=== PATIENT | male | born 1950 | race Caucasian/White ===

== ENCOUNTER 2017-06-15 12:01 | Inpatient (IN) | payer OTHER ==
[~2017-06-15] VITALS: Ht 172.7 cm; Wt 79.2 kg
[~2017-06-15 12:01] MED LIST: ATEN25TA PO; DCL250 PO; LEVO25TA PO; LPT10 PO; WARF-280 PO; WARF5TAB7 PO; gabapentin PO
--- NOTE | 2017-06-15 12:40 | EMERGENCY ROOM VISIT NOTE ---
History Report prepared by Tyrone: Jean Foreman Under the Supervision of: Dr. Darryl Larson D.O. First contact with patient: 12:25 Chief Complaint: WOUND INFECTION Stated Complaint: Eval open sores on arms, bleeding/infection risk History of Present Illness The patient is a 67 year old male who presents to the Emergency Room with complaints of a worsening wound infection for the past month. The patient states that he has had a rash that started on his left knee and has spread, and he states that it is itchy. He states that his PCP thought that he had mites under his skin. He denies any nausea, vomiting, fever, and chills. The patient states that he is currently on Coumadin. He reports that he has been eating and drinking well. Source of History: patient Onset: a month ago Position: other (skin) Quality: other (wound infection) Timing: worsening Associated Symptoms: + rash, No fevers, No chills, No nausea, No vomiting Review of Systems See HPI for pertinent positives & negatives. A total of 10 systems reviewed and were otherwise negative. Past Medical & Surgical Medical Problems: (1) Hyperlipidemia Family History FH: heart disease Social History Smoking Status: Never Smoker Alcohol Use: heavy Drug Use: none Marital Status: single Housing Status: lives with family Occupation Status: employed Current/Historical Medications Scheduled Atenolol (Tenormin), 25 MG PO DAILY Atorvastatin (Lipitor), 10 MG PO DAILY Citalopram Hydrobromide (Celexa), 20 TAB PO DAILY Donepezil HCl (Aricept), 1 TAB PO HS Furosemide (Lasix), 20 MG PO DAILY Gabapentin (Gabapentin), 1 TAB PO DAILY Levothyroxine Sodium (Synthroid), 25 MCG PO DAILY Potassium Chloride (Potassium Chloride Er), 1 CAP PO DAILY Warfarin Sodium (Coumadin), 2 TAB PO SaSu Warfarin Sodium (Coumadin), 1 TAB PO MoTuWeThFr Allergies Coded Allergies: No Known Allergies (Unverified , 06/15/17) Physical Exam Vital Signs Date Time Temp Pulse Resp B/P (MAP) Pulse Ox O2 Delivery O2 Flow Rate FiO2 06/15/17 15:39 75 31 100 06/15/17 15:09 78 22 100 06/15/17 14:46 90/72 06/15/17 14:39 77 19 100 06/15/17 14:09 77 20 94 4/20/18 14:01 92/51 06/15/17 13:39 74 16 100 06/15/17 13:11 100 Room Air 06/15/17 13:09 76 21 100 06/15/17 13:08 79 06/15/17 13:04 105/52 06/15/17 12:10 36.4 93 20 113/74 100 Room Air Physical Exam GENERAL: Patient is awake, alert, somewhat anxious appearing and disheveled. EYES: The conjunctivae are clear. The pupils are round and reactive. EARS, NOSE, MOUTH AND THROAT: The nose is without any evidence of any deformity. Mucous membranes are moist tongue is midline NECK: The neck is nontender and supple. RESPIRATORY: Normal respiratory effort is noted there is no evidence of wheezing rhonchi or rales CARDIOVASCULAR: Regular rate and rhythm noted there no murmurs rubs or gallops normal S1 normal S2 GASTROINTESTINAL: The abdomen is soft. Bowel sounds are present in all quadrants. Abdomen is nontender PELVIS: The Pelvis is stable. No tenderness to palpation is noted. BACK: No midline tenderness or or step-off noted range of motion in flexion extension as well as rotation no signs of muscle spasm noted MUSCULOSKELETAL/EXTREMITIES: There is no evidence of gross deformity full range of motion is noted in the hips and shoulders SKIN: Edema in both lower extremities. There was excoriation over the entire body with erythema and signs of secondary cellulitis. NEUROLOGIC: Patient is awake alert and oriented x3 Medical Decision & Procedures ER Provider Diagnostic Interpretation: Radiology results as stated below per my review and radiologist interpretation: CHEST ONE VIEW PORTABLE HISTORY: 67 years-old Male Sepsis acute sepsis COMPARISON: Chest radiograph 03/06/2014 TECHNIQUE: Portable AP view of the chest FINDINGS: Cardiac silhouette is again mildly enlarged. Prior median sternotomy with prosthetic cardiac valve. There may be a small hiatal hernia. No pneumothorax, pleural effusion, focal airspace consolidation or overt pulmonary edema. Bones of the chest appear grossly intact. Degenerative changes of the shoulders and spine. IMPRESSION: Cardiomegaly without acute process. The above report was generated using voice recognition software. It may contain grammatical, syntax or spelling errors. Electronically signed by: Case Terry M.D. 06/15/2017 12:55 PM Dictated Date/Time: 06/15/2017 12:51 PM Laboratory Results 06/15/17 13:00 Red Blood Count 3.56, Mean Corpuscular Volume 87.4, Mean Corpuscular Hemoglobin 28.9, Mean Corpuscular Hemoglobin Concent 33.1, Mean Platelet Volume 8.9, Neutrophils (%) (Auto) 44.8, Lymphocytes (%) (Auto) 3.8, Monocytes (%) (Auto) 3.4, Eosinophils (%) (Auto) 47.3, Basophils (%) (Auto) 0.1, Neutrophils # (Auto ) 10.21, Lymphocytes # (Auto) 0.86, Monocytes # (Auto) 0.78, Eosinophils # (Auto ) 10.81, Basophils # (Auto) 0.03 06/15/17 13:00 Test 06/15/17 13:00 06/15/17 13:03 06/15/17 13:12 06/15/17 13:54 White Blood Count 22.83 K/uL (4.8-10.8) Red Blood Count 3.56 M/uL (4.7-6.1) Hemoglobin 10.3 g/dL (14.0-18.0) Hematocrit 31.1 % (42-52) Mean Corpuscular Volume 87.4 fL (80-100) Mean Corpuscular Hemoglobin 28.9 pg (25-34) Mean Corpuscular Hemoglobin Concent 33.1 g/dl (32-36) Platelet Count 383 K/uL (130-400) Mean Platelet Volume 8.9 fL (7.4-10.4) Neutrophils (%) (Auto) 44.8 % Lymphocytes (%) (Auto) 3.8 % Monocytes (%) (Auto) 3.4 % Eosinophils (%) (Auto) 47.3 % Basophils (%) (Auto) 0.1 % Neutrophils # (Auto) 10.21 K/uL (1.4-6.5) Lymphocytes # (Auto) 0.86 K/uL (1.2-3.4) Monocytes # (Auto) 0.78 K/uL (0.11-0.59) Eosinophils # (Auto) 10.81 K/uL (0-0.5) Basophils # (Auto) 0.03 K/uL (0-0.2) RDW Standard Deviation 44.4 fL (36.4-46.3) RDW Coefficient of Variation 14.1 % (11.5-14.5) Immature Granulocyte % (Auto) 0.6 % Immature Granulocyte # (Auto) 0.14 K/uL (0.00-0.02) Erythrocyte Sedimentation Rate 11 mm/hr (0-14) Prothrombin Time 12.4 SECONDS (9.0-12.0) Prothromb Time International Ratio 1.2 (0.9-1.1) Activated Partial Thromboplast Time 35.9 SECONDS (21.0-31.0) Partial Thromboplastin Ratio 1.4 Anion Gap 8.0 mmol/L (3-11) Est Creatinine Clear Calc Drug Dose 27.9 ml/min Estimated GFR () 29.6 Estimated GFR (Non- 25.5 BUN/Creatinine Ratio 20.2 (10-20) Calcium Level 8.3 mg/dl (8.5-10.1) Phosphorus Level 3.8 mg/dl (2.5-4.9) Magnesium Level 2.2 mg/dl (1.8-2.4) Total Bilirubin 0.3 mg/dl (0.2-1) Aspartate Amino Transf (AST/SGOT) 15 U/L (15-37) Alanine Aminotransferase (ALT/SGPT) 18 U/L (12-78) Alkaline Phosphatase 107 U/L (45-117) Total Creatine Kinase 106 U/L (39-308) Creatine Kinase MB 3.8 ng/ml (0.5-3.6) Creatine Kinase MB Ratio 3.6 (0-3.0) Troponin I < 0.015 ng/ml (0-0.045) C-Reactive Protein 5.30 mg/dl (0-0.29) Pro-B-Type Natriuretic Peptide 9473 pg/ml (0-900) Total Protein 5.6 gm/dl (6.4-8.2) Albumin 2.2 gm/dl (3.4-5.0) Globulin 3.4 gm/dl (2.5-4.0) Albumin/Globulin Ratio 0.7 (0.9-2) Lipase 226 U/L (73-393) Venous Blood pH 7.37 (7.36-7.41) Venous Blood Partial Pressure CO2 36 mmHg (38.0-50.0) Venous Blood Partial Pressure O2 34 mmHg Venous Blood HCO3 20 mmol/L Venous Blood Oxygen Saturation < 60.0 % Venous Blood Base Excess -4.7 mEq/L Bedside Lactic Acid Venous 1.34 mmol/L (0.90-1.70) Ammonia 21.0 umol/L (11-32) Laboratory results per my review. Medications Administered Medications (Trade) Dose Ordered Sig/Lakisha Route Start Time Stop Time Status Last Admin Dose Admin Sodium Chloride 1,000 ml @ 999 mls/hr Q1H1M STAT IV 06/15/17 13:40 06/15/17 14:40 DC 06/15/17 13:58 999 MLS/HR Ceftriaxone Sodium (Rocephin Inj) 1 gm NOW STAT IV 06/15/17 14:02 06/15/17 14:04 DC 06/15/17 14:00 1 GM Vancomycin HCl 1600 mg/Sodium Chloride 532 ml @ 200 mls/hr ONE STAT IV 06/15/17 14:02 06/15/17 16:41 DC 06/15/17 14:45 200 MLS/HR ECG Per My Interpretation Indication: weakness Rate (beats per minute): 79 Findings: no ectopy, other (No acute ST segment abnormality) Comparison ECG Date: 03/06/14 Change: no significant change ED Course 1225: The patient was evaluated in room C5. A complete history and physical examination were performed. 1340: NSS 1,000 ml @ 999 mls/hr IV 1402: Vancomycin HCl 1600mg/ Sodium Chloride 532ml @ 200mls/hr, Rocephin 1gm IV 1502: Upon reevaluation, the patient is doing well. I discussed results and treatment plan with him. He verbalizes agreement and understanding. The patient will be evaluated for further management and care. 1505: I discussed the patient's case with Kiki Hyde PA-C [facility] Hospitalist. The patient will be evaluated for further management. Medical Decision Differential diagnosis: Etiologies such as cellulitis, abscess, MRSA infection, DVT, necrotizing fasciitis, dermatitis, drug eruption, as well as others were entertained. Nursing notes reviewed. The patient is a 67-year-old male who presented to the emergency department with a generalized rash. The patient was found to have edema over his entire body as well as a rash which was associated with significant excoriation. The patient's overall condition appears to be with worsening rash with superimposed cellulitis. He was found to have a very elevated white blood cell count. The patient was treated with IV fluids as well as IV antibiotics. I discussed patient's laboratory and radiographic studies with him. Because of his past medical history and his elevated white blood cell count I do feel the patient may require inpatient management. This could represent a drug reaction or possibly some other underlying systemic illness. I discussed this case with the on-call [facility] hospitalist group. They have agreed to evaluate the patient in the emergency department for further management and disposition. Medication Reconcilliation Current Medication List: was personally reviewed by me Blood Pressure Screening Patient's blood pressure: Normal blood pressure Consults Time Called: 1502 Consulting Physician: Kiki Rizzo Returned Call: 1505 I discussed the patient's case with Kiki Rizzo. The patient will be evaluated for further management. Impression Primary Impression: Cellulitis Additional Impression: ОЛЕГ (acute kidney injury) Scribe Attestation The scribe's documentation has been prepared under my direction and personally reviewed by me in its entirety. I confirm that the note above accurately reflects all work, treatment, procedures, and medical decision making performed by me. Departure Information Dispostion Being Evaluated By Hospitalist Referrals Horace Boles D.O. (PCP) Patient Instructions My [facility] Problem Qualifiers Primary Impression: Cellulitis Site of cellulitis: unspecified site Qualified Codes: L03.90 - Cellulitis, unspecified
--- NOTE | 2017-06-15 12:56 | DIAGNOSTIC IMAGING REPORT ---
CHEST ONE VIEW PORTABLE HISTORY: 67 years-old Male Sepsis acute sepsis COMPARISON: Chest radiograph 03/06/2014 TECHNIQUE: Portable AP view of the chest FINDINGS: Cardiac silhouette is again mildly enlarged. Prior median sternotomy with prosthetic cardiac valve. There may be a small hiatal hernia. No pneumothorax, pleural effusion, focal airspace consolidation or overt pulmonary edema. Bones of the chest appear grossly intact. Degenerative changes of the shoulders and spine. IMPRESSION: Cardiomegaly without acute process. The above report was generated using voice recognition software. It may contain grammatical, syntax or spelling errors. Electronically signed by: Case Terry M.D. 06/15/2017 12:55 PM Dictated Date/Time: 06/15/2017 12:51 PM
[2017-06-15 13:17] LABS: BASO % 0.1 %; BASO ABS # 0.03 K/uL (0-0.2); EOS % 47.3 %; EOS ABS # 10.81 K/uL (0-0.5); HEMATOCRIT 31.1 % (42-52); HEMOGLOBIN 10.3 g/dL (14.0-18.0); IG# 0.14 K/uL (0.00-0.02); LYMPH % 3.8 %; LYMPH ABS # 0.86 K/uL (1.2-3.4); MEAN CELL VOLUME 87.4 fL (80-100); MEAN CORPUSCULAR HEMOGLOBIN 28.9 pg (25-34); MEAN CORPUSCULAR HGB CONC 33.1 g/dl (32-36); MEAN PLATELET VOLUME 8.9 fL (7.4-10.4); MONO % 3.4 %; MONO ABS # 0.78 K/uL (0.11-0.59); NEUT % 44.8 %; NEUT ABS # 10.21 K/uL (1.4-6.5); PLATELET COUNT 383 K/uL (130-400); RED CELL DISTRIBUTION WIDTH CV 14.1 % (11.5-14.5); RED CELL DISTRIBUTION WIDTH SD 44.4 fL (36.4-46.3); WHITE BLOOD COUNT 22.83 K/uL (4.8-10.8)
[2017-06-15 13:27] LABS: INR 1.2 (0.9-1.1); PTT PATIENT 35.9 SECONDS (21.0-31.0)
[2017-06-15 13:34] LABS: ALBUMIN 2.2 gm/dl (3.4-5.0); ALT/SGPT 18 U/L (12-78); AST/SGOT 15 U/L (15-37); BLOOD UREA NITROGEN 51 mg/dl (7-18); CALCIUM 8.3 mg/dl (8.5-10.1); CARBON DIOXIDE 20 mmol/L (21-32); CREATININE 2.52 mg/dl (0.60-1.40); GLUCOSE 78 mg/dl (70-99); LIPASE 226 U/L (73-393); POTASSIUM 5.2 mmol/L (3.5-5.1); SODIUM 136 mmol/L (136-145)
[2017-06-15 13:37] LABS: ALKALINE PHOSPHATASE 107 U/L (45-117); CKMB 3.8 ng/ml (0.5-3.6); PHOSPHORUS 3.8 mg/dl (2.5-4.9); TOTAL PROTEIN 5.6 gm/dl (6.4-8.2)
[2017-06-15] MEDS ORDERED: SODIUM CHLORIDE 0.9% 1000ML 1,000 ML IV STA (13:40)
[2017-06-15] MEDS ORDERED: VANCOMYCIN IV STA (14:02)
[2017-06-15] MEDS ORDERED: SODIUM CHLORIDE 0.9% IV STA (14:02)
[2017-06-15] MEDS ORDERED: CEFTRIAXONE SOD INJ 1 GM ADDVIAL IV STA (14:02)
[2017-06-15] MEDS ORDERED: VANCOMYCIN CONSULT ACTIVE PRN ×2 (14:15→16:15)
[2017-06-15] MEDS ORDERED: ACETAMINOPHEN 325 MG TAB PO PRN (16:00)
[2017-06-15] MEDS ORDERED: LEVO25TA5 PO (16:31)
[2017-06-15] MEDS ORDERED: POTA1CAP2 PO (16:31)
[2017-06-15] MEDS ORDERED: CITA10TA8 PO (16:31)
[2017-06-15] MEDS ORDERED: NRN100 PO (16:31)
[2017-06-15] MEDS ORDERED: DONE5TAB9 PO (16:31)
[2017-06-15] MEDS ORDERED: FURO20TA PO (16:31)
[2017-06-15] MEDS ORDERED: WARF4TAB PO (16:41)
[2017-06-15] MEDS ORDERED: WARF6TAB PO (16:41)
--- NOTE | 2017-06-15 16:44 | History and Physical ---
History & Physical Date & Time of Service: Jun 15, 2017 at 16:44 Chief Complaint: Eval Open Sores On Arms Bleeding/Infection Risk Primary Care Physician: Horace Boles D.O. History of Present Illness Source: patient, clinic records, hospital records This is a 67-year-old male with a PMH of schizophrenia, systolic CHF 2/2 valvular disease, paroxysmal A. fib (on Coumadin), aortic valve replacement, mitral valve repair and other medical problems listed below who presents with open sores on his arms, trunk and legs 1 month. Patient is a poor historian so HPI is limited. States that he first noticed rash 3-4 weeks ago and was seen in urgent care, where he was diagnosed with probable scabies and prescribed permethrin cream. However, patient applied medication inappropriately and rinsed a few hours after application. Was seen in clinic on 05/25/17 and was prescribed a course of Keflex for secondary bacterial infection. Patient states that he completed the antibiotic 2 weeks ago. Is unsure whether or not medication helped with sores. Went to [facility] today for annual EKG and states that he was sent over to the ED due to the appearance of his skin. Sores continue to itch and drain intermittently as well as bleed from scratching. Denies fever, chills or malaise. Does endorse some lightheadedness with standing but denies near-syncope or falls. Has issues with incontinence but denies dysuria. LE swelling is at baseline. Denies headache, visual changes, chest pain, SOB, abdominal pain, nausea, vomiting, constipation or diarrhea. Appetite and fluid intake are normal. Patient lives with brother in [place] and is employed at [employer]. Has been unable to work for the last few weeks. Follows with Coumadin clinic but is unsure of current medication dose. Denies being sexually active. Of note, home medications reconciled per [facility] out-patient record and with patient but per out-patient pharmacy, patient has only recently filled the following: -Permethrin cream -Keflex -Atenolol -Warfarin 4mg tabs Past Medical/Surgical History Medical Problems: (1) Anticoagulant long-term use Status: Chronic (2) History of endocarditis Status: Chronic (3) HLD (hyperlipidemia) Status: Chronic (4) Hyperlipidemia Status: Chronic (5) Hypothyroidism Status: Chronic (6) Paroxysmal atrial fibrillation Status: Chronic (7) Schizophrenia, unspecified Status: Chronic (8) Superior mesenteric aneurysm Status: Chronic Surgical Problems: (1) H/O tricuspid valve annuloplasty Status: Chronic (2) S/P aortic valve replacement Status: Chronic (3) S/P mitral valve repair Status: Chronic Family History FH: heart disease Social History Smoking Status: Never Smoker Alcohol Use: heavy (~3 beers daily ) Drug Use: none Marital Status: single Housing status: lives with family Occupational Status: employed Immunizations History of Influenza Vaccine: Yes History of Tetanus Vaccine?: not since 1998 or so History of Pneumococcal: No History of Hepatitis B Vaccine: No Allergies Coded Allergies: No Known Allergies (Unverified , 06/15/17) Home Medications Scheduled Atenolol (Tenormin), 25 MG PO DAILY Atorvastatin (Lipitor), 10 MG PO DAILY Citalopram Hydrobromide (Celexa), 20 TAB PO DAILY Donepezil HCl (Aricept), 1 TAB PO HS Furosemide (Lasix), 20 MG PO DAILY Gabapentin (Gabapentin), 1 TAB PO DAILY Levothyroxine Sodium (Synthroid), 25 MCG PO DAILY Potassium Chloride (Potassium Chloride Er), 1 CAP PO DAILY Warfarin Sod (Coumadin), 6 MG PO DAILY Review of Systems Ten systems reviewed and negative except as noted in the HPI. Physical Exam Vital Signs Date Time Temp Pulse Resp B/P (MAP) Pulse Ox O2 Delivery O2 Flow Rate FiO2 06/15/17 13:11 100 Room Air 06/15/17 13:08 79 06/15/17 13:04 105/52 06/15/17 12:10 36.4 93 20 113/74 100 Room Air General Appearance: no apparent distress, + pertinent finding (Disheveled appearance) Head: normocephalic, atraumatic Eyes: normal inspection, PERRL, sclerae normal ENT: normal ENT inspection, hearing grossly normal, pharynx normal (dry mucous membranes ) Neck: supple, trachea midline Respiratory/Chest: chest non-tender, lungs clear, normal breath sounds, no respiratory distress, no accessory muscle use Cardiovascular: regular rate, rhythm, normal peripheral pulses, + systolic murmur, + pertinent finding (BLE edema R>L ) Abdomen/GI: non tender, soft, no organomegaly Genitourinary - Male: + pertinent finding (R scrotal edema with excoriations. Non-tender) Back: + pertinent finding (Patchy discoloration noted on back. Non-tender, no drainage ) Extremities/Musculoskelatal: normal capillary refill, non-tender Neurologic/Psych: no motor/sensory deficits, alert, normal mood/affect, oriented x 3 Skin: + pertinent finding (Diffuse excoriation over arms, trunk, legs, scrotum with some open wounds. Erythema and edema noted on BLE. ) Diagnostics Laboratory Results Results Past 24 Hours Test 06/15/17 13:00 06/15/17 13:03 06/15/17 13:12 06/15/17 13:54 Range/Units White Blood Count 22.83 4.8-10.8 K/uL Red Blood Count 3.56 4.7-6.1 M/uL Hemoglobin 10.3 14.0-18.0 g/dL Hematocrit 31.1 42-52 % Mean Corpuscular Volume 87.4 80-100 fL Mean Corpuscular Hemoglobin 28.9 25-34 pg Mean Corpuscular Hemoglobin Concent 33.1 32-36 g/dl Platelet Count 383 130-400 K/uL Mean Platelet Volume 8.9 7.4-10.4 fL Neutrophils (%) (Auto) 44.8 % Lymphocytes (%) (Auto) 3.8 % Monocytes (%) (Auto) 3.4 % Eosinophils (%) (Auto) 47.3 % Basophils (%) (Auto) 0.1 % Neutrophils # (Auto) 10.21 1.4-6.5 K/uL Lymphocytes # (Auto) 0.86 1.2-3.4 K/uL Monocytes # (Auto) 0.78 0.11-0.59 K/uL Eosinophils # (Auto) 10.81 0-0.5 K/uL Basophils # (Auto) 0.03 0-0.2 K/uL RDW Standard Deviation 44.4 36.4-46.3 fL RDW Coefficient of Variation 14.1 11.5-14.5 % Immature Granulocyte % (Auto) 0.6 % Immature Granulocyte # (Auto) 0.14 0.00-0.02 K/uL Erythrocyte Sedimentation Rate 11 0-14 mm/hr Prothrombin Time 12.4 9.0-12.0 SECONDS Prothromb Time International Ratio 1.2 0.9-1.1 Activated Partial Thromboplast Time 35.9 21.0-31.0 SECONDS Partial Thromboplastin Ratio 1.4 Sodium Level 136 136-145 mmol/L Potassium Level 5.2 3.5-5.1 mmol/L Chloride Level 108 98-107 mmol/L Carbon Dioxide Level 20 21-32 mmol/L Anion Gap 8.0 3-11 mmol/L Blood Urea Nitrogen 51 7-18 mg/dl Creatinine 2.52 0.60-1.40 mg/dl Est Creatinine Clear Calc Drug Dose 27.9 ml/min Estimated GFR () 29.6 Estimated GFR (Non- 25.5 BUN/Creatinine Ratio 20.2 10-20 Random Glucose 78 70-99 mg/dl Calcium Level 8.3 8.5-10.1 mg/dl Phosphorus Level 3.8 2.5-4.9 mg/dl Magnesium Level 2.2 1.8-2.4 mg/dl Total Bilirubin 0.3 0.2-1 mg/dl Aspartate Amino Transf (AST/SGOT) 15 15-37 U/L Alanine Aminotransferase (ALT/SGPT) 18 12-78 U/L Alkaline Phosphatase 107 45-117 U/L Total Creatine Kinase 106 39-308 U/L Creatine Kinase MB 3.8 0.5-3.6 ng/ml Creatine Kinase MB Ratio 3.6 0-3.0 Troponin I < 0.015 0-0.045 ng/ml C-Reactive Protein 5.30 0-0.29 mg/dl Pro-B-Type Natriuretic Peptide 9473 0-900 pg/ml Total Protein 5.6 6.4-8.2 gm/dl Albumin 2.2 3.4-5.0 gm/dl Globulin 3.4 2.5-4.0 gm/dl Albumin/Globulin Ratio 0.7 0.9-2 Lipase 226 73-393 U/L Venous Blood pH 7.37 7.36-7.41 Venous Blood Partial Pressure CO2 36 38.0-50.0 mmHg Venous Blood Partial Pressure O2 34 mmHg Venous Blood HCO3 20 mmol/L Venous Blood Oxygen Saturation < 60.0 % Venous Blood Base Excess -4.7 mEq/L Bedside Lactic Acid Venous 1.34 0.90-1.70 mmol/L Ammonia 21.0 11-32 umol/L Microbiology Results 06/15/17 Blood Culture, Received Pending 06/15/17 Blood Culture, Received Pending Diagnostic Radiology CXR: IMPRESSION: Cardiomegaly without acute process. Impression Assessment and Plan This is a 67-year-old male with a PMH of schizophrenia, systolic CHF 2/2 valvular disease, paroxysmal A. fib (on Coumadin), aortic valve replacement, mitral valve repair and other medical problems listed below who presents with open sores on his arms, trunk and legs 1 month. BLE cellulitis 2/2 ?scabies infection: -Diffuse sores with excoriation x 4 weeks -Incomplete permethrin treatment, Keflex course -SIRs criteria met but does not look septic clinically -Leucocytosis of 22.8. Lactic acid wnl -Vanc and zosyn given empirically in ED -Continue with dapto -Blood and wound cultures pending -Prednisone 40mg daily, benadryl Q6 -HIV, RPR to r/o underlying cause -Derm consult -Wound care consult ОЛЕГ: -Cr of 2.52 (baseline ~1) -GFR of 25 (baseline >60) -Likely multifactorial: dehydration, infection, lasix -Urine electrolytes pending -Gentle IVF resuscitation -Hold lasix tomorrow AM and reassess Urinary incontinence: -Unclear whether or not this is acute -Denies dysuria, penile discharge -GC/chlam screen Scrotal edema: -2/2 R inguinal hernia -Non-tender -Last ultrasound from urology clinic in 2012 -Recommend out-patient follow-up and repeat ultrasound Schizophrenia: -Takes an SSRI and Aricept but no anti-psychotics -Poor insight regarding mental health, other medical conditions Paroxysmal A fib: -Regular rate and rhythm on exam -Continue atenolol, coumadin -INR subtherapeutic at 1.2 -Unclear of patient's compliance -Continue home dose of 6mg daily -Monitor INR and adjust accordingly Chronic heart failure 2/2 valvular disease: -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 Chronic BLE edema. CXR without any acute process -May 2016 echo with EFof 55-59%. Mildly increased LV wall. The aortic valve prosthesis systolic gradients are normal for this type prosthesis. There is evidence of prior mitral valve repair. Moderate mitral regurgitation is present. -Hold lasix in AM 2/2 ОЛЕГ Hypothyroidism: -Cont synthroid HLD: -Cont statin H/o heavy alcohol use: -Endorses 2-3 beers daily -Cont home dose gabapentin -At risk protocol ativan PRN DVT Ppx: Coumadin Code status: FULL PCP: Elvi Dispo: Admit to telemetry. Discharge planning ordered. Patient seen in collaboration with Dr. Kuhn. Please see addendum. Addendum: I have seen and examined the patient and agree with the assessment and plan as stated above with the following exceptions. The patient presents with well scratched sores and excoriations all over his body except on his back where he cannot reach. His back has discoloration to the skin with a darkish brown mottled appearance. There is a clear bilateral lower extremity cellulitis. There are no track ge that are seen being persistent scabies infection. It should be noted that scabies can produce pruritus for up to 4 weeks posttreatment. Agree with prednisone and antihistamines to treat symptoms. Daptomycin given empirically to cover staph, strep, MRSA. HIV is negative. Dermatology, ID, wound care consults were ordered. The patient has a very large right-sided inguinal hernia into the scrotal sac that is as large as a softball. He is reportedly not concerned by this and states that no one recommended surgery to him. Prior urology notes report that as it was not a hindrance, no treatment was recommended and that she should follow-up every couple of years. Would recommend outpatient urology follow-up for this. There is a nodular appearing flesh-colored rash on his scrotum which may be a result of edema versus STI. The patient reports no sexual intercourse. Studies are pending. He has a significant AK I and agree with holding diuretic and giving fluids with reassessment in the morning. Urine studies were ordered. The patient is schizophrenic and lives with his brother. He reports taking care of himself but insight and judgment are questionable. He is also a questionable historian. Consider psychiatric consult as inpatient to ensure the patient is safe to go home and continue caring for himself closer to discharge. This infection is clearly out of control and he was sent by doctor's office to the ER he did not feel himself this was an issue warranting treatment. Resuscitation Status VTE Prophylaxis Will order VTE Prophylaxis: Yes
[2017-06-15 17:45] VITALS: BP 95/54; PULSE 78; TEMP 36.6; O2SAT 94; Ht 172.7 cm; Wt 79.2 kg
[2017-06-15] MEDS ORDERED: ELMCR TOP (17:53)
[2017-06-15] MEDS ORDERED: SODIUM CHLORIDE 0.9% 1000ML 1,000 ML IV SCH (18:00)
[2017-06-15] MEDS ORDERED: WARFARIN SOD 6 MG TAB PO SCH (18:00)
[2017-06-15] MEDS ORDERED: DAPTOMYCIN CONSULT ACTIVE PRN (18:36)
--- NOTE | 2017-06-15 19:04 | Pharmacy Progress Note ---
ED Pharmacist Progress Note Date of Service: Jun 15, 2017. Situation Attempted to complete med rec for this complicated patient - he did not know any medications he was on. Background Called [facility] pharmacy with the patient's permission. Recent fill history only included the following: * Permetherin 5% filled 05/23: apply head to toe. Rinse. Repeat in 7 days * Cephalexin 500 mg po TID x7 days filled on 05/25 * Warfarin 4 mg po daily * Atenolol 25 mg po daily [facility] also noted that patient had *remote* fill history of the following: * Atorvastatin 10 mg po daily (last filled March 25 for 30 day supply) * Levothyroxine 25 mcg po daily (last filled January 2017 for 30 day supply) * Gabapentin has not been filled since April of 2016 Spoke with Kiki Hyde PA-C who noted Epic records from today had Coumadin clinic recommendation to give warfarin 8 mg po x2 then resume dose of 6 mg po daily Subtherapeutic INR today. Indication for warfarin = Afib. Also with bioprosthetic aortic valve replacement Assessment * Of note, if patient gets medications from multiple pharmacies, he may be taking other medications not included above. * However, I still suspect significant outpatient non-adherence, likely affecting most/all of his medications as patient did not know any medications he was taking, his INR was subtherapeutic, and fill history at outpatient pharmacy does not match medication list Recommendation * With 100% adherence inpatient, suggest close monitoring for medication related adverse effects * Most notably, warfarin dose may need to be decreased, despite subtherapeutic INR * Suggest warfarin 5 mg po x2 then 4 mg daily with daily INR. If INR increases by 0.3-0.4 over any 24 hour period, would recommend dose reduction
[2017-06-15] MEDS ORDERED: CMD4 PO (19:34)
[2017-06-15] MEDS: DONEPEZIL HCL 5 MG TAB PO SCH (19:59)
[2017-06-15 20:18] VITALS: BP 102/64; PULSE 61; TEMP 36.5; O2SAT 96
[2017-06-15 23:52] VITALS: BP 92/51; PULSE 84; TEMP 36.5; O2SAT 100
[2017-06-16 03:42] VITALS: BP 93/58; PULSE 77; TEMP 36.8; O2SAT 98
[2017-06-16] MEDS: LEVOTHYROXINE 25 MCG TAB PO SCH (05:28)
[2017-06-16 06:28] LABS: HEMATOCRIT 24.9 % (42-52); HEMOGLOBIN 8.2 g/dL (14.0-18.0); MEAN CELL VOLUME 87.4 fL (80-100); MEAN CORPUSCULAR HEMOGLOBIN 28.8 pg (25-34); MEAN CORPUSCULAR HGB CONC 32.9 g/dl (32-36); MEAN PLATELET VOLUME 8.3 fL (7.4-10.4); PLATELET COUNT 303 K/uL (130-400); RED CELL DISTRIBUTION WIDTH CV 14.2 % (11.5-14.5); RED CELL DISTRIBUTION WIDTH SD 45.6 fL (36.4-46.3); WHITE BLOOD COUNT 12.26 K/uL (4.8-10.8)
[2017-06-16 06:38] LABS: INR 1.4 (0.9-1.1)
[2017-06-16 06:46] LABS: CALCIUM 7.7 mg/dl (8.5-10.1); CREATININE 2.25 mg/dl (0.60-1.40); POTASSIUM 5.2 mmol/L (3.5-5.1)
[2017-06-16 07:09] VITALS: BP_SYST 92; BP_SYST 94; BP_DIAS 57; BP_DIAS 64; PULSE 65; TEMP 36.4; O2SAT 100
[2017-06-16] MEDS ORDERED: DAPTOmycin IV 275 MG in SYRINGE 0 ML IV SCH (08:00)
[2017-06-16] MEDS: ATORVASTATIN 10 MG TAB PO SCH (08:20)
[2017-06-16] MEDS: CITALOPRAM 20 MG TAB PO SCH (08:20)
[2017-06-16] MEDS: GABAPENTIN 100 MG CAP PO SCH (08:21)
[2017-06-16] MEDS ORDERED: NURSING VERBAL MED ORDER ONE ×2 (08:45→09:00)
[2017-06-16] MEDS ORDERED: FUROSEMIDE 20 MG TAB PO SCH (09:00)
[2017-06-16] MEDS ORDERED: POTASSIUM CHLORIDE 10 MEQ TABCR PO SCH (09:00)
[2017-06-16] MEDS ORDERED: TRIAMCINOLONE ACET 0.1% CR 15 GM TUBE EXT SCH (09:00)
--- NOTE | 2017-06-16 10:29 | DERMATOLOGY CONSULTATION ---
DATE OF CONSULTATION: 06/16/2017 HISTORY OF PRESENT ILLNESS: Mr. Owens is a 67-year-old white male who was admitted yesterday for a skin condition. He is a somewhat poor historian, so it is unclear how long the skin condition has been present but it has apparently been present for several weeks and has been quite itchy. At one point, he was suspected to have scabies. He lives with a brother who he says does not have any skin problems. He has not had any treatment recently for the skin condition that I am aware of. MEDICATIONS: He is on chronic Coumadin. He received Rocephin and vancomycin in the Emergency Room yesterday. He is now on daptomycin. PHYSICAL EXAMINATION: GENERAL: He is a well-developed, well-nourished white male who is alert and responsive but is not entirely oriented. He is afebrile. EXAMINATION OF FACE, EARS, NECK, SCALP: Unremarkable. SKIN: The skin on the trunk is quite dry. The anterior trunk appears normal. The upper back has a few small areas of excoriations. The arms particularly the forearms have numerous crusted sores consistent with excoriations. The hands, finger, webs really are not involved. The genital area reveals a massively swollen scrotum that he really cannot describe how long that has been present. There are some excoriations on the scrotum. He appears to be uncircumcised. There are really no lesions on the penis. Legs, particularly the lower legs also have crusted areas consistent with excoriations. The feet are quite dry, but no significant involvement of the feet or toes. IMPRESSION: Neurotic excoriations with secondary wound infection. I do not see any primary dermatologic problem. PLAN: Cultures from the skin are pending. He is on daptomycin, Benadryl, and prednisone is about to be started and agree with all of those. We are also adding triamcinolone cream 0.1% b.i.d. to these affected areas. Again, there is no evidence for scabies and I will follow him up on a p.r.n. basis. [facility]
[2017-06-16 11:35] VITALS: BP 100/61; PULSE 71; TEMP 36.4; O2SAT 100
--- NOTE | 2017-06-16 14:07 | Progress Note ---
Internal Med Progress Note Date of Service: Jun 16, 2017. Provider Documentation: SUBJECTIVE: The patient was seen and examined in telemetry unit He was admitted with them secondary infection involving the skin with and other comorbid conditions He has history of schizophrenia and has been a poor historian Has been feeling better since admission and denies any significant symptoms today OBJECTIVE: Vital Signs-as noted below Exam: General-no apparent distress at rest Eyes-normal ENT-normal Neck-supple Lungs-clear to auscultate bilaterally Heart-S1-S2 irregular Abdomen-benign, soft, nontender, bowel sounds present He was swelling of scrotum mostly on right side which is elongated with the minimal redness involving the skin This is right inguinal hernia without any signs of obstruction Extremities-1+ edema on the right and trace edema on the left Has multiple scattered skin ulcerations seems to be self inflicted, worse on the right side He has generalized small skin lesions again seems to be self-inflicted with secondary infection Clinically no evidence of scabies Neuro-alert and awake He has more or less typical symptoms of schizophrenia Generally weak but no focal neuro deficit Lab data as noted below. ASSESSMENT & PLAN: This is a 67-year-old male with a PMH of schizophrenia, systolic CHF 2/2 valvular disease, paroxysmal A. fib (on Coumadin), aortic valve replacement, mitral valve repair and other medical problems listed below who presents with open sores on his arms, trunk and legs 1 month. BLE cellulitis 2/2,Scabies ruled out -Diffuse sores with excoriation x 4 weeks -Incomplete permethrin treatment, Keflex course -SIRs criteria met but does not look septic clinically -Leucocytosis of 22.8. Lactic acid wnl -Vanc and zosyn given empirically in ED -Continue with dapto -Blood and wound cultures pending -Prednisone 40mg daily, Benadryl Q6 -HIV, RPR to r/o underlying cause -negative -Derm consult -appreciate Input -Wound care consult ОЛЕГ: -Cr of 2.52 (baseline ~1) -GFR of 25 (baseline >60) -Likely multifactorial: dehydration, infection, Lasix -Urine electrolytes -noted -Gentle IVF resuscitation -Hold Lasix -slightly better Urinary incontinence: -Unclear whether or not this is acute -Denies dysuria, penile discharge -GC/chlam screen Scrotal edema: -2/2 R inguinal hernia -Non-tender -Last ultrasound from urology clinic in 2012 -Recommend out-patient follow-up and repeat ultrasound Schizophrenia: -Takes an SSRI and Aricept but no anti-psychotics -Poor insight regarding mental health, other medical conditions -psychiatry evaluation Paroxysmal A fib: -Regular rate and rhythm on exam -Continue atenolol, Coumadin -INR subtherapeutic at 1.2 Chronic heart failure 2/2 valvular disease: -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 Chronic BLE edema. CXR without any acute process -May 2016 echo with EFof 55-59%. Mildly increased LV wall. The aortic valve prosthesis systolic gradients are normal for this type prosthesis. There is evidence of prior mitral valve repair. Moderate mitral regurgitation is present. -Hold lasix in AM 2/2 ОЛЕГ -monitor fluid overload Hypothyroidism: -Cont Synthroid HLD: -Cont statin H/o heavy alcohol use: -Endorses 2-3 beers daily -Cont home dose gabapentin -At risk protocol Ativan PRN DVT Ppx: Coumadin Code status: FULL Vital Signs: Date Time Temp Pulse Resp B/P (MAP) Pulse Ox O2 Delivery O2 Flow Rate FiO2 06/16/17 12:00 Room Air 06/16/17 11:35 36.4 71 18 100/61 (74) 100 Room Air 06/16/17 08:00 Room Air 06/16/17 07:09 36.4 65 18 94/57 (69) 100 92/64 (73) 06/16/17 04:00 Room Air 06/16/17 03:42 36.8 77 20 93/58 (70) 98 Room Air 06/16/17 00:01 Room Air 06/15/17 23:52 36.5 84 20 92/51 (65) 100 Room Air 06/15/17 20:18 36.5 61 18 102/64 (77) 96 06/15/17 20:01 Room Air 06/15/17 17:45 36.6 78 20 95/54 94 Room Air 06/15/17 17:18 88 20 114/75 100 06/15/17 16:39 86 20 98/68 100 06/15/17 16:09 84 17 100 06/15/17 15:39 75 31 100 06/15/17 15:09 78 22 100 06/15/17 14:46 90/72 06/15/17 14:39 77 19 100 06/15/17 14:09 77 20 94 06/15/17 14:01 92/51 Lab Results: Results Past 24 Hours Test 06/16/17 01:55 06/16/17 05:56 Range/Units Urine Color YELLOW Urine Appearance CLEAR CLEAR Urine pH 5.0 4.5-7.5 Urine Specific Aynor 1.020 1.000-1.030 Urine Protein NEG NEG Urine Glucose (UA) NEG NEG Urine Ketones NEG NEG Urine Occult Blood NEG NEG Urine Nitrite NEG NEG Urine Bilirubin NEG NEG Urine Urobilinogen NEG NEG Urine Leukocyte Esterase TRACE NEG Urine WBC (Auto) 1-5 0-5 /hpf Urine RBC (Auto) 0-4 0-4 /hpf Urine Hyaline Casts (Auto) 0 0-5 /lpf Urine Epithelial Cells (Auto) 0-5 0-5 /lpf Urine Bacteria (Auto) NEG NEG Urine Random Creatinine 136.0 mg/dl Urine Random Sodium 8 mEq/L Urine Random Urea Nitrogen 853 mg/dl White Blood Count 12.26 4.8-10.8 K/uL Red Blood Count 2.85 4.7-6.1 M/uL Hemoglobin 8.2 14.0-18.0 g/dL Hematocrit 24.9 42-52 % Mean Corpuscular Volume 87.4 80-100 fL Mean Corpuscular Hemoglobin 28.8 25-34 pg Mean Corpuscular Hemoglobin Concent 32.9 32-36 g/dl RDW Standard Deviation 45.6 36.4-46.3 fL RDW Coefficient of Variation 14.2 11.5-14.5 % Platelet Count 303 130-400 K/uL Mean Platelet Volume 8.3 7.4-10.4 fL Prothrombin Time 15.0 9.0-12.0 SECONDS Prothromb Time International Ratio 1.4 0.9-1.1 Sodium Level 139 136-145 mmol/L Potassium Level 5.2 3.5-5.1 mmol/L Chloride Level 112 98-107 mmol/L Carbon Dioxide Level 20 21-32 mmol/L Anion Gap 7.0 3-11 mmol/L Blood Urea Nitrogen 44 7-18 mg/dl Creatinine 2.25 0.60-1.40 mg/dl Est Creatinine Clear Calc Drug Dose 31.2 ml/min Estimated GFR () 34.0 Estimated GFR (Non- 29.3 BUN/Creatinine Ratio 19.5 10-20 Random Glucose 113 70-99 mg/dl Calcium Level 7.7 8.5-10.1 mg/dl Microbiology Results 06/15/17 Gram Stain - Final, Resulted 06/15/17 Genital Culture, Resulted Pending 06/15/17 Gram Stain - Final, Resulted 06/15/17 Wound Culture, Resulted Pending
--- NOTE | 2017-06-16 15:29 | Psychiatric Consultation ---
Consultation Date of Consultation Jun 16, 2017. Identifying Data 67-year-old male with PMH of schizophrenia, systolic CHF, paroxysmal A. fib, valvular repair/replacement, other other medical problems. Pt presents with open wounds to arms, legs, and trunk being worked up for etiology. Due to history of reported schizophrenia, psychiatric consult requested for management. Chief Complaint "I think it was, my skin, I was picking it". History of Present Illness Christiano Owens is a 67-year-old male who presented to the ED upon recommendation from his outpatient office for open wounds to his arms, legs, and trunk. Pt is being worked up to determine etiology. Pt has a reported history of treatment for schizophrenia and is has a documented involuntary admission to [address] [place] [address] from July 2010. Pt was diagnosed with schizophrenia prior to his admission in 2010 and reported at that time, "having mental health problems in the 70's". 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 Pt denied auditory or visual hallucinations at that time. Prior to that hospitalization he had "not been on psychiatric medication for decades and has done well". He was not started on medications during that hospitalization. Pt seen today on psychiatric consult service for "management of schizophrenia." Pt answers questions appropriately; however, he is limited in his HPI. Pt reports being treated for schizophrenia "a long, long time ago", but reports to this provider that he is unsure if that was ever the case. He reports being off antipsychotic medications for years. Pt confirms his only psychiatric medication at this time is Celexa. Pt describes his mood as "okay" and denies any concerns related to mood or anxiety. Pt reports his sleep has been stable and there has been no change in his appetite. Pt denies concerns for depression or anxiety. He denies A/V hallucinations, SI/HI, kerry, or other psychiatric concerns. Pt states he has been stable on Celexa and does not feel that any changes need to be made at this time. Pt is appropriate and pleasant during the course of our encounter and does not give any indication for active psychosis, response to internal stimuli, or behavioral concerns. Attempts have been made by psychiatric nurse liaison to contact patient's sister , RA, and his brother, as well as the patient's reported pharmacies to confirm doses of medications. Awaiting collateral information. Past Psychiatric History Current OP Treatment: no current treatment Prior OP Treatment: psychiatrist, therapist Prior Psych Hospitalizations: [facility], other (reports " mental health problems in the 70's") Access to a Gun: No Past Medication Trials Per records from 2010 - - Thorazine, Stelazine, Haldol, and Cogentin "in the 1970's" Past Medical/Surgical History History of Concussion/Seizure: No (1) Cellulitis (2) ОЛЕГ (acute kidney injury) (3) Paroxysmal atrial fibrillation (4) Hypothyroidism (5) Hyperlipidemia Allergies Allergies: Coded Allergies: No Known Allergies (Unverified , 06/15/17) Home Medications Scheduled Atenolol (Tenormin), 25 MG PO DAILY Atorvastatin (Lipitor), 10 MG PO DAILY Citalopram Hydrobromide (Celexa), 20 TAB PO DAILY Donepezil HCl (Aricept), 1 TAB PO HS Furosemide (Lasix), 20 MG PO DAILY Gabapentin (Gabapentin), 1 TAB PO DAILY Levothyroxine Sodium (Synthroid), 25 MCG PO DAILY Potassium Chloride (Potassium Chloride Er), 1 CAP PO DAILY Warfarin Sod (Coumadin), 6 MG PO DAILY Family History FH: heart disease Alcohol Use Alcohol Use In Past 12 Months: No Smoking Use Smoking Status: Unknown if Ever Smoked Substance History Denies use of illicit substances either regularly or recreationally. Pt reports caffeine intake of 2 sodas per morning. Personal History Lives in: [place], [place] along with his older brother Education: graduated from high school, started college (reports 1 year at [employer]) Work History: Pt attends [employer] regularly for the past 25 years. Relationship History: never Children: denies Legal History: none Psychological Trauma History: Denies Hx Traumatic Event Review of Systems Psych: denies symptoms other than stated above Constitutional: denied Cardiovascular: denied GI: denied Neurologic: denied Integumentary: dense covering of excoriations along arms and trunk, most closed and healing, some remain open Remainder of 10 body systems also reviewed and denied other than noted above. Examination Vital Signs Vital Signs Past 12 Hours Date Time Temp Pulse Resp B/P (MAP) Pulse Ox O2 Delivery O2 Flow Rate FiO2 06/16/17 12:00 Room Air 06/16/17 11:35 36.4 71 18 100/61 (74) 100 Room Air 06/16/17 08:00 Room Air 06/16/17 07:09 36.4 65 18 94/57 (69) 100 92/64 (73) 06/16/17 04:00 Room Air 06/16/17 03:42 36.8 77 20 93/58 (70) 98 Room Air Laboratory Results Last 24 Hours Test 06/16/17 01:55 06/16/17 05:56 Urine Color YELLOW Urine Appearance CLEAR Urine pH 5.0 Urine Specific Lillian 1.020 Urine Protein NEG Urine Glucose (UA) NEG Urine Ketones NEG Urine Occult Blood NEG Urine Nitrite NEG Urine Bilirubin NEG Urine Urobilinogen NEG Urine Leukocyte Esterase TRACE Urine WBC (Auto) 1-5 /hpf Urine RBC (Auto) 0-4 /hpf Urine Hyaline Casts (Auto) 0 /lpf Urine Epithelial Cells (Auto) 0-5 /lpf Urine Bacteria (Auto) NEG Urine Random Creatinine 136.0 mg/dl Urine Random Sodium 8 mEq/L Urine Random Urea Nitrogen 853 mg/dl White Blood Count 12.26 K/uL Red Blood Count 2.85 M/uL Hemoglobin 8.2 g/dL Hematocrit 24.9 % Mean Corpuscular Volume 87.4 fL Mean Corpuscular Hemoglobin 28.8 pg Mean Corpuscular Hemoglobin Concent 32.9 g/dl RDW Standard Deviation 45.6 fL RDW Coefficient of Variation 14.2 % Platelet Count 303 K/uL Mean Platelet Volume 8.3 fL Prothrombin Time 15.0 SECONDS Prothromb Time International Ratio 1.4 Sodium Level 139 mmol/L Potassium Level 5.2 mmol/L Chloride Level 112 mmol/L Carbon Dioxide Level 20 mmol/L Anion Gap 7.0 mmol/L Blood Urea Nitrogen 44 mg/dl Creatinine 2.25 mg/dl Est Creatinine Clear Calc Drug Dose 31.2 ml/min Estimated GFR () 34.0 Estimated GFR (Non- 29.3 BUN/Creatinine Ratio 19.5 Random Glucose 113 mg/dl Calcium Level 7.7 mg/dl Mental Examination During interview pt is: alert and oriented, cooperative Appearance: disheveled, appeared stated age Eye contact is: poor (stares off to corner of the room, does not appear to be in response to internal stimuli) Motor behavior is: no abnormal motor movements Speech: normal in rate, rhythm & volume Affect: euthymic Mood is: other ("okay") Thought process: goal directed, clear, coherent, concrete Thought content: reality based without delusions Suicidal thought are: denied, Plan: denied, Intent: denied Homicidal thoughts are: denied Hallucinations: denies auditory, denies visual Cognition: attention grossly intact, language grossly intact Intelligence estimated to be: below average Insight: limited (due to likely intellectual disability) Judgement: limited (due to likely intellectual disability) Impression / Recommendations Impression 67-year-old male with previous diagnosis of schizophrenia who has been well- controlled off antipsychotic medication for decades. Pt reports current use of Celexa 20mg which has been beneficial for mood. Pt denies concerns with mood or anxiety. No evidence of active psychosis, patient does not appear to be responding to internal stimuli. He denies A/V hallucinations and states he is not suicidal or homicidal. Psychiatric nurse liaison has placed phone calls to patient's siblings to determine his current outpatient providers. Pt reports his medications are prescribed by his PCP, which may be likely if only requiring Celexa for mood control. No recommendations for changes at this time. Will be available for further questions as necessary; however, patient appears appropriate for ongoing treatment on the medical floor with disposition/ discharge as determined by primary medical team. Risk Factors Assessment Male: Yes : Yes /single/: Yes Access to guns: No Health problems: Yes Mental Health Diagnoses: Yes Substance use disorders: No Previous psychiatric stay: Yes Hopelessness: No Smoker: No Protective Factors Assessment : No Responsible for young children: No Recommendations (1) Unspecified mood [affective] disorder 06/16 - Appropriate to continue Celexa 20mg daily, no indication for medication changes at this time - Calls out to retrieve collateral information from siblings in regard to outpatient management - Will offer further recommendations as necessary, but appears appropriate for further treatment and disposition/discharge according to recommendations by primary medical team. Dr. Ayers has personally been involved in the review of the above case and development of recommendations.
[2017-06-16 15:57] VITALS: BP 106/68; PULSE 62; TEMP 36.4; O2SAT 100
[2017-06-16] MEDS ORDERED: WARFARIN SOD 4 MG TAB PO SCH (16:00)
[2017-06-16] MEDS: WARFARIN SOD 6 MG TAB PO SCH (16:23)
[2017-06-16 19:20] VITALS: BP 94/58; PULSE 64; TEMP 36.5; O2SAT 99
--- NOTE | 2017-06-16 20:50 | Medical Consult ---
Consultation Date of Consultation: Jun 16, 2017. Attending Physician: Fern Corona M.D. Reason for Consultation: Daptomycin usage History of Present Illness 67-year-old male with history of congestive heart failure, schizophrenia, atrial fibrillation, who apparently has had excoriated skin lesions for the past 1-2 months, treated for possible scabies although compliance with treatment is questionable, then treated with course of oral cephalexin for possible secondary bacterial infection. Symptoms have continued and patient ultimately came to the emergency department for further management. He is found to have possible lower extremity cellulitis, and has been started on daptomycin therapy. Blood cultures are growing Gram-positive cocci, wound cultures are pending.. Patient denies any fever or chills. Past Medical/Surgical History Medical Problems: (1) ОЛЕГ (acute kidney injury) Status: Acute (2) Cellulitis Status: Acute Medical Problems: (1) Anticoagulant long-term use (2) History of endocarditis (3) HLD (hyperlipidemia) (4) Hyperlipidemia (5) Hypothyroidism (6) Paroxysmal atrial fibrillation (7) Schizophrenia, unspecified (8) Superior mesenteric aneurysm (9) Unspecified mood [affective] disorder Surgical Problems: (1) H/O tricuspid valve annuloplasty (2) S/P aortic valve replacement (3) S/P mitral valve repair Social History Problems: (1) Heavy alcohol use Family History FH: heart disease Social History Smoking Status: Unknown if Ever Smoked Alcohol Use: heavy (~3 beers daily ) Drug Use: none Marital Status: single Housing Status: lives with family Occupation Status: employed Allergies Coded Allergies: No Known Allergies (Unverified , 06/15/17) Current Inpatient Medications Current Inpatient Medications Medications (Trade) Dose Ordered Sig/Lakisha Route Start Time Stop Time Status Last Admin Dose Admin Acetaminophen (Tylenol Tab) 650 mg Q4H PRN PO 06/15/17 16:00 07/15/17 15:59 Prednisone (PredniSONE TAB) 40 mg DAILY PO 06/16/17 09:00 07/16/17 08:59 06/16/17 09:14 40 MG Diphenhydramine HCl (Benadryl Cap) 25 mg Q6 PO 06/15/17 18:00 07/15/17 17:59 06/16/17 17:49 25 MG Atenolol (Tenormin Tab) 25 mg DAILY PO 06/16/17 09:00 07/16/17 08:59 Atorvastatin Calcium (Lipitor Tab) 10 mg DAILY PO 06/16/17 09:00 07/16/17 08:59 06/16/17 08:20 10 MG Citalopram Hydrobromide (celeXA TAB) 20 mg DAILY PO 06/16/17 09:00 07/16/17 08:59 06/16/17 08:20 20 MG Donepezil HCl (Aricept Tab) 5 mg HS PO 06/15/17 21:00 07/15/17 20:59 06/15/17 19:59 5 MG Gabapentin (Neurontin Cap) 100 mg DAILY PO 06/16/17 09:00 07/16/17 08:59 06/16/17 08:21 100 MG Levothyroxine Sodium (Synthroid Tab) 25 mcg DAILYBB PO 06/16/17 06:00 07/16/17 06:59 06/16/17 05:28 25 MCG Daptomycin (Consult) 1 ea UD PRN N/A 06/15/17 18:36 07/15/17 18:35 Warfarin Sodium (Coumadin Tab) 6 mg DAILY@1600 PO 06/16/17 16:00 07/16/17 15:59 06/16/17 16:23 6 MG Triamcinolone Acetonide (Triamcinolone Acet 0.1% Crm) 1 appln BID EXT 06/16/17 21:00 07/16/17 20:59 Daptomycin 275 mg/ Syringe 5.5 ml @ 2.75 mls/ min Q24H IV 06/17/17 08:00 06/26/17 07:59 Review of Systems All systems were reviewed and are negative except as per HPI Physical Exam Date Time Temp Pulse Resp B/P (MAP) Pulse Ox O2 Delivery O2 Flow Rate FiO2 06/16/17 20:00 Room Air 06/16/17 19:20 36.5 64 18 94/58 (70) 99 Room Air 06/16/17 16:00 Room Air 06/16/17 15:57 36.4 62 18 106/68 (81) 100 Room Air 06/16/17 12:00 Room Air 06/16/17 11:35 36.4 71 18 100/61 (74) 100 Room Air 06/16/17 08:00 Room Air 06/16/17 07:09 36.4 65 18 94/57 (69) 100 92/64 (73) 06/16/17 04:00 Room Air 06/16/17 03:42 36.8 77 20 93/58 (70) 98 Room Air 06/16/17 00:01 Room Air 06/15/17 23:52 36.5 84 20 92/51 (65) 100 Room Air General Appearance: WD/WN, no apparent distress Head: normocephalic, atraumatic Eyes: normal inspection, EOMI, sclerae normal ENT: normal ENT inspection, hearing grossly normal, pharynx normal Neck: supple, no adenopathy, thyroid normal, trachea midline Respiratory/Chest: chest non-tender, lungs clear, normal breath sounds, no respiratory distress Cardiovascular: regular rate, rhythm, no gallop, no murmur Abdomen/GI: normal bowel sounds, non tender, soft, no organomegaly Back: normal inspection, no CVA tenderness Extremities/Musculoskelatal: no calf tenderness, normal capillary refill, + swelling Neurologic/Psych: alert, oriented x 3 Skin: normal color, + pertinent finding (Multiple circular excoriated lesions, swelling or redness of legs) Lymphatic: no adenopathy Laboratory Results RUN DATE: 06/16/17 [facility] LAB PAGE 1 RUN TIME: 1214 Specimen Inquiry PAT[id number] LOC: Tia # : [id number] AGE/SX: 67/M ROOM: E219 REG : 06/15/[address]: Fern Corona M.D. : 1950 BED: 1 DIS : STATUS: ADM IN TLOC: SPEC #: [id number] YAMILKA: 06/15/17 STATUS: RES REQ #: [id number] RECD: 06/15/17-[address]: Darryl Larson DO SOURCE: BLOOD ENTR: 06/15/17-[address] [facility] DR: Horace Boles D.OLeonidas [facility]: ORDERED: BLOOD CULTURE Procedure Result Verified Site BLD CULT Preliminary 06/16/17-1214 Organism 1 GRAM POSITIVE COCCI SENS SENSITIVITIES DEPENDENT ON FURTHER IDENTIFICATION Phoned Positive Blood Culture Gram Stain Report to OWEN Weber on 06/16/17 At 1212 By EFRAÍN. Results were verbalized back to EFRAÍN. RUN DATE: 06/16/17 [facility] LAB PAGE 1 RUN TIME: 1416 Specimen Inquiry PATIENT: IVANIAELIZABETH LOC: Sinan2T U # : [id number] AGE/SX: 67/M ROOM: 19 REG : 06/15/[address]: Fern Corona M.D. : 1950 BED: 1 DIS : STATUS: ADM IN TLOC: SPEC #: [id number] YAMILKA: 06/15/17 STATUS: RES REQ #: [id number] RECD: 06/15/17 [facility] DR: Kiki Hyde P.A.-C. SOURCE: GEN MALE ENTR: 06/15/[address] [facility] [address]: Fern Corona M.D. [facility]: Olga Kuhn , Nilson Ruiz MD Sulman, Scott A. D.OLeonidas ORDERED: JEWELS MALE CU/SM COMMENTS: Has Specimen Been Obtained/Collected? Y Procedure Result Verified Site GRAM STAIN Final 06/16/17 RESULT RARE EPITHELIAL CELLS NO WBCs SEEN FEW GRAM POSITIVE COCCI GENITAL CULTURE MALE Preliminary 06/16/17 Organism 1 STAPHYLOCOCCUS AUREUS QUANITY MODERATE SENS SENSITIVITY TO FOLLOW Last 24 Hours Test 06/16/17 01:55 06/16/17 05:56 Urine Color YELLOW Urine Appearance CLEAR Urine pH 5.0 Urine Specific [place] 1.020 Urine Protein NEG Urine Glucose (UA) NEG Urine Ketones NEG Urine Occult Blood NEG Urine Nitrite NEG Urine Bilirubin NEG Urine Urobilinogen NEG Urine Leukocyte Esterase TRACE Urine WBC (Auto) 1-5 /hpf Urine RBC (Auto) 0-4 /hpf Urine Hyaline Casts (Auto) 0 /lpf Urine Epithelial Cells (Auto) 0-5 /lpf Urine Bacteria (Auto) NEG Urine Random Creatinine 136.0 mg/dl Urine Random Sodium 8 mEq/L Urine Random Urea Nitrogen 853 mg/dl White Blood Count 12.26 K/uL Red Blood Count 2.85 M/uL Hemoglobin 8.2 g/dL Hematocrit 24.9 % Mean Corpuscular Volume 87.4 fL Mean Corpuscular Hemoglobin 28.8 pg Mean Corpuscular Hemoglobin Concent 32.9 g/dl RDW Standard Deviation 45.6 fL RDW Coefficient of Variation 14.2 % Platelet Count 303 K/uL Mean Platelet Volume 8.3 fL Prothrombin Time 15.0 SECONDS Prothromb Time International Ratio 1.4 Sodium Level 139 mmol/L Potassium Level 5.2 mmol/L Chloride Level 112 mmol/L Carbon Dioxide Level 20 mmol/L Anion Gap 7.0 mmol/L Blood Urea Nitrogen 44 mg/dl Creatinine 2.25 mg/dl Est Creatinine Clear Calc Drug Dose 31.2 ml/min Estimated GFR () 34.0 Estimated GFR (Non- 29.3 BUN/Creatinine Ratio 19.5 Random Glucose 113 mg/dl Calcium Level 7.7 mg/dl Patient Name: ELIZABETH REDD Unit Number: [id number] Dictated: 06/15/171250 Transcribed: 06/15/171250 JRB Printed Date/Time: [~ rep prt dt]/[~ rep prt tm] [~ rep ct labl] - [~ rep ct ivnm] [facility] [place] [address] Dictated: 06/15/171250 Transcribed: 06/15/171250 JRB Printed Date/Time: [~ rep prt dt]/[~ rep prt tm] [~ rep ct labl] - [~ rep ct ivnm] CHEST ONE VIEW PORTABLE HISTORY: 67 years-old Male Sepsis acute sepsis COMPARISON: Chest radiograph 03/06/2014 TECHNIQUE: Portable AP view of the chest FINDINGS: Cardiac silhouette is again mildly enlarged. Prior median sternotomy with prosthetic cardiac valve. There may be a small hiatal hernia. No pneumothorax, pleural effusion, focal airspace consolidation or overt pulmonary edema. Bones of the chest appear grossly intact. Degenerative changes of the shoulders and spine. IMPRESSION: Cardiomegaly without acute process. The above report was generated using voice recognition software. It may contain grammatical, syntax or spelling errors. Electronically signed by: Case Terry M.D. 06/15/2017 12:55 PM Dictated Date/Time: 06/15/2017 12:51 PM The status of this report is Signed. Draft = Not yet reviewed or approved by Radiologist. Signed = Reviewed and approved by Radiologist. <AttendingPhy></AttendingPhy> <FamilyPhy>Horace Boles D.O.</FamilyPhy> < PrimaryPhy>Horace Boles D.O.</PrimaryPhy> <UnitNumber>[id number]</UnitNumber > <VisitNumber>[id number]</VisitNumber> <PatientName>ELIZABETH REDD</ PatientName> <DateOfBirth>1950</DateOfBirth> <Location>[facility]</Location> < ServiceDate>06/15/17</ServiceDate> <MNE>ESINDI</MNE> <OrderingPhy>Darryl Larson D.O.</OrderingPhy> <OrderingPhyMNE>f rep ord dr banda</OrderingPhyMNE> <DictatingPhyMNE>f rep dict dr banda</DictatingPhyMNE> <CCListMNE>f rep ct solo</ CCListMNE> <AdmittingPhyMNE>f pt admit dr banda</AdmittingPhyMNE> <AttendingPhyMNE >f pt attend dr banda</AttendingPhyMNE> <ConsultingPhyMNE>f pt consult dr banda</ConsultingPhyMNE> <FamilyPhyMNE>f pt fam dr banda</FamilyPhyMNE> <OtherPhyMNE>f pt other dr banda</OtherPhyMNE> < PrimaryPhyMNE>f pt prim care dr banda</PrimaryPhyMNE> <ReferringPhyMNE>f pt referring dr mne</ReferringPhyMNE> Assessment & Plan 67-year-old male with schizophrenia, atrial fibrillation on anticoagulation, with multiple excoriated lesion on extremities, scrotal swelling and erythema, with wound cultures growing Staph aureus and blood cultures growing gram- positive cocci. Certainly patient at risk for MRSA infection, and daptomycin appropriate pending final culture results and sensitivities. Will likely require echocardiogram because of positive blood cultures, but await final identification. Will follow.
[2017-06-16] MEDS: TRIAMCINOLONE ACET 0.1% CR 80 GM TUBE EXT SCH (21:38)
[2017-06-16] MEDS: DONEPEZIL HCL 5 MG TAB PO SCH (21:38)
[2017-06-16 23:00] VITALS: BP 100/65; PULSE 68; TEMP 36.3; O2SAT 99
[2017-06-17] VITALS (7 sets, daily range): BP systolic 89–159; BP diastolic 45–87; PULSE 64–122; TEMP 36.4–37.5; O2SAT 93–100
[2017-06-17] MEDS: LEVOTHYROXINE 25 MCG TAB PO SCH (06:12)
[2017-06-17 06:25] LABS: HEMOGLOBIN 7.4 g/dL (14.0-18.0); MEAN CELL VOLUME 88.5 fL (80-100); MEAN CORPUSCULAR HEMOGLOBIN 28.5 pg (25-34); MEAN CORPUSCULAR HGB CONC 32.2 g/dl (32-36); MEAN PLATELET VOLUME 8.6 fL (7.4-10.4); PLATELET COUNT 297 K/uL (130-400); RED CELL DISTRIBUTION WIDTH CV 14.6 % (11.5-14.5); RED CELL DISTRIBUTION WIDTH SD 47.2 fL (36.4-46.3); WHITE BLOOD COUNT 17.41 K/uL (4.8-10.8)
[2017-06-17 06:38] LABS: INR 1.7 (0.9-1.1)
[2017-06-17 07:11] LABS: CALCIUM 8.2 mg/dl (8.5-10.1); CREATININE 2.14 mg/dl (0.60-1.40); POTASSIUM 4.6 mmol/L (3.5-5.1)
[2017-06-17] MEDS: TRIAMCINOLONE ACET 0.1% CR 80 GM TUBE EXT SCH ×2 (08:20→20:35)
[2017-06-17] MEDS: GABAPENTIN 100 MG CAP PO SCH (08:21)
[2017-06-17] MEDS: ATORVASTATIN 10 MG TAB PO SCH (08:21)
[2017-06-17] MEDS: CITALOPRAM 20 MG TAB PO SCH (08:21)
[2017-06-17] MEDS: DAPTOmycin IV 275 MG in SYRINGE 0 ML IV SCH (08:25)
--- NOTE | 2017-06-17 11:19 | Progress Note ---
Internal Med Progress Note Date of Service: Jun 17, 2017. Provider Documentation: SUBJECTIVE: The patient was seen and examined in telemetry unit He was admitted with them secondary infection involving the skin with and other comorbid conditions He has history of schizophrenia and has been a poor historian Has been feeling better since admission and denies any significant symptoms today Denies any complaints today 06/17/17 OBJECTIVE: Vital Signs-as noted below Exam: General-no apparent distress at rest OOB in a chair Eyes-normal ENT-normal Neck-supple Lungs-clear to auscultate bilaterally Heart-S1-S2 irregular Abdomen-benign, soft, nontender, bowel sounds present He was swelling of scrotum mostly on right side which is elongated with the minimal redness involving the skin This is right inguinal hernia without any signs of obstruction Extremities-1+ edema on the right and trace edema on the left Has multiple scattered skin ulcerations seems to be self inflicted, worse on the right side He has generalized small skin lesions again seems to be self-inflicted with secondary infection Clinically no evidence of scabies Neuro-alert and awake He has more or less typical symptoms of schizophrenia Generally weak but no focal neuro deficit Lab data as noted below. ASSESSMENT & PLAN: This is a 67-year-old male with a PMH of schizophrenia, systolic CHF 2/2 valvular disease, paroxysmal A. fib (on Coumadin), aortic valve replacement, mitral valve repair and other medical problems listed below who presents with open sores on his arms, trunk and legs 1 month. BLE cellulitis 2/2,Scabies ruled out -Diffuse sores with excoriation x 4 weeks -Incomplete permethrin treatment, Keflex course -SIRs criteria met but does not look septic clinically -Leucocytosis of 22.8. Lactic acid wnl -Vanc and zosyn given empirically in ED -Continue with dapto -Blood and wound cultures pending-Staph Species-Staph Aureus and MRSA positive -Prednisone 40mg daily, Benadryl Q6 -HIV, RPR to r/o underlying cause -negative -Derm consult -appreciate Input -Wound care consult -appreciate Input -Appreciate ID input--May need ECHO to R/O IE Wound Culture/Gm stain-Positive for MRSA Appreciate ID input Continue current antibiotics Low Hb Likely secondary to CKD,complicated by Infection and poor oral intake of Nutrients Monitor and check iron,b12 and Folate and stool for Occult blood ОЛЕГ: -Cr of 2.52 (baseline ~1) -GFR of 25 (baseline >60) -Likely multifactorial: dehydration, infection, Lasix -Urine electrolytes -noted -Gentle IVF resuscitation -Hold Lasix and increase oral intake -Improving Urinary incontinence: -Unclear whether or not this is acute -Denies dysuria, penile discharge -GC/chlam screen Scrotal edema: -2/2 R inguinal hernia -Non-tender -Last ultrasound from urology clinic in 2012 -Recommend out-patient follow-up and repeat ultrasound Schizophrenia: -Takes an SSRI and Aricept but no anti-psychotics -Poor insight regarding mental health, other medical conditions -psychiatry evaluation-appreciate Inpue and recommendation Paroxysmal A fib: -Regular rate and rhythm on exam -Continue atenolol, Coumadin -INR subtherapeutic at 1.2 Chronic heart failure 2/2 valvular disease: -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 Chronic BLE edema. CXR without any acute process -May 2016 echo with EFof 55-59%. Mildly increased LV wall. The aortic valve prosthesis systolic gradients are normal for this type prosthesis. There is evidence of prior mitral valve repair. Moderate mitral regurgitation is present. -Hold lasix in AM 2/2 ОЛЕГ -monitor fluid overload Hypothyroidism: -Cont Synthroid HLD: -Cont statin H/o heavy alcohol use: -Endorses 2-3 beers daily -Cont home dose gabapentin -At risk protocol Ativan PRN DVT Ppx: Coumadin Code status: FULL Vital Signs: Date Time Temp Pulse Resp B/P (MAP) Pulse Ox O2 Delivery O2 Flow Rate FiO2 06/17/17 08:00 Room Air 06/17/17 07:32 36.6 72 18 94/52 (66) 97 06/17/17 04:02 Room Air 06/17/17 03:30 36.6 70 22 89/45 (60) 97 Room Air 06/17/17 00:02 Room Air 06/16/17 23:00 36.3 68 20 100/65 (77) 99 Room Air 06/16/17 20:00 Room Air 06/16/17 19:20 36.5 64 18 94/58 (70) 99 Room Air 06/16/17 16:00 Room Air 06/16/17 15:57 36.4 62 18 106/68 (81) 100 Room Air 06/16/17 12:00 Room Air 06/16/17 11:35 36.4 71 18 100/61 (74) 100 Room Air Lab Results: Results Past 24 Hours Test 06/17/17 06:04 Range/Units White Blood Count 17.41 4.8-10.8 K/uL Red Blood Count 2.60 4.7-6.1 M/uL Hemoglobin 7.4 14.0-18.0 g/dL Hematocrit 23.0 42-52 % Mean Corpuscular Volume 88.5 80-100 fL Mean Corpuscular Hemoglobin 28.5 25-34 pg Mean Corpuscular Hemoglobin Concent 32.2 32-36 g/dl RDW Standard Deviation 47.2 36.4-46.3 fL RDW Coefficient of Variation 14.6 11.5-14.5 % Platelet Count 297 130-400 K/uL Mean Platelet Volume 8.6 7.4-10.4 fL Prothrombin Time 17.8 9.0-12.0 SECONDS Prothromb Time International Ratio 1.7 0.9-1.1 Sodium Level 137 136-145 mmol/L Potassium Level 4.6 3.5-5.1 mmol/L Chloride Level 111 98-107 mmol/L Carbon Dioxide Level 20 21-32 mmol/L Anion Gap 6.0 3-11 mmol/L Blood Urea Nitrogen 49 7-18 mg/dl Creatinine 2.14 0.60-1.40 mg/dl Est Creatinine Clear Calc Drug Dose 32.8 ml/min Estimated GFR () 36.1 Estimated GFR (Non- 31.1 BUN/Creatinine Ratio 22.8 10-20 Random Glucose 83 70-99 mg/dl Calcium Level 8.2 8.5-10.1 mg/dl
[2017-06-17] MEDS: WARFARIN SOD 6 MG TAB PO SCH (16:28)
[2017-06-17] MEDS: DONEPEZIL HCL 5 MG TAB PO SCH (20:35)
[2017-06-18 04:36] VITALS: BP 106/64; PULSE 64; TEMP 36.3; O2SAT 92
[2017-06-18] MEDS: LEVOTHYROXINE 25 MCG TAB PO SCH (06:30)
[2017-06-18 06:31] LABS: HEMATOCRIT 23.1 % (42-52); HEMOGLOBIN 7.4 g/dL (14.0-18.0); MEAN CELL VOLUME 88.8 fL (80-100); MEAN CORPUSCULAR HEMOGLOBIN 28.5 pg (25-34); MEAN PLATELET VOLUME 8.4 fL (7.4-10.4); PLATELET COUNT 306 K/uL (130-400); RED CELL DISTRIBUTION WIDTH CV 14.5 % (11.5-14.5); RED CELL DISTRIBUTION WIDTH SD 47.4 fL (36.4-46.3); WHITE BLOOD COUNT 19.22 K/uL (4.8-10.8)
[2017-06-18 06:59] LABS: ALBUMIN 1.9 gm/dl (3.4-5.0); CALCIUM 8.2 mg/dl (8.5-10.1); CREATININE 1.96 mg/dl (0.60-1.40); POTASSIUM 4.5 mmol/L (3.5-5.1)
[2017-06-18 07:03] LABS: TOTAL PROTEIN 5.3 gm/dl (6.4-8.2)
[2017-06-18 07:27] VITALS: BP 107/68; PULSE 69; TEMP 36.4; O2SAT 93
[2017-06-18] MEDS: DAPTOmycin IV 275 MG in SYRINGE 0 ML IV SCH (09:07)
[2017-06-18] MEDS: ATORVASTATIN 10 MG TAB PO SCH (09:08)
[2017-06-18] MEDS: GABAPENTIN 100 MG CAP PO SCH (09:08)
[2017-06-18] MEDS: CITALOPRAM 20 MG TAB PO SCH (09:08)
[2017-06-18] MEDS: TRIAMCINOLONE ACET 0.1% CR 15 GM TUBE EXT SCH ×2 (09:09→20:30)
[2017-06-18 10:26] LABS: INR 1.9 (0.9-1.1)
[2017-06-18 11:19] VITALS: BP 104/67; PULSE 60; TEMP 36.6; O2SAT 100
--- NOTE | 2017-06-18 12:50 | Clinical Documentation Query ---
Dr. SUMNER BANNER : CLINICAL DOCUMENTATION QUERY Patient is a 67 year old male admitted for BLE cellulitis in the setting of open sores on arms, trunk, and legs. Leg culture positive for MRSA. He is being treated with Daptomycin and has been seen by ID in consultation. Please document the likely/suspected POA status of this diagnosis as this impacts accurate DRG assignment. Thank you. In your clinical opinion is this patient being managed for: ( + ) MRSA bacteremia, POA ( ) Not Agree ( ) Other explanation of clinical findings (Please Explain) ( ) Unable to determine (Please Define) ( ) Need to Discuss The medical record reflects the following clinical findings, treatment, and risk factors. Clinical Indicators: As above Treatment:He is being treated with Daptomycin and has been seen by ID in consultation Risk Factors: Self care deficit, open wounds Please clarify and document your clinical opinion in the progress notes and discharge summary. Terms such as "probable", "suspected", "likely", "questionable", "possible", or "still to be ruled out" are acceptable. IF IN AGREEMENT, YOU MUST DOCUMENT ABOVE DIAGNOSTIC STATEMENT IN DAILY PROGRESS NOTES AND DISCHARGE SUMMARY. This document is not part of the patient's record. Thank You, Wes Ortiz, RN [phone]
--- NOTE | 2017-06-18 13:08 | Progress Note ---
Internal Med Progress Note Date of Service: Jun 18, 2017. Provider Documentation: SUBJECTIVE: The patient was seen and examined in telemetry unit He was admitted with them secondary infection involving the skin with and other comorbid conditions He has history of schizophrenia and has been a poor historian Has been feeling better since admission and denies any significant symptoms today Denies any complaints today 06/17/1706/18-has had BRRB this AM Denies any symptoms Skin lesions are much better OBJECTIVE: Vital Signs-as noted below Exam: General-no apparent distress at rest OOB in a chair Eyes-normal ENT-normal Neck-supple Lungs-clear to auscultate bilaterally Heart-S1-S2 irregular Abdomen-benign, soft, nontender, bowel sounds present He was swelling of scrotum mostly on right side which is elongated with the minimal redness involving the skin This is right inguinal hernia without any signs of obstruction Extremities-1+ edema on the right and trace edema on the left Has multiple scattered skin ulcerations seems to be self inflicted, worse on the right side He has generalized small skin lesions again seems to be self-inflicted with secondary infection Clinically no evidence of scabies-Findings as on admission Improves Neuro-alert and awake He has more or less typical symptoms of schizophrenia Generally weak but no focal neuro deficit Lab data as noted below. ASSESSMENT & PLAN: This is a 67-year-old male with a PMH of schizophrenia, systolic CHF 2/2 valvular disease, paroxysmal A. fib (on Coumadin), aortic valve replacement, mitral valve repair and other medical problems listed below who presents with open sores on his arms, trunk and legs 1 month. Bright Red Rectal Bleeding One episode Check Hb If decreased with ask for GI evaluation BLE cellulitis 2/2,Scabies ruled out MRSA bacteremia -Diffuse sores with excoriation x 4 weeks -Incomplete permethrin treatment, Keflex course -SIRs criteria met but does not look septic clinically -Leucocytosis of 22.8. Lactic acid wnl -Vanc and zosyn given empirically in ED -Continue with dapto -Blood and wound cultures pending-Staph Species-Staph Aureus and MRSA positive -Prednisone 40mg daily, Benadryl Q6 -HIV, RPR to r/o underlying cause -negative -Derm consult -appreciate Input -Wound care consult -appreciate Input -Appreciate ID input--May need ECHO to R/O IE -clinically better exceot -BRRB Wound Culture/Gm stain-Positive for MRSA Appreciate ID input Continue current antibiotics Low Hb Likely secondary to CKD,complicated by Infection and poor oral intake of Nutrients Monitor and check iron,b12 and Folate and stool for Occult blood ОЛЕГ: -Cr of 2.52 (baseline ~1) -GFR of 25 (baseline >60) -Likely multifactorial: dehydration, infection, Lasix -Urine electrolytes -noted -Gentle IVF resuscitation -Hold Lasix and increase oral intake -Improving Urinary incontinence: -Unclear whether or not this is acute -Denies dysuria, penile discharge -GC/chlam screen Scrotal edema: -2/2 R inguinal hernia -Non-tender -Last ultrasound from urology clinic in 2012 -Recommend out-patient follow-up and repeat ultrasound -on acute symptoms Schizophrenia: -Takes an SSRI and Aricept but no anti-psychotics -Poor insight regarding mental health, other medical conditions -psychiatry evaluation-appreciate Inpue and recommendation Paroxysmal A fib: -Regular rate and rhythm on exam -Continue atenolol, Coumadin -INR subtherapeutic at 1.2 -may need to hold Coumadin Chronic heart failure 2/2 valvular disease: -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 Chronic BLE edema. CXR without any acute process -May 2016 echo with EFof 55-59%. Mildly increased LV wall. The aortic valve prosthesis systolic gradients are normal for this type prosthesis. There is evidence of prior mitral valve repair. Moderate mitral regurgitation is present. -Hold lasix in AM 2/2 ОЛЕГ -monitor fluid overload Hypothyroidism: -Cont Synthroid HLD: -Cont statin H/o heavy alcohol use: -Endorses 2-3 beers daily -Cont home dose gabapentin -At risk protocol Ativan PRN DVT Ppx: Coumadin Code status: FULL Vital Signs: Date Time Temp Pulse Resp B/P (MAP) Pulse Ox O2 Delivery O2 Flow Rate FiO2 06/18/17 11:22 Room Air 06/18/17 11:19 36.6 60 24 104/67 (79) 100 Room Air 06/18/17 07:30 Room Air 06/18/17 07:27 36.4 69 22 107/68 (81) 93 Room Air 06/18/17 04:36 36.3 64 18 106/64 (78) 92 Room Air 06/18/17 04:00 Room Air 06/18/17 00:01 Room Air 06/17/17 23:15 37.1 108 18 125/73 (90) 98 Room Air 06/17/17 20:00 Room Air 06/17/17 19:35 36.5 67 18 100/52 (68) 97 Room Air 06/17/17 16:00 Room Air 06/17/17 15:38 36.4 64 18 115/68 (84) 100 Room Air Lab Results: Results Past 24 Hours Test 06/18/17 06:15 06/18/17 10:09 06/18/17 13:02 Range/Units White Blood Count 19.22 4.8-10.8 K/uL Red Blood Count 2.60 4.7-6.1 M/uL Hemoglobin 7.4 14.0-18.0 g/dL Hematocrit 23.1 42-52 % Mean Corpuscular Volume 88.8 80-100 fL Mean Corpuscular Hemoglobin 28.5 25-34 pg Mean Corpuscular Hemoglobin Concent 32.0 32-36 g/dl RDW Standard Deviation 47.4 36.4-46.3 fL RDW Coefficient of Variation 14.5 11.5-14.5 % Platelet Count 306 130-400 K/uL Mean Platelet Volume 8.4 7.4-10.4 fL Sodium Level 140 136-145 mmol/L Potassium Level 4.5 3.5-5.1 mmol/L Chloride Level 111 98-107 mmol/L Carbon Dioxide Level 22 21-32 mmol/L Anion Gap 6.0 3-11 mmol/L Blood Urea Nitrogen 46 7-18 mg/dl Creatinine 1.96 0.60-1.40 mg/dl Est Creatinine Clear Calc Drug Dose 35.9 ml/min Estimated GFR () 40.1 Estimated GFR (Non- 34.6 BUN/Creatinine Ratio 23.4 10-20 Random Glucose 81 70-99 mg/dl Calcium Level 8.2 8.5-10.1 mg/dl Iron Level 13 35-175 mcg/dl Total Iron Binding Capacity 222 250-450 mcg/dl Total Bilirubin 0.2 0.2-1 mg/dl Aspartate Amino Transf (AST/SGOT) 10 15-37 U/L Alanine Aminotransferase (ALT/SGPT) 13 12-78 U/L Alkaline Phosphatase 77 45-117 U/L Total Protein 5.3 6.4-8.2 gm/dl Albumin 1.9 3.4-5.0 gm/dl Globulin 3.4 2.5-4.0 gm/dl Albumin/Globulin Ratio 0.6 0.9-2 Vitamin B12 Level 216 211-911 pg/mL Folate 5.35 >5.38 ng/mL Prothrombin Time 19.8 9.0-12.0 SECONDS Prothromb Time International Ratio 1.9 0.9-1.1
[2017-06-18 13:25] LABS: HEMATOCRIT 25.2 % (42-52); HEMOGLOBIN 8.1 g/dL (14.0-18.0)
--- NOTE | 2017-06-18 14:55 | Infectious Disease Progress Nt ---
Progress Note Date of Service Jun 18, 2017. Subjective Pt evaluation today including: conversation w/ patient, physical exam, chart review, lab review, review of studies, conversation w/ education consultant, review of inpatient medication list Patient feeling somewhat better with less pruritus. Remains afebrile. Blood culture has grown coagulase negative Staph, wound culture growing MRSA. All Other Systems: Reviewed and Negative Medications Current Inpatient Medications Medications (Trade) Dose Ordered Sig/Lakisha Route Start Time Stop Time Status Last Admin Dose Admin Acetaminophen (Tylenol Tab) 650 mg Q4H PRN PO 06/15/17 16:00 07/15/17 15:59 Prednisone (PredniSONE TAB) 40 mg DAILY PO 06/16/17 09:00 07/16/17 08:59 06/17/17 08:21 40 MG Diphenhydramine HCl (Benadryl Cap) 25 mg Q6 PO 06/15/17 18:00 07/15/17 17:59 06/18/17 12:17 25 MG Atenolol (Tenormin Tab) 25 mg DAILY PO 06/16/17 09:00 07/16/17 08:59 06/18/17 09:08 25 MG Atorvastatin Calcium (Lipitor Tab) 10 mg DAILY PO 06/16/17 09:00 07/16/17 08:59 06/18/17 09:08 10 MG Citalopram Hydrobromide (celeXA TAB) 20 mg DAILY PO 06/16/17 09:00 07/16/17 08:59 06/18/17 09:08 20 MG Donepezil HCl (Aricept Tab) 5 mg HS PO 06/15/17 21:00 07/15/17 20:59 06/17/17 20:35 5 MG Gabapentin (Neurontin Cap) 100 mg DAILY PO 06/16/17 09:00 07/16/17 08:59 06/18/17 09:08 100 MG Levothyroxine Sodium (Synthroid Tab) 25 mcg DAILYBB PO 06/16/17 06:00 07/16/17 06:59 06/18/17 06:30 25 MCG Daptomycin (Consult) 1 ea UD PRN N/A 06/15/17 18:36 07/15/17 18:35 Warfarin Sodium (Coumadin Tab) 6 mg DAILY@1600 PO 06/16/17 16:00 07/16/17 15:59 06/17/17 16:28 6 MG Daptomycin 275 mg/ Syringe 5.5 ml @ 2.75 mls/ min Q24H IV 06/17/17 08:00 06/26/17 07:59 06/18/17 09:07 2.75 MLS/MIN Triamcinolone Acetonide (Kenalog 0.1% Cream) 1 appln BID EXT 06/18/17 09:00 07/18/17 08:59 06/18/17 09:09 1 APPLN Objective Vital Signs Date Time Temp Pulse Resp B/P (MAP) Pulse Ox O2 Delivery O2 Flow Rate FiO2 06/18/17 11:22 Room Air 06/18/17 11:19 36.6 60 24 104/67 (79) 100 Room Air 06/18/17 07:30 Room Air 06/18/17 07:27 36.4 69 22 107/68 (81) 93 Room Air 06/18/17 04:36 36.3 64 18 106/64 (78) 92 Room Air 06/18/17 04:00 Room Air 06/18/17 00:01 Room Air 06/17/17 23:15 37.1 108 18 125/73 (90) 98 Room Air 06/17/17 20:00 Room Air 06/17/17 19:35 36.5 67 18 100/52 (68) 97 Room Air 06/17/17 16:00 Room Air 06/17/17 15:38 36.4 64 18 115/68 (84) 100 Room Air Physical Exam General Appearance: WD/WN, no apparent distress Eyes: normal inspection, EOMI, sclerae normal ENT: normal ENT inspection, pharynx normal Neck: supple, no adenopathy, thyroid normal, trachea midline Respiratory/Chest: chest non-tender, lungs clear, normal breath sounds, no respiratory distress Cardiovascular: regular rate, rhythm, no gallop, no murmur Abdomen: normal bowel sounds, non tender, soft, no organomegaly Extremities: non-tender, no calf tenderness, normal capillary refill Neurologic/Psychiatric: alert, oriented x 3 Skin: normal color, + rash, + pertinent finding (Multiple excoriated lesions, less surrounding erythema) Lymphatic: no adenopathy Laboratory Results RUN DATE: 06/18/17 [facility] LAB PAGE 1 RUN TIME: 0832 Specimen Inquiry PATIENT: ELIZABETH REDD LOC: [facility] U # : [id number] AGE/SX: 67/M ROOM: E219 REG : 06/15/[address]: Fern Corona M.D. : 1950 BED: 1 DIS : STATUS: ADM IN TLOC: SPEC #: [id number] YAMILKA: 06/15/17 STATUS: RES REQ #: [id number] RECD: 06/15/17-[address]: Darryl Larson DO SOURCE: BLOOD ENTR: 06/15/17-1234 [facility] DR: Horace Boles D.O. SPDC: ORDERED: BLOOD CULTURE Procedure Result Verified Site BLD CULT Preliminary 06/18/17-0832 Organism 1 COAG NEG STAPH NOT LUGDUNENSIS SENS NO SENSITIVITY TO FOLLOW Phoned Positive Blood Culture Gram Stain Report to OWEN Weber on 06/16/17 At 1212 By EFRAÍN. Results were verbalized back to EFRAÍN. One set of two positive. Isolation does not necessarily mean infection. No susceptibility tests performed. Contact microbiology laboratory [phone]) if further studies are indicated. Last 24 Hours Test 06/18/17 06:15 06/18/17 10:09 06/18/17 13:15 White Blood Count 19.22 K/uL Red Blood Count 2.60 M/uL Hemoglobin 7.4 g/dL 8.1 g/dL Hematocrit 23.1 % 25.2 % Mean Corpuscular Volume 88.8 fL Mean Corpuscular Hemoglobin 28.5 pg Mean Corpuscular Hemoglobin Concent 32.0 g/dl RDW Standard Deviation 47.4 fL RDW Coefficient of Variation 14.5 % Platelet Count 306 K/uL Mean Platelet Volume 8.4 fL Sodium Level 140 mmol/L Potassium Level 4.5 mmol/L Chloride Level 111 mmol/L Carbon Dioxide Level 22 mmol/L Anion Gap 6.0 mmol/L Blood Urea Nitrogen 46 mg/dl Creatinine 1.96 mg/dl Est Creatinine Clear Calc Drug Dose 35.9 ml/min Estimated GFR () 40.1 Estimated GFR (Non- 34.6 BUN/Creatinine Ratio 23.4 Random Glucose 81 mg/dl Calcium Level 8.2 mg/dl Iron Level 13 mcg/dl Total Iron Binding Capacity 222 mcg/dl Total Bilirubin 0.2 mg/dl Aspartate Amino Transf (AST/SGOT) 10 U/L Alanine Aminotransferase (ALT/SGPT) 13 U/L Alkaline Phosphatase 77 U/L Total Protein 5.3 gm/dl Albumin 1.9 gm/dl Globulin 3.4 gm/dl Albumin/Globulin Ratio 0.6 Vitamin B12 Level 216 pg/mL Folate 5.35 ng/mL Prothrombin Time 19.8 SECONDS Prothromb Time International Ratio 1.9 Assessment and Plan 67-year-old male with schizophrenia, atrial fibrillation on anticoagulation, with multiple excoriated lesion on extremities, scrotal swelling and erythema, with wound cultures growing Staph aureus (MRSA), blood with coagulase negative Staph, 1 bottle, likely contaminant. Would continue patient on IV daptomycin for now, hopefully can consider transition to oral antibiotics in next few days. Will follow.
[2017-06-18 15:15] VITALS: BP 97/60; PULSE 69; TEMP 36.7; O2SAT 97
[2017-06-18] MEDS: WARFARIN SOD 6 MG TAB PO SCH (16:46)
[2017-06-18 19:22] VITALS: BP 123/85; PULSE 57; TEMP 36.3; O2SAT 100
[2017-06-18] MEDS: DONEPEZIL HCL 5 MG TAB PO SCH (20:29)
[2017-06-18 23:17] VITALS: BP 104/65; PULSE 61; TEMP 36.7; O2SAT 93
[2017-06-19 04:00] VITALS: BP 101/62; PULSE 64; TEMP 36.9; O2SAT 97
[2017-06-19] MEDS: LEVOTHYROXINE 25 MCG TAB PO SCH (06:25)
[2017-06-19 06:48] LABS: INR 2.4 (0.9-1.1)
[2017-06-19 07:46] VITALS: BP 108/69; PULSE 64; TEMP 36.6; O2SAT 100
[2017-06-19] MEDS: CITALOPRAM 20 MG TAB PO SCH (08:14)
[2017-06-19] MEDS: ATORVASTATIN 10 MG TAB PO SCH (08:14)
[2017-06-19] MEDS: TRIAMCINOLONE ACET 0.1% CR 15 GM TUBE EXT SCH ×2 (08:14→21:43)
[2017-06-19] MEDS: DAPTOmycin IV 275 MG in SYRINGE 0 ML IV SCH (08:14)
[2017-06-19] MEDS: GABAPENTIN 100 MG CAP PO SCH (08:15)
[2017-06-19] MEDS: SODIUM CHLORIDE 0.9% 1000ML 1,000 ML IV SCH ×2 (10:10→21:47)
--- NOTE | 2017-06-19 10:27 | Progress Note ---
Subjective Date of Service: Jun 19, 2017. Subjective Pt evaluation today including: conversation w/ patient, physical exam, lab review, review of studies, review of inpatient medication list Saw/examined the patient in room 219 He's doing okay today, denies any new issues itching continues, but no fevers/chills Ambulating well, eager to get out of the hospital Problem List Medical Problems: (1) ОЛЕГ (acute kidney injury) Status: Acute (2) Cellulitis Status: Acute Review of Systems Constitutional: No fever, No chills Respiratory: No cough, No sputum, No shortness of breath Cardiac: No chest pain Abdomen: No pain, No nausea, No vomiting, No diarrhea Male : No dysuria, No urinary frequency, No incontinence, No slowing stream, No hematuria Skin: + see HPI, + rash, + itch Medications Current Inpatient Medications Medications (Trade) Dose Ordered Sig/Lakisha Route Start Time Stop Time Status Last Admin Dose Admin Acetaminophen (Tylenol Tab) 650 mg Q4H PRN PO 06/15/17 16:00 07/15/17 15:59 Prednisone (PredniSONE TAB) 40 mg DAILY PO 06/16/17 09:00 07/16/17 08:59 06/19/17 08:14 40 MG Diphenhydramine HCl (Benadryl Cap) 25 mg Q6 PO 06/15/17 18:00 07/15/17 17:59 06/19/17 06:25 25 MG Atenolol (Tenormin Tab) 25 mg DAILY PO 06/16/17 09:00 07/16/17 08:59 06/19/17 08:14 25 MG Atorvastatin Calcium (Lipitor Tab) 10 mg DAILY PO 06/16/17 09:00 07/16/17 08:59 06/19/17 08:14 10 MG Citalopram Hydrobromide (celeXA TAB) 20 mg DAILY PO 06/16/17 09:00 07/16/17 08:59 06/19/17 08:14 20 MG Donepezil HCl (Aricept Tab) 5 mg HS PO 06/15/17 21:00 07/15/17 20:59 06/18/17 20:29 5 MG Gabapentin (Neurontin Cap) 100 mg DAILY PO 06/16/17 09:00 07/16/17 08:59 06/19/17 08:15 100 MG Levothyroxine Sodium (Synthroid Tab) 25 mcg DAILYBB PO 06/16/17 06:00 07/16/17 06:59 06/19/17 06:25 25 MCG Daptomycin (Consult) 1 ea UD PRN N/A 06/15/17 18:36 07/15/17 18:35 Warfarin Sodium (Coumadin Tab) 6 mg DAILY@1600 PO 06/16/17 16:00 07/16/17 15:59 06/18/17 16:46 6 MG Daptomycin 275 mg/ Syringe 5.5 ml @ 2.75 mls/ min Q24H IV 06/17/17 08:00 06/26/17 07:59 06/19/17 08:14 2.75 MLS/MIN Triamcinolone Acetonide (Kenalog 0.1% Cream) 1 appln BID EXT 06/18/17 09:00 07/18/17 08:59 06/19/17 08:14 45 APPLN Objective Vital Signs Date Time Temp Pulse Resp B/P (MAP) Pulse Ox O2 Delivery O2 Flow Rate FiO2 06/19/17 07:46 36.6 64 19 108/69 (82) 100 Room Air 06/19/17 04:00 36.9 64 16 101/62 (75) 97 Room Air 06/19/17 04:00 Room Air 06/19/17 00:02 Room Air 06/18/17 23:17 36.7 61 18 104/65 (78) 93 Room Air 06/18/17 20:00 Room Air 06/18/17 19:22 36.3 57 20 123/85 (98) 100 Room Air 06/18/17 15:40 Room Air 06/18/17 15:15 36.7 69 18 97/60 (72) 97 Room Air 06/18/17 11:22 Room Air 06/18/17 11:19 36.6 60 24 104/67 (79) 100 Room Air Physical Exam General Appearance: no apparent distress Respiratory/Chest: lungs clear, normal breath sounds, no respiratory distress, no accessory muscle use Cardiovascular: regular rate, rhythm, no edema, no murmur Abdomen: + pertinent finding (+scrotal edema) Neurologic/Psychiatric: no motor/sensory deficits, alert, normal mood/affect Laboratory Results Last 24 Hours Test 06/18/17 10:09 06/18/17 13:15 06/19/17 05:59 Prothrombin Time 19.8 SECONDS 24.7 SECONDS Prothromb Time International Ratio 1.9 2.4 Hemoglobin 8.1 g/dL Hematocrit 25.2 % Assessment and Plan This is a 67 year old male with a past medical history of schizophrenia, depression, valvular heart disease s/p bioprosthetic aortic valve replacement, mitral valve repair, tricuspid valve annuloplasty; paroxysmal atrial fibrillation on long-term anticoagulation, hypothyroidism, HLD, inguinal hernia - presents with self-inflicted wound excoriations, kidney injury Infected Neurotic Excoriations 06/19 - patient presented with excoriations throughout the upper and lower extremities - patient states that he was picking at wounds on his extremities, which caused redness - wound cultures from lower extremity and genital culture - MRSA - appreciate ID and dermatology input - concern for scabies prior to arrival, though this is not likely as per derm - will continue IV Daptomycin as per ID - currently using Kenalog cream, Benadryl 50mg q6 for itching - can likely add Vistaril if needed - currently on prednisone, can likely d/c in 1-2 days Acute Kidney Injury 06/19 - creatinine at baseline is around 1.0 - presented with creatinine > 2.0 - monitor urine output - gentle IV hydration Anemia - normocytic anemia - low iron levels, low TIBC, will recheck and check a transferrin and ferritin level - B12 normal, folate is low-normal - will check stool occult - may need iron and folate supplementation - possible alcohol related? Paroxysmal A. Fib - currently in NSR - continue Coumadin; INR goal 2-3 - continue Atenolol Scrotal Edema - secondary to inguinal hernia - still able to urinate - monitor output - outpatient follow-up with general surgery Schizophrenia - not on any antipsychotics, stable - continue Celexa for depression Valvular Heart Disease - stable, hold Lasix due to likely dehydration and kidney injury - gentle IV hydration Hypothyroidism - will check TSH - continue Synthroid DVT ppx - Coumadin FULL CODE
[2017-06-19 11:57] VITALS: BP 94/59; PULSE 57; TEMP 36.3; O2SAT 100
[2017-06-19 15:36] VITALS: BP 117/69; PULSE 66; TEMP 36.5; O2SAT 95
--- NOTE | 2017-06-19 16:34 | Infectious Disease Progress Nt ---
Progress Note Date of Service Jun 19, 2017. Subjective Pt evaluation today including: conversation w/ patient, physical exam, chart review, lab review, review of studies, conversation w/ etl consultant, review of inpatient medication list Patient states that pruritus somewhat better. Remains afebrile. Tolerating daptomycin without apparent difficulty. All Other Systems: Reviewed and Negative Medications Current Inpatient Medications Medications (Trade) Dose Ordered Sig/Lakisha Route Start Time Stop Time Status Last Admin Dose Admin Acetaminophen (Tylenol Tab) 650 mg Q4H PRN PO 06/15/17 16:00 07/15/17 15:59 Prednisone (PredniSONE TAB) 40 mg DAILY PO 06/16/17 09:00 07/16/17 08:59 06/19/17 08:14 40 MG Atenolol (Tenormin Tab) 25 mg DAILY PO 06/16/17 09:00 07/16/17 08:59 06/19/17 08:14 25 MG Atorvastatin Calcium (Lipitor Tab) 10 mg DAILY PO 06/16/17 09:00 07/16/17 08:59 06/19/17 08:14 10 MG Citalopram Hydrobromide (celeXA TAB) 20 mg DAILY PO 06/16/17 09:00 07/16/17 08:59 06/19/17 08:14 20 MG Donepezil HCl (Aricept Tab) 5 mg HS PO 06/15/17 21:00 07/15/17 20:59 06/18/17 20:29 5 MG Gabapentin (Neurontin Cap) 100 mg DAILY PO 06/16/17 09:00 07/16/17 08:59 06/19/17 08:15 100 MG Levothyroxine Sodium (Synthroid Tab) 25 mcg DAILYBB PO 06/16/17 06:00 07/16/17 06:59 06/19/17 06:25 25 MCG Daptomycin (Consult) 1 ea UD PRN N/A 06/15/17 18:36 07/15/17 18:35 Warfarin Sodium (Coumadin Tab) 6 mg DAILY@1600 PO 06/16/17 16:00 07/16/17 15:59 06/18/17 16:46 6 MG Daptomycin 275 mg/ Syringe 5.5 ml @ 2.75 mls/ min Q24H IV 06/17/17 08:00 5/1/18 07:59 06/19/17 08:14 2.75 MLS/MIN Triamcinolone Acetonide (Kenalog 0.1% Cream) 1 appln BID EXT 06/18/17 09:00 07/18/17 08:59 06/19/17 08:14 45 APPLN Diphenhydramine HCl (Benadryl Cap) 50 mg Q6 PO 06/19/17 12:00 07/15/17 17:59 06/19/17 12:30 50 MG Sodium Chloride 1,000 ml @ 80 mls/hr [id number] IV 06/19/17 09:45 07/19/17 09:44 Objective Vital Signs Date Time Temp Pulse Resp B/P (MAP) Pulse Ox O2 Delivery O2 Flow Rate FiO2 06/19/17 16:00 Room Air 06/19/17 15:36 36.5 66 20 117/69 (85) 95 Room Air 06/19/17 12:00 Room Air 06/19/17 11:57 36.3 57 18 94/59 (71) 100 Room Air 06/19/17 08:00 Room Air 06/19/17 07:46 36.6 64 19 108/69 (82) 100 Room Air 06/19/17 04:00 36.9 64 16 101/62 (75) 97 Room Air 06/19/17 04:00 Room Air 06/19/17 00:02 Room Air 06/18/17 23:17 36.7 61 18 104/65 (78) 93 Room Air 06/18/17 20:00 Room Air 06/18/17 19:22 36.3 57 20 123/85 (98) 100 Room Air Physical Exam General Appearance: WD/WN, no apparent distress Eyes: normal inspection, EOMI, sclerae normal ENT: normal ENT inspection, pharynx normal Neck: supple, no adenopathy, thyroid normal, trachea midline Respiratory/Chest: chest non-tender, lungs clear, normal breath sounds, no respiratory distress Cardiovascular: regular rate, rhythm, no gallop, no murmur Abdomen: normal bowel sounds, non tender, soft, no organomegaly Extremities: non-tender, no calf tenderness, normal capillary refill Neurologic/Psychiatric: alert, oriented x 3 Skin: normal color, + pertinent finding (Multiple excoriated lesions, decrease in surrounding area) Lymphatic: no adenopathy Laboratory Results Last 24 Hours Test 4/24/18 05:59 Prothrombin Time 24.7 SECONDS Prothromb Time International Ratio 2.4 Assessment and Plan 67-year-old male with schizophrenia, atrial fibrillation on anticoagulation, with multiple excoriated lesion on extremities, scrotal swelling and erythema, with wound cultures growing Staph aureus (MRSA), blood with coagulase negative Staph, 1 bottle, likely contaminant. Could consider transition to oral antibiotics with Bactrim, likely in the range of 10-14 more days.
[2017-06-19] MEDS: WARFARIN SOD 6 MG TAB PO SCH (17:22)
[2017-06-19 20:12] VITALS: BP 133/86; PULSE 63; TEMP 36.9; O2SAT 100
[2017-06-19] MEDS: DONEPEZIL HCL 5 MG TAB PO SCH (21:42)
[2017-06-19 23:34] VITALS: BP 109/63; PULSE 62; TEMP 36.6; O2SAT 98
[2017-06-20] MEDS: LEVOTHYROXINE 25 MCG TAB PO SCH (05:53)
[2017-06-20 06:31] LABS: BASO % 0.2 %; BASO ABS # 0.04 K/uL (0-0.2); EOS ABS # 7.01 K/uL (0-0.5); HEMATOCRIT 25.5 % (42-52); HEMOGLOBIN 8.3 g/dL (14.0-18.0); IG# 0.08 K/uL (0.00-0.02); LYMPH % 7.6 %; MEAN CELL VOLUME 89.2 fL (80-100); MEAN CORPUSCULAR HGB CONC 32.5 g/dl (32-36); MEAN PLATELET VOLUME 8.5 fL (7.4-10.4); MONO % 5.5 %; MONO ABS # 0.94 K/uL (0.11-0.59); NEUT % 45.2 %; NEUT ABS # 7.73 K/uL (1.4-6.5); PLATELET COUNT 342 K/uL (130-400); RED CELL DISTRIBUTION WIDTH CV 14.3 % (11.5-14.5); RED CELL DISTRIBUTION WIDTH SD 47.2 fL (36.4-46.3); RETIC COUNT % 1.9 % (0.5-2.0)
[2017-06-20 06:39] LABS: INR 3.4 (0.9-1.1)
[2017-06-20 07:04] LABS: CALCIUM 7.8 mg/dl (8.5-10.1); CREATININE 1.93 mg/dl (0.60-1.40); POTASSIUM 4.5 mmol/L (3.5-5.1)
[2017-06-20 07:31] VITALS: BP 90/50; PULSE 57; TEMP 36.4; O2SAT 98
[2017-06-20] MEDS: GABAPENTIN 100 MG CAP PO SCH (07:49)
[2017-06-20] MEDS: TRIAMCINOLONE ACET 0.1% CR 15 GM TUBE EXT SCH ×2 (07:50→21:22)
[2017-06-20] MEDS: CITALOPRAM 20 MG TAB PO SCH (07:50)
[2017-06-20] MEDS: ATORVASTATIN 10 MG TAB PO SCH (07:50)
[2017-06-20] MEDS: DAPTOmycin IV 275 MG in SYRINGE 0 ML IV SCH (07:54)
[2017-06-20 08:00] VITALS: O2SAT 98
[2017-06-20] MEDS ORDERED: MAGNESIUM SULFATE 1GM / D5W 100 ML IV ONE (08:15)
[2017-06-20] MEDS: SODIUM CHLORIDE 0.9% 1000ML 1,000 ML IV SCH (11:38)
--- NOTE | 2017-06-20 12:44 | Progress Note ---
Subjective Date of Service: Jun 20, 2017. Subjective Pt evaluation today including: conversation w/ patient, physical exam, lab review, review of studies, review of inpatient medication list Saw/examined the patient in room 415 He's doing well, states he's fine, scrotal edema persists, no urinary issues to note Denies fevers/chills Problem List Medical Problems: (1) ОЛЕГ (acute kidney injury) Status: Acute (2) Cellulitis Status: Acute Review of Systems Constitutional: No fever, No chills Respiratory: No cough, No sputum, No shortness of breath Cardiac: No chest pain Heme: No abnormal bleeding/bruising Skin: + rash, + itch Medications Current Inpatient Medications Medications (Trade) Dose Ordered Sig/Lakisha Route Start Time Stop Time Status Last Admin Dose Admin Acetaminophen (Tylenol Tab) 650 mg Q4H PRN PO 06/15/17 16:00 07/15/17 15:59 Prednisone (PredniSONE TAB) 40 mg DAILY PO 06/16/17 09:00 07/16/17 08:59 06/20/17 07:49 40 MG Atenolol (Tenormin Tab) 25 mg DAILY PO 06/16/17 09:00 07/16/17 08:59 06/19/17 08:14 25 MG Atorvastatin Calcium (Lipitor Tab) 10 mg DAILY PO 06/16/17 09:00 07/16/17 08:59 06/20/17 07:50 10 MG Citalopram Hydrobromide (celeXA TAB) 20 mg DAILY PO 06/16/17 09:00 07/16/17 08:59 06/20/17 07:50 20 MG Donepezil HCl (Aricept Tab) 5 mg HS PO 06/15/17 21:00 07/15/17 20:59 06/19/17 21:42 5 MG Gabapentin (Neurontin Cap) 100 mg DAILY PO 06/16/17 09:00 07/16/17 08:59 06/20/17 07:49 100 MG Levothyroxine Sodium (Synthroid Tab) 25 mcg DAILYBB PO 06/16/17 06:00 07/16/17 06:59 06/20/17 05:53 25 MCG Daptomycin (Consult) 1 ea UD PRN N/A 06/15/17 18:36 07/15/17 18:35 Warfarin Sodium (Coumadin Tab) 6 mg DAILY@1600 PO 06/16/17 16:00 07/16/17 15:59 06/19/17 17:22 6 MG Daptomycin 275 mg/ Syringe 5.5 ml @ 2.75 mls/ min Q24H IV 06/17/17 08:00 06/26/17 07:59 06/20/17 07:54 2.75 MLS/MIN Triamcinolone Acetonide (Kenalog 0.1% Cream) 1 appln BID EXT 06/18/17 09:00 07/18/17 08:59 06/20/17 07:50 1 APPLN Diphenhydramine HCl (Benadryl Cap) 50 mg Q6 PO 06/19/17 12:00 07/15/17 17:59 06/20/17 11:38 50 MG Sodium Chloride 1,000 ml @ 80 mls/hr [id number] IV 06/19/17 09:45 07/19/17 09:44 06/20/17 11:38 80 MLS/HR Objective Vital Signs Date Time Temp Pulse Resp B/P (MAP) Pulse Ox O2 Delivery O2 Flow Rate FiO2 06/20/17 07:31 36.4 57 16 90/50 (63) 98 Room Air 06/20/17 00:00 Room Air 06/19/17 23:34 36.6 62 20 109/63 (78) 98 Room Air 06/19/17 20:12 36.9 63 14 133/86 (102) 100 Room Air 06/19/17 16:00 Room Air 06/19/17 15:36 36.5 66 20 117/69 (85) 95 Room Air Physical Exam General Appearance: no apparent distress Respiratory/Chest: lungs clear, normal breath sounds, no respiratory distress, no accessory muscle use Cardiovascular: regular rate, rhythm, no edema, no murmur Abdomen: + pertinent finding (+scrotal edema) Extremities: + pertinent finding (+excorations throughout, healing) Neurologic/Psychiatric: no motor/sensory deficits, alert, + pertinent finding Laboratory Results Last 24 Hours Test 06/20/17 06:04 06/20/17 11:46 White Blood Count 17.10 K/uL Red Blood Count 2.86 M/uL Hemoglobin 8.3 g/dL Hematocrit 25.5 % Mean Corpuscular Volume 89.2 fL Mean Corpuscular Hemoglobin 29.0 pg Mean Corpuscular Hemoglobin Concent 32.5 g/dl Platelet Count 342 K/uL Mean Platelet Volume 8.5 fL Neutrophils (%) (Auto) 45.2 % Lymphocytes (%) (Auto) 7.6 % Monocytes (%) (Auto) 5.5 % Eosinophils (%) (Auto) 41.0 % Basophils (%) (Auto) 0.2 % Neutrophils # (Auto) 7.73 K/uL Lymphocytes # (Auto) 1.30 K/uL Monocytes # (Auto) 0.94 K/uL Eosinophils # (Auto) 7.01 K/uL Basophils # (Auto) 0.04 K/uL RDW Standard Deviation 47.2 fL RDW Coefficient of Variation 14.3 % Immature Granulocyte % (Auto) 0.5 % Immature Granulocyte # (Auto) 0.08 K/uL Hypersegmented Polys 1+ Absolute Reticulocyte Count 0.05 10^6/uL Percent Reticulocyte Count 1.9 % Prothrombin Time 35.1 SECONDS Prothromb Time International Ratio 3.4 Sodium Level 140 mmol/L Potassium Level 4.5 mmol/L Chloride Level 111 mmol/L Carbon Dioxide Level 24 mmol/L Anion Gap 5.0 mmol/L Blood Urea Nitrogen 44 mg/dl Creatinine 1.93 mg/dl Est Creatinine Clear Calc Drug Dose 36.4 ml/min Estimated GFR () 40.9 Estimated GFR (Non- 35.3 BUN/Creatinine Ratio 22.7 Random Glucose 75 mg/dl Calcium Level 7.8 mg/dl Magnesium Level 1.6 mg/dl Iron Level 24 mcg/dl Total Iron Binding Capacity 257 mcg/dl Transferrin 203 mg/dl Transferrin % Saturation 8 % Ferritin 72.1 ng/ml Thyroid Stimulating Hormone (TSH) 4.400 uIu/ml Bedside Glucose 83 mg/dl Assessment and Plan This is a 67 year old male with a past medical history of schizophrenia, depression, valvular heart disease s/p bioprosthetic aortic valve replacement, mitral valve repair, tricuspid valve annuloplasty; paroxysmal atrial fibrillation on long-term anticoagulation, hypothyroidism, HLD, inguinal hernia - presents with self-inflicted wound excoriations, kidney injury Infected Neurotic Excoriations 06/20 - will stop prednisone today - stop Daptomycin - started on Bactrim for 10-14 days - plan for discharge home health vs. SNF - lives with brother - case management consulted 06/19 - patient presented with excoriations throughout the upper and lower extremities - patient states that he was picking at wounds on his extremities, which caused redness - wound cultures from lower extremity and genital culture - MRSA - appreciate ID and dermatology input - concern for scabies prior to arrival, though this is not likely as per derm - will continue IV Daptomycin as per ID - currently using Kenalog cream, Benadryl 50mg q6 for itching - can likely add Vistaril if needed - currently on prednisone, can likely d/c in 1-2 days Acute Kidney Injury 06/19 - creatinine at baseline is around 1.0 - presented with creatinine > 2.0 - monitor urine output - gentle IV hydration Anemia - normocytic anemia - low iron levels, low TIBC, will recheck and check a transferrin and ferritin level - B12 normal, folate is low-normal - will check stool occult - may need iron and folate supplementation - possible alcohol related? Paroxysmal A. Fib - currently in NSR - continue Coumadin; INR goal 2-3 - continue Atenolol Scrotal Edema - secondary to inguinal hernia - still able to urinate - monitor output - outpatient follow-up with general surgery Schizophrenia - not on any antipsychotics, stable - continue Celexa for depression Valvular Heart Disease - stable, hold Lasix due to likely dehydration and kidney injury - gentle IV hydration Hypothyroidism - TSH wnl - continue Synthroid DVT ppx - Coumadin FULL CODE
[2017-06-20 15:21] VITALS: BP 114/70; PULSE 70; TEMP 36.7; O2SAT 94
[2017-06-20 16:00] VITALS: O2SAT 94
--- NOTE | 2017-06-20 17:35 | Infectious Disease Progress Nt ---
Progress Note Date of Service Jun 20, 2017. Subjective Pt evaluation today including: conversation w/ patient, physical exam, chart review, lab review, review of studies, conversation w/ x ray consultant, review of inpatient medication list Patient states he is slowly improving. Itching is less. No fever. All Other Systems: Reviewed and Negative Medications Reported Home Medications Medications Dose Route/Sig Max Daily Dose Days Date Category Dose Instructions Coumadin (Warfarin Sod) 4 Mg Tab 6 Mg PO DAILY 06/15/17 Reported Potassium Chloride Er (Potassium Chloride) 10 Meq Cap 1 Cap PO DAILY 90 06/15/17 Reported Gabapentin 100 Mg Cap 1 Tab PO DAILY 06/15/17 Reported Lasix (Furosemide) 20 Mg Tab 20 Mg PO DAILY 06/15/17 Reported Aricept (Donepezil HCl) 5 Mg Tab 1 Tab PO HS 30 06/15/17 Reported Celexa (Citalopram Hydrobromide) 10 Mg Tab 20 Tab PO DAILY 30 06/15/17 Reported Lipitor (Atorvastatin Calcium) 10 Mg Tab 10 Mg PO DAILY 01/02/14 Reported Synthroid (Levothyroxine Sodium) 25 Mcg Tab 25 Mcg PO DAILY 01/02/14 Reported Tenormin (Atenolol) 25 Mg Tab 25 Mg PO DAILY 01/02/14 Reported APPLY TOPICALLY TO AFFECTED AREA ONCE FOR 1 DOSE. APPLY FROM TOP OF NECK TO TOES ALL OVER, WASH OFF AFTER 12 HOURS. Objective Vital Signs Date Time Temp Pulse Resp B/P (MAP) Pulse Ox O2 Delivery O2 Flow Rate FiO2 06/20/17 15:21 36.7 70 18 114/70 (85) 94 06/20/17 08:00 98 Room Air 06/20/17 07:31 36.4 57 16 90/50 (63) 98 Room Air 06/20/17 00:00 Room Air 06/19/17 23:34 36.6 62 20 109/63 (78) 98 Room Air 06/19/17 20:12 36.9 63 14 133/86 (102) 100 Room Air Physical Exam General Appearance: WD/WN, no apparent distress Eyes: normal inspection, EOMI, sclerae normal ENT: normal ENT inspection, pharynx normal Neck: supple, no adenopathy, trachea midline Respiratory/Chest: lungs clear, normal breath sounds, no respiratory distress Cardiovascular: regular rate, rhythm, no gallop, no murmur Abdomen: normal bowel sounds, non tender, soft, no organomegaly Extremities: non-tender, no calf tenderness, normal capillary refill Neurologic/Psychiatric: alert, oriented x 3 Skin: normal color, + pertinent finding (Multiple excoriated lesions, erythema improving) Lymphatic: no adenopathy Laboratory Results Last 24 Hours Test 06/20/17 06:04 06/20/17 11:46 White Blood Count 17.10 K/uL Red Blood Count 2.86 M/uL Hemoglobin 8.3 g/dL Hematocrit 25.5 % Mean Corpuscular Volume 89.2 fL Mean Corpuscular Hemoglobin 29.0 pg Mean Corpuscular Hemoglobin Concent 32.5 g/dl Platelet Count 342 K/uL Mean Platelet Volume 8.5 fL Neutrophils (%) (Auto) 45.2 % Lymphocytes (%) (Auto) 7.6 % Monocytes (%) (Auto) 5.5 % Eosinophils (%) (Auto) 41.0 % Basophils (%) (Auto) 0.2 % Neutrophils # (Auto) 7.73 K/uL Lymphocytes # (Auto) 1.30 K/uL Monocytes # (Auto) 0.94 K/uL Eosinophils # (Auto) 7.01 K/uL Basophils # (Auto) 0.04 K/uL RDW Standard Deviation 47.2 fL RDW Coefficient of Variation 14.3 % Immature Granulocyte % (Auto) 0.5 % Immature Granulocyte # (Auto) 0.08 K/uL Hypersegmented Polys 1+ Absolute Reticulocyte Count 0.05 10^6/uL Percent Reticulocyte Count 1.9 % Prothrombin Time 35.1 SECONDS Prothromb Time International Ratio 3.4 Sodium Level 140 mmol/L Potassium Level 4.5 mmol/L Chloride Level 111 mmol/L Carbon Dioxide Level 24 mmol/L Anion Gap 5.0 mmol/L Blood Urea Nitrogen 44 mg/dl Creatinine 1.93 mg/dl Est Creatinine Clear Calc Drug Dose 36.4 ml/min Estimated GFR () 40.9 Estimated GFR (Non- 35.3 BUN/Creatinine Ratio 22.7 Random Glucose 75 mg/dl Calcium Level 7.8 mg/dl Magnesium Level 1.6 mg/dl Iron Level 24 mcg/dl Total Iron Binding Capacity 257 mcg/dl Transferrin 203 mg/dl Transferrin % Saturation 8 % Ferritin 72.1 ng/ml Thyroid Stimulating Hormone (TSH) 4.400 uIu/ml Bedside Glucose 83 mg/dl Assessment and Plan 67-year-old male with schizophrenia, atrial fibrillation on anticoagulation, with multiple excoriated lesion on extremities, scrotal swelling and erythema, with wound cultures growing Staph aureus (MRSA), blood with coagulase negative Staph, 1 bottle, likely contaminant.Transition to oral antibiotics with Bactrim , likely in the range of 10-14 more days. We will continue to follow.
[2017-06-20] MEDS: DONEPEZIL HCL 5 MG TAB PO SCH (21:21)
[2017-06-20] MEDS: SULFAMETHOXAZOLE/TRIMETHOPRIM DS 800/160MG TAB PO SCH (21:22)
[2017-06-20 22:43] VITALS: BP 95/65; PULSE 65; TEMP 36.6; O2SAT 91
[2017-06-21] MEDS: SODIUM CHLORIDE 0.9% 1000ML 1,000 ML IV SCH ×2 (00:08→13:14)
[2017-06-21] MEDS: LEVOTHYROXINE 25 MCG TAB PO SCH (05:41)
[2017-06-21 07:00] LABS: HEMATOCRIT 24.3 % (42-52); HEMOGLOBIN 7.8 g/dL (14.0-18.0); MEAN CELL VOLUME 89.3 fL (80-100); MEAN CORPUSCULAR HEMOGLOBIN 28.7 pg (25-34); MEAN CORPUSCULAR HGB CONC 32.1 g/dl (32-36); MEAN PLATELET VOLUME 8.6 fL (7.4-10.4); PLATELET COUNT 378 K/uL (130-400); RED CELL DISTRIBUTION WIDTH CV 14.4 % (11.5-14.5); RED CELL DISTRIBUTION WIDTH SD 46.8 fL (36.4-46.3)
[2017-06-21 07:35] LABS: CALCIUM 8.2 mg/dl (8.5-10.1); CREATININE 1.76 mg/dl (0.60-1.40); POTASSIUM 4.8 mmol/L (3.5-5.1)
[2017-06-21 07:42] LABS: INR 3.7 (0.9-1.1)
[2017-06-21 07:55] VITALS: BP 132/82; PULSE 62; TEMP 36; O2SAT 95
[2017-06-21] MEDS ORDERED: TRIAMCINOLONE ACET 0.1% CR 80 GM TUBE EXT SCH (08:00)
[2017-06-21] MEDS: CITALOPRAM 20 MG TAB PO SCH (08:54)
[2017-06-21] MEDS: ATORVASTATIN 10 MG TAB PO SCH (08:54)
[2017-06-21] MEDS: GABAPENTIN 100 MG CAP PO SCH (08:54)
[2017-06-21] MEDS: SULFAMETHOXAZOLE/TRIMETHOPRIM DS 800/160MG TAB PO SCH (08:54)
--- NOTE | 2017-06-21 12:19 | Progress Note ---
Subjective Date of Service: Jun 21, 2017. Subjective Pt evaluation today including: conversation w/ patient, physical exam, lab review, review of studies, review of inpatient medication list Saw/examined the patient in room 415 He's doing well; still picking at his wounds throughout arms/legs states he's doing fine, no fevers/chills No nausea/vomiting, eager to go home Problem List Medical Problems: (1) ОЛЕГ (acute kidney injury) Status: Acute (2) Cellulitis Status: Acute Review of Systems Constitutional: No fever, No chills Respiratory: No cough, No sputum, No shortness of breath Cardiac: No chest pain Skin: + itch, + new/changing skin lesions Medications Current Inpatient Medications Medications (Trade) Dose Ordered Sig/Lakisha Route Start Time Stop Time Status Last Admin Dose Admin Acetaminophen (Tylenol Tab) 650 mg Q4H PRN PO 06/15/17 16:00 07/15/17 15:59 Atenolol (Tenormin Tab) 25 mg DAILY PO 06/16/17 09:00 07/16/17 08:59 06/21/17 08:54 25 MG Atorvastatin Calcium (Lipitor Tab) 10 mg DAILY PO 06/16/17 09:00 07/16/17 08:59 06/21/17 08:54 10 MG Citalopram Hydrobromide (celeXA TAB) 20 mg DAILY PO 06/16/17 09:00 07/16/17 08:59 06/21/17 08:54 20 MG Donepezil HCl (Aricept Tab) 5 mg HS PO 06/15/17 21:00 07/15/17 20:59 06/20/17 21:21 5 MG Gabapentin (Neurontin Cap) 100 mg DAILY PO 06/16/17 09:00 07/16/17 08:59 06/21/17 08:54 100 MG Levothyroxine Sodium (Synthroid Tab) 25 mcg DAILYBB PO 06/16/17 06:00 07/16/17 06:59 06/21/17 05:41 25 MCG Warfarin Sodium (Coumadin Tab) 6 mg DAILY@1600 PO 06/16/17 16:00 07/16/17 15:59 Future hold 06/19/17 17:22 6 MG Diphenhydramine HCl (Benadryl Cap) 50 mg Q6 PO 06/19/17 12:00 5/20/18 17:59 06/21/17 05:42 50 MG Sodium Chloride 1,000 ml @ 80 mls/hr [id number] IV 06/19/17 09:45 07/19/17 09:44 06/21/17 00:08 80 MLS/HR Trimethoprim/ Sulfamethoxazole (Septra Ds 800/ 160MG Tab) 1 tab Q12 PO 06/20/17 21:00 06/30/17 20:59 06/21/17 08:54 1 TAB Triamcinolone Acetonide (Triamcinolone Acet 0.1% Crm) 1 appln BID EXT 06/21/17 08:00 07/21/17 07:59 06/21/17 08:54 1 APPLN Objective Vital Signs Date Time Temp Pulse Resp B/P (MAP) Pulse Ox O2 Delivery O2 Flow Rate FiO2 06/21/17 09:30 Room Air 06/21/17 07:55 36.0 62 16 132/82 (99) 95 Room Air 06/21/17 00:00 Room Air 06/20/17 22:43 36.6 65 22 95/65 (75) 91 Room Air 06/20/17 16:00 94 Room Air 06/20/17 15:21 36.7 70 18 114/70 (85) 94 Physical Exam General Appearance: no apparent distress Respiratory/Chest: no respiratory distress, no accessory muscle use Extremities: + pertinent finding (excoriations throughout the extremities) Neurologic/Psychiatric: + pertinent finding (flat affect) Laboratory Results Last 24 Hours Test 06/21/17 06:22 White Blood Count 17.00 K/uL Red Blood Count 2.72 M/uL Hemoglobin 7.8 g/dL Hematocrit 24.3 % Mean Corpuscular Volume 89.3 fL Mean Corpuscular Hemoglobin 28.7 pg Mean Corpuscular Hemoglobin Concent 32.1 g/dl RDW Standard Deviation 46.8 fL RDW Coefficient of Variation 14.4 % Platelet Count 378 K/uL Mean Platelet Volume 8.6 fL Prothrombin Time 38.0 SECONDS Prothromb Time International Ratio 3.7 Sodium Level 140 mmol/L Potassium Level 4.8 mmol/L Chloride Level 113 mmol/L Carbon Dioxide Level 23 mmol/L Anion Gap 4.0 mmol/L Blood Urea Nitrogen 43 mg/dl Creatinine 1.76 mg/dl Est Creatinine Clear Calc Drug Dose 39.9 ml/min Estimated GFR () 45.7 Estimated GFR (Non- 39.4 BUN/Creatinine Ratio 24.7 Random Glucose 72 mg/dl Calcium Level 8.2 mg/dl Assessment and Plan This is a 67 year old male with a past medical history of schizophrenia, depression, valvular heart disease s/p bioprosthetic aortic valve replacement, mitral valve repair, tricuspid valve annuloplasty; paroxysmal atrial fibrillation on long-term anticoagulation, hypothyroidism, HLD, inguinal hernia - presents with self-inflicted wound excoriations, kidney injury Infected Neurotic Excoriations 06/21 - will be on Bactrim for 10-14 days - okay for d/c home with home health 06/20 - will stop prednisone today - stop Daptomycin - started on Bactrim for 10-14 days - plan for discharge home health vs. SNF - lives with brother - case management consulted 06/19 - patient presented with excoriations throughout the upper and lower extremities - patient states that he was picking at wounds on his extremities, which caused redness - wound cultures from lower extremity and genital culture - MRSA - appreciate ID and dermatology input - concern for scabies prior to arrival, though this is not likely as per derm - will continue IV Daptomycin as per ID - currently using Kenalog cream, Benadryl 50mg q6 for itching - can likely add Vistaril if needed - currently on prednisone, can likely d/c in 1-2 days Acute Kidney Injury 06/19 - creatinine at baseline is around 1.0 - presented with creatinine > 2.0 - monitor urine output - gentle IV hydration Anemia - normocytic anemia - low iron levels, low TIBC, will recheck and check a transferrin and ferritin level - B12 normal, folate is low-normal - will check stool occult - may need iron and folate supplementation - possible alcohol related? Paroxysmal A. Fib - currently in NSR - continue Coumadin; INR goal 2-3 - continue Atenolol Scrotal Edema - secondary to inguinal hernia - still able to urinate - monitor output - outpatient follow-up with general surgery Schizophrenia - not on any antipsychotics, stable - continue Celexa for depression Valvular Heart Disease - stable, hold Lasix due to likely dehydration and kidney injury - gentle IV hydration Hypothyroidism - TSH wnl - continue Synthroid DVT ppx - Coumadin FULL CODE
[2017-06-21] MEDS ORDERED: TRMCR180 EXT (12:26)
[2017-06-21] MEDS ORDERED: DIPH25CA5 PO (12:26)
[2017-06-21] MEDS ORDERED: SULF-302 PO (12:26)
--- NOTE | 2017-06-21 12:40 | Discharge Instructions ---
Discharge Instructions Date of Service Jun 21, 2017. Admission Reason for Admission: Cellulitis Discharge Discharge Diagnosis / Problem: Infected Wounds Discharge Goals Goal(s): Decrease discomfort, Improve function, Diagnostic testing, Therapeutic intervention Activity Recommendations Activity Limitations: resume your previous activity . Instructions / Follow-Up Instructions / Follow-Up Please follow-up with Dr. Boles on , June 28 at 10:45AM * You will be on Bactrim (antibiotic) twice daily for the next 12 days * Please hold Coumadin for two days (restart on June 23) - outpatient Coumadin clinic to check your INR next week * Please follow-up with psychiatry on June 26 as scheduled * Use triamcinolone cream as prescribed Current Hospital Diet Patient's current hospital diet: AHA Diet (Heart Healthy) Discharge Diet Recommended Diet: AHA Diet (Heart Healthy) Pending Studies Studies pending at discharge: no Medical Emergencies . Who to Call and When: Medical Emergencies: If at any time you feel your situation is an emergency, please call 911 immediately. . Non-Emergent Contact Non-Emergency issues call your: Primary Care Provider . . "Provider Documentation" section prepared by Deep Moore. .
--- NOTE | 2017-06-21 12:42 | Discharge Summary ---
Discharge Summary Date of Service Jun 21, 2017. Discharge Summary Admission Date: Jun 15, 2017 at 16:00 Discharge Date: Jun 21, 2017 Discharge Disposition: Home with services Principal Diagnosis: Infected Neurotic Excoriations Acute Kidney Injury Anemia Paroxysmal A. Fib Scrotal Edema Schizophrenia Valvular Heart Disease Hypothyroidism Medication Reconciliation New Medications: Diphenhydramine Hcl (Benadryl) 25 Mg Cap 50 MG PO Q6 for 10 Days, #80 CAP Sulfamethoxazole-Trimethoprim (Smz-Tmp Ds) 1 Tab Tab 1 TAB PO Q12 for 12 Days, #24 TAB Triamcinolone Acet (Aristocort 0.1%) 240 Appln/80 Gm Cr 1 APPLN EXT BID for 30 Days, #1 TUBE Continued Medications: Atenolol (Tenormin) 25 Mg Tab 25 MG PO DAILY, TAB APPLY TOPICALLY TO AFFECTED AREA ONCE FOR 1 DOSE. APPLY FROM TOP OF NECK TO TOES ALL OVER, WASH OFF AFTER 12 HOURS. Atorvastatin (Lipitor) 10 Mg Tab 10 MG PO DAILY Citalopram Hydrobromide (Celexa) 10 Mg Tab 20 TAB PO DAILY for 30 Days, #600 TAB 2 Refills Donepezil HCl (Aricept) 5 Mg Tab 1 TAB PO HS for 30 Days, #30 TAB 5 Refills Furosemide (Lasix) 20 Mg Tab 20 MG PO DAILY Gabapentin (Gabapentin) 100 Mg Cap 1 TAB PO DAILY Levothyroxine Sodium (Synthroid) 25 Mcg Tab 25 MCG PO DAILY, TAB Potassium Chloride (Potassium Chloride Er) 10 Meq Cap 1 CAP PO DAILY for 90 Days, #90 CAP 1 Refill Warfarin Sod (Coumadin) 4 Mg Tab 6 MG PO DAILY Admission Information HPI (per Admitting provider): This is a 67-year-old male with a PMH of schizophrenia, systolic CHF 2/2 valvular disease, paroxysmal A. fib (on Coumadin), aortic valve replacement, mitral valve repair and other medical problems listed below who presents with open sores on his arms, trunk and legs 1 month. Patient is a poor historian so HPI is limited. States that he first noticed rash 3-4 weeks ago and was seen in urgent care, where he was diagnosed with probable scabies and prescribed permethrin cream. However, patient applied medication inappropriately and rinsed a few hours after application. Was seen in clinic on 05/25/17 and was prescribed a course of Keflex for secondary bacterial infection. Patient states that he completed the antibiotic 2 weeks ago. Is unsure whether or not medication helped with sores. [facility] for annual EKG and states that he was sent over to the ED due to the appearance of his skin. Sores continue to itch and drain intermittently as well as bleed from scratching. Denies fever, chills or malaise. Does endorse some lightheadedness with standing but denies near-syncope or falls. Has issues with incontinence but denies dysuria. LE swelling is at baseline. Denies headache, visual changes, chest pain, SOB, abdominal pain, nausea, vomiting, constipation or diarrhea. Appetite and fluid intake are normal. Patient lives with brother in [place] and is employed at [employer] Has been unable to work for the last few weeks. Follows with Coumadin clinic but is unsure of current medication dose. Denies being sexually active. Of note, home medications reconciled per [facility] out-patient record and with patient but per out-patient pharmacy, patient has only recently filled the following: -Permethrin cream -Keflex -Atenolol -Warfarin 4mg tabs Physical Exam (per Admitting): General Appearance: no apparent distress, + pertinent finding (Disheveled appearance) Head: normocephalic, atraumatic Eyes: normal inspection, PERRL, sclerae normal ENT: normal ENT inspection, hearing grossly normal, pharynx normal (dry mucous membranes ) Neck: supple, trachea midline Respiratory/Chest: chest non-tender, lungs clear, normal breath sounds, no respiratory distress, no accessory muscle use Cardiovascular: regular rate, rhythm, normal peripheral pulses, + systolic murmur, + pertinent finding (BLE edema R>L ) Abdomen/GI: non tender, soft, no organomegaly Genitourinary - Male: + pertinent finding (R scrotal edema with excoriations. Non-tender) Back: + pertinent finding (Patchy discoloration noted on back. Non-tender, no drainage ) Extremities/Musculoskelatal: normal capillary refill, non-tender Neurologic/Psych: no motor/sensory deficits, alert, normal mood/affect, oriented x 3 Skin: + pertinent finding (Diffuse excoriation over arms, trunk, legs, scrotum with some open wounds. Erythema and edema noted on BLE. ) Hospital Course This is a 67 year old male with a past medical history of schizophrenia, depression, valvular heart disease s/p bioprosthetic aortic valve replacement, mitral valve repair, tricuspid valve annuloplasty; paroxysmal atrial fibrillation on long-term anticoagulation, hypothyroidism, HLD, inguinal hernia - presents with self-inflicted wound excoriations, kidney injury Infected Neurotic Excoriations 06/21 - will be on Bactrim for 10-14 days - okay for d/c home with home health 06/20 - will stop prednisone today - stop Daptomycin - started on Bactrim for 10-14 days - plan for discharge home health vs. SNF - lives with brother - case management consulted 06/19 - patient presented with excoriations throughout the upper and lower extremities - patient states that he was picking at wounds on his extremities, which caused redness - wound cultures from lower extremity and genital culture - MRSA - appreciate ID and dermatology input - concern for scabies prior to arrival, though this is not likely as per derm - will continue IV Daptomycin as per ID - currently using Kenalog cream, Benadryl 50mg q6 for itching - can likely add Vistaril if needed - currently on prednisone, can likely d/c in 1-2 days Acute Kidney Injury 06/19 - creatinine at baseline is around 1.0 - presented with creatinine > 2.0 - monitor urine output - gentle IV hydration Anemia - normocytic anemia - low iron levels, low TIBC, will recheck and check a transferrin and ferritin level - B12 normal, folate is low-normal - will check stool occult - may need iron and folate supplementation - possible alcohol related? Paroxysmal A. Fib - currently in NSR - continue Coumadin; INR goal 2-3 - continue Atenolol Scrotal Edema - secondary to inguinal hernia - still able to urinate - monitor output - outpatient follow-up with general surgery Schizophrenia - not on any antipsychotics, stable - continue Celexa for depression Valvular Heart Disease - stable, hold Lasix due to likely dehydration and kidney injury - gentle IV hydration Hypothyroidism - TSH wnl - continue Synthroid DVT ppx - Coumadin FULL CODE Total time spent on discharge = 45 minutes This includes examination of the patient, discharge planning, medication reconciliation, and communication with other providers. Discharge Instructions Please follow-up with Dr. Boles on June 28 at 10:45AM * You will be on Bactrim (antibiotic) twice daily for the next 12 days * Please hold Coumadin for two days (restart on June 23) - outpatient Coumadin clinic to check your INR next week * Please follow-up with psychiatry on June 26 as scheduled * Use triamcinolone cream as prescribed
[2017-06-21 12:58] VITALS: BP 132/82; PULSE 62; TEMP 36; O2SAT 95
== END 2017-06-21 14:56 | disposition home health service (06) | DRG 603 ==
LOC: EDBD 12:01 → C.EDC 12:03 → C.2T 16:00 → UNDOADMIN 16:00 → ENRESERV 16:42 → C.4E 06-19 19:55
PROVIDERS: ADMIT Hospitalist; ATTEND Family Medicine
DX: L08.89 Other specified local infections of the skin and subcutaneous tissue (principal); N17.9 Acute kidney failure, unspecified; I50.22 Chronic systolic (congestive) heart failure; I38 Endocarditis, valve unspecified; L98.1 Factitial dermatitis; B95.62 Methicillin resistant Staphylococcus aureus infection as the cause of diseases classified elsewhere; D64.9 Anemia, unspecified; K40.90 Unilateral inguinal hernia, without obstruction or gangrene, not specified as recurrent; R32 Unspecified urinary incontinence; F39 Unspecified mood [affective] disorder; F20.9 Schizophrenia, unspecified; E86.0 Dehydration; I48.0 Paroxysmal atrial fibrillation; E03.9 Hypothyroidism, unspecified; E78.5 Hyperlipidemia, unspecified; Z79.899 Other long term (current) drug therapy; Z79.01 Long term (current) use of anticoagulants; Z72.89 Other problems related to lifestyle; Z95.2 Presence of prosthetic heart valve

== ENCOUNTER 2017-06-28 11:40 | Inpatient (IN) | payer OTHER ==
[~2017-06-28] VITALS: Ht 172.7 cm; Wt 73.6 kg
[~2017-06-28 11:40] MED LIST changes: +CITA10TA8 PO; +CMD4 PO; -DCL250 PO; +DIPH25CA5 PO; +DONE5TAB9 PO; +FURO20TA PO; +NRN100 PO; +POTA1CAP2 PO; +SULF-302 PO; +TRMCR180 EXT; -WARF-280 PO; -WARF5TAB7 PO; -gabapentin PO
[2017-06-28] MEDS ORDERED: SODIUM CHLORIDE 0.9% 1000ML 1,000 ML IV ONE (12:29)
[2017-06-28] MEDS ORDERED: VANCOMYCIN IV 1,000 MG in SODIUM CHLORIDE 0.9% 250ML 250 ML IV STA (12:29)
[2017-06-28] MEDS ORDERED: VANCOMYCIN CONSULT ACTIVE PRN ×2 (12:30→15:15)
--- NOTE | 2017-06-28 13:07 | DIAGNOSTIC IMAGING REPORT ---
CHEST ONE VIEW PORTABLE HISTORY: 67 years-old Male Evaluate Fever/Sepsis acute fever and sepsis COMPARISON: Chest radiograph 06/15/2017 TECHNIQUE: Portable AP view of the chest FINDINGS: Patient is rotated to the right. Cardiac silhouette is again enlarged. Prior median sternotomy with prosthetic cardiac valve. Suggested hiatal hernia. There is mild pulmonary vascular congestion without pneumothorax or overt pulmonary edema. Trace bilateral pleural effusions with subsegmental bibasilar opacities. No pneumothorax. Bones of the chest appear grossly intact. IMPRESSION: 1. Cardiomegaly with mild pulmonary vascular congestion. 2. Trace bilateral pleural effusions with subsegmental bibasilar opacities suggesting atelectasis or pneumonitis. The above report was generated using voice recognition software. It may contain grammatical, syntax or spelling errors. Electronically signed by: Case Terry M.D. 06/28/2017 1:05 PM Dictated Date/Time: 06/28/2017 1:04 PM
--- NOTE | 2017-06-28 13:19 | EMERGENCY ROOM VISIT NOTE ---
History Report prepared by Tyrone: Clarence Arzola Under the Supervision of: Dr. J Luis López M.D. First contact with patient: 12:02 Chief Complaint: MENTAL HEALTH EVALUATION Stated Complaint: INFECTION/MENTAL HEALTH History of Present Illness The patient is a 67 year old white male with a past medical history of endocarditis, hyperlipidemia, hypothyroidism, atrial fibrillation, schizophrenia , mesenteric aneurysm, tricuspid valve annuloplasty, aortic valve replacement, and mitral valve repair who presents to the Emergency Room with complaints of worsening sores that are spread diffusely across his arms and legs. The patient states the sores first began 6 weeks ago. He notes the sores are itchy and he admits to picking at them. The patient was sent to the ED from Dr. Donovan's office, who is his primary care physician. Dr. Donovan is concerned that he can no longer care for himself and is showing signs of demential, per the psychiatric egg caser who had spoke with him earlier. He does have a history of schizophrenia The patient denies any other physical complaints at this time. Source of History: patient Onset: 6 weeks ago Position: arm (bilateral), leg (bilateral) Symptom Intensity: Diffuse across arms and legs Quality: other (Rash, sores) Timing: worsening Review of Systems See HPI for pertinent positives and negatives. A total of ten systems were reviewed and were otherwise negative. Past Medical & Surgical Medical Problems: (1) Anticoagulant long-term use (2) History of endocarditis (3) HLD (hyperlipidemia) (4) Hyperlipidemia (5) Hypothyroidism (6) Paroxysmal atrial fibrillation (7) Schizophrenia, unspecified (8) Superior mesenteric aneurysm (9) Unspecified mood [affective] disorder Surgical Problems: (1) H/O tricuspid valve annuloplasty (2) S/P aortic valve replacement (3) S/P mitral valve repair Social History Problems: (1) Heavy alcohol use Family History FH: heart disease Social History Smoking Status: Never Smoker Alcohol Use: heavy Drug Use: none Marital Status: single Housing Status: lives with family Occupation Status: employed Current/Historical Medications Scheduled Atenolol (Tenormin), 25 MG PO DAILY Atorvastatin (Lipitor), 10 MG PO DAILY Citalopram Hydrobromide (Celexa), 20 TAB PO DAILY Diphenhydramine Hcl (Benadryl), 50 MG PO Q6 Donepezil HCl (Aricept), 1 TAB PO HS Furosemide (Lasix), 20 MG PO DAILY Gabapentin (Gabapentin), 1 TAB PO DAILY Levothyroxine Sodium (Synthroid), 25 MCG PO DAILY Potassium Chloride (Potassium Chloride Er), 1 CAP PO DAILY Sulfamethoxazole-Trimethoprim (Smz-Tmp Ds), 1 TAB PO Q12 Triamcinolone Acet (Aristocort 0.1%), 1 APPLN EXT BID Warfarin Sod (Coumadin), 6 MG PO DAILY Allergies Coded Allergies: No Known Allergies (Unverified , 06/15/17) Physical Exam Vital Signs Date Time Temp Pulse Resp B/P (MAP) Pulse Ox O2 Delivery O2 Flow Rate FiO2 06/28/17 15:00 121/77 06/28/17 14:40 65 21 06/28/17 14:25 109/63 06/28/17 14:10 56 19 06/28/17 14:09 109/63 06/28/17 14:08 61 18 109/63 99 Room Air 06/28/17 13:40 58 17 06/28/17 13:10 59 18 06/28/17 13:09 67 18 105/68 96 Room Air 06/28/17 13:00 63 06/28/17 12:58 105/68 06/28/17 11:54 36.7 60 18 106/60 100 Room Air Physical Exam GENERAL: Awake, alert, disheveled in appearance. HENT: Normocephalic, atraumatic. EYES: Normal conjunctiva. Sclera non-icteric. PERRL. No anisocoria. NECK: Supple. No nuchal rigidity. FROM. RESPIRATORY: CTAB, no rhonchi, wheezing, crackles CARDIAC: RRR, no MRG ABDOMEN: Soft, NTND, BS+ There is a very large hernia in the right groin, with scrotal swelling present. no TTP. MSK: No chest wall TTP. There are hemostatic sores on the bilateral upper extremities. Not much erythema. There is 1-2+ pitting edema in the bilateral LE. There are small bullae over the feet, not hemorrhagic. There is mild serous drainage. NEURO: GCS 15, CN 2-12 intact, moves all 4s on command SKIN: No rash or jaundice noted. Medical Decision & Procedures ER Provider Diagnostic Interpretation: Radiology results as stated below per my review and radiologist interpretation: CHEST ONE VIEW PORTABLE HISTORY: 67 years-old Male Evaluate Fever/Sepsis acute fever and sepsis COMPARISON: Chest radiograph 06/15/2017 TECHNIQUE: Portable AP view of the chest FINDINGS: Patient is rotated to the right. Cardiac silhouette is again enlarged. Prior median sternotomy with prosthetic cardiac valve. Suggested hiatal hernia. There is mild pulmonary vascular congestion without pneumothorax or overt pulmonary edema. Trace bilateral pleural effusions with subsegmental bibasilar opacities. No pneumothorax. Bones of the chest appear grossly intact. IMPRESSION: 1. Cardiomegaly with mild pulmonary vascular congestion. 2. Trace bilateral pleural effusions with subsegmental bibasilar opacities suggesting atelectasis or pneumonitis. The above report was generated using voice recognition software. It may contain grammatical, syntax or spelling errors. Electronically signed by: Case Terry M.D. 06/28/2017 1:05 PM Dictated Date/Time: 06/28/2017 1:04 PM Laboratory Results 06/28/17 13:12 Red Blood Count 3.05, Mean Corpuscular Volume 87.9, Mean Corpuscular Hemoglobin 28.9, Mean Corpuscular Hemoglobin Concent 32.8, Mean Platelet Volume 9.0, Neutrophils (%) (Auto) 58.6, Lymphocytes (%) (Auto) 9.3, Monocytes (%) (Auto) 8.5, Eosinophils (%) (Auto) 22.6, Basophils (%) (Auto) 0.7, Neutrophils # (Auto ) 6.76, Lymphocytes # (Auto) 1.07, Monocytes # (Auto) 0.98, Eosinophils # (Auto ) 2.61, Basophils # (Auto) 0.08 06/28/17 13:12 Test 06/28/17 13:12 06/28/17 14:12 White Blood Count 11.53 K/uL (4.8-10.8) Red Blood Count 3.05 M/uL (4.7-6.1) Hemoglobin 8.8 g/dL (14.0-18.0) Hematocrit 26.8 % (42-52) Mean Corpuscular Volume 87.9 fL (80-100) Mean Corpuscular Hemoglobin 28.9 pg (25-34) Mean Corpuscular Hemoglobin Concent 32.8 g/dl (32-36) Platelet Count 379 K/uL (130-400) Mean Platelet Volume 9.0 fL (7.4-10.4) Neutrophils (%) (Auto) 58.6 % Lymphocytes (%) (Auto) 9.3 % Monocytes (%) (Auto) 8.5 % Eosinophils (%) (Auto) 22.6 % Basophils (%) (Auto) 0.7 % Neutrophils # (Auto) 6.76 K/uL (1.4-6.5) Lymphocytes # (Auto) 1.07 K/uL (1.2-3.4) Monocytes # (Auto) 0.98 K/uL (0.11-0.59) Eosinophils # (Auto) 2.61 K/uL (0-0.5) Basophils # (Auto) 0.08 K/uL (0-0.2) RDW Standard Deviation 48.0 fL (36.4-46.3) RDW Coefficient of Variation 15.0 % (11.5-14.5) Immature Granulocyte % (Auto) 0.3 % Immature Granulocyte # (Auto) 0.03 K/uL (0.00-0.02) Red Blood Cell Morphology Unremarkable Erythrocyte Sedimentation Rate 30 mm/hr (0-14) Prothrombin Time 25.4 SECONDS (9.0-12.0) Prothromb Time International Ratio 2.5 (0.9-1.1) Activated Partial Thromboplast Time 53.4 SECONDS (21.0-31.0) Partial Thromboplastin Ratio 2.1 Venous Blood pH 7.35 (7.36-7.41) Venous Blood Partial Pressure CO2 37 mmHg (38.0-50.0) Venous Blood Partial Pressure O2 27 mmHg Venous Blood HCO3 20 mmol/L Venous Blood Oxygen Saturation < 60.0 % Venous Blood Base Excess -4.8 mEq/L Anion Gap 8.0 mmol/L (3-11) Est Creatinine Clear Calc Drug Dose 25.2 ml/min Estimated GFR () 26.2 Estimated GFR (Non- 22.6 BUN/Creatinine Ratio 12.6 (10-20) Lactic Acid Level 2.0 mmol/L (0.4-2.0) Calcium Level 8.3 mg/dl (8.5-10.1) Total Bilirubin 0.3 mg/dl (0.2-1) Direct Bilirubin 0.1 mg/dl (0-0.2) Aspartate Amino Transf (AST/SGOT) 18 U/L (15-37) Alanine Aminotransferase (ALT/SGPT) 27 U/L (12-78) Alkaline Phosphatase 113 U/L (45-117) C-Reactive Protein 2.55 mg/dl (0-0.29) Pro-B-Type Natriuretic Peptide > 96101 pg/ml (0-900) Total Protein 6.6 gm/dl (6.4-8.2) Albumin 2.5 gm/dl (3.4-5.0) Lipase 163 U/L (73-393) Urine Color YELLOW Urine Appearance CLEAR (CLEAR) Urine pH 5.0 (4.5-7.5) Urine Specific [place] 1.020 (1.000-1.030) Urine Protein NEG (NEG) Urine Glucose (UA) NEG (NEG) Urine Ketones NEG (NEG) Urine Occult Blood NEG (NEG) Urine Nitrite NEG (NEG) Urine Bilirubin NEG (NEG) Urine Urobilinogen NEG (NEG) Urine Leukocyte Esterase NEG (NEG) Urine WBC (Auto) 1-5 /hpf (0-5) Urine RBC (Auto) 0-4 /hpf (0-4) Urine Hyaline Casts (Auto) 1-5 /lpf (0-5) Urine Epithelial Cells (Auto) 10-20 /lpf (0-5) Urine Bacteria (Auto) NEG (NEG) Laboratory results reviewed by me Medications Administered Medications (Trade) Dose Ordered Sig/Lakisha Route Start Time Stop Time Status Last Admin Dose Admin Vancomycin HCl 1000 mg/Sodium Chloride 270 ml @ 125 mls/hr ONE STAT IV 06/28/17 12:29 06/28/17 14:38 DC 06/28/17 14:05 125 MLS/HR Ceftriaxone Sodium (Rocephin Inj) 1 gm NOW STAT IV 06/28/17 14:34 06/28/17 14:35 DC 06/28/17 15:50 1 GM Sodium Chloride 1,000 ml @ 100 mls/hr Q10H IV 06/28/17 15:00 07/28/17 14:59 06/28/17 16:59 100 MLS/HR ECG Per My Interpretation Indication: other (Cardiac History) Rate (beats per minute): 57 Rhythm: sinus bradycardia Findings: T-wave inversion (Anterior/inferior), prolonged QT, no ectopy, other (Normal [place]) Comparison ECG Date: 06/17/2017 Change: TWI in anterior leads are new. ED Course 1223: The patient was evaluated in room A9B. A complete history and physical exam was performed. 1406: I discussed the case with Lola MONAHAN Hospitalist. She will evaluate the patient for further treatment. Medical Decision The patient is a 67 year old white male with a past medical history of endocarditis, hyperlipidemia, hypothyroidism, atrial fibrillation, schizophrenia , mesenteric aneurysm, tricuspid valve annuloplasty, aortic valve replacement, and mitral valve repair who presents to the Emergency Room with complaints of worsening sores that are spread diffusely across his arms and legs. The patient states the sores first began 6 weeks ago. Nursing notes reviewed. Ancillary studies and prior records reviewed. Differential diagnosis: Etiologies such as cellulitis, abscess, MRSA infection, DVT, necrotizing fasciitis, dermatitis, drug eruption, as well as others were entertained.. Patient was seen and evaluated the bedside. Patient has been having some concerning sores which were noticed today while he was seeing his primary care physician. The patient has had some excoriations in the past that were infected. He was treated with daptomycin and changed to Bactrim. Patient on exam does have sores in his bilateral upper and lower extremities. He does have some small bulla on the lower extremities. These do not appear to be hemorrhagic in his lower extremities are without crepitus. He does have a significant hernia but without any pain in the right groin. Patient did have blood work completed, cultures, vancomycin, fluids were held at this time given that he did appear volume overloaded and his chest x-ray showed some pulmonary vascular congestion. Rocephin was added given the prior history of endocarditis and confirmed sensitivities w/ pharmacy. Patient does have mild AK I. Baseline creatinine 1.8 today it is 2.7. Given the patient's chest x-ray as well as EKG that showed new T-wave inversions in the anterior leads and troponin and BNP were also added. Fluids again were held given the patient's clinical exam and chest x-ray. I discussed case with the on-call hospitalist who agreed to further evaluate and treat the patient. Medication Reconcilliation Current Medication List: was personally reviewed by me Blood Pressure Screening Patient's blood pressure: Normal blood pressure Consults Time Called: 1402 Consulting Physician: Lola MONAHAN Hospitalist Returned Call: 1407 I discussed the case with Lola MONAHAN Hospitalist. She will evaluate the patient for further treatment. Impression Primary Impression: Cellulitis Additional Impressions: CHF (congestive heart failure) ОЛЕГ (acute kidney injury) Anemia Scribe Attestation The scribe's documentation has been prepared under my direction and personally reviewed by me in its entirety. I confirm that the note above accurately reflects all work, treatment, procedures, and medical decision making performed by me. Departure Information Dispostion Being Evaluated By Hospitalist Referrals Horace Boles D.O. (PCP) Patient Instructions [facility] Problem Qualifiers Primary Impression: Cellulitis Site of cellulitis: extremity Site of cellulitis of extremity: lower extremity Laterality: left Qualified Codes: L03.116 - Cellulitis of left lower limb Additional Impressions: CHF (congestive heart failure) Heart failure type: systolic Heart failure chronicity: acute on chronic Qualified Codes: I50.23 - Acute on chronic systolic (congestive) heart failure Anemia Anemia type: unspecified type Qualified Codes: D64.9 - Anemia, unspecified
[2017-06-28 13:32] LABS: BASO % 0.7 %; BASO ABS # 0.08 K/uL (0-0.2); EOS % 22.6 %; EOS ABS # 2.61 K/uL (0-0.5); HEMATOCRIT 26.8 % (42-52); HEMOGLOBIN 8.8 g/dL (14.0-18.0); IG# 0.03 K/uL (0.00-0.02); LYMPH % 9.3 %; LYMPH ABS # 1.07 K/uL (1.2-3.4); MEAN CELL VOLUME 87.9 fL (80-100); MEAN CORPUSCULAR HEMOGLOBIN 28.9 pg (25-34); MEAN CORPUSCULAR HGB CONC 32.8 g/dl (32-36); MONO % 8.5 %; MONO ABS # 0.98 K/uL (0.11-0.59); NEUT % 58.6 %; NEUT ABS # 6.76 K/uL (1.4-6.5); PLATELET COUNT 379 K/uL (130-400); WHITE BLOOD COUNT 11.53 K/uL (4.8-10.8)
[2017-06-28 13:52] LABS: ALBUMIN 2.5 gm/dl (3.4-5.0); CALCIUM 8.3 mg/dl (8.5-10.1); CREATININE 2.79 mg/dl (0.60-1.40); INR 2.5 (0.9-1.1)
[2017-06-28 13:55] LABS: TOTAL PROTEIN 6.6 gm/dl (6.4-8.2)
[2017-06-28 13:59] LABS: PTT PATIENT 53.4 SECONDS (21.0-31.0)
[2017-06-28] MEDS ORDERED: CEFTRIAXONE SOD INJ 1 GM ADDVIAL IV STA (14:34)
[2017-06-28] MEDS ORDERED: ACETAMINOPHEN 325 MG TAB PO PRN (14:45)
[2017-06-28] MEDS ORDERED: ONDANSETRON INJ 2 MG/ML 2 ML VIAL IV PRN (14:45)
[2017-06-28 16:21] VITALS: BP 129/84; PULSE 62; TEMP 36.3; O2SAT 90; Ht 172.7 cm; Wt 73.6 kg
--- NOTE | 2017-06-28 16:22 | Pharmacy Progress Note ---
Pharmacy Abx Dose Short Note Date of Service June 28, 2017. Assessment & Plan Assessment 67 year old male receiving Vancomycin for treatment of cellulitis Day # 03/07 of antimicrobial therapy. also on ceftriaxone 1gm IV q24h Day (1) Plan Vancomycin Patient received Vancomycin 1000 mg in ED @1405. Will give additional 1000 mg dose @ ~1630 based on calculated loading dose of 2000 mg (25mg/kg). Entered maintenance dose of 1250 mg(15mg/kg) IV q24h to begin 06/29/17. Will reassess dose /frequency and levels in am and adjust if necessary based on patient condition. Thank you.
[2017-06-28] MEDS ORDERED: VANCOMYCIN IV 1,000 MG in SODIUM CHLORIDE 0.9% 250ML 250 ML IV ONE (16:30)
--- NOTE | 2017-06-28 16:50 | History and Physical ---
History & Physical Date & Time of Service: June 28, 2017 ~ 14:15 Chief Complaint: Referred by PCP Primary Care Physician: Horace Boles D.O. History of Present Illness 67-year-old male who was referred to the ED by his PCP. Patient was recently admitted to [facility] 06/15 through 06/21 for infected neurotic excoriations and ОЛЕГ. Wound cultures from that admission regarding MRSA and patient was discharged on Bactrim. Patient presented to his PCPs office today for follow-up. He was found to the waiting room with his pants down and scratching his leg wounds. He was then placed in an exam room where he was copiously washing in the exam room sink and scratching his arms. PCP was concerned about patient's ability to take care of himself at home and was referred to the ER for further evaluation. Patient reports he lives with his brother however, "we live our separate lives". Patient reports he has been taking his medication since discharge and only missed a couple of days. I confirmed with the pharmacy that he did fern picker his antibiotic. Patient feels as though he is doing well at home. He currently offers no complaints. He denies chest pain shortness of breath. No lightheadedness, dizziness, diaphoresis, or syncopal events. No abdominal pain, nausea, vomiting, or diarrhea. He denies any fever or chills. He denies any urinary symptoms. Patient reports he fixes his own meals however PCP documented that the patient reported he had not been eating. At the time my exam, patient is disheveled appearing with a foul odor. In the ED, he was hemodynamically stable. Labs show an ОЛЕГ of 2.7 (was 1.7 on 06/21) and are otherwise unremarkable. He was given IVF, IV Vanco, and IV ceftriaxone. Past Medical/Surgical History \\Medical Problems: (1) Anticoagulant long-term use Status: Chronic (2) History of endocarditis Status: Chronic (3) HLD (hyperlipidemia) Status: Chronic (4) Hyperlipidemia Status: Chronic (5) Hypothyroidism Status: Chronic (6) Paroxysmal atrial fibrillation Status: Chronic (7) Schizophrenia, unspecified Status: Chronic (8) Superior mesenteric aneurysm Status: Chronic Surgical Problems: (1) H/O tricuspid valve annuloplasty Status: Chronic (2) S/P aortic valve replacement Status: Chronic (3) S/P mitral valve repair Status: Chronic Family History FH: heart disease Social History Smoking Status: Never Smoker Alcohol Use: none Immunizations History of Influenza Vaccine: Yes Influenza Vaccine Date: Nov 10, 2016 History of Tetanus Vaccine?: Yes Tetanus Immunization Date: Apr 03, 2017 History of Pneumococcal: Yes Pneumococcal Date: Nov 10, 2016 Allergies Coded Allergies: No Known Allergies (Unverified , 06/15/17) Home Medications Scheduled Atenolol (Tenormin), 25 MG PO DAILY Atorvastatin (Lipitor), 10 MG PO DAILY Citalopram Hydrobromide (Celexa), 20 TAB PO DAILY Diphenhydramine Hcl (Benadryl), 50 MG PO Q6 Donepezil HCl (Aricept), 1 TAB PO HS Furosemide (Lasix), 20 MG PO DAILY Gabapentin (Gabapentin), 1 TAB PO DAILY Levothyroxine Sodium (Synthroid), 25 MCG PO DAILY Potassium Chloride (Potassium Chloride Er), 1 CAP PO DAILY Sulfamethoxazole-Trimethoprim (Smz-Tmp Ds), 1 TAB PO Q12 Triamcinolone Acet (Aristocort 0.1%), 1 APPLN EXT BID Warfarin Sod (Coumadin), 6 MG PO DAILY Review of Systems ROS per HPI, all other systems reviewed and negative Physical Exam Vital Signs Date Time Temp Pulse Resp B/P (MAP) Pulse Ox O2 Delivery O2 Flow Rate FiO2 06/28/17 15:40 61 19 06/28/17 15:10 61 19 06/28/17 15:00 121/77 06/28/17 14:40 65 21 06/28/17 14:25 109/63 06/28/17 14:10 56 19 06/28/17 14:09 109/63 06/28/17 14:08 61 18 109/63 99 Room Air 06/28/17 13:40 58 17 06/28/17 13:10 59 18 06/28/17 13:09 67 18 105/68 96 Room Air 06/28/17 13:00 63 06/28/17 12:58 105/68 06/28/17 11:54 36.7 60 18 106/60 100 Room Air General Appearance: WD/WN, no apparent distress, + pertinent finding ( Disheveled) Head: normocephalic, atraumatic Eyes: normal inspection, EOMI, sclerae normal ENT: hearing grossly normal, + pertinent finding (Mucous membranes dry) Neck: supple, no JVD, trachea midline Respiratory/Chest: lungs clear, normal breath sounds, no respiratory distress Cardiovascular: regular rate, rhythm, normal peripheral pulses, + pertinent finding (+1-2 edema BL LE, right greater than left) Abdomen/GI: normal bowel sounds, non tender, soft, no organomegaly Genitourinary - Male: + pertinent finding (Scrotal edema, large hernia noted) Extremities/Musculoskelatal: normal inspection, no calf tenderness, normal capillary refill Neurologic/Psych: no motor/sensory deficits, alert, normal mood/affect, oriented x 3 (Poor insight, does not make eye contact when speaking) Skin: + pertinent finding (Several scattered abrasions noted to the bilateral upper and lower extremities and trunk in various stages of healing, a few clear fluid-filled blisters noted to the right foot) Diagnostics Laboratory Results Results Past 24 Hours Test 06/28/17 13:12 06/28/17 14:12 Range/Units White Blood Count 11.53 4.8-10.8 K/uL Red Blood Count 3.05 4.7-6.1 M/uL Hemoglobin 8.8 14.0-18.0 g/dL Hematocrit 26.8 42-52 % Mean Corpuscular Volume 87.9 80-100 fL Mean Corpuscular Hemoglobin 28.9 25-34 pg Mean Corpuscular Hemoglobin Concent 32.8 32-36 g/dl Platelet Count 379 130-400 K/uL Mean Platelet Volume 9.0 7.4-10.4 fL Neutrophils (%) (Auto) 58.6 % Lymphocytes (%) (Auto) 9.3 % Monocytes (%) (Auto) 8.5 % Eosinophils (%) (Auto) 22.6 % Basophils (%) (Auto) 0.7 % Neutrophils # (Auto) 6.76 1.4-6.5 K/uL Lymphocytes # (Auto) 1.07 1.2-3.4 K/uL Monocytes # (Auto) 0.98 0.11-0.59 K/uL Eosinophils # (Auto) 2.61 0-0.5 K/uL Basophils # (Auto) 0.08 0-0.2 K/uL RDW Standard Deviation 48.0 36.4-46.3 fL RDW Coefficient of Variation 15.0 11.5-14.5 % Immature Granulocyte % (Auto) 0.3 % Immature Granulocyte # (Auto) 0.03 0.00-0.02 K/uL Red Blood Cell Morphology Unremarkable Erythrocyte Sedimentation Rate 30 0-14 mm/hr Prothrombin Time 25.4 9.0-12.0 SECONDS Prothromb Time International Ratio 2.5 0.9-1.1 Activated Partial Thromboplast Time 53.4 21.0-31.0 SECONDS Partial Thromboplastin Ratio 2.1 Venous Blood pH 7.35 7.36-7.41 Venous Blood Partial Pressure CO2 37 38.0-50.0 mmHg Venous Blood Partial Pressure O2 27 mmHg Venous Blood HCO3 20 mmol/L Venous Blood Oxygen Saturation < 60.0 % Venous Blood Base Excess -4.8 mEq/L Sodium Level 139 136-145 mmol/L Potassium Level 5.0 3.5-5.1 mmol/L Chloride Level 112 98-107 mmol/L Carbon Dioxide Level 20 21-32 mmol/L Anion Gap 8.0 3-11 mmol/L Blood Urea Nitrogen 35 7-18 mg/dl Creatinine 2.79 0.60-1.40 mg/dl Est Creatinine Clear Calc Drug Dose 25.2 ml/min Estimated GFR () 26.2 Estimated GFR (Non- 22.6 BUN/Creatinine Ratio 12.6 10-20 Random Glucose 85 70-99 mg/dl Lactic Acid Level 2.0 0.4-2.0 mmol/L Calcium Level 8.3 8.5-10.1 mg/dl Total Bilirubin 0.3 0.2-1 mg/dl Direct Bilirubin 0.1 0-0.2 mg/dl Aspartate Amino Transf (AST/SGOT) 18 15-37 U/L Alanine Aminotransferase (ALT/SGPT) 27 12-78 U/L Alkaline Phosphatase 113 45-117 U/L Troponin I < 0.015 0-0.045 ng/ml C-Reactive Protein 2.55 0-0.29 mg/dl Pro-B-Type Natriuretic Peptide > 52250 0-900 pg/ml Total Protein 6.6 6.4-8.2 gm/dl Albumin 2.5 3.4-5.0 gm/dl Lipase 163 73-393 U/L Urine Color YELLOW Urine Appearance CLEAR CLEAR Urine pH 5.0 4.5-7.5 Urine Specific [place] 1.020 1.000-1.030 Urine Protein NEG NEG Urine Glucose (UA) NEG NEG Urine Ketones NEG NEG Urine Occult Blood NEG NEG Urine Nitrite NEG NEG Urine Bilirubin NEG NEG Urine Urobilinogen NEG NEG Urine Leukocyte Esterase NEG NEG Urine WBC (Auto) 1-5 0-5 /hpf Urine RBC (Auto) 0-4 0-4 /hpf Urine Hyaline Casts (Auto) 1-5 0-5 /lpf Urine Epithelial Cells (Auto) 10-20 0-5 /lpf Urine Bacteria (Auto) NEG NEG Microbiology Results 06/28/17 Blood Culture, Received Pending 06/28/17 Blood Culture, Received Pending 06/28/17 Urine Culture, Received Pending 06/28/17 Gram Stain, Received Pending 06/28/17 Wound Culture, Received Pending Diagnostic Radiology CXR IMPRESSION: 1. Cardiomegaly with mild pulmonary vascular congestion. 2. Trace bilateral pleural effusions with subsegmental bibasilar opacities suggesting atelectasis or pneumonitis. Impression Assessment and Plan ОЛЕГ -Admit to telemetry -Patient referred to the ED by his PCP after he was found in the waiting room with his pants down scratching his open wounds and very disheveled appearing -Recently admitted to [facility] 06/15 through 06/21 for infected neurotic excoriations and ОЛЕГ -Patient had reported PCP that he has not been eating -Creatinine 1.7 on 06/21, up to 2.7 today; noted baseline creatinine in 2017 was 1.0 -Likely due to poor p.o. intake in combination with Bactrim and Lasix use -Hold Bactrim and Lasix; start IVF -Follow renal functions, avoid nephrotoxic agents unable EKG CHANGES -EKG shows new T-wave inversions inferiorly and anteriorly -No cardiac complaints -Initial troponin negative, will continue to trend -Check resting echo NEUROTIC EXCORIATIONS -Culture from recent admission positive for MRSA -Patient was discharged on Bactrim -S/P vancomycin in the ED, will continue with; will add on Rocephin given patient's history of cardiobacterium hominis -Does not appear septic -Blood cultures obtained in ED -ID and wound care consult CHRONIC DIASTOLIC CHF SECONDARY TO VALVULAR DISEASE S/P BIOPROSTHETIC AORTIC VALVE REPLACEMENT, MITRAL VALVE REPAIR, TRICUSPID VALVE ANNULOPLASTY -BNP > 35,000 however patient appears dry on exam and also with ОЛЕГ -For now, will hold Lasix, give gentle IVF and monitor volume status closely PAROXYSMAL ATRIAL FIBRILLATION -Rate controlled on atenolol, will continue -Anticoagulated on Coumadin, INR 2.5 SCHIZOPHRENIA -Continue Celexa and donepezil -Mental health consult HYPOTHYROIDISM -Continue levothyroxine ANEMIA - hgb at baseline, no signs of bleeding - ? due to CKD DVT PROPHYLAXIS -On Coumadin, INR 2.5 DISPOSITION -In my clinical judgment this beneficiary meets acute admission criteria, established by [facility], that includes being hospitalized through two midnights. -PT/OT, case management consults; concerned about patient returning home alone to current living situation, will need to involve patient's brother ATTENDING ADDENDUM : pt seen and examined, care co ordinated with Lola MONAHAN labs and images reviewed the is a 67 yo M with hx of schizophrenia/hx of valvular heart disease s/p bioprosthetic aortic valve replacement , chronic Afib on Coumadin sent to ED by family physician w-concerned about pt's overall health and multiple excoriation /infected wound in all extremities marked edema of left lower ext and foot with infected wound on dorsal aspect of left foot no evidence of sepsis pt found to be in Acute renal failure non specific EKG change with no angina symptom initial troponin negative pt will be admitted to tele empiric Abx with IV vancomycin and Rocephin for gram negative coverage ordered for blood culture resting ECHO /serial cardiac markers consider cardiology eval if motion or valve abnormality noted in ECHO or elevated cardiac markers on serial trend gentle IV fluid for ОЛЕГ hold diuretics , pt appears to be dehydrated Nephrology consulted pts severe excoriation /scratching possible associated with psychological disorder hx of Schizophrenia on SSRI only Psych eval requested Hx of Afib cont beta alo INR therapeutic DISPOSITION : Failure to thrive/disheveled/concern for medication compliance/self-care secondary to psychiatric illness Will benefit with placement PT OT eval requested Social service consulted for discharge planning Britt Saucedo MD Resuscitation Status VTE Prophylaxis Will order VTE Prophylaxis: Yes
[2017-06-28] MEDS: SODIUM CHLORIDE 0.9% 1000ML 1,000 ML IV SCH (16:59)
[2017-06-28 19:31] VITALS: BP 92/47; PULSE 58; TEMP 36.4; O2SAT 98
[2017-06-28 20:00] VITALS: O2SAT 97
[2017-06-28] MEDS ORDERED: TRIAMCINOLONE ACET 0.1% CR 15 GM TUBE EXT SCH (21:00)
[2017-06-28] MEDS: TRIAMCINOLONE ACET 0.1% CR 80 GM TUBE EXT SCH (21:06)
[2017-06-28] MEDS: DONEPEZIL HCL 5 MG TAB PO SCH (21:06)
[2017-06-28 23:50] VITALS: BP 99/60; PULSE 55; TEMP 36.7; O2SAT 97
[2017-06-29 04:02] VITALS: BP 96/49; PULSE 55; TEMP 36.9; O2SAT 97
[2017-06-29] MEDS: SODIUM CHLORIDE 0.9% 1000ML 1,000 ML IV SCH ×2 (04:04→17:34)
[2017-06-29] MEDS: LEVOTHYROXINE 25 MCG TAB PO SCH (06:24)
[2017-06-29 06:26] LABS: HEMOGLOBIN 7.4 g/dL (14.0-18.0); MEAN CORPUSCULAR HEMOGLOBIN 29.6 pg (25-34); MEAN CORPUSCULAR HGB CONC 33.6 g/dl (32-36); MEAN PLATELET VOLUME 8.9 fL (7.4-10.4); PLATELET COUNT 335 K/uL (130-400); RED CELL DISTRIBUTION WIDTH CV 14.9 % (11.5-14.5); RED CELL DISTRIBUTION WIDTH SD 47.3 fL (36.4-46.3); WHITE BLOOD COUNT 9.64 K/uL (4.8-10.8)
[2017-06-29 06:37] LABS: INR 2.4 (0.9-1.1)
[2017-06-29 06:48] VITALS: BP 93/53; PULSE 56; TEMP 36.6; O2SAT 98
[2017-06-29 07:04] LABS: CALCIUM 7.9 mg/dl (8.5-10.1); CREATININE 2.56 mg/dl (0.60-1.40); POTASSIUM 4.9 mmol/L (3.5-5.1)
[2017-06-29] MEDS: ATORVASTATIN 10 MG TAB PO SCH (09:00)
--- NOTE | 2017-06-29 09:35 | Psychiatric Consultation ---
Consultation Date of Consultation June 29, 2017. Identifying Data 67-year-old male with PMH of CHF, paroxysmal A. fib, valvular repair/replacement , other other medical problems. Pt presents following ED assessment in which there was concern for his ability to adequately care for himself at home. Due to history of reported schizophrenia, psychiatric consult requested. Chief Complaint "Yeah, I don't really know why they sent me back. Something about concern that the infection would spread to my heart.". History of Present Illness Christiano Owens is a 67-year-old male who presents following recent discharge due to concerns by PCP that he was not functioning well at home. Pt known to this provider from similar consult on 06/16/2017 during his last admission. Pt diagnosed at that time with neurotic excoriations and consult requested for diagnosis of schizophrenia. Today psychiatric consult received for the same. Pt was seen along with psychiatric nurse liaison. Pt lying in bed at time of encounter, but is pleasant and cooperative. Pt answers questions appropriately ; however, he is limited in his HPI. Pt reports to this provider that he continues to do well in regard to mood stability. We discussed his functioning at home since his recent admission and patient reports he has been handling it well. Pt states he has not been able to attend his regular Skills sessions for the past few weeks, but he continues to eat "regular meals" and takes the bus downtown to participate in activities during the day. Pt states he has managed his medications "ok", but does report it can be difficult to remember "the temporary ones I'm taking 4 times a day." Pt denies any need for additional assistance in his home, and also states he does not require assistance from his brother, who lives in the home with him. Pt reports being off antipsychotic medications for decades and states the Celexa 20mg is beneficial for his mood. Pt states he has felt hopeless for the past "decade", something he has not previously disclosed to this provider. He declines offer to increase Celexa to address these feelings. He denies overt SI , plan, intent, or past history of suicide attempts. Pt states he has too many people who care about him. Pt reports his sleep has been stable and there has been no change in his appetite. He denies A/V hallucinations, SI/HI, kerry, or other psychiatric concerns. Pt is appropriate and pleasant during the course of our encounter and does not give any indication for active psychosis, response to internal stimuli, or behavioral concerns. Past Psychiatric History Current OP Treatment: no current treatment (PCP provides medications) Prior OP Treatment: psychiatrist, therapist Prior Psych Hospitalizations: [facility] (2010), other ("mental health problems" in the 70s) Access to a Gun: No Suicide Attempts: No Past Medication Trials Per records from 2010 - Thorazine - Stelazine - Haldol - Cogentin Past Medical/Surgical History History of Concussion/Seizure: No Allergies Allergies: Coded Allergies: No Known Allergies (Unverified , 06/15/17) Home Medications Scheduled Atenolol (Tenormin), 25 MG PO DAILY Atorvastatin (Lipitor), 10 MG PO DAILY Citalopram Hydrobromide (Celexa), 20 TAB PO DAILY Diphenhydramine Hcl (Benadryl), 50 MG PO Q6 Donepezil HCl (Aricept), 1 TAB PO HS Furosemide (Lasix), 20 MG PO DAILY Gabapentin (Gabapentin), 1 TAB PO DAILY Levothyroxine Sodium (Synthroid), 25 MCG PO DAILY Potassium Chloride (Potassium Chloride Er), 1 CAP PO DAILY Sulfamethoxazole-Trimethoprim (Smz-Tmp Ds), 1 TAB PO Q12 Triamcinolone Acet (Aristocort 0.1%), 1 APPLN EXT BID Warfarin Sod (Coumadin), 6 MG PO DAILY Family History FH: heart disease Alcohol Use Alcohol Use In Past 12 Months: Yes Pt reports typically "going to the bar" 3-4 days a week for "2-3, sometimes more " drinks a night. Pt states he has only been to the bar once in the last 6 weeks, due to worsening medical issues. 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 Relationship History: never Children: denies Legal History: none Psychological Trauma History: Denies Hx Traumatic Event Review of Systems Psych: denies symptoms other than stated above Constitutional: reports agitation from itching Cardiovascular: reports mild chest pain GI: denied Neurologic: denied Remainder of 10 body systems also reviewed and denied other than noted above. Examination Vital Signs Vital Signs Past 12 Hours Date Time Temp Pulse Resp B/P (MAP) Pulse Ox O2 Delivery O2 Flow Rate FiO2 06/29/17 06:48 36.6 56 17 93/53 (66) 98 Room Air 06/29/17 04:02 36.9 55 15 96/49 (65) 97 Room Air 06/29/17 04:00 Room Air 06/29/17 00:01 Room Air 06/28/17 23:50 36.7 55 22 99/60 (73) 97 Room Air Laboratory Results Last 24 Hours Test 06/28/17 13:12 06/28/17 14:12 06/28/17 19:03 06/29/17 00:36 White Blood Count 11.53 K/uL Red Blood Count 3.05 M/uL Hemoglobin 8.8 g/dL Hematocrit 26.8 % Mean Corpuscular Volume 87.9 fL Mean Corpuscular Hemoglobin 28.9 pg Mean Corpuscular Hemoglobin Concent 32.8 g/dl Platelet Count 379 K/uL Mean Platelet Volume 9.0 fL Neutrophils (%) (Auto) 58.6 % Lymphocytes (%) (Auto) 9.3 % Monocytes (%) (Auto) 8.5 % Eosinophils (%) (Auto) 22.6 % Basophils (%) (Auto) 0.7 % Neutrophils # (Auto) 6.76 K/uL Lymphocytes # (Auto) 1.07 K/uL Monocytes # (Auto) 0.98 K/uL Eosinophils # (Auto) 2.61 K/uL Basophils # (Auto) 0.08 K/uL RDW Standard Deviation 48.0 fL RDW Coefficient of Variation 15.0 % Immature Granulocyte % (Auto) 0.3 % Immature Granulocyte # (Auto) 0.03 K/uL Red Blood Cell Morphology Unremarkable Erythrocyte Sedimentation Rate 30 mm/hr Prothrombin Time 25.4 SECONDS Prothromb Time International Ratio 2.5 Activated Partial Thromboplast Time 53.4 SECONDS Partial Thromboplastin Ratio 2.1 Venous Blood pH 7.35 Venous Blood Partial Pressure CO2 37 mmHg Venous Blood Partial Pressure O2 27 mmHg Venous Blood HCO3 20 mmol/L Venous Blood Oxygen Saturation < 60.0 % Venous Blood Base Excess -4.8 mEq/L Sodium Level 139 mmol/L Potassium Level 5.0 mmol/L Chloride Level 112 mmol/L Carbon Dioxide Level 20 mmol/L Anion Gap 8.0 mmol/L Blood Urea Nitrogen 35 mg/dl Creatinine 2.79 mg/dl Est Creatinine Clear Calc Drug Dose 25.2 ml/min Estimated GFR () 26.2 Estimated GFR (Non- 22.6 BUN/Creatinine Ratio 12.6 Random Glucose 85 mg/dl Lactic Acid Level 2.0 mmol/L Calcium Level 8.3 mg/dl Total Bilirubin 0.3 mg/dl Direct Bilirubin 0.1 mg/dl Aspartate Amino Transf (AST/SGOT) 18 U/L Alanine Aminotransferase (ALT/SGPT) 27 U/L Alkaline Phosphatase 113 U/L Troponin I < 0.015 ng/ml < 0.015 ng/ml < 0.015 ng/ml C-Reactive Protein 2.55 mg/dl Pro-B-Type Natriuretic Peptide > 70024 pg/ml Total Protein 6.6 gm/dl Albumin 2.5 gm/dl Lipase 163 U/L Urine Color YELLOW Urine Appearance CLEAR Urine pH 5.0 Urine Specific [place] 1.020 Urine Protein NEG Urine Glucose (UA) NEG Urine Ketones NEG Urine Occult Blood NEG Urine Nitrite NEG Urine Bilirubin NEG Urine Urobilinogen NEG Urine Leukocyte Esterase NEG Urine WBC (Auto) 1-5 /hpf Urine RBC (Auto) 0-4 /hpf Urine Hyaline Casts (Auto) 1-5 /lpf Urine Epithelial Cells (Auto) 10-20 /lpf Urine Bacteria (Auto) NEG Test 06/29/17 06:00 White Blood Count 9.64 K/uL Red Blood Count 2.50 M/uL Hemoglobin 7.4 g/dL Hematocrit 22.0 % Mean Corpuscular Volume 88.0 fL Mean Corpuscular Hemoglobin 29.6 pg Mean Corpuscular Hemoglobin Concent 33.6 g/dl RDW Standard Deviation 47.3 fL RDW Coefficient of Variation 14.9 % Platelet Count 335 K/uL Mean Platelet Volume 8.9 fL Prothrombin Time 24.9 SECONDS Prothromb Time International Ratio 2.4 Sodium Level 140 mmol/L Potassium Level 4.9 mmol/L Chloride Level 115 mmol/L Carbon Dioxide Level 20 mmol/L Anion Gap 5.0 mmol/L Blood Urea Nitrogen 31 mg/dl Creatinine 2.56 mg/dl Est Creatinine Clear Calc Drug Dose 27.5 ml/min Estimated GFR () 29.0 Estimated GFR (Non- 25.1 BUN/Creatinine Ratio 12.0 Random Glucose 71 mg/dl Calcium Level 7.9 mg/dl Mental Examination During interview pt is: alert and oriented, cooperative Appearance: disheveled Eye contact is: good (staring at times) Motor behavior is: psychomotor agitation (itching, mild restlessness) Speech: normal in rate, rhythm & volume, other (methodical) Affect: blunted Mood is: other ("good" initially, then reports "lower for the past decade") Thought process: goal directed, clear, coherent, concrete Thought content: reality based without delusions Suicidal thought are: denied (but does report hopelessness), Plan: denied, Intent: denied ("I would never do anything" and "too many people who care about me") Homicidal thoughts are: denied Hallucinations: denies auditory, denies visual, other (does not appear to be responding to internal stimuli) Cognition: attention grossly intact, language grossly intact Intelligence estimated to be: below average, other (previous records indicate possible intellectual disability) Insight: limited Judgement: limited Impression / Recommendations Impression 67-year-old male with a long history of schizophrenia diagnosis. Current behavior likely better explained by a possible Autism spectrum disorder: talking to himself, methodical speech, soothing repetitive movements, etc. Pt reports mental health stability for decades on monotherapy with Celexa, previous "mental health problems in the 70s". Pt does not appear to be responding to internal stimuli and denies any history of auditory or visual hallucinations, paranoia, or other disordered thinking. Due to excoriations, irritation from itching, and unclear explanation for indecent behavior in PCP waiting room prior to admission - discussed with patient starting Risperdal to assist with clarity of thought and agitation, likely worsened or caused by tendency for itching/current neurotic excoriations. Pt was agreeable to this as well as lab work necessary to check baseline lipid profile and fasting glucose. Pt does report hopelessness, but declines increase to Celexa at this time. Pt denies overt SI, plan or intent at this time. Pt does not meet criteria for inpatient mental health treatment at this time. Pt remains future oriented and denies SI or intent to act on "a decade" of hopelessness. He also declines increase to SSRI at this time. Pt does not appear at this time to be at risk of harm to self or others, and therefore ongoing outpatient medication management appears the least restrictive setting to continue his psychiatric treatment. Will need to clarify if current PCP feels comfortable overseeing Risperdal prescription or if patient will require a psychiatric prescriber. If PCP willing, may increase compliance as it would cut down on additional appointments and transportation arrangements. At the time of this encounter, patient appears to have capacity to make decisions regarding his health and treatment. Pt verbalizes understanding of requirements for independent living and reports eating "regular meals", states he is able to take the bus for transportation, and denies need for further in- home supports for medication administration. Pt would likely benefit from these services, and as his is over age 65, would recommend [facility] involvement to discuss potential services further. Would be beneficial to involve the patient's brother to gather collateral information if eventually questioning patient's capacity to make these medical decisions. Recommendations (1) Unspecified mood [affective] disorder 06/29 - Added Risperdal 1mg BID to address agitation from symptoms related to presentation with neurotic excoriations. - Pt declines increase in Celexa to address low mood and hopelessness. Will continue to offer and address as needed. Could increase to 40mg daily if patient voices willingness for increase - Consider outpatient dermatology consult to continue to follow for neurotic excoriations. - Appreciate opportunity to participate in the care of this patient. Dr. Issa has personally been involved in the review of the above case and development of recommendations.
[2017-06-29] MEDS ORDERED: RISPERIDONE 1 MG TAB PO ONE (09:45)
[2017-06-29] MEDS: CITALOPRAM 20 MG TAB PO SCH (10:10)
[2017-06-29] MEDS: TRIAMCINOLONE ACET 0.1% CR 80 GM TUBE EXT SCH ×2 (10:10→20:41)
[2017-06-29] MEDS: GABAPENTIN 100 MG CAP PO SCH (10:10)
[2017-06-29 10:48] VITALS: BP 96/54; PULSE 60; TEMP 36.4; O2SAT 99
[2017-06-29 12:15] LABS: HEMATOCRIT 24.3 % (42-52); HEMOGLOBIN 7.8 g/dL (14.0-18.0)
--- NOTE | 2017-06-29 13:52 | Progress Note ---
Progress Note Date of Service June 29, 2017. Progress Note ID Consult Dictated #[id number] A/P: 1. Infected wound - staph and gnr -Continue current abx, final recs will depend on culture results -Continue wound care -thank you
--- NOTE | 2017-06-29 14:50 | INFECT. DISEASE CONSULTATION ---
DATE OF CONSULTATION: 06/29/2017 HISTORY OF PRESENT ILLNESS: This is a 67-year-old gentleman who was admitted to the hospital by his primary care physician after he was found to have his pants down in the waiting room of the primary care office itching wounds. He was recently admitted to the hospital in May for treatment of infected wounds. Cultures on June 15 grew community-acquired MRSA, and he was discharged on a 10 to 14 day course of Bactrim. He was reportedly taking this and presented to his family doctor for a routine post discharge followup. He was subsequently admitted and found to have acute kidney injury with a creatinine of 2.8. It has improved slightly today. He is currently not on Bactrim, and he was placed on Rocephin and vancomycin. Repeat wound cultures were obtained, and a gram negative anish was growing. Blood cultures have been negative. The urine culture is negative. Urinalysis is negative. Sedimentation rate is mildly elevated at 30. His initial white blood cell count was 11, it has improved to 9 on my examination. He states he is feeling tired. He is eating well. He denies any pain in his wounds. He denies any itching currently. He denies any fevers or chills. He denies any cough, shortness of breath, chest pain, nausea, vomiting, diarrhea, or abdominal pain. His remaining review of systems is unremarkable. PAST MEDICAL HISTORY: Significant for history of endocarditis, hyperlipidemia, hypothyroidism, atrial fibrillation, schizophrenia, superior mesenteric aneurysm. PAST SURGICAL HISTORY: Significant for tricuspid valve surgery, aortic valve replacement, and a mitral valve repair. FAMILY HISTORY: Noncontributory. SOCIAL HISTORY: Negative for tobacco or alcohol use. ALLERGIES: He has no known drug allergies. MEDICATIONS: Risperdal, ceftriaxone, Coumadin, vancomycin, atenolol, Lipitor, Celexa, Neurontin, Synthroid, Aricept, Benadryl, Tylenol, Zofran. PHYSICAL EXAMINATION: VITAL SIGNS: He is afebrile, pulse 60, respiratory rate 20, blood pressure 96/54, oxygen saturation is 99% on room air. GENERAL: He is awake, alert, and oriented. He is in no acute distress. HEENT: Mucous membranes are moist. Extraocular muscles are intact. CARDIOVASCULAR: Heart is regular. RESPIRATORY: Lungs are clear. GASTROINTESTINAL: Abdomen is soft. EXTREMITIES: There is no edema. SKIN: There are multiple excoriations over the skin. LABORATORY STUDIES: CBC: White blood cell count 9.6, hemoglobin 7.8, platelets 335. Sedimentation rate 30. Chemistry panel: Sodium 140, potassium 4.9, chloride 115, bicarbonate 20, BUN 31, creatinine 2.5, glucose 71. UA negative. Wound culture on the 3rd is growing gram negative rods and a staph species. Urine culture is negative. Blood cultures are pending. IMAGING: As above. ASSESSMENT AND PLAN: Infected wound, polymicrobial. He will remain on intravenous antibiotics pending final wound cultures and hopefully can be transitioned to oral antibiotics. Bactrim will be avoided due to acute kidney injury. Thank you for this consultation.
[2017-06-29 15:21] VITALS: BP 107/69; PULSE 62; TEMP 36.4; O2SAT 100
[2017-06-29] MEDS ORDERED: WARFARIN SOD 6 MG TAB PO SCH (16:00)
--- NOTE | 2017-06-29 16:50 | ECHOCARDIOGRAM REPORT ---
*NOTICE TO RECEIVING [employer] This information is strictly Confidential and protected under [place] law. [place] law prohibits you from making any further disclosure of this information unless further disclosure is expressly permitted by the written consent of the person to whom it pertains or is authorized by law. A general authorization for the release of medical or other information is not sufficient for this purpose. Hospital accepts no responsibility if the information is made available to any other person, INCLUDING THE PATIENT. Interpretation Summary * Name: ELIZABETH REDD Study Date: 06/29/2017 07:17 AM BP: 146/80 mmHg * Patient Location: .2T\S\E217\S\1 HR: 83 * : 1950 (M/d/yyyy) Gender: Male Height: 68 in * Age: 67 yrs Ethnicity: [place] Weight: 172 lb * Ordering Physician: Lola Henry * Referring Physician: UNKNOWN * Performed By: Jason Marshall RCS * * Reason For Study: A-FIB * BSA: 1.9 m2 * -- Conclusions -- * Sinus bradycardia was present during the study * The left ventricle is normal in size. * There is mild concentric left ventricular hypertrophy. * The left ventricular wall motion is normal. * Left ventricular systolic function is normal. * Ejection Fraction = 55-60%. * There is a bioprosthetic aortic valve. * Bioprosthesis leaflets are not well-visualized, but appear mobile. Aortic valve velocities are moderately elevated * There is moderate thickening of the anterior mitral valve leaflet . * There is mild mitral regurgitation. * An annuloplasty ring is noted in the tricuspid position. * There is trace tricuspid regurgitation. * This study does not exclude vegetations on abnormal valve structures as above Procedure Details * A complete two-dimensional transthoracic echocardiogram was performed (2D, M-mode, Doppler and color flow Doppler). Left Ventricle * The left ventricle is normal in size. * There is mild concentric left ventricular hypertrophy. * Left ventricular systolic function is normal. * Ejection Fraction = 55-60%. * The left ventricular wall motion is normal. Right Ventricle * The right ventricle is normal in size and function. Atria * The left atrial size is normal. * Right atrial size is normal. * No ASD detected; PFO is not assessed. Mitral Valve * There is moderate thickening of the anterior mitral valve leaflet . * There is no mitral valve stenosis. * There is mild mitral regurgitation. Tricuspid Valve * There is no tricuspid stenosis. * There is trace tricuspid regurgitation. * Doppler findings do not suggest pulmonary hypertension. * An annuloplasty ring is noted in the tricuspid position. Aortic Valve * There is a bioprosthetic aortic valve. * Bioprosthesis leaflets are not well-visualized, but appear mobile. Aortic valve velocities are moderately elevated Pulmonic Valve * The pulmonic valve is not well visualized. Great Vessels * The aortic root is normal size. Pericardium/Pleural * There is no pericardial effusion. Great Vessels * Normal inferior vena cava diameter and respiratory variation suggests normal central venous pressure. MMode 2D Measurements and Calculations IVSd 1.1 cm IVSs 1.6 cm LVIDd 4.2 cm LVIDs 2.6 cm LVPWd 10 cm LVPWs 1.6 cm IVS/LVPW 1.1 FS 37.0 % EDV(Teich) 76.7 ml ESV(Teich) 25.0 ml EF(Teich) 67.4 % EDV(cubed) 71.8 ml ESV(cubed) 17.9 ml EF(cubed) 75.0 % % IVS thick 40.9 % % LVPW thick 60.5 % LV mass(C)d 147.7 grams LV mass(C)dI 77.0 grams/m\S\2 LV mass(C)s 149.3 grams LV mass(C)sI 77.9 grams/m\S\2 SV(Teich) 51.7 ml SI(Teich) 26.9 ml/m\S\2 SV(cubed) 53.9 ml SI(cubed) 28.1 ml/m\S\2 Ao root diam 3.3 cm Ao root area 8.5 cm\S\2 LA dimension 4.5 cm asc Aorta Diam 3.0 cm LA/Ao 1.4 EDV(MOD-sp4) 153.0 ml ESV(MOD-sp4) 61.0 ml EF(MOD-sp4) 60.1 % EDV(MOD-sp2) 190.0 ml ESV(MOD-sp2) 93.0 ml EF(MOD-sp2) 51.1 % SV(MOD-sp4) 92.0 ml SI(MOD-sp4) 48.0 ml/m\S\2 SV(MOD-sp2) 97.0 ml SI(MOD-sp2) 50.6 ml/m\S\2 Doppler Measurements and Calculations MV E max isidoro 108.1 cm/sec MV A max isidoro 38.8 cm/sec MV E/A 2.8 MV P1/2t max isidoro 118.4 cm/sec MV P1/2t 104.6 msec MVA(P1/2t) 2.1 cm\S\2 MV dec slope 331.7 cm/sec\S\2 MV dec time 0.25 sec Ao V2 max 390.7 cm/sec Ao max PG 61.1 mmHg Ao max PG (full) 53.0 mmHg Ao V2 mean 256.8 cm/sec Ao mean PG 31.5 mmHg Ao V2 VTI 90.4 cm LV V1 max PG 8.1 mmHg LV V1 max 142.6 cm/sec SV(Ao) 767.7 ml SI(Ao) 400.5 ml/m\S\2 PA V2 max 102.7 cm/sec PA max PG 4.2 mmHg PI max isidoro 239.7 cm/sec PI max PG 23.0 mmHg PI dec slope 183.2 cm/sec\S\2 PI P1/2t 383.1 msec TR max isidoro 257.0 cm/sec
--- NOTE | 2017-06-29 17:16 | Progress Note ---
Medicine Progress Note Date & Time of Visit: June 29, 2017 at 17:11. Subjective Seen resting in bed, comfortable Alert, oriented 2, pleasant, cooperative States he feels fine overall Denies nausea, abdominal pain Denies pruritus No chest pain, shortness of breath, dizziness No other symptoms Objective Last 8 Hrs Date Time Temp Pulse Resp B/P (MAP) Pulse Ox O2 Delivery O2 Flow Rate FiO2 06/29/17 15:21 36.4 62 18 107/69 (82) 100 Room Air 06/29/17 12:00 Room Air 06/29/17 10:48 36.4 60 20 96/54 (68) 99 Room Air Physical Exam: General-oriented 3, not in distress, speaking in sentences no accessory muscle use Unkempt Head- atraumatic Eyes- PERRL, EOMI, anicteric ENT- oropharynx clear Neck- supple, no JVD, no adenopathy, no thyromegaly Lungs- clear to auscultation bilaterally Heart- regular rhythm; no murmur, normal rate Abdomen- normal bowel sounds, soft, nontender, nondistended Scrotum-inguinal hernia: Significant in size, nontender no discoloration Extremities- no pretibial edema, no calf tenderness; peripheral pulses intact Bilateral upper extremities: Positive excoriations on both upper extremities, scabbing wounds Neuro- alert, oriented x 3; no gross focal neurologic deficits Skin- warm & dry Laboratory Results: Last 24 Hours Test 06/28/17 19:03 06/29/17 00:36 06/29/17 06:00 06/29/17 11:50 Troponin I < 0.015 ng/ml < 0.015 ng/ml White Blood Count 9.64 K/uL Red Blood Count 2.50 M/uL Hemoglobin 7.4 g/dL 7.8 g/dL Hematocrit 22.0 % 24.3 % Mean Corpuscular Volume 88.0 fL Mean Corpuscular Hemoglobin 29.6 pg Mean Corpuscular Hemoglobin Concent 33.6 g/dl RDW Standard Deviation 47.3 fL RDW Coefficient of Variation 14.9 % Platelet Count 335 K/uL Mean Platelet Volume 8.9 fL Prothrombin Time 24.9 SECONDS Prothromb Time International Ratio 2.4 Sodium Level 140 mmol/L Potassium Level 4.9 mmol/L Chloride Level 115 mmol/L Carbon Dioxide Level 20 mmol/L Anion Gap 5.0 mmol/L Blood Urea Nitrogen 31 mg/dl Creatinine 2.56 mg/dl Est Creatinine Clear Calc Drug Dose 27.5 ml/min Estimated GFR () 29.0 Estimated GFR (Non- 25.1 BUN/Creatinine Ratio 12.0 Random Glucose 71 mg/dl Calcium Level 7.9 mg/dl Assessment & Plan 67-year-old male with a history of schizophrenia, chronic diastolic CHF, Status post bioprosthetic valve replacement aortic mitral valve Paroxysmal atrial fibrillation on Coumadin Presenting with renal failure. ACUTE RENAL FAILURE -Admit to telemetry -Patient referred to the ED by his PCP after he was found in the waiting room with his pants down scratching his open wounds and very disheveled appearing -Recently admitted to [facility] 06/15 through 06/21 for infected neurotic excoriations and ОЛЕГ -Patient had reported PCP that he has not been eating -Creatinine 1.7 on 06/21, up to 2.7: Noted baseline creatinine in 2017 was 1.0 -Likely due to poor p.o. intake in combination with Bactrim and Lasix use --Creatinine still at 2.4 Continue IV fluids Hold Lasix and Bactrim Nephrology consulted EKG CHANGES -EKG shows new T-wave inversions inferiorly and anteriorly -No cardiac complaints --Troponin negative Remains without cardiac symptoms Continue usual medications for CAD NEUROTIC EXCORIATIONS -Culture from recent admission positive for MRSA -Patient was discharged on Bactrim -S/P vancomycin in the ED, will continue with; will add on Rocephin given patient's history of cardiobacterium hominis --Blood cultures are pending ID consulted Continue IV vancomycin and ceftriaxone day #2 CHRONIC DIASTOLIC CHF SECONDARY TO VALVULAR DISEASE S/P BIOPROSTHETIC AORTIC VALVE REPLACEMENT, MITRAL VALVE REPAIR, TRICUSPID VALVE ANNULOPLASTY -BNP > 35,000 however patient appears dry on exam and also with ОЛЕГ --Patient still on the dry side Continue to hold Lasix On IV fluids PAROXYSMAL ATRIAL FIBRILLATION -Rate controlled on atenolol, will continue INR 2.4 Continue Coumadin SCHIZOPHRENIA -Continue Celexa and donepezil -Mental health consult Risperidone added Monitor HYPOTHYROIDISM -Continue levothyroxine ANEMIA Hemoglobin 7.8 No signs of acute bleeding We will continue to monitor and transfuse if persistently below 8 tomorrow Could be secondary to acute renal failure We will monitor DVT PROPHYLAXIS -On Coumadin DISPOSITION Case management on board Anticipate transition to [facility] once accepted Current Inpatient Medications: Current Inpatient Medications Medications (Trade) Dose Ordered Sig/Lakisha Route Start Time Stop Time Status Last Admin Dose Admin Acetaminophen (Tylenol Tab) 650 mg Q4H PRN PO 06/28/17 14:45 07/28/17 14:44 Ondansetron HCl (Zofran Inj) 4 mg Q6H PRN IV 06/28/17 14:45 07/28/17 14:44 Sodium Chloride 1,000 ml @ 100 mls/hr Q10H IV 06/28/17 15:00 07/28/17 14:59 06/29/17 04:04 100 MLS/HR Miscellaneous Information (Consult) 1 ea UD PRN N/A 06/28/17 15:15 07/28/17 15:14 Ceftriaxone Sodium 1 gm/ Dextrose 50 ml @ 100 mls/hr Q24H IV 06/29/17 16:00 07/08/17 15:59 Atenolol (Tenormin Tab) 25 mg DAILY PO 06/29/17 09:00 07/29/17 08:59 06/29/17 10:11 25 MG Atorvastatin Calcium (Lipitor Tab) 10 mg DAILY PO 06/29/17 09:00 07/29/17 08:59 06/29/17 09:00 10 MG Citalopram Hydrobromide (celeXA TAB) 20 mg DAILY PO 06/29/17 09:00 07/29/17 08:59 06/29/17 10:10 20 MG Diphenhydramine HCl (Benadryl Cap) 50 mg Q6 PRN PO 06/28/17 15:15 07/28/17 15:14 Donepezil HCl (Aricept Tab) 5 mg HS PO 06/28/17 21:00 07/28/17 20:59 06/28/17 21:06 5 MG Gabapentin (Neurontin Cap) 100 mg DAILY PO 06/29/17 09:00 07/29/17 08:59 06/29/17 10:10 100 MG Levothyroxine Sodium (Synthroid Tab) 25 mcg DAILYBB PO 06/29/17 06:00 07/29/17 05:59 06/29/17 06:24 25 MCG Warfarin Sodium (Coumadin Tab) 6 mg DAILY@1600 PO 06/29/17 16:00 07/29/17 15:59 Vancomycin HCl 1250 mg/Sodium Chloride 275 ml @ 125 mls/hr Q24H IV 06/29/17 16:00 07/08/17 15:59 Triamcinolone Acetonide (Triamcinolone Acet 0.1% Crm) 1 appln BID EXT 06/28/17 21:00 07/28/17 20:59 06/29/17 10:10 1 APPLN Risperidone (Risperdal Tab) 1 mg BID PO 06/29/17 21:00 07/29/17 20:59
[2017-06-29] MEDS: VANCOMYCIN IV 1,250 MG in SODIUM CHLORIDE 0.9% 250ML 250 ML IV SCH (17:32)
[2017-06-29] MEDS: CEFTRIAXONE SOD INJ 1 GM in DEXTROSE 5% ADD-VANTAGE 50ML 50 ML IV SCH (17:33)
--- NOTE | 2017-06-29 18:01 | Nephrology Consultation ---
Nephrology Consultation Date of Consultation: June 29, 2017. Attending Physician: Dr Milsl Requesting Physician: Dr Saucedo Reason for Consultation: ОЛЕГ History of Present Illness 67 year old male sent by PCP to ER yesterday for ОЛЕГ and concern about his ability to care for self at home. He was found in PCP waiting room yesterday w / his pants down scratching at his leg wounds; other concerning behavior once he was in exam room at PCP office. PMH as below and remarkable for endocarditis s/p bioprosthetic MVR, AVR, tricuspid repair; also schizophrenia, valvular HF, paroxysmal a fib on coumadin, recent admission w/ ОЛЕГ. Pt had been admitted here 06/15-06/21 for infected neurotic excoriation and was d/c on bactrim. His presenting creatinine on 06/15 was 2.5; d/c creatinine was 1.7 on ; yesterday was 2.8 and today to 2.6. in 2017, creatinine was 1.0 per report. He received IVF, vanco, ceftriaxone in ER. his creatinine today is 2.6 w/ K 4.9. Some findings in ER concerning for HF or pneumonitis. He is currently getting NS at 100 mL hourly. He offers few complaints today; states itching a bit better. He denies nsaid use as outpt. Past Medical/Surgical History PAST MEDICAL HISTORY: Past endocarditis, hyperlipidemia, hypothyroidism, atrial fibrillation on coumadin, schizophrenia, superior mesenteric aneurysm, valvular HF. PAST SURGICAL HISTORY: Significant for tricuspid valve surgery, aortic valve replacement, and mitral valve repair. Family History FH: heart disease Social History Smoking Status: Never Smoker Alcohol Use: heavy Drug Use: none Housing Status: lives with family Occupation Status: disabled Allergies Coded Allergies: No Known Allergies (Unverified , 06/15/17) Medications Current Inpatient Medications Medications (Trade) Dose Ordered Sig/Lakisha Route Start Time Stop Time Status Last Admin Dose Admin Acetaminophen (Tylenol Tab) 650 mg Q4H PRN PO 06/28/17 14:45 07/28/17 14:44 Ondansetron HCl (Zofran Inj) 4 mg Q6H PRN IV 06/28/17 14:45 07/28/17 14:44 Sodium Chloride 1,000 ml @ 100 mls/hr Q10H IV 06/28/17 15:00 07/28/17 14:59 06/29/17 04:04 100 MLS/HR Miscellaneous Information (Consult) 1 ea UD PRN N/A 06/28/17 15:15 07/28/17 15:14 Ceftriaxone Sodium 1 gm/ Dextrose 50 ml @ 100 mls/hr Q24H IV 06/29/17 16:00 07/08/17 15:59 Atenolol (Tenormin Tab) 25 mg DAILY PO 06/29/17 09:00 07/29/17 08:59 06/29/17 10:11 25 MG Atorvastatin Calcium (Lipitor Tab) 10 mg DAILY PO 06/29/17 09:00 07/29/17 08:59 06/29/17 09:00 10 MG Citalopram Hydrobromide (celeXA TAB) 20 mg DAILY PO 06/29/17 09:00 07/29/17 08:59 06/29/17 10:10 20 MG Diphenhydramine HCl (Benadryl Cap) 50 mg Q6 PRN PO 06/28/17 15:15 07/28/17 15:14 Donepezil HCl (Aricept Tab) 5 mg HS PO 06/28/17 21:00 07/28/17 20:59 06/28/17 21:06 5 MG Gabapentin (Neurontin Cap) 100 mg DAILY PO 06/29/17 09:00 07/29/17 08:59 06/29/17 10:10 100 MG Levothyroxine Sodium (Synthroid Tab) 25 mcg DAILYBB PO 06/29/17 06:00 07/29/17 05:59 06/29/17 06:24 25 MCG Warfarin Sodium (Coumadin Tab) 6 mg DAILY@1600 PO 06/29/17 16:00 07/29/17 15:59 Vancomycin HCl 1250 mg/Sodium Chloride 275 ml @ 125 mls/hr Q24H IV 06/29/17 16:00 07/08/17 15:59 Triamcinolone Acetonide (Triamcinolone Acet 0.1% Crm) 1 appln BID EXT 06/28/17 21:00 07/28/17 20:59 06/29/17 10:10 1 APPLN Risperidone (Risperdal Tab) 1 mg BID PO 06/29/17 21:00 07/29/17 20:59 Home Meds and Scripts Medications Dose Route/Sig Max Daily Dose Days Date Category Aristocort 0.1% (Triamcinolone Acet) 240 Appln/80 Gm Cr 1 Appln EXT BID 30 06/21/17 Rx Benadryl (Diphenhydramine Hcl) 25 Mg Cap 50 Mg PO Q6 10 06/21/17 Rx Smz-Tmp Ds (Sulfamethoxazole-Trimethoprim) 1 Tab Tab 1 Tab PO Q12 12 06/21/17 Rx Coumadin (Warfarin Sod) 4 Mg Tab 6 Mg PO DAILY 06/15/17 Reported Potassium Chloride Er (Potassium Chloride) 10 Meq Cap 1 Cap PO DAILY 90 06/15/17 Reported Gabapentin 100 Mg Cap 1 Tab PO DAILY 06/15/17 Reported Lasix (Furosemide) 20 Mg Tab 20 Mg PO DAILY 06/15/17 Reported Aricept (Donepezil HCl) 5 Mg Tab 1 Tab PO HS 30 06/15/17 Reported Celexa (Citalopram Hydrobromide) 10 Mg Tab 20 Tab PO DAILY 30 06/15/17 Reported Lipitor (Atorvastatin Calcium) 10 Mg Tab 10 Mg PO DAILY 01/02/14 Reported Synthroid (Levothyroxine Sodium) 25 Mcg Tab 25 Mcg PO DAILY 01/02/14 Reported Tenormin (Atenolol) 25 Mg Tab 25 Mg PO DAILY 01/02/14 Reported Review of Systems Constitutional: + weakness, + fatigue, No fever Eyes: No worsening of vision ENT: No hearing loss Respiratory: + shortness of breath (chronic pe rpt), No cough Cardiac: No chest pain, No orthopnea, No edema, No palpitations Abdomen: No pain, No nausea, No vomiting, No diarrhea, No constipation Musculoskeletal: No joint pain, No muscle pain Male : No dysuria, No urinary frequency, No hematuria Neuro: + weakness, No memory loss Psych: No depression symptoms, No anxiety Heme: No abnormal bleeding/bruising Endo: + fatigue Skin: + see HPI, + rash, + new/changing skin lesions ROS limited by pt temperament/ disposition >> withdrawn affect, disinclined to answer much though he is polite Physical Exam Date Time Temp Pulse Resp B/P (MAP) Pulse Ox O2 Delivery O2 Flow Rate FiO2 06/29/17 10:48 36.4 60 20 96/54 (68) 99 Room Air 06/29/17 06:48 36.6 56 17 93/53 (66) 98 Room Air 06/29/17 04:02 36.9 55 15 96/49 (65) 97 Room Air 06/29/17 04:00 Room Air 06/29/17 00:01 Room Air 06/28/17 23:50 36.7 55 22 99/60 (73) 97 Room Air 06/28/17 20:00 97 Room Air 06/28/17 19:31 36.4 58 16 92/47 (62) 98 06/28/17 16:21 36.3 62 22 129/84 90 Room Air 06/28/17 15:40 61 19 06/28/17 15:10 61 19 06/28/17 15:00 121/77 06/28/17 14:40 65 21 06/28/17 14:25 109/63 06/28/17 14:10 56 19 06/28/17 14:09 109/63 06/28/17 14:08 61 18 109/63 99 Room Air 06/28/17 13:40 58 17 06/28/17 13:10 59 18 06/28/17 13:09 67 18 105/68 96 Room Air 06/28/17 13:00 63 06/28/17 12:58 105/68 06/28/17 11:54 36.7 60 18 106/60 100 Room Air General Appearance: WD/WN, no apparent distress Eyes: EOMI ENT: hearing grossly normal Neck: supple Respiratory/Chest: + decreased breath sounds, + crackles (bibasilar on RA) Cardiovascular: regular rate, rhythm, + systolic murmur Abdomen: non tender, soft, + pertinent finding (guardado w/ bloody urine) Extremities: + swelling (RLE which is rotated externally) Neurologic/Psych: alert, oriented x 3, + pertinent finding (withdrawn affect slightly) Skin: normal color, no jaundice, warm/dry, + pertinent finding (diffuse scabbed pustules, excoriations) Diagnostics Last 24 Hours Test 06/28/17 13:12 06/28/17 14:12 06/28/17 19:03 06/29/17 00:36 White Blood Count 11.53 K/uL Red Blood Count 3.05 M/uL Hemoglobin 8.8 g/dL Hematocrit 26.8 % Mean Corpuscular Volume 87.9 fL Mean Corpuscular Hemoglobin 28.9 pg Mean Corpuscular Hemoglobin Concent 32.8 g/dl Platelet Count 379 K/uL Mean Platelet Volume 9.0 fL Neutrophils (%) (Auto) 58.6 % Lymphocytes (%) (Auto) 9.3 % Monocytes (%) (Auto) 8.5 % Eosinophils (%) (Auto) 22.6 % Basophils (%) (Auto) 0.7 % Neutrophils # (Auto) 6.76 K/uL Lymphocytes # (Auto) 1.07 K/uL Monocytes # (Auto) 0.98 K/uL Eosinophils # (Auto) 2.61 K/uL Basophils # (Auto) 0.08 K/uL RDW Standard Deviation 48.0 fL RDW Coefficient of Variation 15.0 % Immature Granulocyte % (Auto) 0.3 % Immature Granulocyte # (Auto) 0.03 K/uL Red Blood Cell Morphology Unremarkable Erythrocyte Sedimentation Rate 30 mm/hr Prothrombin Time 25.4 SECONDS Prothromb Time International Ratio 2.5 Activated Partial Thromboplast Time 53.4 SECONDS Partial Thromboplastin Ratio 2.1 Venous Blood pH 7.35 Venous Blood Partial Pressure CO2 37 mmHg Venous Blood Partial Pressure O2 27 mmHg Venous Blood HCO3 20 mmol/L Venous Blood Oxygen Saturation < 60.0 % Venous Blood Base Excess -4.8 mEq/L Sodium Level 139 mmol/L Potassium Level 5.0 mmol/L Chloride Level 112 mmol/L Carbon Dioxide Level 20 mmol/L Anion Gap 8.0 mmol/L Blood Urea Nitrogen 35 mg/dl Creatinine 2.79 mg/dl Est Creatinine Clear Calc Drug Dose 25.2 ml/min Estimated GFR () 26.2 Estimated GFR (Non- 22.6 BUN/Creatinine Ratio 12.6 Random Glucose 85 mg/dl Lactic Acid Level 2.0 mmol/L Calcium Level 8.3 mg/dl Total Bilirubin 0.3 mg/dl Direct Bilirubin 0.1 mg/dl Aspartate Amino Transf (AST/SGOT) 18 U/L Alanine Aminotransferase (ALT/SGPT) 27 U/L Alkaline Phosphatase 113 U/L Troponin I < 0.015 ng/ml < 0.015 ng/ml < 0.015 ng/ml C-Reactive Protein 2.55 mg/dl Pro-B-Type Natriuretic Peptide > 96453 pg/ml Total Protein 6.6 gm/dl Albumin 2.5 gm/dl Lipase 163 U/L Urine Color YELLOW Urine Appearance CLEAR Urine pH 5.0 Urine Specific [facility] 1.020 Urine Protein NEG Urine Glucose (UA) NEG Urine Ketones NEG Urine Occult Blood NEG Urine Nitrite NEG Urine Bilirubin NEG Urine Urobilinogen NEG Urine Leukocyte Esterase NEG Urine WBC (Auto) 1-5 /hpf Urine RBC (Auto) 0-4 /hpf Urine Hyaline Casts (Auto) 1-5 /lpf Urine Epithelial Cells (Auto) 10-20 /lpf Urine Bacteria (Auto) NEG Test 06/29/17 06:00 White Blood Count 9.64 K/uL Red Blood Count 2.50 M/uL Hemoglobin 7.4 g/dL Hematocrit 22.0 % Mean Corpuscular Volume 88.0 fL Mean Corpuscular Hemoglobin 29.6 pg Mean Corpuscular Hemoglobin Concent 33.6 g/dl RDW Standard Deviation 47.3 fL RDW Coefficient of Variation 14.9 % Platelet Count 335 K/uL Mean Platelet Volume 8.9 fL Prothrombin Time 24.9 SECONDS Prothromb Time International Ratio 2.4 Sodium Level 140 mmol/L Potassium Level 4.9 mmol/L Chloride Level 115 mmol/L Carbon Dioxide Level 20 mmol/L Anion Gap 5.0 mmol/L Blood Urea Nitrogen 31 mg/dl Creatinine 2.56 mg/dl Est Creatinine Clear Calc Drug Dose 27.5 ml/min Estimated GFR () 29.0 Estimated GFR (Non- 25.1 BUN/Creatinine Ratio 12.0 Random Glucose 71 mg/dl Calcium Level 7.9 mg/dl Diagnostic Radiology: CXR 1. Cardiomegaly with mild pulmonary vascular congestion. 2. Trace bilateral pleural effusions with subsegmental bibasilar opacities suggesting atelectasis or pneumonitis. TTE today * Sinus bradycardia was present during the study * The left ventricle is normal in size. * There is mild concentric left ventricular hypertrophy. * The left ventricular wall motion is normal. * Left ventricular systolic function is normal. * Ejection Fraction = 55-60%. * There is a bioprosthetic aortic valve. * Bioprosthesis leaflets are not well-visualized, but appear mobile. Aortic valve velocities are moderately elevated * There is moderate thickening of the anterior mitral valve leaflet . * There is mild mitral regurgitation. * An annuloplasty ring is noted in the tricuspid position. * There is trace tricuspid regurgitation. * This study does not exclude vegetations on abnormal valve structures as above Assessment & Plan 67 y/o M w/ schizophrenia, past endocarditis s/p multiple valve replacements, pAF on coumadin, valvular HF hx, recent admission here for neurotic excoriations w/ wound infection, ОЛЕГ brought back in w/ pruritis, worsening renal function, concern about inability to care for self at home. Baseline creatinine 2016 1.0. His presenting creatinine on 06/15 was 2.5; d/c creatinine was 1.7 on 06/21; yesterday was 2.8 and today to 2.6. Has guardado d/t incontinence and 512 mL retained urine on presentation. urine sediment reassuring recurrent/relapsing ОЛЕГ in setting of bactrim and other antibiotic therapy for pruritic skin disorder -will hold his IVF overnight >> pt seen this am but d/w nursing and still getting IVF -daily bmp -will order vanco level for tomorrow 1600 urgent >> he is getting second dose currently; pls do not redose vanco w/o verifying that level -continue guardado for now and strict I/O Appreciate consult; will follow with you.
[2017-06-29 19:13] VITALS: BP 102/58; PULSE 64; TEMP 36.6; O2SAT 100
[2017-06-29] MEDS: DONEPEZIL HCL 5 MG TAB PO SCH (20:40)
[2017-06-29] MEDS: RISPERIDONE 1 MG TAB PO SCH (20:41)
[2017-06-29 23:28] VITALS: BP 110/70; PULSE 89; TEMP 36.8; O2SAT 95
[2017-06-30 03:35] VITALS: BP 101/59; PULSE 61; TEMP 36.5; O2SAT 97
[2017-06-30] MEDS: LEVOTHYROXINE 25 MCG TAB PO SCH (05:26)
[2017-06-30 06:50] LABS: CALCIUM 7.6 mg/dl (8.5-10.1); CREATININE 2.01 mg/dl (0.60-1.40); POTASSIUM 4.8 mmol/L (3.5-5.1)
[2017-06-30 07:52] VITALS: BP 144/85; PULSE 71; TEMP 36.7; O2SAT 97
[2017-06-30] MEDS: GABAPENTIN 100 MG CAP PO SCH (08:41)
[2017-06-30] MEDS: ATORVASTATIN 10 MG TAB PO SCH (08:41)
[2017-06-30] MEDS: RISPERIDONE 1 MG TAB PO SCH ×2 (08:41→21:06)
[2017-06-30] MEDS: CITALOPRAM 20 MG TAB PO SCH (08:41)
[2017-06-30] MEDS: TRIAMCINOLONE ACET 0.1% CR 80 GM TUBE EXT SCH ×2 (08:43→21:07)
[2017-06-30 11:01] VITALS: BP 100/62; PULSE 62; TEMP 36.6; O2SAT 100
[2017-06-30 11:26] LABS: BASO % 0.6 %; BASO ABS # 0.06 K/uL (0-0.2); EOS ABS # 3.23 K/uL (0-0.5); HEMATOCRIT 24.7 % (42-52); HEMOGLOBIN 7.8 g/dL (14.0-18.0); IG# 0.03 K/uL (0.00-0.02); LYMPH % 7.2 %; LYMPH ABS # 0.78 K/uL (1.2-3.4); MEAN CELL VOLUME 89.5 fL (80-100); MEAN CORPUSCULAR HEMOGLOBIN 28.3 pg (25-34); MEAN CORPUSCULAR HGB CONC 31.6 g/dl (32-36); MEAN PLATELET VOLUME 8.7 fL (7.4-10.4); MONO % 10.3 %; MONO ABS # 1.11 K/uL (0.11-0.59); NEUT % 51.6 %; NEUT ABS # 5.55 K/uL (1.4-6.5); PLATELET COUNT 337 K/uL (130-400); RED CELL DISTRIBUTION WIDTH CV 15.2 % (11.5-14.5); RED CELL DISTRIBUTION WIDTH SD 49.2 fL (36.4-46.3); WHITE BLOOD COUNT 10.76 K/uL (4.8-10.8)
[2017-06-30 11:33] LABS: INR 2.1 (0.9-1.1)
--- NOTE | 2017-06-30 12:27 | Pharmacy Progress Note ---
Pharmacy Abx Dose Progress Nt Date of Service June 30, 2017. Pharmacy Dosing Scope The patient is currently receiving the following antimicrobial agents per Pharmacy consult: Vancomycin 1,250 mg IV/PO every 24 hours Pt is also receiving Ceftriaxone 1,000mg IV Q24hrs Objective Height (Feet): 5 Height (Inches): 8.00 Weight (Kilograms): 77.000 Vital Signs (Past 12Hrs) Vital Signs Past 12 Hours Date Time Temp Pulse Resp B/P (MAP) Pulse Ox O2 Delivery O2 Flow Rate FiO2 06/30/17 11:01 36.6 62 20 100/62 (75) 100 Room Air 06/30/17 07:52 36.7 71 20 144/85 (104) 97 Room Air 06/30/17 04:00 Room Air 06/30/17 03:35 36.5 61 16 101/59 (73) 97 Room Air Lab Results (24Hrs) Laboratory Tests (24 Hours) Test 06/30/17 11:02 White Blood Count 10.76 K/uL (4.8-10.8) Red Blood Count 2.76 M/uL (4.7-6.1) L Hemoglobin 7.8 g/dL (14.0-18.0) L Hematocrit 24.7 % (42-52) L Mean Corpuscular Volume 89.5 fL (80-100) Mean Corpuscular Hemoglobin 28.3 pg (25-34) Mean Corpuscular Hemoglobin Concent 31.6 g/dl (32-36) L Platelet Count 337 K/uL (130-400) Mean Platelet Volume 8.7 fL (7.4-10.4) Neutrophils (%) (Auto) 51.6 % Lymphocytes (%) (Auto) 7.2 % Monocytes (%) (Auto) 10.3 % Eosinophils (%) (Auto) 30.0 % Basophils (%) (Auto) 0.6 % Neutrophils # (Auto) 5.55 K/uL (1.4-6.5) Lymphocytes # (Auto) 0.78 K/uL (1.2-3.4) L Monocytes # (Auto) 1.11 K/uL (0.11-0.59) H Eosinophils # (Auto) 3.23 K/uL (0-0.5) H Basophils # (Auto) 0.06 K/uL (0-0.2) Micro Results Date/Time Source Procedure Growth Status 06/28/17 13:33 Blood Blood Culture - Preliminary NO GROWTH TO DATE. Resulted 06/28/17 13:12 Blood Blood Culture - Preliminary NO GROWTH TO DATE. Resulted 06/28/17 14:12 Urine,Catheterized Urine Culture - Final NO GROWTH - LESS THAN 1,000 COLONIES/ML Complete 06/28/17 14:10 Abscess Swab Gram Stain - Final Resulted 06/28/17 14:10 Wound Culture - Preliminary Gram Negative Bacilli Staph Species Corynebacterium Species Resulted Risk Factors for Resistance * Hospitalization for 48 hours or more within the past 90 days * History of infection with a multidrug-resistant organism * Antimicrobial use within the last 90 days Assessment & Plan Assessment 67 year old male receiving Vancomycin + Rocephin for treatment of cellulitis Day # 3 of antimicrobial therapy Scr improving over the past 3 days (Scr 2.8 --> 2.56 --> 2.01 today). Pt is currently receiving IV Vancomycin Q24hrs. Ordered a random level 18 hrs after last dose (last dose 06/29 @ 1700 therefore, random level today @ 1100) to assess whether dosing interval needed shorted for improved renal function. * 18hr interval is slightly supratherapeutic at 20.6 mcg/ml. Additional 6 hrs until next dose will allow for additional vanco excretion and lower level to 15- 18 mcg/ml range. * Will not decrease dosing interval at this time, keep dosing at Q24hrs to maintain a goal trough of 10-20 mcg/ml for cellulitis. * No change to current dosing; continue Vancomycin 1,250mg IV Q24hrs. Next dose due today at 1600 Pharmacy will continue to follow and will adjust dose/frequency as necessary. Thank you.
--- NOTE | 2017-06-30 13:44 | Progress Note ---
Medicine Progress Note Date & Time of Visit: June 30, 2017 at 13:33. Subjective seen resting in bed, alert, oriented x 3 in good spirits states he feels ok denies pain, pruritus no dyspnea, dizziness, nausea no problems with urination denies chest pain, palpitations no other symptoms Objective Last 8 Hrs Date Time Temp Pulse Resp B/P (MAP) Pulse Ox O2 Delivery O2 Flow Rate FiO2 06/30/17 12:00 Room Air 06/30/17 11:01 36.6 62 20 100/62 (75) 100 Room Air 06/30/17 08:00 Room Air 06/30/17 07:52 36.7 71 20 144/85 (104) 97 Room Air Physical Exam: General-oriented 3, not in distress, speaking in sentences no accessory muscle use Eyes- anicteric Neck- supple, no JVD Lungs- clear breath sounds bilaterally Heart- regular rhythm; no murmur, normal rate Abdomen- normal bowel sounds, soft, nontender, nondistended Scrotum-inguinal hernia: Significant in size, nontender no discoloration Extremities- no pretibial edema, no calf tenderness; peripheral pulses intact Bilateral upper extremities: Positive excoriations on both upper extremities, scabbing wounds Lower extremities: right- (+) excoriations with mild erythema/warmth/tenderness Neuro- alert, oriented x 3; no gross focal neurologic deficits Skin- warm & dry Laboratory Results: Last 24 Hours Test 06/30/17 06:12 06/30/17 11:02 Sodium Level 143 mmol/L Potassium Level 4.8 mmol/L Chloride Level 114 mmol/L Carbon Dioxide Level 23 mmol/L Anion Gap 5.0 mmol/L Blood Urea Nitrogen 28 mg/dl Creatinine 2.01 mg/dl Est Creatinine Clear Calc Drug Dose 35.0 ml/min Estimated GFR () 38.9 Estimated GFR (Non- 33.6 BUN/Creatinine Ratio 13.7 Random Glucose 82 mg/dl Fasting Glucose 82 mg/dl Calcium Level 7.6 mg/dl Triglycerides Level 68 mg/dl Cholesterol Level 131 mg/dl HDL Cholesterol 52 mg/dl LDL Cholesterol, Calculated 65 mg/dl VLDL Cholesterol, Calculated 14 mg/dl Cholesterol/HDL Ratio 2.5 White Blood Count 10.76 K/uL Red Blood Count 2.76 M/uL Hemoglobin 7.8 g/dL Hematocrit 24.7 % Mean Corpuscular Volume 89.5 fL Mean Corpuscular Hemoglobin 28.3 pg Mean Corpuscular Hemoglobin Concent 31.6 g/dl Platelet Count 337 K/uL Mean Platelet Volume 8.7 fL Neutrophils (%) (Auto) 51.6 % Lymphocytes (%) (Auto) 7.2 % Monocytes (%) (Auto) 10.3 % Eosinophils (%) (Auto) 30.0 % Basophils (%) (Auto) 0.6 % Neutrophils # (Auto) 5.55 K/uL Lymphocytes # (Auto) 0.78 K/uL Monocytes # (Auto) 1.11 K/uL Eosinophils # (Auto) 3.23 K/uL Basophils # (Auto) 0.06 K/uL RDW Standard Deviation 49.2 fL RDW Coefficient of Variation 15.2 % Immature Granulocyte % (Auto) 0.3 % Immature Granulocyte # (Auto) 0.03 K/uL Red Blood Cell Morphology Unremarkable Prothrombin Time 22.2 SECONDS Prothromb Time International Ratio 2.1 Random Vancomycin Level 20.6 mcg/ml Assessment & Plan 67-year-old male with a history of schizophrenia, chronic diastolic CHF, Status post bioprosthetic valve replacement aortic mitral valve Paroxysmal atrial fibrillation on Coumadin Presenting with renal failure. ACUTE RENAL FAILURE -Admit to telemetry -Patient referred to the ED by his PCP after he was found in the waiting room with his pants down scratching his open wounds and very disheveled appearing -Recently admitted to [facility] 06/15 through 06/21 for infected neurotic excoriations and ОЛЕГ -Patient had reported PCP that he has not been eating -Creatinine 1.7 on 06/21, up to 2.7: Noted baseline creatinine in 2017 was 1.0 -Likely due to poor p.o. intake in combination with Bactrim and Lasix use -- given iv fluids crea improved to 2.0 Hold Lasix and Bactrim appreciate Nephro recommendations EKG CHANGES -EKG shows new T-wave inversions inferiorly and anteriorly -No cardiac complaints --Troponin negative Echo: * Sinus bradycardia was present during the study * The left ventricle is normal in size. * There is mild concentric left ventricular hypertrophy. * The left ventricular wall motion is normal. * Left ventricular systolic function is normal. * Ejection Fraction = 55-60%. * There is a bioprosthetic aortic valve. * Bioprosthesis leaflets are not well-visualized, but appear mobile. Aortic valve velocities are moderately elevated * There is moderate thickening of the anterior mitral valve leaflet . * There is mild mitral regurgitation. * An annuloplasty ring is noted in the tricuspid position. * There is trace tricuspid regurgitation. * This study does not exclude vegetations on abnormal valve structures as above -- repeat EKG today monitor -- Continue usual medications for CAD NEUROTIC EXCORIATIONS -Culture from recent admission positive for MRSA -Patient was discharged on Bactrim -S/P vancomycin in the ED, will continue with; will add on Rocephin given patient's history of cardiobacterium hominis --Blood cultures negative so far Wound cultures: gram negative bacilli, Staph,Corynebacterium Continue IV vancomycin and ceftriaxone day #3 appreciate ID SVC recommendations CHRONIC DIASTOLIC CHF SECONDARY TO VALVULAR DISEASE S/P BIOPROSTHETIC AORTIC VALVE REPLACEMENT, MITRAL VALVE REPAIR, TRICUSPID VALVE ANNULOPLASTY -BNP > 35,000 however patient appears dry on exam and also with ОЛЕГ --Patient still on the dry side Continue to hold Lasix monitor PAROXYSMAL ATRIAL FIBRILLATION -Rate controlled on atenolol, will continue INR 2.1 Continue Coumadin SCHIZOPHRENIA -Mental health consult Risperidone added Monitor -Continue Celexa and donepezil HYPOTHYROIDISM -Continue levothyroxine ANEMIA, secondary to Iron Deficiency and Folate Deficiency Hemoglobin 7.8 same as during last admission No signs of acute bleeding supplement Fe and Folate We will continue to monitor transfuse if Hg < 7 Could be secondary to acute renal failure We will monitor DVT PROPHYLAXIS -On Coumadin DISPOSITION Case management on board Anticipate transition to [facility] once accepted Current Inpatient Medications: Current Inpatient Medications Medications (Trade) Dose Ordered Sig/Lakisha Route Start Time Stop Time Status Last Admin Dose Admin Acetaminophen (Tylenol Tab) 650 mg Q4H PRN PO 06/28/17 14:45 07/28/17 14:44 Ondansetron HCl (Zofran Inj) 4 mg Q6H PRN IV 06/28/17 14:45 07/28/17 14:44 Miscellaneous Information (Consult) 1 ea UD PRN N/A 06/28/17 15:15 07/28/17 15:14 Ceftriaxone Sodium 1 gm/ Dextrose 50 ml @ 100 mls/hr Q24H IV 06/29/17 16:00 07/08/17 15:59 06/29/17 17:33 100 MLS/HR Atenolol (Tenormin Tab) 25 mg DAILY PO 06/29/17 09:00 07/29/17 08:59 06/30/17 08:41 25 MG Atorvastatin Calcium (Lipitor Tab) 10 mg DAILY PO 06/29/17 09:00 07/29/17 08:59 06/30/17 08:41 10 MG Citalopram Hydrobromide (celeXA TAB) 20 mg DAILY PO 06/29/17 09:00 07/29/17 08:59 06/30/17 08:41 20 MG Diphenhydramine HCl (Benadryl Cap) 50 mg Q6 PRN PO 06/28/17 15:15 07/28/17 15:14 Donepezil HCl (Aricept Tab) 5 mg HS PO 06/28/17 21:00 07/28/17 20:59 06/29/17 20:40 5 MG Gabapentin (Neurontin Cap) 100 mg DAILY PO 06/29/17 09:00 07/29/17 08:59 06/30/17 08:41 100 MG Levothyroxine Sodium (Synthroid Tab) 25 mcg DAILYBB PO 06/29/17 06:00 07/29/17 05:59 06/30/17 05:26 25 MCG Warfarin Sodium (Coumadin Tab) 6 mg DAILY@1600 PO 06/29/17 16:00 07/29/17 15:59 06/29/17 17:33 6 MG Vancomycin HCl 1250 mg/Sodium Chloride 275 ml @ 125 mls/hr Q24H IV 06/29/17 16:00 07/08/17 15:59 06/29/17 17:32 125 MLS/HR Triamcinolone Acetonide (Triamcinolone Acet 0.1% Crm) 1 appln BID EXT 06/28/17 21:00 07/28/17 20:59 06/30/17 08:43 1 APPLN Risperidone (Risperdal Tab) 1 mg BID PO 06/29/17 21:00 07/29/17 20:59 06/30/17 08:41 1 MG
[2017-06-30] MEDS: VANCOMYCIN IV 1,250 MG in SODIUM CHLORIDE 0.9% 250ML 250 ML IV SCH (15:50)
[2017-06-30] MEDS: CEFTRIAXONE SOD INJ 1 GM in DEXTROSE 5% ADD-VANTAGE 50ML 50 ML IV SCH (15:50)
[2017-06-30] MEDS: FERROUS SULFATE 325 MG TAB PO SCH (15:51)
[2017-06-30 15:58] VITALS: BP 123/82; PULSE 69; TEMP 36.4; O2SAT 92
[2017-06-30] MEDS ORDERED: WARFARIN SOD 1 MG TAB PO ONE (16:00)
[2017-06-30] MEDS ORDERED: WARFARIN SOD 6 MG TAB PO ONE (16:00)
--- NOTE | 2017-06-30 18:59 | Progress Note ---
Progress Note Date of Service June 30, 2017. Progress Note called patient's sister Valeria for update no one available to take call left a voicemail requesting call back Estephania AMOS
[2017-06-30 19:17] VITALS: BP 112/72; PULSE 65; TEMP 36.5; O2SAT 98
[2017-06-30] MEDS: DONEPEZIL HCL 5 MG TAB PO SCH (21:06)
[2017-06-30 23:11] VITALS: BP 114/62; PULSE 71; TEMP 36.5; O2SAT 94
[2017-07-01] VITALS (7 sets, daily range): BP systolic 97–139; BP diastolic 51–87; PULSE 56–82; TEMP 36.6–36.8; O2SAT 92–98
[2017-07-01] MEDS: LEVOTHYROXINE 25 MCG TAB PO SCH (05:37)
[2017-07-01 06:34] LABS: BASO % 1.1 %; EOS % 38.7 %; EOS ABS # 3.45 K/uL (0-0.5); HEMOGLOBIN 7.9 g/dL (14.0-18.0); IG# 0.02 K/uL (0.00-0.02); LYMPH % 11.4 %; LYMPH ABS # 1.02 K/uL (1.2-3.4); MEAN CELL VOLUME 88.5 fL (80-100); MEAN CORPUSCULAR HEMOGLOBIN 30.4 pg (25-34); MEAN CORPUSCULAR HGB CONC 34.3 g/dl (32-36); MEAN PLATELET VOLUME 8.8 fL (7.4-10.4); MONO ABS # 0.71 K/uL (0.11-0.59); NEUT % 40.6 %; NEUT ABS # 3.61 K/uL (1.4-6.5); PLATELET COUNT 329 K/uL (130-400); RED CELL DISTRIBUTION WIDTH CV 14.9 % (11.5-14.5); RED CELL DISTRIBUTION WIDTH SD 47.9 fL (36.4-46.3); WHITE BLOOD COUNT 8.91 K/uL (4.8-10.8)
[2017-07-01 06:41] LABS: INR 2.8 (0.9-1.1)
[2017-07-01 07:06] LABS: CREATININE 1.65 mg/dl (0.60-1.40)
[2017-07-01 07:07] LABS: CALCIUM 8.1 mg/dl (8.5-10.1); POTASSIUM 4.7 mmol/L (3.5-5.1)
[2017-07-01] MEDS: FERROUS SULFATE 325 MG TAB PO SCH ×2 (07:35→16:24)
[2017-07-01] MEDS: ATORVASTATIN 10 MG TAB PO SCH (07:35)
[2017-07-01] MEDS: TRIAMCINOLONE ACET 0.1% CR 80 GM TUBE EXT SCH ×2 (07:35→20:08)
[2017-07-01] MEDS: CITALOPRAM 20 MG TAB PO SCH (07:36)
[2017-07-01] MEDS: RISPERIDONE 1 MG TAB PO SCH ×2 (07:36→20:08)
[2017-07-01] MEDS: GABAPENTIN 100 MG CAP PO SCH (07:36)
[2017-07-01] MEDS: VANCOMYCIN IV 1,250 MG in SODIUM CHLORIDE 0.9% 250ML 250 ML IV SCH (11:04)
[2017-07-01] MEDS ORDERED: WARFARIN SOD 6 MG TAB PO SCH (16:00)
[2017-07-01] MEDS: CEFTRIAXONE SOD INJ 1 GM in DEXTROSE 5% ADD-VANTAGE 50ML 50 ML IV SCH (16:21)
--- NOTE | 2017-07-01 17:44 | Progress Note ---
Medicine Progress Note Date & Time of Visit: July 01, 2017 at 17:39. Subjective Seen resting in bed, comfortable States he feels fine Denies pain or pruritus No chest pain shortness of breath dizziness No abdominal pain Denies other symptoms Objective Last 8 Hrs Date Time Temp Pulse Resp B/P (MAP) Pulse Ox O2 Delivery O2 Flow Rate FiO2 07/01/17 16:00 Room Air 07/01/17 15:16 36.8 71 20 139/87 (104) 92 Room Air 07/01/17 12:00 Room Air 07/01/17 11:49 36.6 56 20 125/71 (89) 96 Room Air 07/01/17 10:25 66 97 Physical Exam: General-oriented 3, not in distress, speaking in sentences no accessory muscle use Neck- no JVD Lungs- clear breath sounds bilaterally, no rales or wheezes Heart- regular rhythm; no murmur, normal rate Abdomen- normal bowel sounds, soft, nontender, nondistended Scrotum-inguinal hernia: Significant in size, nontender no discoloration Extremities- no pretibial edema, no calf tenderness; peripheral pulses intact Bilateral upper extremities: Positive excoriations on both upper extremities, scabbing wounds Lower extremities: right- (+) excoriations with mild erythema/warmth/tenderness Neuro- alert, oriented x 3; no gross focal neurologic deficits Skin- warm & dry Laboratory Results: Last 24 Hours Test 07/01/17 05:56 White Blood Count 8.91 K/uL Red Blood Count 2.60 M/uL Hemoglobin 7.9 g/dL Hematocrit 23.0 % Mean Corpuscular Volume 88.5 fL Mean Corpuscular Hemoglobin 30.4 pg Mean Corpuscular Hemoglobin Concent 34.3 g/dl Platelet Count 329 K/uL Mean Platelet Volume 8.8 fL Neutrophils (%) (Auto) 40.6 % Lymphocytes (%) (Auto) 11.4 % Monocytes (%) (Auto) 8.0 % Eosinophils (%) (Auto) 38.7 % Basophils (%) (Auto) 1.1 % Neutrophils # (Auto) 3.61 K/uL Lymphocytes # (Auto) 1.02 K/uL Monocytes # (Auto) 0.71 K/uL Eosinophils # (Auto) 3.45 K/uL Basophils # (Auto) 0.10 K/uL RDW Standard Deviation 47.9 fL RDW Coefficient of Variation 14.9 % Immature Granulocyte % (Auto) 0.2 % Immature Granulocyte # (Auto) 0.02 K/uL Red Blood Cell Morphology Unremarkable Prothrombin Time 28.6 SECONDS Prothromb Time International Ratio 2.8 Sodium Level 138 mmol/L Potassium Level 4.7 mmol/L Chloride Level 111 mmol/L Carbon Dioxide Level 24 mmol/L Anion Gap 3.0 mmol/L Blood Urea Nitrogen 22 mg/dl Creatinine 1.65 mg/dl Est Creatinine Clear Calc Drug Dose 42.6 ml/min Estimated GFR () 49.4 Estimated GFR (Non- 42.6 BUN/Creatinine Ratio 13.6 Random Glucose 77 mg/dl Calcium Level 8.1 mg/dl Assessment & Plan 67-year-old male with a history of schizophrenia, chronic diastolic CHF, Status post bioprosthetic valve replacement aortic mitral valve Paroxysmal atrial fibrillation on Coumadin Presenting with renal failure. ACUTE RENAL FAILURE -Patient referred to the ED by his PCP after he was found in the waiting room with his pants down scratching his open wounds and very disheveled appearing -Recently admitted to [facility] 06/15 through 06/21 for infected neurotic excoriations and ОЛЕГ -Patient had reported PCP that he has not been eating -Creatinine 1.7 on 06/21, up to 2.7: Noted baseline creatinine in 2017 was 1.0 -Likely due to poor p.o. intake in combination with Bactrim and Lasix use -- given iv fluids crea improved to 1.65 Hold Lasix and Bactrim appreciate Nephro recommendations EKG CHANGES -EKG shows new T-wave inversions inferiorly and anteriorly -No cardiac complaints --Troponin negative Echo: * Sinus bradycardia was present during the study * The left ventricle is normal in size. * There is mild concentric left ventricular hypertrophy. * The left ventricular wall motion is normal. * Left ventricular systolic function is normal. * Ejection Fraction = 55-60%. * There is a bioprosthetic aortic valve. * Bioprosthesis leaflets are not well-visualized, but appear mobile. Aortic valve velocities are moderately elevated * There is moderate thickening of the anterior mitral valve leaflet . * There is mild mitral regurgitation. * An annuloplasty ring is noted in the tricuspid position. * There is trace tricuspid regurgitation. * This study does not exclude vegetations on abnormal valve structures as above -- repeat EKG today nonspecific T-wave changes in leads V1 V2 ; inferior leads Patient remains asymptomatic monitor -- Continue usual medications for CAD NEUROTIC EXCORIATIONS -Culture from recent admission positive for MRSA -Patient was discharged on Bactrim -S/P vancomycin in the ED, will continue with; will add on Rocephin given patient's history of cardiobacterium hominis --Blood cultures negative so far Wound cultures: Enterobacter, Staph,Corynebacterium Continue IV vancomycin and ceftriaxone day #4 appreciate ID SVC recommendations CHRONIC DIASTOLIC CHF SECONDARY TO VALVULAR DISEASE S/P BIOPROSTHETIC AORTIC VALVE REPLACEMENT, MITRAL VALVE REPAIR, TRICUSPID VALVE ANNULOPLASTY -BNP > 35,000 however patient appears dry on exam and also with ОЛЕГ --Patient still on the dry side Continue to hold Lasix monitor PAROXYSMAL ATRIAL FIBRILLATION -Rate controlled on atenolol, will continue INR 2. 8 Continue Coumadin SCHIZOPHRENIA -Mental health consult Risperidone added Seems to be tolerating well -Continue Celexa and donepezil HYPOTHYROIDISM -Continue levothyroxine ANEMIA, secondary to Iron Deficiency and Folate Deficiency Hemoglobin 7. 9 same as during last admission No signs of acute bleeding supplement Fe and Folate We will continue to monitor transfuse if Hg < 7 Could be secondary to acute renal failure We will monitor DVT PROPHYLAXIS -On Coumadin DISPOSITION Case management on board Anticipate transition to [facility] once accepted Current Inpatient Medications: Current Inpatient Medications Medications (Trade) Dose Ordered Sig/Lakisha Route Start Time Stop Time Status Last Admin Dose Admin Acetaminophen (Tylenol Tab) 650 mg Q4H PRN PO 06/28/17 14:45 07/28/17 14:44 Ondansetron HCl (Zofran Inj) 4 mg Q6H PRN IV 06/28/17 14:45 07/28/17 14:44 Miscellaneous Information (Consult) 1 ea UD PRN N/A 06/28/17 15:15 07/28/17 15:14 Ceftriaxone Sodium 1 gm/ Dextrose 50 ml @ 100 mls/hr Q24H IV 06/29/17 16:00 07/08/17 15:59 07/01/17 16:21 100 MLS/HR Atenolol (Tenormin Tab) 25 mg DAILY PO 06/29/17 09:00 07/29/17 08:59 07/01/17 07:35 25 MG Atorvastatin Calcium (Lipitor Tab) 10 mg DAILY PO 06/29/17 09:00 07/29/17 08:59 07/01/17 07:35 10 MG Citalopram Hydrobromide (celeXA TAB) 20 mg DAILY PO 06/29/17 09:00 07/29/17 08:59 07/01/17 07:36 20 MG Diphenhydramine HCl (Benadryl Cap) 50 mg Q6 PRN PO 06/28/17 15:15 07/28/17 15:14 Donepezil HCl (Aricept Tab) 5 mg HS PO 06/28/17 21:00 07/28/17 20:59 06/30/17 21:06 5 MG Gabapentin (Neurontin Cap) 100 mg DAILY PO 06/29/17 09:00 07/29/17 08:59 07/01/17 07:36 100 MG Levothyroxine Sodium (Synthroid Tab) 25 mcg DAILYBB PO 06/29/17 06:00 07/29/17 05:59 07/01/17 05:37 25 MCG Triamcinolone Acetonide (Triamcinolone Acet 0.1% Crm) 1 appln BID EXT 06/28/17 21:00 07/28/17 20:59 07/01/17 07:35 1 APPLN Risperidone (Risperdal Tab) 1 mg BID PO 06/29/17 21:00 07/29/17 20:59 07/01/17 07:36 1 MG Ferrous Sulfate (Feosol Tab) 325 mg BIDM PO 06/30/17 16:45 07/30/17 16:44 07/01/17 16:24 325 MG Folic Acid (Folvite Tab) 1 mg QAM PO 07/01/17 09:00 07/31/17 08:59 07/01/17 07:36 1 MG Vancomycin HCl 1250 mg/Sodium Chloride 275 ml @ 125 mls/hr Q18H IV 07/01/17 11:00 07/11/17 10:59 07/01/17 11:04 125 MLS/HR Warfarin Sodium (Coumadin Tab) 6 mg DAILY@16 PO 07/01/17 16:00 07/31/17 15:59 07/01/17 16:21 6 MG
[2017-07-01] MEDS: DONEPEZIL HCL 5 MG TAB PO SCH (20:08)
[2017-07-02] VITALS (9 sets, daily range): BP systolic 112–143; BP diastolic 67–89; PULSE 68–84; TEMP 36.6–36.8; O2SAT 94–100
[2017-07-02] MEDS: VANCOMYCIN IV 1,250 MG in SODIUM CHLORIDE 0.9% 250ML 250 ML IV SCH ×2 (05:19→23:39)
[2017-07-02] MEDS: LEVOTHYROXINE 25 MCG TAB PO SCH (05:20)
[2017-07-02 06:05] LABS: BASO % 0.6 %; BASO ABS # 0.06 K/uL (0-0.2); EOS % 37.8 %; EOS ABS # 3.61 K/uL (0-0.5); HEMATOCRIT 22.6 % (42-52); HEMOGLOBIN 7.3 g/dL (14.0-18.0); IG# 0.02 K/uL (0.00-0.02); LYMPH ABS # 1.34 K/uL (1.2-3.4); MEAN CELL VOLUME 87.9 fL (80-100); MEAN CORPUSCULAR HEMOGLOBIN 28.4 pg (25-34); MEAN CORPUSCULAR HGB CONC 32.3 g/dl (32-36); MEAN PLATELET VOLUME 8.4 fL (7.4-10.4); MONO % 7.6 %; MONO ABS # 0.73 K/uL (0.11-0.59); NEUT % 39.8 %; NEUT ABS # 3.79 K/uL (1.4-6.5); PLATELET COUNT 310 K/uL (130-400); RED CELL DISTRIBUTION WIDTH SD 47.8 fL (36.4-46.3); WHITE BLOOD COUNT 9.55 K/uL (4.8-10.8)
[2017-07-02 06:17] LABS: INR 3.5 (0.9-1.1)
[2017-07-02 06:40] LABS: CALCIUM 7.8 mg/dl (8.5-10.1); CREATININE 1.42 mg/dl (0.60-1.40); POTASSIUM 4.8 mmol/L (3.5-5.1)
[2017-07-02] MEDS: RISPERIDONE 1 MG TAB PO SCH ×2 (07:43→21:07)
[2017-07-02] MEDS: ATORVASTATIN 10 MG TAB PO SCH (07:43)
[2017-07-02] MEDS: CITALOPRAM 20 MG TAB PO SCH (07:43)
[2017-07-02] MEDS: GABAPENTIN 100 MG CAP PO SCH (07:44)
[2017-07-02] MEDS: FERROUS SULFATE 325 MG TAB PO SCH ×2 (07:44→15:12)
[2017-07-02] MEDS: TRIAMCINOLONE ACET 0.1% CR 80 GM TUBE EXT SCH ×2 (07:45→21:07)
--- NOTE | 2017-07-02 10:41 | Progress Note ---
Subjective Date of Service: July 02, 2017. Subjective pt sitting in bed ,comfortable, guardado remains in place, creat improving 1.4 today. blood cultures negative, wound culture with MRSA and Enterobacter. remains on emperic IV abx, tolerating well. no fevers/chills. Problem List Medical Problems: (1) ОЛЕГ (acute kidney injury) Status: Acute (2) ОЛЕГ (acute kidney injury) Status: Acute (3) Cellulitis Status: Acute (4) CHF (congestive heart failure) Status: Acute Objective Vital Signs Date Time Temp Pulse Resp B/P (MAP) Pulse Ox O2 Delivery O2 Flow Rate FiO2 07/02/17 08:00 36.8 82 16 121/76 (91) 94 07/02/17 08:00 Room Air 07/02/17 04:00 Room Air 07/02/17 03:47 36.8 82 18 114/73 (87) 97 Room Air 07/02/17 00:02 Room Air 07/01/17 23:46 36.6 80 18 106/63 (77) 97 Room Air 07/01/17 20:00 Room Air 07/01/17 19:24 36.6 73 20 138/81 (100) 97 Room Air 07/01/17 16:00 Room Air 07/01/17 15:16 36.8 71 20 139/87 (104) 92 Room Air 07/01/17 12:00 Room Air 07/01/17 11:49 36.6 56 20 125/71 (89) 96 Room Air Physical Exam General Appearance: WD/WN Neck: supple Respiratory/Chest: no respiratory distress Neurologic/Psychiatric: alert, oriented x 3 Skin: normal color Comments: guardado with yellow urine Laboratory Results Item Value Date Time Gram Stain - Final Complete 06/28/17 1410 Abscess Swab Blood Culture - Preliminary Resulted 06/28/17 1333 Blood NO GROWTH TO DATE. Blood Culture - Preliminary Resulted 06/28/17 1312 Blood NO GROWTH TO DATE. Last 24 Hours Test 07/02/17 05:53 White Blood Count 9.55 K/uL Red Blood Count 2.57 M/uL Hemoglobin 7.3 g/dL Hematocrit 22.6 % Mean Corpuscular Volume 87.9 fL Mean Corpuscular Hemoglobin 28.4 pg Mean Corpuscular Hemoglobin Concent 32.3 g/dl Platelet Count 310 K/uL Mean Platelet Volume 8.4 fL Neutrophils (%) (Auto) 39.8 % Lymphocytes (%) (Auto) 14.0 % Monocytes (%) (Auto) 7.6 % Eosinophils (%) (Auto) 37.8 % Basophils (%) (Auto) 0.6 % Neutrophils # (Auto) 3.79 K/uL Lymphocytes # (Auto) 1.34 K/uL Monocytes # (Auto) 0.73 K/uL Eosinophils # (Auto) 3.61 K/uL Basophils # (Auto) 0.06 K/uL RDW Standard Deviation 47.8 fL RDW Coefficient of Variation 15.0 % Immature Granulocyte % (Auto) 0.2 % Immature Granulocyte # (Auto) 0.02 K/uL Red Blood Cell Morphology Unremarkable Prothrombin Time 36.1 SECONDS Prothromb Time International Ratio 3.5 Sodium Level 138 mmol/L Potassium Level 4.8 mmol/L Chloride Level 107 mmol/L Carbon Dioxide Level 26 mmol/L Anion Gap 5.0 mmol/L Blood Urea Nitrogen 20 mg/dl Creatinine 1.42 mg/dl Est Creatinine Clear Calc Drug Dose 49.5 ml/min Estimated GFR () 59.2 Estimated GFR (Non- 51.1 BUN/Creatinine Ratio 13.7 Random Glucose 75 mg/dl Calcium Level 7.8 mg/dl Assessment and Plan (1) Cellulitis Assessment & Plan: can continue with IV abx for now, if blood cultures remain negative would suggest change to doxy 100mg po bid and cipro 500mg po bid x 10 days. avoid additional bactrim. no new ID recs at this time.
[2017-07-02] MEDS ORDERED: PHYTONADIONE 5 MG TAB PO ONE (14:00)
[2017-07-02 14:13] LABS: HEMATOCRIT 24.4 % (42-52); HEMOGLOBIN 7.7 g/dL (14.0-18.0)
[2017-07-02] MEDS: CEFTRIAXONE SOD INJ 1 GM in DEXTROSE 5% ADD-VANTAGE 50ML 50 ML IV SCH (15:08)
--- NOTE | 2017-07-02 16:46 | Gastrointestinal Consultation ---
Gastrointestinal Consultation Date of Consultation: July 02, 2017 Attending Physician: Dr. Mills Consulting Physician: Dr. Weaver Reason for Consultation: Rectal Bleeding History of Present Illness Patient is a 67 year old male patient of Dr. Horace Boles with a hx of A-fib on coumadin, bioprosthetic valve, HTN, CHF, schizophrenia, SMA aneurysm was seen at his PCP office for f/u from previous admission 06/15 - 06/21 (cellulitis and ОЛЕГ). He presented to the ED on 06/28 and was brought to the ED because he had inappropriate behavior (found in the waiting room with his pants daily scratching leg wound, then when taken to the exam room was scratching his arms and repeatedly washing in the exam sink). GI is now consulted for rectal bleeding. On arrival, Hb 8.8 but it drifted down to 7.7. Since arrival, he received one unit of RBCs. INR was 2.5 and today 3.5. MCV is normal. Regarding BMs, on 06/30 he passed a large loose/liquid brown BM. His RN tells me that this afternoon, he toileted, attempting a BM. She saw a lot of bright red blood, in the toilet bowel, dripping down his legs, smeared on the toilet seat. There were no pools of blood. She did not notice any fecal mater with the blood. He did not have any CP, SOB with the incident. He denies any recent abdominal pain, nausea or vomiting and tells us that he always has rectal bleeding. He agreed to a rectal exam. One small non bleeding external hemorrhoid was seen. The rectal vault was empty and there was a speck of blood on the glove on return. He did not c/o pain during the exam. There were no palpable internal hemorrhoids. Colonoscopies in 2006 and 2010 both with and a single rectal ulcer at 18 - 20 cm. In 2006 there were also two small adenomatous polyp. Past Medical/Surgical History Medical Problems: (1) ОЛЕГ (acute kidney injury) Status: Acute (2) ОЛЕГ (acute kidney injury) Status: Acute (3) Cellulitis Status: Acute (4) CHF (congestive heart failure) Status: Acute Past Medical History: (1) Anticoagulant long-term use (2) History of endocarditis (3) HLD (hyperlipidemia) (4) Hypothyroidism (5) Paroxysmal atrial fibrillation (6) Schizophrenia, unspecified (7) Superior mesenteric aneurysm Past Surgical History: (1) H/O tricuspid valve annuloplasty (2) S/P aortic valve replacement (3) S/P mitral valve repair (4) Most recent colonoscopy 2010, rectal ulcer. Family History FH: heart disease Social History Smoking Status: Never Smoker Alcohol Use: heavy Drug Use: none Housing Status: lives with family Occupation Status: disabled Allergies Coded Allergies: No Known Allergies (Unverified , 06/15/17) Current Medications Home Meds and Scripts Medications Dose Route/Sig Max Daily Dose Days Date Category Aristocort 0.1% (Triamcinolone Acet) 240 Appln/80 Gm Cr 1 Appln EXT BID 30 06/21/17 Rx Benadryl (Diphenhydramine Hcl) 25 Mg Cap 50 Mg PO Q6 10 06/21/17 Rx Smz-Tmp Ds (Sulfamethoxazole-Trimethoprim) 1 Tab Tab 1 Tab PO Q12 12 06/21/17 Rx Coumadin (Warfarin Sod) 4 Mg Tab 6 Mg PO DAILY 06/15/17 Reported Potassium Chloride Er (Potassium Chloride) 10 Meq Cap 1 Cap PO DAILY 90 06/15/17 Reported Gabapentin 100 Mg Cap 1 Tab PO DAILY 06/15/17 Reported Lasix (Furosemide) 20 Mg Tab 20 Mg PO DAILY 06/15/17 Reported Aricept (Donepezil HCl) 5 Mg Tab 1 Tab PO HS 30 06/15/17 Reported Celexa (Citalopram Hydrobromide) 10 Mg Tab 20 Tab PO DAILY 30 06/15/17 Reported Lipitor (Atorvastatin Calcium) 10 Mg Tab 10 Mg PO DAILY 01/02/14 Reported Synthroid (Levothyroxine Sodium) 25 Mcg Tab 25 Mcg PO DAILY 01/02/14 Reported Tenormin (Atenolol) 25 Mg Tab 25 Mg PO DAILY 01/02/14 Reported Review of Systems Constitutional: No fever, No chills, No sweats, No weight loss, No weakness Eyes: No eye pain, No redness ENT: No sore throat, No trouble swallowing, No pain on swallowing Respiratory: No cough, No wheezing, No shortness of breath, No dyspnea on exertion Cardiac: No chest pain, No edema, No palpitations Abdomen: + see HPI Neuro: + problem reported (itching), No memory loss, No weakness, No numbness/ tingling, No vertigo, No balance problems Psych: No depression symptoms, No anxiety, No insomnia Heme: No abnormal bleeding/bruising, No night sweats Endo: No excessive thirst, No excessive urination Skin: No rash, No itch, No new/changing skin lesions, No jaundice Physical Exam Date Time Temp Pulse Resp B/P (MAP) Pulse Ox O2 Delivery O2 Flow Rate FiO2 07/02/17 16:16 36.7 68 18 132/87 100 07/02/17 15:46 36.7 72 18 143/86 98 07/02/17 15:31 36.6 84 18 134/85 100 07/02/17 12:00 Room Air 07/02/17 11:34 36.8 69 18 115/75 (88) 95 07/02/17 08:00 36.8 82 16 121/76 (91) 94 07/02/17 08:00 Room Air 07/02/17 04:00 Room Air 07/02/17 03:47 36.8 82 18 114/73 (87) 97 Room Air 07/02/17 00:02 Room Air 07/01/17 23:46 36.6 80 18 106/63 (77) 97 Room Air 07/01/17 20:00 Room Air 07/01/17 19:24 36.6 73 20 138/81 (100) 97 Room Air General Appearance: no apparent distress Eyes: normal inspection, EOMI ENT: pharynx normal Neck: supple, no adenopathy, thyroid normal, no JVD Respiratory/Chest: chest non-tender, lungs clear, normal breath sounds, no accessory muscle use Cardiovascular: regular rate, rhythm, no JVD, no murmur Abdomen: normal bowel sounds, non tender, soft, no organomegaly Extremities: normal inspection, no pedal edema, normal capillary refill Neurologic/Psych: alert, normal mood/affect, oriented x 3 Skin: normal color, no jaundice, warm/dry, no rash, + pertinent finding ( multiple excoriations on the arms, abdomen, legs) Laboratory Results Last 24 Hours Test 07/02/17 05:53 07/02/17 14:01 White Blood Count 9.55 K/uL Red Blood Count 2.57 M/uL Hemoglobin 7.3 g/dL 7.7 g/dL Hematocrit 22.6 % 24.4 % Mean Corpuscular Volume 87.9 fL Mean Corpuscular Hemoglobin 28.4 pg Mean Corpuscular Hemoglobin Concent 32.3 g/dl Platelet Count 310 K/uL Mean Platelet Volume 8.4 fL Neutrophils (%) (Auto) 39.8 % Lymphocytes (%) (Auto) 14.0 % Monocytes (%) (Auto) 7.6 % Eosinophils (%) (Auto) 37.8 % Basophils (%) (Auto) 0.6 % Neutrophils # (Auto) 3.79 K/uL Lymphocytes # (Auto) 1.34 K/uL Monocytes # (Auto) 0.73 K/uL Eosinophils # (Auto) 3.61 K/uL Basophils # (Auto) 0.06 K/uL RDW Standard Deviation 47.8 fL RDW Coefficient of Variation 15.0 % Immature Granulocyte % (Auto) 0.2 % Immature Granulocyte # (Auto) 0.02 K/uL Red Blood Cell Morphology Unremarkable Prothrombin Time 36.1 SECONDS Prothromb Time International Ratio 3.5 Sodium Level 138 mmol/L Potassium Level 4.8 mmol/L Chloride Level 107 mmol/L Carbon Dioxide Level 26 mmol/L Anion Gap 5.0 mmol/L Blood Urea Nitrogen 20 mg/dl Creatinine 1.42 mg/dl Est Creatinine Clear Calc Drug Dose 49.5 ml/min Estimated GFR () 59.2 Estimated GFR (Non- 51.1 BUN/Creatinine Ratio 13.7 Random Glucose 75 mg/dl Calcium Level 7.8 mg/dl Impression Patient is a 67 year old male with schizophrenia on warfarin for A-fib. He experienced an episode of bright red rectal bleeding today (while INR 3.5). The rectal bleeding is most suggestive of outlet bleeding such as hemorrhoidal. It is painless. He also has a hx of rectal ulcer, so that is also considered as well as a diverticular bleed. Plan 1. Clear liquids tomorrow. 2. Agree with reversing the INR 3. If INR lower tomorrow then would start the prep and plan for colonoscopy on . Late entry: patient was seen and examined on 07/02 with TANIYA Duenas whose note reflects our findings and plan. Colonoscopy once INR reversed.
[2017-07-02 20:09] LABS: HEMATOCRIT 24.4 % (42-52); HEMOGLOBIN 7.8 g/dL (14.0-18.0)
--- NOTE | 2017-07-02 20:22 | Progress Note ---
Medicine Progress Note Date & Time of Visit: July 02, 2017 at 20:15. Subjective Noted to have rectal bleed today-nurse noticed patient had bright red blood mixed with stools today Patient denies abdominal pain or rectal pain Denies chest pain, shortness of breath dizziness, nausea No other symptoms Objective Last 8 Hrs Date Time Temp Pulse Resp B/P (MAP) Pulse Ox O2 Delivery O2 Flow Rate FiO2 07/02/17 19:37 36.8 79 20 112/71 (85) 98 Room Air 07/02/17 17:16 36.7 77 18 135/89 (104) 99 Room Air 07/02/17 16:16 36.7 68 18 132/87 100 07/02/17 16:00 Room Air 07/02/17 15:46 36.7 72 18 143/86 98 07/02/17 15:31 36.6 84 18 134/85 100 Physical Exam: General-oriented 3, not in distress, speaking in sentences no accessory muscle use Neck- no JVD Lungs- clear BS bilaterally Heart- regular rhythm; no murmur, normal rate Abdomen- normal bowel sounds, soft, nontender, nondistended Scrotum-inguinal hernia: Significant in size, nontender no discoloration Extremities- no pretibial edema, no calf tenderness; peripheral pulses intact Bilateral upper extremities: Positive excoriations on both upper extremities, scabbing wounds Lower extremities: right- (+) excoriations with mild erythema/warmth/tenderness : Improving Neuro- alert, oriented x 3; no gross focal neurologic deficits Skin- warm & dry Laboratory Results: Last 24 Hours Test 07/02/17 05:53 07/02/17 14:01 07/02/17 20:01 White Blood Count 9.55 K/uL Red Blood Count 2.57 M/uL Hemoglobin 7.3 g/dL 7.7 g/dL 7.8 g/dL Hematocrit 22.6 % 24.4 % 24.4 % Mean Corpuscular Volume 87.9 fL Mean Corpuscular Hemoglobin 28.4 pg Mean Corpuscular Hemoglobin Concent 32.3 g/dl Platelet Count 310 K/uL Mean Platelet Volume 8.4 fL Neutrophils (%) (Auto) 39.8 % Lymphocytes (%) (Auto) 14.0 % Monocytes (%) (Auto) 7.6 % Eosinophils (%) (Auto) 37.8 % Basophils (%) (Auto) 0.6 % Neutrophils # (Auto) 3.79 K/uL Lymphocytes # (Auto) 1.34 K/uL Monocytes # (Auto) 0.73 K/uL Eosinophils # (Auto) 3.61 K/uL Basophils # (Auto) 0.06 K/uL RDW Standard Deviation 47.8 fL RDW Coefficient of Variation 15.0 % Immature Granulocyte % (Auto) 0.2 % Immature Granulocyte # (Auto) 0.02 K/uL Red Blood Cell Morphology Unremarkable Prothrombin Time 36.1 SECONDS Prothromb Time International Ratio 3.5 Sodium Level 138 mmol/L Potassium Level 4.8 mmol/L Chloride Level 107 mmol/L Carbon Dioxide Level 26 mmol/L Anion Gap 5.0 mmol/L Blood Urea Nitrogen 20 mg/dl Creatinine 1.42 mg/dl Est Creatinine Clear Calc Drug Dose 49.5 ml/min Estimated GFR () 59.2 Estimated GFR (Non- 51.1 BUN/Creatinine Ratio 13.7 Random Glucose 75 mg/dl Calcium Level 7.8 mg/dl Assessment & Plan 67-year-old male with a history of schizophrenia, chronic diastolic CHF, Status post bioprosthetic valve replacement aortic mitral valve Paroxysmal atrial fibrillation on Coumadin Presenting with renal failure. ACUTE RENAL FAILURE-Likely due to poor p.o. intake in combination with Bactrim and Lasix use -Patient referred to the ED by his PCP after he was found in the waiting room with his pants down scratching his open wounds and very disheveled appearing -Recently admitted to [facility] 06/15 through 06/21 for infected neurotic excoriations and ОЛЕГ -Patient had reported PCP that he has not been eating -Creatinine 1.7 on 06/21, up to 2.7: Noted baseline creatinine in 2017 was 1.0 -- given iv fluids crea improved to 1.4 Hold Lasix and Bactrim appreciate Nephro recommendations EKG CHANGES -EKG shows new T-wave inversions inferiorly and anteriorly -No cardiac complaints --Troponin negative Echo: * Sinus bradycardia was present during the study * The left ventricle is normal in size. * There is mild concentric left ventricular hypertrophy. * The left ventricular wall motion is normal. * Left ventricular systolic function is normal. * Ejection Fraction = 55-60%. * There is a bioprosthetic aortic valve. * Bioprosthesis leaflets are not well-visualized, but appear mobile. Aortic valve velocities are moderately elevated * There is moderate thickening of the anterior mitral valve leaflet . * There is mild mitral regurgitation. * An annuloplasty ring is noted in the tricuspid position. * There is trace tricuspid regurgitation. * This study does not exclude vegetations on abnormal valve structures as above -- repeat EKG nonspecific T-wave changes in leads V1 V2 ; inferior leads Patient remains asymptomatic monitor -- Continue usual medications for CAD NEUROTIC EXCORIATIONS -Culture from recent admission positive for MRSA -Patient was discharged on Bactrim -S/P vancomycin in the ED, will continue with; will add on Rocephin given patient's history of cardiobacterium hominis --Blood cultures negative so far Wound cultures: Enterobacter, Staph,Corynebacterium Continue IV vancomycin and ceftriaxone day #5 Transition to p.o. doxy and Levaquin appreciate ID SVC recommendations POSSIBLE LOWER GI BLEED IN THE SETTING OF CHRONIC COUMADIN USE Hemoglobin decreased to 7.3 1 unit of packed RBCs given Hemoglobin improved 7.8 Monitor closely INR 3.5 today Hold Coumadin, vitamin K 5 mg p.o. given Monitor INR daily GI consulted Prep tomorrow and colonoscopy Sunday ANEMIA, secondary to acute blood loss secondary to rectal bleed, iron Deficiency and Folate Deficiency Management as noted above Anemia panel performed last month his previous admission, continue iron and folate supplementation CHRONIC DIASTOLIC CHF SECONDARY TO VALVULAR DISEASE S/P BIOPROSTHETIC AORTIC VALVE REPLACEMENT, MITRAL VALVE REPAIR, TRICUSPID VALVE ANNULOPLASTY -BNP > 35,000 however patient appears dry on exam and also with ОЛЕГ --Patient still on the dry side Continue to hold Lasix monitor PAROXYSMAL ATRIAL FIBRILLATION -Rate controlled on atenolol, will continue Management noted above SCHIZOPHRENIA -Mental health consult Risperidone added Seems to be tolerating well -Continue usual Celexa and donepezil HYPOTHYROIDISM -Continue levothyroxine DVT PROPHYLAXIS Coumadin held secondary to rectal bleeding DISPOSITION Case management on board Anticipate transition to [facility] facility once accepted Patient may have to be in a [facility] facility setting indefinitely because of concerns for patient not being able to take care of himself well Given underlying psychiatric conditions Current Inpatient Medications: Current Inpatient Medications Medications (Trade) Dose Ordered Sig/Lakisha Route Start Time Stop Time Status Last Admin Dose Admin Acetaminophen (Tylenol Tab) 650 mg Q4H PRN PO 5/3/18 14:45 07/28/17 14:44 Ondansetron HCl (Zofran Inj) 4 mg Q6H PRN IV 06/28/17 14:45 07/28/17 14:44 Miscellaneous Information (Consult) 1 ea UD PRN N/A 06/28/17 15:15 07/28/17 15:14 Ceftriaxone Sodium 1 gm/ Dextrose 50 ml @ 100 mls/hr Q24H IV 06/29/17 16:00 07/08/17 15:59 07/02/17 15:08 100 MLS/HR Atenolol (Tenormin Tab) 25 mg DAILY PO 06/29/17 09:00 07/29/17 08:59 07/02/17 07:44 25 MG Atorvastatin Calcium (Lipitor Tab) 10 mg DAILY PO 06/29/17 09:00 07/29/17 08:59 07/02/17 07:43 10 MG Citalopram Hydrobromide (celeXA TAB) 20 mg DAILY PO 06/29/17 09:00 07/29/17 08:59 07/02/17 07:43 20 MG Diphenhydramine HCl (Benadryl Cap) 50 mg Q6 PRN PO 06/28/17 15:15 07/28/17 15:14 Donepezil HCl (Aricept Tab) 5 mg HS PO 06/28/17 21:00 07/28/17 20:59 07/01/17 20:08 5 MG Gabapentin (Neurontin Cap) 100 mg DAILY PO 06/29/17 09:00 07/29/17 08:59 07/02/17 07:44 100 MG Levothyroxine Sodium (Synthroid Tab) 25 mcg DAILYBB PO 06/29/17 06:00 07/29/17 05:59 07/02/17 05:20 25 MCG Triamcinolone Acetonide (Triamcinolone Acet 0.1% Crm) 1 appln BID EXT 06/28/17 21:00 07/28/17 20:59 07/02/17 07:45 1 APPLN Risperidone (Risperdal Tab) 1 mg BID PO 06/29/17 21:00 07/29/17 20:59 07/02/17 07:43 1 MG Ferrous Sulfate (Feosol Tab) 325 mg BIDM PO 06/30/17 16:45 07/30/17 16:44 07/02/17 15:12 325 MG Folic Acid (Folvite Tab) 1 mg QAM PO 07/01/17 09:00 07/31/17 08:59 07/02/17 07:44 1 MG Vancomycin HCl 1250 mg/Sodium Chloride 275 ml @ 125 mls/hr Q18H IV 07/01/17 11:00 07/11/17 10:59 07/02/17 05:19 125 MLS/HR
[2017-07-02] MEDS: DONEPEZIL HCL 5 MG TAB PO SCH (21:07)
[2017-07-02] MEDS ORDERED: VANCOMYCIN TROUGH ONE (22:30)
[2017-07-03 03:54] VITALS: BP 110/66; PULSE 72; TEMP 36.6; O2SAT 96
[2017-07-03] MEDS: LEVOTHYROXINE 25 MCG TAB PO SCH (05:15)
[2017-07-03 05:49] LABS: BASO % 0.4 %; BASO ABS # 0.04 K/uL (0-0.2); EOS ABS # 3.88 K/uL (0-0.5); HEMATOCRIT 24.3 % (42-52); HEMOGLOBIN 7.9 g/dL (14.0-18.0); IG# 0.02 K/uL (0.00-0.02); LYMPH % 12.6 %; LYMPH ABS # 1.19 K/uL (1.2-3.4); MEAN CELL VOLUME 88.4 fL (80-100); MEAN CORPUSCULAR HEMOGLOBIN 28.7 pg (25-34); MEAN CORPUSCULAR HGB CONC 32.5 g/dl (32-36); MEAN PLATELET VOLUME 8.5 fL (7.4-10.4); MONO % 7.8 %; MONO ABS # 0.74 K/uL (0.11-0.59); NEUT ABS # 3.59 K/uL (1.4-6.5); PLATELET COUNT 318 K/uL (130-400); RED CELL DISTRIBUTION WIDTH CV 14.9 % (11.5-14.5); RED CELL DISTRIBUTION WIDTH SD 47.5 fL (36.4-46.3); WHITE BLOOD COUNT 9.46 K/uL (4.8-10.8)
[2017-07-03 05:59] LABS: INR 1.6 (0.9-1.1)
[2017-07-03 06:29] LABS: CALCIUM 7.6 mg/dl (8.5-10.1); CREATININE 1.34 mg/dl (0.60-1.40); POTASSIUM 4.5 mmol/L (3.5-5.1)
[2017-07-03 06:55] VITALS: BP 118/71; PULSE 73; TEMP 36.5; O2SAT 97
--- NOTE | 2017-07-03 08:43 | Progress Note ---
Internal Med Progress Note Date of Service: July 03, 2017. Provider Documentation: SUBJECTIVE: Seen and examined at bedside Feels well today No BM or Rectal bleeding today Denies chest pain, SOB, abd pain, nausea, dizziness No other complaints Denies suicidal/homicidal thoughts OBJECTIVE: Vital Signs-as noted below Physical Exam: General Appearance:Moderately built and nourished, no apparent distress Head: normocephalic, Atraumatic Eyes: normal inspection, EOMI, PERRL Neck: supple, Trachea midline Respiratory/Chest: Normal breath sounds, CTA Cardiovascular: S1, S2, + murmur Abdomen/GI:Soft, Non tender, Bowel sounds present Scrotum-inguinal hernia: Significant in size, nontender no discoloration Extremities/Musculoskelatal:normal inspection, excoriations on b/l UE upper extremities, scabbing wounds LE Neurologic/Psych:AAOX3, grossly no focal neurological deficits Skin: normal color, warm Lab data as noted below. ASSESSMENT & PLAN: Patient is a 67 yr male with h/o schizophrenia, chronic diastolic CHF, S/P bioprosthetic aortic/mitral valve replacement, P.afib on Coumadin presented with renal failure. Acute Renal Failure: Likely prerenal and 2/2 Bactrim and Lasix use Patient referred to the ED by his PCP after he was found in the waiting room with his pants down scratching his open wounds and very disheveled appearing Cr back to baseline Cr:1.34 Hold Lasix for now Bactrim discontinued Appreciate Nephrology recommendations monitor renal function EKG Changes: EKG shows new T-wave inversions inferiorly and anteriorly No cardiac complaints Troponin negative Echo:The left ventricular wall motion is normal repeat EKG nonspecific T-wave changes in leads V1 V2 ; inferior leads Patient asymptomatic Continue Atenolol, Lipitor Neurotic Excoriations: Culture from recent admission positive for MRSA Patient was discharged on Bactrim Blood cultures: Negative Wound cultures: Enterobacter, Staph,Corynebacterium Continue IV vancomycin and ceftriaxone day # 6 Transition to p.o. doxy and Cipro Appreciate ID recommendations Possible lower GI bleed: In setting of chronic Coumadin use S/P 1 unit PRBC No active bleeding Hb:7.9 Coumadin held Appreciate GI Input Colonoscopy tomorrow INR:3.5>>>1.6 S/P Vit K monitor INR Anemia: Multifactorial: secondary to acute blood loss 2/2 rectal bleed, iron Deficiency and Folate Deficiency Anemia panel performed last month his previous admission, continue iron and folate supplementation Chronic diastolic CHF secondary to valvular disease: S/P Bioprosthetic Aortic joel replacement, Mitral valve repair, Tricuspid valve annuloplasty Lasix held as clinically dehydrated Will resume diuretics as able monitor P.Afib: continue atenolol Coumadin on hold secondary to to GI bleed Schizophrenia: Appreciate Psychiatry Input Risperidone added Continue usual Celexa and donepezil Patient refused increased dose of Celexa Hypothyroidism: Continue levothyroxine DVT Px: Coumadin held secondary to rectal bleeding SCDs Disposition: multimedia services manager consulted Needs transition to SNF once accepted PROCEDURES: ECHO: * Sinus bradycardia was present during the study * The left ventricle is normal in size. * There is mild concentric left ventricular hypertrophy. * The left ventricular wall motion is normal. * Left ventricular systolic function is normal. * Ejection Fraction = 55-60%. * There is a bioprosthetic aortic valve. * Bioprosthesis leaflets are not well-visualized, but appear mobile. Aortic valve velocities are moderately elevated * There is moderate thickening of the anterior mitral valve leaflet . * There is mild mitral regurgitation. * An annuloplasty ring is noted in the tricuspid position. * There is trace tricuspid regurgitation. * This study does not exclude vegetations on abnormal valve structures as above Vital Signs: Date Time Temp Pulse Resp B/P (MAP) Pulse Ox O2 Delivery O2 Flow Rate FiO2 07/03/17 06:55 36.5 73 16 118/71 (87) 97 Room Air 07/03/17 04:00 Room Air 07/03/17 03:54 36.6 72 16 110/66 (81) 96 Room Air 07/03/17 00:01 Room Air 07/02/17 23:27 36.8 72 18 113/67 (82) 97 07/02/17 19:37 36.8 79 20 112/71 (85) 98 Room Air 07/02/17 17:16 36.7 77 18 135/89 (104) 99 Room Air 07/02/17 16:16 36.7 68 18 132/87 100 07/02/17 16:00 Room Air 07/02/17 15:46 36.7 72 18 143/86 98 07/02/17 15:31 36.6 84 18 134/85 100 07/02/17 12:00 Room Air 07/02/17 11:34 36.8 69 18 115/75 (88) 95 Lab Results: Results Past 24 Hours Test 07/02/17 14:01 07/02/17 20:01 07/02/17 22:35 07/03/17 05:23 Range/Units Hemoglobin 7.7 7.8 7.9 14.0-18.0 g/dL Hematocrit 24.4 24.4 24.3 42-52 % Vancomycin Level Trough 23.5 SEE COMMENT mcg/ml White Blood Count 9.46 4.8-10.8 K/uL Red Blood Count 2.75 4.7-6.1 M/uL Mean Corpuscular Volume 88.4 80-100 fL Mean Corpuscular Hemoglobin 28.7 25-34 pg Mean Corpuscular Hemoglobin Concent 32.5 32-36 g/dl Platelet Count 318 130-400 K/uL Mean Platelet Volume 8.5 7.4-10.4 fL Neutrophils (%) (Auto) 38.0 % Lymphocytes (%) (Auto) 12.6 % Monocytes (%) (Auto) 7.8 % Eosinophils (%) (Auto) 41.0 % Basophils (%) (Auto) 0.4 % Neutrophils # (Auto) 3.59 1.4-6.5 K/uL Lymphocytes # (Auto) 1.19 1.2-3.4 K/uL Monocytes # (Auto) 0.74 0.11-0.59 K/uL Eosinophils # (Auto) 3.88 0-0.5 K/uL Basophils # (Auto) 0.04 0-0.2 K/uL RDW Standard Deviation 47.5 36.4-46.3 fL RDW Coefficient of Variation 14.9 11.5-14.5 % Immature Granulocyte % (Auto) 0.2 % Immature Granulocyte # (Auto) 0.02 0.00-0.02 K/uL Red Blood Cell Morphology Unremarkable Prothrombin Time 16.6 9.0-12.0 SECONDS Prothromb Time International Ratio 1.6 0.9-1.1 Sodium Level 138 136-145 mmol/L Potassium Level 4.5 3.5-5.1 mmol/L Chloride Level 108 98-107 mmol/L Carbon Dioxide Level 28 21-32 mmol/L Anion Gap 2.0 3-11 mmol/L Blood Urea Nitrogen 19 7-18 mg/dl Creatinine 1.34 0.60-1.40 mg/dl Est Creatinine Clear Calc Drug Dose 52.4 ml/min Estimated GFR () 63.5 Estimated GFR (Non- 54.8 BUN/Creatinine Ratio 13.8 10-20 Random Glucose 75 70-99 mg/dl Calcium Level 7.6 8.5-10.1 mg/dl
[2017-07-03] MEDS: GABAPENTIN 100 MG CAP PO SCH (09:04)
[2017-07-03] MEDS: TRIAMCINOLONE ACET 0.1% CR 80 GM TUBE EXT SCH ×2 (09:04→20:02)
[2017-07-03] MEDS: RISPERIDONE 1 MG TAB PO SCH ×2 (09:04→20:02)
[2017-07-03] MEDS: FERROUS SULFATE 325 MG TAB PO SCH ×2 (09:04→17:00)
[2017-07-03] MEDS: ATORVASTATIN 10 MG TAB PO SCH (09:04)
[2017-07-03] MEDS: CITALOPRAM 20 MG TAB PO SCH (09:04)
--- NOTE | 2017-07-03 10:23 | Gastroenterology Progress Note ---
Progress Note Date of Service: July 03, 2017 Subjective Pt evaluation today including: conversation w/ patient, conversation w/ family Pt was seen and evaluated, chart reviewed. Nursing at bedside. Has not had any rectal bleeding since evaluation yesterday. Has not had a BM since yesterday. Notes he is feeling well. Denies abdominal pain, nausea, vomiting. Tolerated regular breakfast this AM. No fever, chills, CP, SOB. Review of Systems Constitutional: No fever, No chills Respiratory: No cough, No shortness of breath Cardiac: No chest pain, No edema Abdomen: No pain, No nausea, No vomiting, No diarrhea, No constipation, No GI bleeding Medications Current Inpatient Medications Medications (Trade) Dose Ordered Sig/Lakisha Route Start Time Stop Time Status Last Admin Dose Admin Acetaminophen (Tylenol Tab) 650 mg Q4H PRN PO 06/28/17 14:45 07/28/17 14:44 Ondansetron HCl (Zofran Inj) 4 mg Q6H PRN IV 06/28/17 14:45 07/28/17 14:44 Miscellaneous Information (Consult) 1 ea UD PRN N/A 06/28/17 15:15 07/28/17 15:14 Ceftriaxone Sodium 1 gm/ Dextrose 50 ml @ 100 mls/hr Q24H IV 06/29/17 16:00 07/08/17 15:59 07/02/17 15:08 100 MLS/HR Atenolol (Tenormin Tab) 25 mg DAILY PO 06/29/17 09:00 07/29/17 08:59 07/03/17 09:04 25 MG Atorvastatin Calcium (Lipitor Tab) 10 mg DAILY PO 06/29/17 09:00 07/29/17 08:59 07/03/17 09:04 10 MG Citalopram Hydrobromide (celeXA TAB) 20 mg DAILY PO 06/29/17 09:00 07/29/17 08:59 07/03/17 09:04 20 MG Diphenhydramine HCl (Benadryl Cap) 50 mg Q6 PRN PO 06/28/17 15:15 07/28/17 15:14 Donepezil HCl (Aricept Tab) 5 mg HS PO 06/28/17 21:00 07/28/17 20:59 5/7/18 21:07 5 MG Gabapentin (Neurontin Cap) 100 mg DAILY PO 06/29/17 09:00 07/29/17 08:59 07/03/17 09:04 100 MG Levothyroxine Sodium (Synthroid Tab) 25 mcg DAILYBB PO 06/29/17 06:00 07/29/17 05:59 07/03/17 05:15 25 MCG Triamcinolone Acetonide (Triamcinolone Acet 0.1% Crm) 1 appln BID EXT 06/28/17 21:00 07/28/17 20:59 07/03/17 09:04 1 APPLN Risperidone (Risperdal Tab) 1 mg BID PO 06/29/17 21:00 07/29/17 20:59 07/03/17 09:04 1 MG Ferrous Sulfate (Feosol Tab) 325 mg BIDM PO 06/30/17 16:45 07/30/17 16:44 07/03/17 09:04 325 MG Folic Acid (Folvite Tab) 1 mg QAM PO 07/01/17 09:00 07/31/17 08:59 07/03/17 09:04 1 MG Vancomycin HCl 1250 mg/Sodium Chloride 275 ml @ 125 mls/hr Q18H IV 07/01/17 11:00 07/11/17 10:59 07/02/17 23:39 125 MLS/HR Objective Vital Signs Date Time Temp Pulse Resp B/P (MAP) Pulse Ox O2 Delivery O2 Flow Rate FiO2 07/03/17 06:55 36.5 73 16 118/71 (87) 97 Room Air 07/03/17 04:00 Room Air 07/03/17 03:54 36.6 72 16 110/66 (81) 96 Room Air 07/03/17 00:01 Room Air 07/02/17 23:27 36.8 72 18 113/67 (82) 97 07/02/17 19:37 36.8 79 20 112/71 (85) 98 Room Air 07/02/17 17:16 36.7 77 18 135/89 (104) 99 Room Air 07/02/17 16:16 36.7 68 18 132/87 100 07/02/17 16:00 Room Air 07/02/17 15:46 36.7 72 18 143/86 98 07/02/17 15:31 36.6 84 18 134/85 100 07/02/17 12:00 Room Air 07/02/17 11:34 36.8 69 18 115/75 (88) 95 Physical Exam General Appearance: no apparent distress Eyes: PERRL ENT: hearing grossly normal Neck: supple, trachea midline Respiratory/Chest: lungs clear Cardiovascular: regular rate, rhythm Abdomen: normal bowel sounds, non tender, soft, no organomegaly Neurologic/Psych: alert, normal mood/affect, oriented x 3 Skin: normal color Laboratory Results Last 24 Hours Test 07/02/17 14:01 07/02/17 20:01 07/02/17 22:35 07/03/17 05:23 Hemoglobin 7.7 g/dL 7.8 g/dL 7.9 g/dL Hematocrit 24.4 % 24.4 % 24.3 % Vancomycin Level Trough 23.5 mcg/ml White Blood Count 9.46 K/uL Red Blood Count 2.75 M/uL Mean Corpuscular Volume 88.4 fL Mean Corpuscular Hemoglobin 28.7 pg Mean Corpuscular Hemoglobin Concent 32.5 g/dl Platelet Count 318 K/uL Mean Platelet Volume 8.5 fL Neutrophils (%) (Auto) 38.0 % Lymphocytes (%) (Auto) 12.6 % Monocytes (%) (Auto) 7.8 % Eosinophils (%) (Auto) 41.0 % Basophils (%) (Auto) 0.4 % Neutrophils # (Auto) 3.59 K/uL Lymphocytes # (Auto) 1.19 K/uL Monocytes # (Auto) 0.74 K/uL Eosinophils # (Auto) 3.88 K/uL Basophils # (Auto) 0.04 K/uL RDW Standard Deviation 47.5 fL RDW Coefficient of Variation 14.9 % Immature Granulocyte % (Auto) 0.2 % Immature Granulocyte # (Auto) 0.02 K/uL Red Blood Cell Morphology Unremarkable Prothrombin Time 16.6 SECONDS Prothromb Time International Ratio 1.6 Sodium Level 138 mmol/L Potassium Level 4.5 mmol/L Chloride Level 108 mmol/L Carbon Dioxide Level 28 mmol/L Anion Gap 2.0 mmol/L Blood Urea Nitrogen 19 mg/dl Creatinine 1.34 mg/dl Est Creatinine Clear Calc Drug Dose 52.4 ml/min Estimated GFR () 63.5 Estimated GFR (Non- 54.8 BUN/Creatinine Ratio 13.8 Random Glucose 75 mg/dl Calcium Level 7.6 mg/dl Assessment and Plan 67 year old male with schizophrenia w/ afib on warfarin with an isolated episode of BRBPR (INR 3.5). He tells me he has intermittent BRBPR but cannot specifiy how much or how often this occurs. Ddx: outlet bleeding - hemorrhoidal vs rectal ulcer vs diverticular bleed. His H&H was stable over night - Clear liquids today - NPO after midnight - Agree with reversing the INR - Colon prep this afternoon with plan for colonoscopy 07/04/17 Late entry: I have seen and examined the patient on 07/03 with TANIYA Almodovar whose note reflects our findings and plan. Given the need for on-going anticoagulation, will proceed with colonoscopy as the INR has been reversed.
[2017-07-03 11:34] VITALS: BP 95/62; PULSE 96; TEMP 36.8; O2SAT 95
--- NOTE | 2017-07-03 14:39 | Pharmacy Progress Note ---
Pharmacy Abx Dose Short Note Date of Service July 03, 2017. Assessment & Plan Assessment 67 year old male receiving Vancomycin for treatment of cellulitis Day # 08/05 of antimicrobial therapy. Plan Vancomycin * Trough level of 23.5 mcg/mL is supratherapeutic. * Change to 1250 mg IV every 20 hours * Goal trough level : Closer to 20 with RONY = 2 Patient may be switched to po antibiotic therapy. If Vancomycin continues will order additional trough level. Pharmacy will continue to follow and will adjust dose/frequency as necessary. Thank you.
[2017-07-03] MEDS ORDERED: LAVAGE SOLUTION 4000ML PO SCH (16:00)
[2017-07-03 16:17] VITALS: BP 103/70; PULSE 66; TEMP 36.5; O2SAT 100
[2017-07-03] MEDS: CEFTRIAXONE SOD INJ 1 GM in DEXTROSE 5% ADD-VANTAGE 50ML 50 ML IV SCH (17:01)
[2017-07-03] MEDS: DONEPEZIL HCL 5 MG TAB PO SCH (20:01)
[2017-07-03] MEDS: VANCOMYCIN IV 1,250 MG in SODIUM CHLORIDE 0.9% 250ML 250 ML IV SCH (20:03)
[2017-07-03 20:05] VITALS: BP 107/67; PULSE 71; TEMP 37; O2SAT 97
[2017-07-04 00:23] VITALS: BP 119/71; PULSE 67; TEMP 36.6; O2SAT 96
[2017-07-04 03:29] VITALS: BP 112/67; PULSE 76; TEMP 37; O2SAT 96
[2017-07-04 05:49] LABS: BASO % 0.3 %; BASO ABS # 0.03 K/uL (0-0.2); EOS % 42.4 %; EOS ABS # 3.75 K/uL (0-0.5); HEMATOCRIT 22.9 % (42-52); HEMOGLOBIN 7.6 g/dL (14.0-18.0); IG# 0.01 K/uL (0.00-0.02); LYMPH % 13.1 %; LYMPH ABS # 1.16 K/uL (1.2-3.4); MEAN CELL VOLUME 87.7 fL (80-100); MEAN CORPUSCULAR HEMOGLOBIN 29.1 pg (25-34); MEAN CORPUSCULAR HGB CONC 33.2 g/dl (32-36); MEAN PLATELET VOLUME 8.5 fL (7.4-10.4); MONO % 7.9 %; NEUT % 36.2 %; NEUT ABS # 3.19 K/uL (1.4-6.5); PLATELET COUNT 317 K/uL (130-400); RED CELL DISTRIBUTION WIDTH CV 14.8 % (11.5-14.5); RED CELL DISTRIBUTION WIDTH SD 47.5 fL (36.4-46.3); WHITE BLOOD COUNT 8.84 K/uL (4.8-10.8)
[2017-07-04 05:57] LABS: INR 1.3 (0.9-1.1)
[2017-07-04] MEDS: LEVOTHYROXINE 25 MCG TAB PO SCH (06:00)
[2017-07-04 06:18] LABS: CALCIUM 7.7 mg/dl (8.5-10.1); CREATININE 1.21 mg/dl (0.60-1.40); POTASSIUM 4.4 mmol/L (3.5-5.1)
[2017-07-04 06:42] VITALS: BP 109/67; TEMP 36.7; O2SAT 98
[2017-07-04] MEDS: GABAPENTIN 100 MG CAP PO SCH (09:00)
[2017-07-04] MEDS: ATORVASTATIN 10 MG TAB PO SCH (09:00)
[2017-07-04] MEDS: CITALOPRAM 20 MG TAB PO SCH (09:00)
[2017-07-04] MEDS: RISPERIDONE 1 MG TAB PO SCH ×2 (09:00→20:59)
[2017-07-04] MEDS ORDERED: SOD PHOSPHATE/SOD BIPHOSPHATE ENEMA 132 ML BTL PR STA (09:24)
[2017-07-04] MEDS: FERROUS SULFATE 325 MG TAB PO SCH ×2 (09:29→17:37)
--- NOTE | 2017-07-04 09:38 | Progress Note ---
Internal Med Progress Note Date of Service: July 04, 2017. Provider Documentation: SUBJECTIVE: Seen and examined at bedside Planned for colonoscopy today No new complaints Denies any BM/rectal bleeding today Denies chest pain, SOB, abd pain, nausea, dizziness OBJECTIVE: Vital Signs-as noted below Physical Exam: General Appearance:Moderately built and nourished, no apparent distress Head: normocephalic, Atraumatic Eyes: normal inspection, EOMI, PERRL Neck: supple, Trachea midline Respiratory/Chest: Normal breath sounds, CTA Cardiovascular: S1, S2, + murmur Abdomen/GI:Soft, Non tender, Bowel sounds present Scrotum-inguinal hernia: Significant in size, nontender no discoloration Extremities/Musculoskelatal:normal inspection, excoriations on b/l UE upper extremities, scabbing wounds LE Neurologic/Psych:AAOX3, grossly no focal neurological deficits Skin: normal color, warm Lab data as noted below. ASSESSMENT & PLAN: Patient is a 67 yr male with h/o schizophrenia, chronic diastolic CHF, S/P bioprosthetic aortic/mitral valve replacement, P.afib on Coumadin presented with renal failure. Acute Renal Failure: Likely prerenal and 2/2 Bactrim and Lasix use Patient referred to the ED by his PCP after he was found in the waiting room with his pants down scratching his open wounds and very disheveled appearing Cr back to baseline Cr:1.34>>1.21 Hold Lasix for now Bactrim discontinued Appreciate Nephrology recommendations monitor renal function EKG Changes: EKG shows new T-wave inversions inferiorly and anteriorly No cardiac complaints Troponin negative Echo:The left ventricular wall motion is normal repeat EKG nonspecific T-wave changes in leads V1 V2 ; inferior leads Patient asymptomatic Continue Atenolol, Lipitor Neurotic Excoriations: Culture from recent admission positive for MRSA Patient was discharged on Bactrim Blood cultures: Negative Wound cultures: Enterobacter, Staph,Corynebacterium Continue IV vancomycin and ceftriaxone day # 7 Transition to p.o. doxy and Cipro Appreciate ID recommendations Possible lower GI bleed: In setting of chronic Coumadin use INR:3.5>>>1.6 S/P Vit K S/P 1 unit PRBC No active bleeding Hb:7.9>>7.6 Coumadin held Appreciate GI Input Colonoscopy today monitor INR Anemia: Multifactorial: secondary to acute blood loss 2/2 rectal bleed, iron Deficiency and Folate Deficiency Anemia panel performed last month his previous admission, continue iron and folate supplementation Chronic diastolic CHF secondary to valvular disease: S/P Bioprosthetic Aortic joel replacement, Mitral valve repair, Tricuspid valve annuloplasty Lasix held as clinically dehydrated Will resume diuretics as able monitor P.Afib: continue atenolol Coumadin on hold secondary to to GI bleed Schizophrenia: Appreciate Psychiatry Input Risperidone added Continue usual Celexa and donepezil Patient refused increased dose of Celexa Hypothyroidism: Continue levothyroxine DVT Px: Coumadin held secondary to rectal bleeding SCDs Disposition: social services technician consulted Needs transition to SNF once accepted PROCEDURES: ECHO: * Sinus bradycardia was present during the study * The left ventricle is normal in size. * There is mild concentric left ventricular hypertrophy. * The left ventricular wall motion is normal. * Left ventricular systolic function is normal. * Ejection Fraction = 55-60%. * There is a bioprosthetic aortic valve. * Bioprosthesis leaflets are not well-visualized, but appear mobile. Aortic valve velocities are moderately elevated * There is moderate thickening of the anterior mitral valve leaflet . * There is mild mitral regurgitation. * An annuloplasty ring is noted in the tricuspid position. * There is trace tricuspid regurgitation. * This study does not exclude vegetations on abnormal valve structures as above Vital Signs: Date Time Temp Pulse Resp B/P (MAP) Pulse Ox O2 Delivery O2 Flow Rate FiO2 07/04/17 06:42 36.7 16 109/67 (81) 98 07/04/17 04:00 Room Air 07/04/17 03:29 37.0 76 16 112/67 (82) 96 Room Air 07/04/17 00:23 36.6 67 16 119/71 (87) 96 Room Air 07/04/17 00:01 Room Air 07/03/17 20:05 37.0 71 20 107/67 (80) 97 Room Air 07/03/17 20:00 Room Air 07/03/17 16:17 36.5 66 20 103/70 (81) 100 Room Air 07/03/17 16:00 Room Air 07/03/17 12:00 Room Air 07/03/17 11:34 36.8 96 18 95/62 (73) 95 Lab Results: Results Past 24 Hours Test 07/04/17 05:13 Range/Units White Blood Count 8.84 4.8-10.8 K/uL Red Blood Count 2.61 4.7-6.1 M/uL Hemoglobin 7.6 14.0-18.0 g/dL Hematocrit 22.9 42-52 % Mean Corpuscular Volume 87.7 80-100 fL Mean Corpuscular Hemoglobin 29.1 25-34 pg Mean Corpuscular Hemoglobin Concent 33.2 32-36 g/dl Platelet Count 317 130-400 K/uL Mean Platelet Volume 8.5 7.4-10.4 fL Neutrophils (%) (Auto) 36.2 % Lymphocytes (%) (Auto) 13.1 % Monocytes (%) (Auto) 7.9 % Eosinophils (%) (Auto) 42.4 % Basophils (%) (Auto) 0.3 % Neutrophils # (Auto) 3.19 1.4-6.5 K/uL Lymphocytes # (Auto) 1.16 1.2-3.4 K/uL Monocytes # (Auto) 0.70 0.11-0.59 K/uL Eosinophils # (Auto) 3.75 0-0.5 K/uL Basophils # (Auto) 0.03 0-0.2 K/uL RDW Standard Deviation 47.5 36.4-46.3 fL RDW Coefficient of Variation 14.8 11.5-14.5 % Immature Granulocyte % (Auto) 0.1 % Immature Granulocyte # (Auto) 0.01 0.00-0.02 K/uL Red Blood Cell Morphology Unremarkable Prothrombin Time 13.1 9.0-12.0 SECONDS Prothromb Time International Ratio 1.3 0.9-1.1 Sodium Level 139 136-145 mmol/L Potassium Level 4.4 3.5-5.1 mmol/L Chloride Level 106 98-107 mmol/L Carbon Dioxide Level 27 21-32 mmol/L Anion Gap 6.0 3-11 mmol/L Blood Urea Nitrogen 14 7-18 mg/dl Creatinine 1.21 0.60-1.40 mg/dl Est Creatinine Clear Calc Drug Dose 58.1 ml/min Estimated GFR () 71.9 Estimated GFR (Non- 62.0 BUN/Creatinine Ratio 11.7 10-20 Random Glucose 71 70-99 mg/dl Calcium Level 7.7 8.5-10.1 mg/dl Magnesium Level 1.2 1.8-2.4 mg/dl
--- NOTE | 2017-07-04 09:40 | Gastroenterology Progress Note ---
Progress Note Date of Service: July 04, 2017 Subjective Pt evaluation today including: conversation w/ patient, physical exam, chart review, lab review Pt seen and evaluated, chart reviewed. No acute events overnight. Drank about half of his bowel prep refused additional. Is having liquid stools, yellow. No BRBPR or melena. No abd pain, fever, chills, CP, SOB. Review of Systems Constitutional: No fever, No chills Respiratory: No cough, No shortness of breath Cardiac: No chest pain, No edema Abdomen: No pain, No nausea, No vomiting, No diarrhea, No constipation, No GI bleeding Medications Current Inpatient Medications Medications (Trade) Dose Ordered Sig/Lakisha Route Start Time Stop Time Status Last Admin Dose Admin Acetaminophen (Tylenol Tab) 650 mg Q4H PRN PO 06/28/17 14:45 07/28/17 14:44 Ondansetron HCl (Zofran Inj) 4 mg Q6H PRN IV 06/28/17 14:45 07/28/17 14:44 Miscellaneous Information (Consult) 1 ea UD PRN N/A 06/28/17 15:15 07/28/17 15:14 Ceftriaxone Sodium 1 gm/ Dextrose 50 ml @ 100 mls/hr Q24H IV 06/29/17 16:00 07/08/17 15:59 07/03/17 17:01 100 MLS/HR Atenolol (Tenormin Tab) 25 mg DAILY PO 06/29/17 09:00 07/29/17 08:59 07/03/17 09:04 25 MG Atorvastatin Calcium (Lipitor Tab) 10 mg DAILY PO 06/29/17 09:00 07/29/17 08:59 07/03/17 09:04 10 MG Citalopram Hydrobromide (celeXA TAB) 20 mg DAILY PO 06/29/17 09:00 07/29/17 08:59 07/03/17 09:04 20 MG Diphenhydramine HCl (Benadryl Cap) 50 mg Q6 PRN PO 06/28/17 15:15 07/28/17 15:14 Donepezil HCl (Aricept Tab) 5 mg HS PO 06/28/17 21:00 07/28/17 20:59 07/03/17 20:01 5 MG Gabapentin (Neurontin Cap) 100 mg DAILY PO 06/29/17 09:00 07/29/17 08:59 07/03/17 09:04 100 MG Levothyroxine Sodium (Synthroid Tab) 25 mcg DAILYBB PO 06/29/17 06:00 07/29/17 05:59 07/03/17 05:15 25 MCG Triamcinolone Acetonide (Triamcinolone Acet 0.1% Crm) 1 appln BID EXT 06/28/17 21:00 07/28/17 20:59 07/03/17 20:02 1 APPLN Risperidone (Risperdal Tab) 1 mg BID PO 06/29/17 21:00 07/29/17 20:59 07/03/17 20:02 1 MG Ferrous Sulfate (Feosol Tab) 325 mg BIDM PO 06/30/17 16:45 07/30/17 16:44 07/03/17 17:00 325 MG Folic Acid (Folvite Tab) 1 mg QAM PO 07/01/17 09:00 07/31/17 08:59 07/03/17 09:04 1 MG Vancomycin HCl 1250 mg/Sodium Chloride 275 ml @ 125 mls/hr Q20H IV 07/03/17 20:00 07/08/17 19:59 07/03/17 20:03 125 MLS/HR Magnesium Sulfate 100 ml @ 100 mls/hr Q1H IV 07/04/17 09:00 07/04/17 10:59 Sodium Biphosphate/ Sodium Phosphate (Fleet Enema) 132 ml NOW STAT IA 07/04/17 09:24 07/04/17 09:25 UNV Sodium Biphosphate/ Sodium Phosphate (Fleet Enema) 132 ml ONE ONCE IA 07/04/17 11:00 07/04/17 11:01 UNV Objective Vital Signs Date Time Temp Pulse Resp B/P (MAP) Pulse Ox O2 Delivery O2 Flow Rate FiO2 07/04/17 06:42 36.7 16 109/67 (81) 98 07/04/17 04:00 Room Air 07/04/17 03:29 37.0 76 16 112/67 (82) 96 Room Air 07/04/17 00:23 36.6 67 16 119/71 (87) 96 Room Air 07/04/17 00:01 Room Air 07/03/17 20:05 37.0 71 20 107/67 (80) 97 Room Air 07/03/17 20:00 Room Air 07/03/17 16:17 36.5 66 20 103/70 (81) 100 Room Air 07/03/17 16:00 Room Air 07/03/17 12:00 Room Air 07/03/17 11:34 36.8 96 18 95/62 (73) 95 Physical Exam General Appearance: no apparent distress Eyes: PERRL ENT: hearing grossly normal Neck: supple, trachea midline Respiratory/Chest: lungs clear, normal breath sounds Cardiovascular: regular rate, rhythm Abdomen: non tender, soft, no organomegaly, no pulsatile mass Neurologic/Psych: alert, normal mood/affect, oriented x 3 Skin: normal color, no jaundice, warm/dry Laboratory Results Last 24 Hours Test 07/04/17 05:13 White Blood Count 8.84 K/uL Red Blood Count 2.61 M/uL Hemoglobin 7.6 g/dL Hematocrit 22.9 % Mean Corpuscular Volume 87.7 fL Mean Corpuscular Hemoglobin 29.1 pg Mean Corpuscular Hemoglobin Concent 33.2 g/dl Platelet Count 317 K/uL Mean Platelet Volume 8.5 fL Neutrophils (%) (Auto) 36.2 % Lymphocytes (%) (Auto) 13.1 % Monocytes (%) (Auto) 7.9 % Eosinophils (%) (Auto) 42.4 % Basophils (%) (Auto) 0.3 % Neutrophils # (Auto) 3.19 K/uL Lymphocytes # (Auto) 1.16 K/uL Monocytes # (Auto) 0.70 K/uL Eosinophils # (Auto) 3.75 K/uL Basophils # (Auto) 0.03 K/uL RDW Standard Deviation 47.5 fL RDW Coefficient of Variation 14.8 % Immature Granulocyte % (Auto) 0.1 % Immature Granulocyte # (Auto) 0.01 K/uL Red Blood Cell Morphology Unremarkable Prothrombin Time 13.1 SECONDS Prothromb Time International Ratio 1.3 Sodium Level 139 mmol/L Potassium Level 4.4 mmol/L Chloride Level 106 mmol/L Carbon Dioxide Level 27 mmol/L Anion Gap 6.0 mmol/L Blood Urea Nitrogen 14 mg/dl Creatinine 1.21 mg/dl Est Creatinine Clear Calc Drug Dose 58.1 ml/min Estimated GFR () 71.9 Estimated GFR (Non- 62.0 BUN/Creatinine Ratio 11.7 Random Glucose 71 mg/dl Calcium Level 7.7 mg/dl Magnesium Level 1.2 mg/dl Assessment and Plan 67 year old male with schizophrenia w/ afib on warfarin with an isolated episode of BRBPR (INR 3.5). He tells me he has intermittent BRBPR but cannot specifiy how much or how often this occurs. Ddx: outlet bleeding - hemorrhoidal vs rectal ulcer vs diverticular bleed. His H&H was stable over night. INR reversed w/ stable H&H. Tolerated half of a bowel prep, will add enema - NPO - Colonoscopy today - Fleets enema now then again before - Agree with reversing the INR - Colon prep this afternoon with plan for colonoscopy 07/04/17 I have seen and examined the patient with TANIYA Gleason whose note reflects our findings and plan. colonoscopy today
[2017-07-04] MEDS: MAGNESIUM SULFATE 1GM / D5W 100 ML IV SCH ×2 (09:49→10:56)
[2017-07-04] MEDS: TRIAMCINOLONE ACET 0.1% CR 80 GM TUBE EXT SCH ×2 (09:49→20:59)
[2017-07-04] MEDS ORDERED: SOD PHOSPHATE/SOD BIPHOSPHATE ENEMA 132 ML BTL PR ONE (11:00)
[2017-07-04 11:19] VITALS: BP 116/75; PULSE 67; TEMP 36.6; O2SAT 96
[2017-07-04] MEDS ORDERED: PROPOFOL IV EMULSION 10 MG/ML 20 ML VIAL ONE (12:38)
[2017-07-04] MEDS ORDERED: LIDOCAINE HCL 2% 2 ML VIAL (20MG/ML) ONE (12:38)
[2017-07-04] MEDS ORDERED: MIDAZOLAM HCL 1 MG/ML 2ML VIAL ONE (12:38)
[2017-07-04] MEDS ORDERED: EpHEDrine SULFATE INJ 50 MG/ML AMP IV PRN (13:15)
[2017-07-04] MEDS ORDERED: ATROPINE SULFATE 0.1 MG/ML 5ML SYR IV PRN (13:15)
[2017-07-04] MEDS ORDERED: PHENYLEPHRINE 100MCG/ML 5ML SYR ONE (13:47)
[2017-07-04] MEDS ORDERED: EpHEDrine SULFATE 50MG/5ML SYR ONE (13:47)
--- NOTE | 2017-07-04 13:48 | GI REPORT ---
Patient Name: Christiano Owens Procedure Date: 07/04/2017 1:18 PM Date of : 1950 Admit Type: Inpatient Age: 67 Gender: Male Attending MD: Jaja Weaver DO Procedure: Colonoscopy Providers: Jaja Weaver DO Referring MD: Cristobal Long Md Indications: Rectal bleeding Medicines: Propofol per Anesthesia Complications: No immediate complications. Estimated blood loss: Minimal. Estimated Blood Loss: Estimated blood loss was minimal. Procedure: Pre-Anesthesia Assessment: - Prior to the procedure, a History and Physical was performed, and patient medications, allergies and sensitivities were reviewed. The patient's tolerance of previous anesthesia was reviewed. - The risks and benefits of the procedure and the sedation options and risks were discussed with the patient. All questions were answered and informed consent was obtained. - Patient identification and proposed procedure were verified prior to the procedure by the physician and the nurse. The procedure was verified in the pre-procedure area in the procedure room. - Mental Status Examination: alert and oriented. Airway Examination: normal oropharyngeal airway and neck mobility. Respiratory Examination: clear to auscultation. CV Examination: normal. Abdominal Examination: bowel sounds present, abdomen soft and non-tender, no masses or organomegaly noted. - ASA Grade Assessment: IV - A patient with severe systemic disease that is a constant threat to life. After I obtained informed consent, the scope was passed under direct vision. Throughout the procedure, the patient's blood pressure, pulse, and oxygen saturations were monitored continuously. The scope was introduced through the anus and advanced to the cecum, identified by appendiceal orifice and ileocecal valve. The colonoscopy was performed without difficulty. The patient tolerated the procedure well. The quality of the bowel preparation was inadequate. Findings: The perianal and digital rectal examinations were normal. Pertinent negatives include normal sphincter tone and no palpable rectal lesions. A 5 mm polyp was found in the ascending colon. The polyp was sessile. The polyp was removed with a cold snare. Resection and retrieval were complete. Verification of patient identification for the specimen was done by the physician and nurse using the patient's name and date. Estimated blood loss was minimal. A moderate amount of semi-liquid semi-solid stool was found in the entire colon, making visualization difficult. A single (solitary) ulcer was found in the rectum. No bleeding was present. Biopsies were taken with a cold forceps for histology. Verification of patient identification for the specimen was done by the physician and nurse using the patient's name and date. Estimated blood loss was minimal. Impression: - Preparation of the colon was inadequate. - One 5 mm polyp in the ascending colon, removed with a cold snare. Resected and retrieved. - Stool in the entire examined colon. - A large single (solitary) ulcer in the rectum. Biopsied. This is the source of intermittent bleeding. Recommendation: - Await pathology results. - Repeat colonoscopy because the bowel preparation was poor and for surveillance based on pathology results. Does not need to be done as an inpatient. - Patient will need a bowel regimen at time of discharge. - Advance diet as tolerated. - Return patient to hospital [facility] for ongoing care. Jaja Weaver D.O. Jaja Weaver DO 07/04/2017 1:47:17 PM This report has been signed electronically. Note Initiated On: 07/04/2017 1:18 PM Number of Addenda: 0 I attest to the content of the Intraoperative Record and orders documented therein, exceptions below {[id number]}
--- NOTE | 2017-07-04 14:01 | Anesthesiology Progress Note ---
Anesthesia Post Op Note Date & Time July 04, 2017 at 14:01 Vital Signs Pain Intensity: 0.0 Vital Signs Past 12 Hours Date Time Temp Pulse Resp B/P (MAP) Pulse Ox O2 Delivery O2 Flow Rate FiO2 07/04/17 13:11 36.3 73 18 126/89 (101) 99 Room Air 07/04/17 12:00 Room Air 07/04/17 11:19 36.6 67 19 116/75 (89) 96 Room Air 07/04/17 08:00 Room Air 07/04/17 06:42 36.7 16 109/67 (81) 98 07/04/17 04:00 Room Air 07/04/17 03:29 37.0 76 16 112/67 (82) 96 Room Air Notes Mental Status: alert / awake / arousable, participated in evaluation Pt Amnestic to Procedure: Yes Nausea / Vomiting: adequately controlled Pain: adequately controlled Airway Patency, RR, SpO2: stable & adequate BP & HR: stable & adequate Hydration State: stable & adequate Anesthetic Complications: no major complications apparent
[2017-07-04 15:44] VITALS: BP 134/84; PULSE 66; TEMP 36.5; O2SAT 98
[2017-07-04] MEDS: CEFTRIAXONE SOD INJ 1 GM in DEXTROSE 5% ADD-VANTAGE 50ML 50 ML IV SCH (16:45)
[2017-07-04] MEDS: VANCOMYCIN IV 1,250 MG in SODIUM CHLORIDE 0.9% 250ML 250 ML IV SCH (17:37)
[2017-07-04 19:34] VITALS: BP 91/49; PULSE 63; TEMP 36.6; O2SAT 93
[2017-07-04] MEDS: DONEPEZIL HCL 5 MG TAB PO SCH (20:59)
[2017-07-05] VITALS (8 sets, daily range): BP systolic 88–126; BP diastolic 44–80; PULSE 68–78; TEMP 36.3–37.2; O2SAT 93–100
[2017-07-05] MEDS: LEVOTHYROXINE 25 MCG TAB PO SCH (05:35)
[2017-07-05 06:35] LABS: HEMATOCRIT 25.8 % (42-52); HEMOGLOBIN 8.3 g/dL (14.0-18.0)
[2017-07-05 06:42] LABS: INR 1.2 (0.9-1.1)
[2017-07-05 07:09] LABS: CALCIUM 7.5 mg/dl (8.5-10.1); CREATININE 1.26 mg/dl (0.60-1.40); POTASSIUM 4.2 mmol/L (3.5-5.1)
[2017-07-05] MEDS ORDERED: MAGNESIUM SULFATE 1GM / D5W 100 ML IV STA (09:11)
[2017-07-05] MEDS: RISPERIDONE 1 MG TAB PO SCH ×2 (10:41→21:25)
[2017-07-05] MEDS: TRIAMCINOLONE ACET 0.1% CR 80 GM TUBE EXT SCH ×2 (10:41→21:25)
[2017-07-05] MEDS: FERROUS SULFATE 325 MG TAB PO SCH ×2 (10:42→17:04)
[2017-07-05] MEDS: GABAPENTIN 100 MG CAP PO SCH (10:42)
[2017-07-05] MEDS: ATORVASTATIN 10 MG TAB PO SCH (10:42)
[2017-07-05] MEDS: CITALOPRAM 20 MG TAB PO SCH (10:42)
--- NOTE | 2017-07-05 11:04 | Progress Note ---
Internal Med Progress Note Date of Service: July 05, 2017. Provider Documentation: SUBJECTIVE: Seen and examined at bedside No BM today Had colonoscopy yesterday Still continue to scratch, denies itchiness Denies chest pain, SOB, abd pain, nausea, dizziness No other complaints OBJECTIVE: Vital Signs-as noted below Physical Exam: General Appearance:Moderately built and nourished, no apparent distress Head: normocephalic, Atraumatic Eyes: normal inspection, EOMI, PERRL Neck: supple, Trachea midline Respiratory/Chest: Normal breath sounds, CTA Cardiovascular: S1, S2, + murmur Abdomen/GI:Soft, Non tender, Bowel sounds present Scrotum-inguinal hernia: Significant in size, nontender no discoloration Extremities/Musculoskelatal:normal inspection, excoriations on b/l UE upper extremities, scabbing wounds LE Neurologic/Psych:AAOX3, grossly no focal neurological deficits Skin: normal color, warm Lab data as noted below. ASSESSMENT & PLAN: Patient is a 67 yr male with h/o schizophrenia, chronic diastolic CHF, S/P bioprosthetic aortic/mitral valve replacement, P.afib on Coumadin presented with renal failure. BRBPR: In setting of chronic Coumadin use INR:3.5>>>1.6 S/P Vit K S/P 1 unit PRBC S/P colonoscopy on 07/04/17: Poor Prep: Poly in ascending colon-resected; Rectal ulcer May need repeat colonoscopy: Likely as outpatient Monitor Hb:8.3 Coumadin held Appreciate GI Input monitor INR Will discuss with GI regarding restarting Coumadin Acute Renal Failure:Resolved Likely prerenal and 2/2 Bactrim and Lasix use Patient referred to the ED by his PCP after he was found in the waiting room with his pants down scratching his open wounds and very disheveled appearing Cr back to baseline Bactrim discontinued Appreciate Nephrology recommendations monitor renal function EKG Changes: EKG shows new T-wave inversions inferiorly and anteriorly No cardiac complaints Troponin negative Echo:The left ventricular wall motion is normal repeat EKG nonspecific T-wave changes in leads V1 V2 ; inferior leads Patient asymptomatic Continue Atenolol, Lipitor Neurotic Excoriations: Culture from recent admission positive for MRSA Patient was discharged on Bactrim Blood cultures: Negative Wound cultures: Enterobacter, Staph,Corynebacterium Continue IV vancomycin and ceftriaxone day # 8 Transition to p.o. doxy and Cipro as niall Appreciate ID recommendations Anemia: Multifactorial: secondary to acute blood loss 2/2 rectal bleed, iron Deficiency and Folate Deficiency Anemia panel performed last month his previous admission, continue iron and folate supplementation Chronic diastolic CHF secondary to valvular disease: S/P Bioprosthetic Aortic joel replacement, Mitral valve repair, Tricuspid valve annuloplasty Lasix held as clinically dehydrated, ОЛЕГ Will resume diuretics as able monitor P.Afib: continue atenolol Coumadin on hold secondary to to GI bleed Schizophrenia: Appreciate Psychiatry Input Risperidone added Continue usual Celexa and donepezil Patient refused increased dose of Celexa Hypothyroidism: Continue levothyroxine DVT Px: SCDs for now Disposition: real estate services coordinator consulted Needs transition to SNF once accepted PROCEDURES: ECHO: * Sinus bradycardia was present during the study * The left ventricle is normal in size. * There is mild concentric left ventricular hypertrophy. * The left ventricular wall motion is normal. * Left ventricular systolic function is normal. * Ejection Fraction = 55-60%. * There is a bioprosthetic aortic valve. * Bioprosthesis leaflets are not well-visualized, but appear mobile. Aortic valve velocities are moderately elevated * There is moderate thickening of the anterior mitral valve leaflet . * There is mild mitral regurgitation. * An annuloplasty ring is noted in the tricuspid position. * There is trace tricuspid regurgitation. * This study does not exclude vegetations on abnormal valve structures as above Vital Signs: Date Time Temp Pulse Resp B/P (MAP) Pulse Ox O2 Delivery O2 Flow Rate FiO2 07/05/17 08:00 Room Air 07/05/17 07:49 36.6 68 20 120/76 (91) 96 Room Air 07/05/17 04:00 95 Room Air 07/05/17 03:47 37.2 77 16 110/70 (83) 95 Room Air 07/05/17 01:28 93 Room Air 07/04/17 20:00 Room Air 07/04/17 19:34 36.6 63 18 91/49 (63) 93 Room Air 07/04/17 16:00 Room Air 07/04/17 15:44 36.5 66 18 134/84 (101) 98 Room Air 07/04/17 14:20 65 18 113/70 (84) 97 Room Air 07/04/17 14:09 66 18 107/68 (81) 97 Room Air 07/04/17 13:56 65 18 101/65 (77) 98 Room Air 07/04/17 13:11 36.3 73 18 126/89 (101) 99 Room Air 07/04/17 12:00 Room Air 07/04/17 11:19 36.6 67 19 116/75 (89) 96 Room Air Lab Results: Results Past 24 Hours Test 07/05/17 06:06 Range/Units Hemoglobin 8.3 14.0-18.0 g/dL Hematocrit 25.8 42-52 % Prothrombin Time 12.6 9.0-12.0 SECONDS Prothromb Time International Ratio 1.2 0.9-1.1 Sodium Level 138 136-145 mmol/L Potassium Level 4.2 3.5-5.1 mmol/L Chloride Level 107 98-107 mmol/L Carbon Dioxide Level 25 21-32 mmol/L Anion Gap 6.0 3-11 mmol/L Blood Urea Nitrogen 11 7-18 mg/dl Creatinine 1.26 0.60-1.40 mg/dl Est Creatinine Clear Calc Drug Dose 55.8 ml/min Estimated GFR () 68.4 Estimated GFR (Non- 59.0 BUN/Creatinine Ratio 9.0 10-20 Random Glucose 75 70-99 mg/dl Calcium Level 7.5 8.5-10.1 mg/dl Magnesium Level 1.7 1.8-2.4 mg/dl
[2017-07-05] MEDS ORDERED: VANCOMYCIN TROUGH ONE (11:30)
[2017-07-05] MEDS: VANCOMYCIN IV 1,250 MG in SODIUM CHLORIDE 0.9% 250ML 250 ML IV SCH (12:55)
--- NOTE | 2017-07-05 13:44 | Pharmacy Progress Note ---
Pharmacy Abx Dose Short Note Date of Service July 05, 2017. Assessment & Plan Assessment 67 year old male receiving Vancomycin for treatment of cellulitis Day # 8 of antimicrobial therapy. Plan Vancomycin * Trough level of 24.3 mcg/mL is supratherapeutic. * Change to 1250 mg IV every 24 hours * Goal trough level for cellulitis : 15 to 20 mcg/mL Medication will need to be re-evaluated by MD due to automatic antibiotic stop date. If Vancomycin is to continue will order additional levels. Pharmacy will continue to follow and will adjust dose/frequency as necessary. Thank you.
[2017-07-05] MEDS: CEFTRIAXONE SOD INJ 1 GM in DEXTROSE 5% ADD-VANTAGE 50ML 50 ML IV SCH (15:25)
--- NOTE | 2017-07-05 21:18 | DERMATOLOGY CONSULTATION ---
DATE OF CONSULTATION: 07/05/2017 CHIEF COMPLAINT: Blistering rash. HISTORY OF PRESENT ILLNESS: The patient is a 67-year-old male with schizophrenia who was recently admitted to the hospital with suspected neurotic excoriations superinfected and with cellulitis on June 15 through . He saw my partner, Nilson Barbosa at that time who felt that his itching and skin scratching was from neurotic excoriations. There was no evidence of scabies. Wound cultures from that admission showed MRSA and the patient was discharged on Bactrim. One June 28, he was found in the PCP' s office, disheveled, unkempt and was sent to the Emergency Room where he was found to show an acute kidney injury with a creatinine of 2.7, was 1.7 on 06/21/2017. He was admitted to the hospital on 06/28/2017 and started on IV fluids, vancomycin and IV ceftriaxone. As far as I am aware he was not given any medication for his itchy rash in patient. I do see prednisone was given 40 mg daily during last hpsital admission for several days. I note from the admission physical that at that time he had many excoriations. He also had a few clear fluid-filled blister noted on the right foot. I have gone through exams, trying to find exactly when the skin disease got worse, it is difficult to determine from examination but patient says it has been getting worse every day. According to the nurses, the number of blisters on the foot has increased exponentially over the last couple of days and a consultation was re-put to dermatology today. Patient says he has been itchy for the past 6 or 7 weeks. Although I know he has been a poor historian at times with me today, he is fairly good. He does not remember all of his home medications, but does know that he was on Lipitor. He knows that he was on Coumadin and he was sent home on Bactrim. He feels like his blisters are increasing, he is very itchy, especially on his back. He has had no difficulties in his mouth. PAST MEDICAL HISTORY: History of endocarditis, hyperlipidemia, hypothyroid, AFib, schizophrenia; superior mesenteric artery, tricuspid valve annuloplasty. FAMILY HISTORY: For heart disease. SOCIAL HISTORY: Smoking status: Never smoked. Alcohol use none. ALLERGIES: No known drug allergies. MEDICATIONS: Scheduled at home, atenolol, atorvastatin, citalopram, Benadryl, donepezil, furosemide, gabapentin, levothyroxine, potassium chloride, Bactrim from his recent hospital discharge, triamcinolone and warfarin. Current Meds in hospital include IV Vacomycin and IV ceftriazone during hpspital stay, they were holding lasix. REVIEW OF SYSTEMS: Positive for itching. Currently, negative for chest pain, coughing, shortness of breath, nausea, vomiting. LABORATORY DATA: I reviewed his chart for microbiology. Blood cultures are negative. Wound culture from 06/28/2017 showed Enterobacter cloacae from an abscess as well as MRSA. The MRSA was sensitive to clindamycin, daptomycin, rifampin, tetracycline, Bactrim and vancomycin. Labs are fairly stable. Last white count was 9.6, hemoglobin is low and has been at around 8. Creatinine is about 1.6 currently. PHYSICAL EXAMINATION: SKIN: Almost complete skin exam performed. His feet were wrapped by wound care today, so I dislodged the superior edges and inferior edges to peek at the blisters (some open shallow ulcerations where the blisters have been ripped off as well as some tense blisters present). I also examined photos in chart of these blisters He has some tense blisters that are small 5-10 mm on the fingertips as well as the dorsal hands. Across the majority of the back and on the lateral flanks as well as the lower abdomen are more urticarial plaques that are coalescing. No evidence of SJS. Enlarged scrotum as previously mentioned I do not feel related to his current rash. No evidence of burrows. IMPRESSION AND PLAN: 1. Rash. 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 The other possibility would be linear IgA bullous dermatosis. As this can often be caused by vancomycin( in addition to other meds)and the patient appears to have MRSA sensitive to doxycycline and I have read the last note from ID suggesting if the blood cultures were negative to switch to oral Cipro and doxycycline. I would recommend stopping the vancomycin at this point and switching as per ID's recommendation to Cipro and doxycycline as long as that is still what they are comfortable with. The doxycycline can be helpful for bullous pemphigoid. I would continue him on 100 mg twice a day for at least another 2-3 weeks. Prednisone is also very helpful in bullous pemphigoid as well as can be helpful linear IgA bullous dermatosis. While we are awaiting the biopsy results, if there is no contraindication, I feel prednisone at a low dose, which is 40 mg a day for a week, 30 mg a day for a week and then 20 mg a day until followup within 2 weeks after discharge at a spa experience coordinator's office would be warranted. I will leave this up to the primary team and infectious disease to discuss tomorrow to see how concerned they are about his infectious status. If they feel that prednisone is contraindicated currently, I would start the doxycycline 100 mg twice a day and recommend fluocinonide to all involved areas of the body, 0.05% cream b.i.d. As for the blisters, I would recommend popping them on the side with a sterile needle letting the fluid out and dressing with steroid or Vaseline and Telfa and a wrap. I would recomment against putting dry gauze on the blisters as it will rip the top off and leave open sores for the patient to possibly infect in the future. At this point, I feel the best interest of the patient would include a skin biopsy. Mold Presser area on the left proximal hand/wrist area was obtained. This area was cleansed with alcohol, was injected with a small amount of lidocaine with 1:100,000 epinephrine. A 4 mm punch biopsy was obtained from a juicy are and sent for H&E and a perilesional area was sent for direct immunofluorescence in Tu's medium. Please note that the last time I did a direct immunofluorescence at [facility] which was several years ago, it took over 2 weeks to get the direct immunofluorescence result back as it was sent to a laboratory in [place]. As such, we may not know whether the patient has linear IgA bullous dermatosis or bullous pemphigoid in the short term, but I feel the doxy and prednisone as well as stoppping the vancomycin will healp in either case. The topical fluocinonide in addition to the above will also help in either case. The patient should have follow up in outpatient dermatology within 2 weeks of discharge date. Please call Ana at [phone] to help in setting this up. I will return on Sunday to reassess as I expect H& E biopsy report to be avaible by then. If patient's skin worsens in the interim, please do not hestitate to contact met and I will be happy to reassess. These recommendations were discussed with the covering PMD at the time of consult. THank you for the consultation. SARAVANAN
[2017-07-05] MEDS: DONEPEZIL HCL 5 MG TAB PO SCH (21:25)
[2017-07-06] VITALS (9 sets, daily range): BP systolic 92–118; BP diastolic 48–74; PULSE 62–87; TEMP 36–36.6; O2SAT 93–100
[2017-07-06] MEDS: LEVOTHYROXINE 25 MCG TAB PO SCH (05:37)
[2017-07-06] MEDS: ATORVASTATIN 10 MG TAB PO SCH (07:15)
[2017-07-06] MEDS: FERROUS SULFATE 325 MG TAB PO SCH ×2 (07:15→16:19)
[2017-07-06] MEDS: GABAPENTIN 100 MG CAP PO SCH (07:16)
[2017-07-06] MEDS: CITALOPRAM 20 MG TAB PO SCH (07:16)
[2017-07-06] MEDS: RISPERIDONE 1 MG TAB PO SCH (07:16)
[2017-07-06] MEDS: TRIAMCINOLONE ACET 0.1% CR 80 GM TUBE EXT SCH ×2 (07:17→19:52)
[2017-07-06 07:37] LABS: BASO % 0.2 %; BASO ABS # 0.02 K/uL (0-0.2); EOS % 40.1 %; EOS ABS # 4.43 K/uL (0-0.5); HEMATOCRIT 27.9 % (42-52); HEMOGLOBIN 8.8 g/dL (14.0-18.0); IG# 0.03 K/uL (0.00-0.02); LYMPH % 9.2 %; LYMPH ABS # 1.02 K/uL (1.2-3.4); MEAN CELL VOLUME 88.9 fL (80-100); MEAN CORPUSCULAR HGB CONC 31.5 g/dl (32-36); MEAN PLATELET VOLUME 8.4 fL (7.4-10.4); MONO % 10.8 %; NEUT % 39.4 %; NEUT ABS # 4.36 K/uL (1.4-6.5); PLATELET COUNT 339 K/uL (130-400); RED CELL DISTRIBUTION WIDTH CV 15.1 % (11.5-14.5); WHITE BLOOD COUNT 11.06 K/uL (4.8-10.8)
[2017-07-06 07:50] LABS: INR 1.2 (0.9-1.1)
[2017-07-06 08:02] LABS: CALCIUM 7.8 mg/dl (8.5-10.1); CREATININE 1.39 mg/dl (0.60-1.40); POTASSIUM 4.2 mmol/L (3.5-5.1)
[2017-07-06] MEDS: DOXYCYCLINE HYCLATE 100 MG CAP PO SCH ×2 (09:06→19:52)
[2017-07-06] MEDS: MAGNESIUM SULFATE 1GM / D5W 100 ML IV SCH ×2 (09:06→10:28)
[2017-07-06] MEDS: CIPROFLOXACIN 250 MG TAB PO SCH ×2 (09:06→19:53)
[2017-07-06] MEDS: FLUOCINONIDE 0.05% CR 60 GM TUBE EXT SCH ×2 (09:07→19:51)
--- NOTE | 2017-07-06 09:49 | Progress Note ---
Internal Med Progress Note Date of Service: July 06, 2017. Provider Documentation: SUBJECTIVE: Seen and examined at bedside Reports pain at the site of lesions on lower extremities Denies blood in stools Denies chest pain, SOB, abd pain, nausea, dizziness No other complaints Discussed with GI and Dermatology OBJECTIVE: Vital Signs-as noted below Physical Exam: General Appearance:Moderately built and nourished, no apparent distress Head: normocephalic, Atraumatic Eyes: normal inspection, EOMI, PERRL Neck: supple, Trachea midline Respiratory/Chest: Normal breath sounds, CTA Cardiovascular: S1, S2, + murmur Abdomen/GI:Soft, Non tender, Bowel sounds present Scrotum-inguinal hernia: Significant in size, nontender no discoloration Extremities/Musculoskelatal:normal inspection, excoriations on b/l UE upper extremities, scabbing wounds/Blisters on LE Neurologic/Psych:AAOX3, grossly no focal neurological deficits Skin: normal color, warm Lab data as noted below. ASSESSMENT & PLAN: Patient is a 67 yr male with h/o schizophrenia, chronic diastolic CHF, S/P bioprosthetic aortic/mitral valve replacement, P.afib on Coumadin presented with renal failure. BRBPR: In setting of chronic Coumadin use INR:3.5>>>1.6 S/P Vit K S/P 1 unit PRBC S/P colonoscopy on 07/04/17: Poor Prep: Poly in ascending colon-resected; Rectal ulcer May need repeat colonoscopy: Likely as outpatient Monitor Hb:8.3>>>8.8 Appreciate GI Input: OK to resume coumadin Currently no active bleeding Acute Renal Failure:Resolved Likely prerenal and 2/2 Bactrim and Lasix use Patient referred to the ED by his PCP after he was found in the waiting room with his pants down scratching his open wounds and very disheveled appearing Cr back to baseline Bactrim discontinued Appreciate Nephrology recommendations monitor renal function EKG Changes: EKG shows new T-wave inversions inferiorly and anteriorly No cardiac complaints Troponin negative Echo:The left ventricular wall motion is normal repeat EKG nonspecific T-wave changes in leads V1 V2 ; inferior leads Patient asymptomatic Continue Atenolol, Lipitor Neurotic Excoriations: Possible bullous pemphigoid: Culture from recent admission positive for MRSA Patient was discharged on Bactrim Blood cultures: Negative Wound cultures: Enterobacter, Staph,Corynebacterium Continue IV vancomycin and ceftriaxone day # 8>>>switched to Doxycycline and Ciprofloxacin Day # 1(needs 2-3 weeks Rx as per Dermatology) Appreciate ID, Dermatology recommendations Started on Prednisone Taper course as per Dermatology (Discussed with GI: No contraindication) Day #1 Continue wound care with Fluocinonide BID Follow up Skin Biopsy Needs follow up with Dermatology in 2 weeks upon discharge Anemia: Multifactorial: secondary to acute blood loss 2/2 rectal bleed, iron Deficiency and Folate Deficiency Anemia panel performed last month his previous admission, continue iron and folate supplementation Chronic diastolic CHF secondary to valvular disease: S/P Bioprosthetic Aortic joel replacement, Mitral valve repair, Tricuspid valve annuloplasty Resume lasix monitor renal function P.Afib: continue atenolol Resume Coumadin Schizophrenia: Appreciate Psychiatry Input Risperidone added Continue usual Celexa and donepezil Patient refused increased dose of Celexa Hypothyroidism: Continue levothyroxine DVT Px: SCDs for now Disposition: director of managed services consulted Needs transition to SNF once accepted PROCEDURES: ECHO: * Sinus bradycardia was present during the study * The left ventricle is normal in size. * There is mild concentric left ventricular hypertrophy. * The left ventricular wall motion is normal. * Left ventricular systolic function is normal. * Ejection Fraction = 55-60%. * There is a bioprosthetic aortic valve. * Bioprosthesis leaflets are not well-visualized, but appear mobile. Aortic valve velocities are moderately elevated * There is moderate thickening of the anterior mitral valve leaflet . * There is mild mitral regurgitation. * An annuloplasty ring is noted in the tricuspid position. * There is trace tricuspid regurgitation. * This study does not exclude vegetations on abnormal valve structures as above Vital Signs: Date Time Temp Pulse Resp B/P (MAP) Pulse Ox O2 Delivery O2 Flow Rate FiO2 07/06/17 07:18 73 118/74 (89) 07/06/17 06:40 36.5 75 20 95/54 (68) 93 07/06/17 04:00 Room Air 07/06/17 03:50 36.6 79 18 96/57 (70) 99 Room Air 07/05/17 23:59 Room Air 07/05/17 23:41 36.3 78 19 90/50 (63) 99 Room Air 07/05/17 20:29 36.6 73 18 88/44 (59) 98 Room Air 07/05/17 20:00 Room Air 07/05/17 16:00 100 Room Air 07/05/17 16:00 36.5 70 20 110/63 (79) 100 Room Air 07/05/17 12:00 Room Air 07/05/17 11:41 36.7 69 22 126/80 (95) 100 Room Air Lab Results: Results Past 24 Hours Test 07/05/17 11:52 07/06/17 07:22 Range/Units Vancomycin Level Trough 24.3 SEE COMMENT mcg/ml White Blood Count 11.06 4.8-10.8 K/uL Red Blood Count 3.14 4.7-6.1 M/uL Hemoglobin 8.8 14.0-18.0 g/dL Hematocrit 27.9 42-52 % Mean Corpuscular Volume 88.9 80-100 fL Mean Corpuscular Hemoglobin 28.0 25-34 pg Mean Corpuscular Hemoglobin Concent 31.5 32-36 g/dl Platelet Count 339 130-400 K/uL Mean Platelet Volume 8.4 7.4-10.4 fL Neutrophils (%) (Auto) 39.4 % Lymphocytes (%) (Auto) 9.2 % Monocytes (%) (Auto) 10.8 % Eosinophils (%) (Auto) 40.1 % Basophils (%) (Auto) 0.2 % Neutrophils # (Auto) 4.36 1.4-6.5 K/uL Lymphocytes # (Auto) 1.02 1.2-3.4 K/uL Monocytes # (Auto) 1.20 0.11-0.59 K/uL Eosinophils # (Auto) 4.43 0-0.5 K/uL Basophils # (Auto) 0.02 0-0.2 K/uL RDW Standard Deviation 49.0 36.4-46.3 fL RDW Coefficient of Variation 15.1 11.5-14.5 % Immature Granulocyte % (Auto) 0.3 % Immature Granulocyte # (Auto) 0.03 0.00-0.02 K/uL Red Blood Cell Morphology Unremarkable Prothrombin Time 12.4 9.0-12.0 SECONDS Prothromb Time International Ratio 1.2 0.9-1.1 Sodium Level 137 136-145 mmol/L Potassium Level 4.2 3.5-5.1 mmol/L Chloride Level 105 98-107 mmol/L Carbon Dioxide Level 28 21-32 mmol/L Anion Gap 4.0 3-11 mmol/L Blood Urea Nitrogen 14 7-18 mg/dl Creatinine 1.39 0.60-1.40 mg/dl Est Creatinine Clear Calc Drug Dose 50.6 ml/min Estimated GFR () 60.8 Estimated GFR (Non- 52.4 BUN/Creatinine Ratio 10.1 10-20 Random Glucose 80 70-99 mg/dl Calcium Level 7.8 8.5-10.1 mg/dl Magnesium Level 1.6 1.8-2.4 mg/dl
--- NOTE | 2017-07-06 11:34 | Psychiatric Progress Notes ---
Psychiatric Progress Note Date of Service July 06, 2017. Notes ID: Interim progress reviewed, initial consult by DIAMOND 06/29/17 started Risperdal for hx of disorganized behavior and presumed neurotic excoriations. CC: skin biopsy pending, "No problems" per patient HPI: remains cooperative on med floor, still open areas and some scratching, tolerating Risperdal but unclear what adding at this point as no galicia at baseline and although carries a ?dx of schizophrenia he presents as intellectually limited without active psychosis. His disorganized behavior could have been some delirium due to renal insult/ongoing infection. ROS: skin issues as above MSE: alert, cooperative, very concrete, calm in bed, no abnormal motor movements. He denies anxiety and depression. No SI/HI/galicia, no evidence of delusions Imp: same as initial consult Plan: begin Risperdal taper to 1 mg po qam, monitor behavior/scratching. Wouldn 't taper further until oral teroids discontinued, then 0.5 mg for 3-5 days then d/c as able.
[2017-07-06] MEDS ORDERED: VANCOMYCIN IV 1,250 MG in SODIUM CHLORIDE 0.9% 250ML 250 ML IV SCH (14:00)
[2017-07-06] MEDS: WARFARIN SOD 6 MG TAB PO SCH (16:19)
[2017-07-06] MEDS: DONEPEZIL HCL 5 MG TAB PO SCH (19:53)
[2017-07-07] VITALS: O2SAT 100
[2017-07-07] MEDS: LEVOTHYROXINE 25 MCG TAB PO SCH (06:08)
[2017-07-07 06:15] LABS: BASO % 0.3 %; BASO ABS # 0.03 K/uL (0-0.2); EOS % 20.8 %; EOS ABS # 1.92 K/uL (0-0.5); HEMATOCRIT 23.3 % (42-52); HEMOGLOBIN 7.5 g/dL (14.0-18.0); IG# 0.02 K/uL (0.00-0.02); LYMPH ABS # 1.39 K/uL (1.2-3.4); MEAN CELL VOLUME 87.9 fL (80-100); MEAN CORPUSCULAR HEMOGLOBIN 28.3 pg (25-34); MEAN CORPUSCULAR HGB CONC 32.2 g/dl (32-36); MEAN PLATELET VOLUME 8.3 fL (7.4-10.4); MONO % 12.9 %; MONO ABS # 1.19 K/uL (0.11-0.59); NEUT % 50.8 %; NEUT ABS # 4.69 K/uL (1.4-6.5); PLATELET COUNT 284 K/uL (130-400); RED CELL DISTRIBUTION WIDTH CV 14.8 % (11.5-14.5); RED CELL DISTRIBUTION WIDTH SD 47.8 fL (36.4-46.3); WHITE BLOOD COUNT 9.24 K/uL (4.8-10.8)
[2017-07-07 06:25] LABS: INR 1.1 (0.9-1.1)
[2017-07-07 06:33] LABS: CREATININE 1.37 mg/dl (0.60-1.40); POTASSIUM 4.2 mmol/L (3.5-5.1)
[2017-07-07] MEDS: RISPERIDONE 1 MG TAB PO SCH (07:43)
[2017-07-07] MEDS: GABAPENTIN 100 MG CAP PO SCH (07:43)
[2017-07-07] MEDS: CIPROFLOXACIN 250 MG TAB PO SCH ×2 (07:43→20:26)
[2017-07-07] MEDS: ATORVASTATIN 10 MG TAB PO SCH (07:43)
[2017-07-07] MEDS: CITALOPRAM 20 MG TAB PO SCH (07:43)
[2017-07-07] MEDS: FERROUS SULFATE 325 MG TAB PO SCH ×2 (07:43→16:26)
[2017-07-07 07:44] VITALS: BP 108/60; PULSE 75; TEMP 36.5; O2SAT 97
[2017-07-07] MEDS: TRIAMCINOLONE ACET 0.1% CR 80 GM TUBE EXT SCH ×2 (07:44→20:24)
[2017-07-07] MEDS: DOXYCYCLINE HYCLATE 100 MG CAP PO SCH ×2 (07:44→20:25)
[2017-07-07] MEDS: FUROSEMIDE 20 MG TAB PO SCH (07:44)
[2017-07-07] MEDS: FLUOCINONIDE 0.05% CR 60 GM TUBE EXT SCH ×2 (07:45→20:24)
[2017-07-07 11:41] VITALS: O2SAT 100
--- NOTE | 2017-07-07 13:50 | Progress Note ---
Internal Med Progress Note Date of Service: July 07, 2017. Provider Documentation: SUBJECTIVE: Seen and examined at bedside Still scratches wounds intermittently Minimal pain at the site of lesions on lower extremities Denies chest pain, SOB, abd pain, nausea, dizziness No other complaints OBJECTIVE: Vital Signs-as noted below Physical Exam: General Appearance:Moderately built and nourished, no apparent distress Head: normocephalic, Atraumatic Eyes: normal inspection, EOMI, PERRL Neck: supple, Trachea midline Respiratory/Chest: Normal breath sounds, CTA Cardiovascular: S1, S2, + murmur Abdomen/GI:Soft, Non tender, Bowel sounds present Scrotum-inguinal hernia: Significant in size, nontender no discoloration Extremities/Musculoskelatal:normal inspection, excoriations on b/l UE upper extremities, scabbing wounds/Blisters on LE Neurologic/Psych:AAOX3, grossly no focal neurological deficits Skin: normal color, warm Lab data as noted below. ASSESSMENT & PLAN: Patient is a 67 yr male with h/o schizophrenia, chronic diastolic CHF, S/P bioprosthetic aortic/mitral valve replacement, P.afib on Coumadin presented with renal failure. BRBPR: In setting of chronic Coumadin use INR:3.5>>>1.6 S/P Vit K S/P 1 unit PRBC S/P colonoscopy on 07/04/17: Poor Prep: Poly in ascending colon-resected; Rectal ulcer May need repeat colonoscopy: Likely as outpatient Monitor Hb:8.3>>>8.8>>7.5 GI OK to resume coumadin Appreciate GI Input: Continue coumadin for now but have to hold if Hb continues to drop Currently no active bleeding Acute Renal Failure:Resolved Likely prerenal and 2/2 Bactrim and Lasix use Patient referred to the ED by his PCP after he was found in the waiting room with his pants down scratching his open wounds and very disheveled appearing Cr at baseline Bactrim discontinued Appreciate Nephrology recommendations monitor renal function EKG Changes: EKG shows new T-wave inversions inferiorly and anteriorly No cardiac complaints Troponin negative Echo:The left ventricular wall motion is normal repeat EKG nonspecific T-wave changes in leads V1 V2 ; inferior leads Patient asymptomatic Continue Atenolol, Lipitor Neurotic Excoriations: Possible bullous pemphigoid: Culture from recent admission positive for MRSA Patient was discharged on Bactrim Blood cultures: Negative Wound cultures: Enterobacter, Staph,Corynebacterium Continue IV vancomycin and ceftriaxone day # 8>>>switched to Doxycycline and Ciprofloxacin Day # 2(needs 2-3 weeks Rx as per Dermatology) Appreciate ID, Dermatology recommendations Started on Prednisone Taper course as per Dermatology (Discussed with GI: No contraindication) Day # 2 Continue wound care with Fluocinonide BID Follow up Skin Biopsy Needs follow up with Dermatology in 2 weeks upon discharge Anemia: Multifactorial: secondary to acute blood loss 2/2 rectal bleed, iron Deficiency and Folate Deficiency Anemia panel performed last month his previous admission, continue iron and folate supplementation Chronic diastolic CHF secondary to valvular disease: S/P Bioprosthetic Aortic joel replacement, Mitral valve repair, Tricuspid valve annuloplasty Continue lasix monitor renal function P.Afib: continue atenolol On Coumadin Schizophrenia: Appreciate Psychiatry Input Risperidone added Continue usual Celexa and donepezil Patient refused increased dose of Celexa Risperdal taper per Psychiatry Hypothyroidism: Continue levothyroxine DVT Px: SCDs for now Disposition: airfield services officer consulted Needs transition to SNF once accepted PROCEDURES: ECHO: * Sinus bradycardia was present during the study * The left ventricle is normal in size. * There is mild concentric left ventricular hypertrophy. * The left ventricular wall motion is normal. * Left ventricular systolic function is normal. * Ejection Fraction = 55-60%. * There is a bioprosthetic aortic valve. * Bioprosthesis leaflets are not well-visualized, but appear mobile. Aortic valve velocities are moderately elevated * There is moderate thickening of the anterior mitral valve leaflet . * There is mild mitral regurgitation. * An annuloplasty ring is noted in the tricuspid position. * There is trace tricuspid regurgitation. * This study does not exclude vegetations on abnormal valve structures as above Vital Signs: Date Time Temp Pulse Resp B/P (MAP) Pulse Ox O2 Delivery O2 Flow Rate FiO2 07/07/17 11:41 100 Room Air 07/07/17 07:44 36.5 75 18 108/60 (76) 97 07/07/17 00:00 100 Room Air 07/06/17 23:59 36.5 87 20 92/48 (63) 95 Room Air 07/06/17 16:07 36.5 73 18 113/73 (86) 99 Room Air 07/06/17 16:00 100 Room Air Lab Results: Results Past 24 Hours Test 07/07/17 06:03 Range/Units White Blood Count 9.24 4.8-10.8 K/uL Red Blood Count 2.65 4.7-6.1 M/uL Hemoglobin 7.5 14.0-18.0 g/dL Hematocrit 23.3 42-52 % Mean Corpuscular Volume 87.9 80-100 fL Mean Corpuscular Hemoglobin 28.3 25-34 pg Mean Corpuscular Hemoglobin Concent 32.2 32-36 g/dl Platelet Count 284 130-400 K/uL Mean Platelet Volume 8.3 7.4-10.4 fL Neutrophils (%) (Auto) 50.8 % Lymphocytes (%) (Auto) 15.0 % Monocytes (%) (Auto) 12.9 % Eosinophils (%) (Auto) 20.8 % Basophils (%) (Auto) 0.3 % Neutrophils # (Auto) 4.69 1.4-6.5 K/uL Lymphocytes # (Auto) 1.39 1.2-3.4 K/uL Monocytes # (Auto) 1.19 0.11-0.59 K/uL Eosinophils # (Auto) 1.92 0-0.5 K/uL Basophils # (Auto) 0.03 0-0.2 K/uL RDW Standard Deviation 47.8 36.4-46.3 fL RDW Coefficient of Variation 14.8 11.5-14.5 % Immature Granulocyte % (Auto) 0.2 % Immature Granulocyte # (Auto) 0.02 0.00-0.02 K/uL Red Blood Cell Morphology Unremarkable Prothrombin Time 12.0 9.0-12.0 SECONDS Prothromb Time International Ratio 1.1 0.9-1.1 Sodium Level 138 136-145 mmol/L Potassium Level 4.2 3.5-5.1 mmol/L Chloride Level 108 98-107 mmol/L Carbon Dioxide Level 28 21-32 mmol/L Anion Gap 2.0 3-11 mmol/L Blood Urea Nitrogen 22 7-18 mg/dl Creatinine 1.37 0.60-1.40 mg/dl Est Creatinine Clear Calc Drug Dose 51.3 ml/min Estimated GFR () 61.9 Estimated GFR (Non- 53.4 BUN/Creatinine Ratio 16.2 10-20 Random Glucose 82 70-99 mg/dl Calcium Level 8.0 8.5-10.1 mg/dl Magnesium Level 2.0 1.8-2.4 mg/dl
[2017-07-07 15:05] VITALS: O2SAT 100
[2017-07-07 15:11] VITALS: BP 102/67; PULSE 74; TEMP 36.4; O2SAT 95
[2017-07-07] MEDS: WARFARIN SOD 6 MG TAB PO SCH (16:26)
[2017-07-07 20:24] LABS: HEMATOCRIT 24.8 % (42-52); HEMOGLOBIN 7.8 g/dL (14.0-18.0)
[2017-07-07] MEDS: DONEPEZIL HCL 5 MG TAB PO SCH (20:25)
[2017-07-07 23:30] VITALS: BP 107/68; PULSE 61; TEMP 36.5; O2SAT 93
[2017-07-08 05:53] LABS: HEMATOCRIT 22.9 % (42-52); HEMOGLOBIN 7.3 g/dL (14.0-18.0); MEAN CELL VOLUME 88.1 fL (80-100); MEAN CORPUSCULAR HEMOGLOBIN 28.1 pg (25-34); MEAN CORPUSCULAR HGB CONC 31.9 g/dl (32-36); MEAN PLATELET VOLUME 8.4 fL (7.4-10.4); PLATELET COUNT 316 K/uL (130-400); RED CELL DISTRIBUTION WIDTH CV 14.5 % (11.5-14.5); RED CELL DISTRIBUTION WIDTH SD 47.2 fL (36.4-46.3); WHITE BLOOD COUNT 10.23 K/uL (4.8-10.8)
[2017-07-08 05:55] LABS: INR 1.3 (0.9-1.1)
[2017-07-08] MEDS: LEVOTHYROXINE 25 MCG TAB PO SCH (06:03)
[2017-07-08 06:11] LABS: CREATININE 1.31 mg/dl (0.60-1.40)
[2017-07-08 07:20] VITALS: BP 95/61; PULSE 64; TEMP 36.4; O2SAT 94
[2017-07-08] MEDS: ATORVASTATIN 10 MG TAB PO SCH (08:39)
[2017-07-08] MEDS: CITALOPRAM 20 MG TAB PO SCH (08:39)
[2017-07-08] MEDS: CIPROFLOXACIN 250 MG TAB PO SCH ×2 (08:39→20:32)
[2017-07-08] MEDS: FERROUS SULFATE 325 MG TAB PO SCH ×2 (08:39→17:15)
[2017-07-08] MEDS: DOXYCYCLINE HYCLATE 100 MG CAP PO SCH ×2 (08:39→20:31)
[2017-07-08] MEDS: FLUOCINONIDE 0.05% CR 60 GM TUBE EXT SCH ×2 (08:40→20:35)
[2017-07-08] MEDS: RISPERIDONE 1 MG TAB PO SCH (08:40)
[2017-07-08] MEDS: GABAPENTIN 100 MG CAP PO SCH (08:40)
[2017-07-08] MEDS: FUROSEMIDE 20 MG TAB PO SCH (08:40)
[2017-07-08] MEDS: TRIAMCINOLONE ACET 0.1% CR 80 GM TUBE EXT SCH ×2 (08:40→20:35)
[2017-07-08 10:16] VITALS: O2SAT 100
--- NOTE | 2017-07-08 12:38 | Progress Note ---
Internal Med Progress Note Date of Service: July 08, 2017. Provider Documentation: SUBJECTIVE: Seen and examined at bedside Had BM today, No blood in stools Denies pain of lesions on lower extremities Denies chest pain, SOB, abd pain, nausea, dizziness No other complaints Lying comfortably in bed OBJECTIVE: Vital Signs-as noted below Physical Exam: General Appearance:Moderately built and nourished, no apparent distress Head: normocephalic, Atraumatic Eyes: normal inspection, EOMI, PERRL Neck: supple, Trachea midline Respiratory/Chest: Normal breath sounds, CTA Cardiovascular: S1, S2, + murmur Abdomen/GI:Soft, Non tender, Bowel sounds present Scrotum-inguinal hernia: Significant in size, nontender no discoloration Extremities/Musculoskelatal:normal inspection, excoriations on b/l UE upper extremities, scabbing wounds/Blisters on LE Neurologic/Psych:AAOX3, grossly no focal neurological deficits Skin: normal color, warm Lab data as noted below. ASSESSMENT & PLAN: Patient is a 67 yr male with h/o schizophrenia, chronic diastolic CHF, S/P bioprosthetic aortic/mitral valve replacement, P.afib on Coumadin presented with renal failure. BRBPR: In setting of chronic Coumadin use INR:3.5>>>1.6 S/P Vit K S/P 1 unit PRBC S/P colonoscopy on 07/04/17: Poor Prep: Poly in ascending colon-resected; Rectal ulcer May need repeat colonoscopy: Likely as outpatient Monitor Hb:8.3>>>8.8>>7.5>>7.3 Per GI OK to resume coumadin Appreciate GI Input: Continue coumadin for now but have to hold if Hb continues to drop Currently no active bleeding Hb variable May need GI to reval if Hb continues to drop Acute Renal Failure:Resolved Likely prerenal and 2/2 Bactrim and Lasix use Patient referred to the ED by his PCP after he was found in the waiting room with his pants down scratching his open wounds and very disheveled appearing Cr at baseline Bactrim discontinued Appreciate Nephrology recommendations monitor renal function EKG Changes: EKG shows new T-wave inversions inferiorly and anteriorly No cardiac complaints Troponin negative Echo:The left ventricular wall motion is normal repeat EKG nonspecific T-wave changes in leads V1 V2 ; inferior leads Patient asymptomatic Continue Atenolol, Lipitor Neurotic Excoriations: Possible bullous pemphigoid: Culture from recent admission positive for MRSA Patient was discharged on Bactrim Blood cultures: Negative Wound cultures: Enterobacter, Staph,Corynebacterium Continue IV vancomycin and ceftriaxone day # 8>>>switched to Doxycycline and Ciprofloxacin Day # 3(needs 2-3 weeks Rx as per Dermatology) Appreciate ID, Dermatology recommendations Started on Prednisone Taper course as per Dermatology (Discussed with GI: No contraindication) Day # 3 Continue wound care with Fluocinonide BID Follow up Skin Biopsy:pending Needs follow up with Dermatology in 2 weeks upon discharge Anemia: Multifactorial: secondary to acute blood loss 2/2 rectal bleed, iron Deficiency and Folate Deficiency Anemia panel performed last month his previous admission, continue iron and folate supplementation Chronic diastolic CHF secondary to valvular disease: S/P Bioprosthetic Aortic joel replacement, Mitral valve repair, Tricuspid valve annuloplasty Continue lasix monitor renal function P.Afib: continue atenolol On Coumadin Monitor INR:1.3 today Schizophrenia: Appreciate Psychiatry Input Risperidone added Continue usual Celexa and donepezil Patient refused increased dose of Celexa Risperdal taper per Psychiatry Hypothyroidism: Continue levothyroxine DVT Px: On Coumadin Disposition: health services administrator consulted Needs transition to SNF once accepted PROCEDURES: ECHO: * Sinus bradycardia was present during the study * The left ventricle is normal in size. * There is mild concentric left ventricular hypertrophy. * The left ventricular wall motion is normal. * Left ventricular systolic function is normal. * Ejection Fraction = 55-60%. * There is a bioprosthetic aortic valve. * Bioprosthesis leaflets are not well-visualized, but appear mobile. Aortic valve velocities are moderately elevated * There is moderate thickening of the anterior mitral valve leaflet . * There is mild mitral regurgitation. * An annuloplasty ring is noted in the tricuspid position. * There is trace tricuspid regurgitation. * This study does not exclude vegetations on abnormal valve structures as above Vital Signs: Date Time Temp Pulse Resp B/P (MAP) Pulse Ox O2 Delivery O2 Flow Rate FiO2 07/08/17 10:16 100 Room Air 07/08/17 07:20 36.4 64 20 95/61 (72) 94 Room Air 07/08/17 00:15 Room Air 07/07/17 23:30 36.5 61 20 107/68 (81) 93 Room Air 07/07/17 15:11 36.4 74 20 102/67 (79) 95 07/07/17 15:05 100 Room Air Lab Results: Results Past 24 Hours Test 07/07/17 20:06 07/08/17 05:33 Range/Units Hemoglobin 7.8 7.3 14.0-18.0 g/dL Hematocrit 24.8 22.9 42-52 % White Blood Count 10.23 4.8-10.8 K/uL Red Blood Count 2.60 4.7-6.1 M/uL Mean Corpuscular Volume 88.1 80-100 fL Mean Corpuscular Hemoglobin 28.1 25-34 pg Mean Corpuscular Hemoglobin Concent 31.9 32-36 g/dl RDW Standard Deviation 47.2 36.4-46.3 fL RDW Coefficient of Variation 14.5 11.5-14.5 % Platelet Count 316 130-400 K/uL Mean Platelet Volume 8.4 7.4-10.4 fL Prothrombin Time 13.8 9.0-12.0 SECONDS Prothromb Time International Ratio 1.3 0.9-1.1 Creatinine 1.31 0.60-1.40 mg/dl Est Creatinine Clear Calc Drug Dose 53.7 ml/min Estimated GFR () 65.3 Estimated GFR (Non- 56.3 Magnesium Level 1.7 1.8-2.4 mg/dl
[2017-07-08] MEDS ORDERED: MAGNESIUM SULFATE 1GM / D5W 100 ML IV SCH (13:30)
[2017-07-08] MEDS ORDERED: NURSING VERBAL MED ORDER ONE (14:30)
[2017-07-08 15:35] VITALS: BP 103/64; PULSE 60; TEMP 36.5; O2SAT 97
[2017-07-08] MEDS ORDERED: WARFARIN SOD 5 MG TAB PO SCH (16:00)
[2017-07-08] MEDS ORDERED: WARFARIN SOD 3 MG TAB PO SCH (16:00)
[2017-07-08 19:55] LABS: HEMATOCRIT 24.8 % (42-52)
[2017-07-08] MEDS: MAGNESIUM OXIDE 400 MG TAB PO SCH (20:32)
[2017-07-08] MEDS: DONEPEZIL HCL 5 MG TAB PO SCH (20:32)
[2017-07-08 23:49] VITALS: BP 117/68; PULSE 70; TEMP 36.7; O2SAT 95
[2017-07-09 05:49] LABS: HEMOGLOBIN 7.8 g/dL (14.0-18.0); MEAN CELL VOLUME 87.3 fL (80-100); MEAN CORPUSCULAR HEMOGLOBIN 28.4 pg (25-34); MEAN CORPUSCULAR HGB CONC 32.5 g/dl (32-36); MEAN PLATELET VOLUME 8.3 fL (7.4-10.4); PLATELET COUNT 369 K/uL (130-400); RED CELL DISTRIBUTION WIDTH CV 14.1 % (11.5-14.5); RED CELL DISTRIBUTION WIDTH SD 45.1 fL (36.4-46.3); WHITE BLOOD COUNT 9.31 K/uL (4.8-10.8)
[2017-07-09 05:58] LABS: INR 1.7 (0.9-1.1)
[2017-07-09 06:10] LABS: CALCIUM 8.1 mg/dl (8.5-10.1); CREATININE 1.32 mg/dl (0.60-1.40); POTASSIUM 4.4 mmol/L (3.5-5.1)
[2017-07-09] MEDS: LEVOTHYROXINE 25 MCG TAB PO SCH (06:39)
[2017-07-09 07:11] VITALS: BP 132/78; PULSE 68; TEMP 36.5; O2SAT 96
[2017-07-09] MEDS: CITALOPRAM 20 MG TAB PO SCH (08:16)
[2017-07-09] MEDS: ATORVASTATIN 10 MG TAB PO SCH (08:16)
[2017-07-09] MEDS: CIPROFLOXACIN 250 MG TAB PO SCH (08:16)
[2017-07-09] MEDS: FUROSEMIDE 20 MG TAB PO SCH (08:16)
[2017-07-09] MEDS: FERROUS SULFATE 325 MG TAB PO SCH (08:17)
[2017-07-09] MEDS: RISPERIDONE 1 MG TAB PO SCH (08:17)
[2017-07-09] MEDS: MAGNESIUM OXIDE 400 MG TAB PO SCH (08:17)
[2017-07-09] MEDS: GABAPENTIN 100 MG CAP PO SCH (08:17)
[2017-07-09] MEDS: DOXYCYCLINE HYCLATE 100 MG CAP PO SCH (08:17)
[2017-07-09] MEDS: TRIAMCINOLONE ACET 0.1% CR 80 GM TUBE EXT SCH (08:18)
[2017-07-09] MEDS: FLUOCINONIDE 0.05% CR 60 GM TUBE EXT SCH (08:18)
--- NOTE | 2017-07-09 12:24 | Progress Note ---
Internal Med Progress Note Date of Service: July 09, 2017. Provider Documentation: SUBJECTIVE: Seen and examined at bedside Doing well No new complaints Had BM yesterday, Denies blood in stools Denies pain of lesions on lower extremities Also denies chest pain, SOB, abd pain, nausea, dizziness No other complaints Plan to be discharged to Rehab facility today OBJECTIVE: Vital Signs-as noted below Physical Exam: General Appearance:Moderately built and nourished, no apparent distress Head: normocephalic, Atraumatic Eyes: normal inspection, EOMI, PERRL Neck: supple, Trachea midline Respiratory/Chest: Normal breath sounds, CTA Cardiovascular: S1, S2, + murmur Abdomen/GI:Soft, Non tender, Bowel sounds present Scrotum-inguinal hernia: Significant in size, nontender no discoloration Extremities/Musculoskelatal:normal inspection, excoriations on b/l UE upper extremities, scabbing wounds/Blisters on LE Neurologic/Psych:AAOX3, grossly no focal neurological deficits Skin: normal color, warm Lab data as noted below. ASSESSMENT & PLAN: Patient is a 67 yr male with h/o schizophrenia, chronic diastolic CHF, S/P bioprosthetic aortic/mitral valve replacement, P.afib on Coumadin presented with renal failure. BRBPR: In setting of chronic Coumadin use INR:3.5>>>1.6 S/P Vit K S/P 1 unit PRBC S/P colonoscopy on 07/04/17: Poor Prep: Poly in ascending colon-resected; Rectal ulcer May need repeat colonoscopy: Likely as outpatient Monitor Hb:8.3>>>8.8>>7.5>>7.8 Per GI OK to resume Coumadin Appreciate GI Input: Continue Coumadin for now but have to hold if Hb continues to drop Hb variable but stable No blood in stools currently per patient Acute Renal Failure:Resolved Likely prerenal and 2/2 Bactrim and Lasix use Patient referred to the ED by his PCP after he was found in the waiting room with his pants down scratching his open wounds and very disheveled appearing Cr at baseline Bactrim discontinued Appreciate Nephrology recommendations monitor renal function EKG Changes: EKG shows new T-wave inversions inferiorly and anteriorly No cardiac complaints Troponin negative Echo:The left ventricular wall motion is normal repeat EKG nonspecific T-wave changes in leads V1 V2 ; inferior leads Patient asymptomatic Continue Atenolol, Lipitor Neurotic Excoriations: Possible bullous pemphigoid: Culture from recent admission positive for MRSA Patient was discharged on Bactrim Blood cultures: Negative Wound cultures: Enterobacter, Staph,Corynebacterium Continue IV vancomycin and ceftriaxone day # 8>>>switched to Doxycycline and Ciprofloxacin Day # 4(needs 2-3 weeks Rx as per Dermatology) Appreciate ID, Dermatology recommendations Started on Prednisone Taper course as per Dermatology (Discussed with GI: No contraindication) Day # 4 Continue wound care with Fluocinonide BID Follow up Skin Biopsy:pending Needs follow up with Dermatology and ID upon discharge Anemia: Multifactorial: secondary to acute blood loss 2/2 rectal bleed, iron Deficiency and Folate Deficiency Anemia panel performed last month his previous admission, continue iron and folate supplementation Chronic diastolic CHF secondary to valvular disease: S/P Bioprosthetic Aortic joel replacement, Mitral valve repair, Tricuspid valve annuloplasty Continue lasix monitor renal function P.Afib: continue atenolol On Coumadin Monitor INR:1.7 today Schizophrenia: Appreciate Psychiatry Input Risperidone added Continue usual Celexa and donepezil Patient refused increased dose of Celexa Risperdal taper per Psychiatry As Per Psych: Plan to continue Risperdal 1 mg daily, monitor behavior/scratching. Wouldn't taper further until oral steroids discontinued, then 0.5 mg for 3-5 days then d/ c as able. Hypothyroidism: Continue levothyroxine DVT Px: On Coumadin Disposition: food and nutrition services supervisor consulted Plan to discharge to SNF today Follow up with your PCP Dr. Boles on 2017 at 10:45AM Follow up with Infectious Disease at [facility] on July 13, 2017 at 9:00AM Follow up with your Sanitary Land[employer] Operator Dr. Luz Mendez in 1-2 weeks as advised ( Office will call with appointment) Follow up with your floral designer if your Bleeding in stools reoccur Follow up with your Psychiatrist in 1-2 weeks as advised Complete the Antibiotic and Prednisone Taper Course as advised Continue to get Wound Care and follow up with wound clinic as advised Get PT/INR check on 07/10/17 and follow up with your physician at SNF for further Coumadin dosing (Target INR:2.0 to 3.0) Seek immediate medical attention if your symptoms reoccur or worsen Medications: As Per Psych: Plan to continue Risperdal 1 mg daily, monitor behavior/scratching. Wouldn't taper further until oral steroids discontinued, then 0.5 mg for 3-5 days then d/ c as able. Prednisone Taper Course Start taking Prednisone 40mg daily for 3 more days, then 30mg for 7 days, then 20mg for 7 days then follow up with your Sanitary Land[employer] Operator for further recommendations PROCEDURES: ECHO: * Sinus bradycardia was present during the study * The left ventricle is normal in size. * There is mild concentric left ventricular hypertrophy. * The left ventricular wall motion is normal. * Left ventricular systolic function is normal. * Ejection Fraction = 55-60%. * There is a bioprosthetic aortic valve. * Bioprosthesis leaflets are not well-visualized, but appear mobile. Aortic valve velocities are moderately elevated * There is moderate thickening of the anterior mitral valve leaflet . * There is mild mitral regurgitation. * An annuloplasty ring is noted in the tricuspid position. * There is trace tricuspid regurgitation. * This study does not exclude vegetations on abnormal valve structures as above Vital Signs: Date Time Temp Pulse Resp B/P (MAP) Pulse Ox O2 Delivery O2 Flow Rate FiO2 07/09/17 07:11 36.5 68 20 132/78 (96) 96 Room Air 07/09/17 00:00 Room Air 07/08/17 23:49 36.7 70 20 117/68 (84) 95 Room Air 07/08/17 15:35 36.5 60 20 103/64 (77) 97 Room Air Lab Results: Results Past 24 Hours Test 07/08/17 19:44 07/09/17 05:38 Range/Units Hemoglobin 8.0 7.8 14.0-18.0 g/dL Hematocrit 24.8 24.0 42-52 % White Blood Count 9.31 4.8-10.8 K/uL Red Blood Count 2.75 4.7-6.1 M/uL Mean Corpuscular Volume 87.3 80-100 fL Mean Corpuscular Hemoglobin 28.4 25-34 pg Mean Corpuscular Hemoglobin Concent 32.5 32-36 g/dl RDW Standard Deviation 45.1 36.4-46.3 fL RDW Coefficient of Variation 14.1 11.5-14.5 % Platelet Count 369 130-400 K/uL Mean Platelet Volume 8.3 7.4-10.4 fL Prothrombin Time 17.3 9.0-12.0 SECONDS Prothromb Time International Ratio 1.7 0.9-1.1 Sodium Level 138 136-145 mmol/L Potassium Level 4.4 3.5-5.1 mmol/L Chloride Level 105 98-107 mmol/L Carbon Dioxide Level 29 21-32 mmol/L Anion Gap 4.0 3-11 mmol/L Blood Urea Nitrogen 29 7-18 mg/dl Creatinine 1.32 0.60-1.40 mg/dl Est Creatinine Clear Calc Drug Dose 53.3 ml/min Estimated GFR () 64.7 Estimated GFR (Non- 55.8 BUN/Creatinine Ratio 22.2 10-20 Random Glucose 79 70-99 mg/dl Calcium Level 8.1 8.5-10.1 mg/dl Magnesium Level 1.7 1.8-2.4 mg/dl
[2017-07-09] MEDS ORDERED: LDXCR60 EXT ×2 (12:30)
[2017-07-09] MEDS ORDERED: FRRS300 PO ×2 (12:30)
[2017-07-09] MEDS ORDERED: FLV1 PO ×2 (12:30)
[2017-07-09] MEDS ORDERED: MGNO400 PO ×2 (12:30)
[2017-07-09] MEDS ORDERED: PRED10TA PO ×2 (12:30)
[2017-07-09] MEDS ORDERED: CIPR250T3 PO ×2 (12:30)
[2017-07-09] MEDS ORDERED: RSP1 PO ×2 (12:30)
[2017-07-09] MEDS ORDERED: DXY100 PO ×2 (12:30)
--- NOTE | 2017-07-09 12:34 | Discharge Summary ---
Discharge Summary Date of Service July 09, 2017. Discharge Summary Admission Date: June 28, 2017 at 15:00 Discharge Date: July 09, 2017 Discharge Disposition: nursing home facility Principal Diagnosis: Neurotic Excoriations, ?Pemphigus, GI bleed, ОЛЕГ, Preschizophrenia Procedures: CXR: 1. Cardiomegaly with mild pulmonary vascular congestion. 2. Trace bilateral pleural effusions with subsegmental bibasilar opacities suggesting atelectasis or pneumonitis. ECHO: * Sinus bradycardia was present during the study * The left ventricle is normal in size. * There is mild concentric left ventricular hypertrophy. * The left ventricular wall motion is normal. * Left ventricular systolic function is normal. * Ejection Fraction = 55-60%. * There is a bioprosthetic aortic valve. * Bioprosthesis leaflets are not well-visualized, but appear mobile. Aortic valve velocities are moderately elevated * There is moderate thickening of the anterior mitral valve leaflet . * There is mild mitral regurgitation. * An annuloplasty ring is noted in the tricuspid position. * There is trace tricuspid regurgitation. * This study does not exclude vegetations on abnormal valve structures as above Consultations: GI, ID, Dermatology, Psychiatry, Nephrology Pending Studies/Follow-Up: Follow up with your PCP Dr. Pantoja 2017 at 10:45AM Follow up with [facility] on July 13, 2017 at 9:00AM Follow up with your Ballet Dancer Dr. Luz Mendez in 1-2 weeks as advised ( Office will call with appointment) Follow up with your gristmiller if your Bleeding in stools reoccur Follow up with your Psychiatrist in 1-2 weeks as advised Complete the Antibiotic and Prednisone Taper Course as advised Continue to get Wound Care and follow up with wound clinic as advised Get PT/INR check on 07/10/17 and follow up with your physician at SNF for further Coumadin dosing (Target INR:2.0 to 3.0) Seek immediate medical attention if your symptoms reoccur or worsen Medications: As Per Psych: Plan to continue Risperdal 1 mg daily, monitor behavior/scratching. Wouldn't taper further until oral steroids discontinued, then 0.5 mg for 3-5 days then d/ c as able. Prednisone Taper Course Start taking Prednisone 40mg daily for 3 more days, then 30mg for 7 days, then 20mg for 7 days then follow up with your Ballet Dancer for further recommendations Medication Reconciliation New Medications: Prednisone Tab (Prednisone) 10 Mg Tab 10 MG PO UD for 17 Days, #47 TAB Start taking 40mg daily for 3 more days, then 30mg for 7 days, then 20mg for 7 days Ciprofloxacin (Cipro) 250 Mg Tab 500 MG PO Q12H for 14 Days, #56 TAB Doxycycline Hyclate (Doxycycline Hyclate) 100 Mg Cap 100 MG PO BID for 14 Days, #28 CAP Ferrous Sulfate (Ferrous Sulfate) 325 Mg Tab 325 MG PO BIDM for 30 Days, #60 TAB Fluocinonide (Fluocinonide) 180 Appln/60 Gm Cr 1 APPLN EXT BID for 30 Days, #1 EA 2 Refills Folic Acid (Folic Acid) 1 Mg Tab 1 MG PO QAM for 30 Days, #30 TAB Magnesium Oxide (Magnesium-Oxide) 400 Mg Tab 400 MG PO BID for 14 Days, #28 TAB Risperidone (Risperidone) 1 Mg Tab 1 MG PO QAM for 20 Days, #20 TAB Continued Medications: Atenolol (Tenormin) 25 Mg Tab 25 MG PO DAILY, TAB Atorvastatin (Lipitor) 10 Mg Tab 10 MG PO DAILY Citalopram Hydrobromide (Celexa) 10 Mg Tab 20 TAB PO DAILY for 30 Days, #600 TAB 2 Refills Diphenhydramine Hcl (Benadryl) 25 Mg Cap 50 MG PO Q6 for 10 Days, #80 CAP Donepezil HCl (Aricept) 5 Mg Tab 1 TAB PO HS for 30 Days, #30 TAB 5 Refills Furosemide (Lasix) 20 Mg Tab 20 MG PO DAILY Gabapentin (Gabapentin) 100 Mg Cap 1 TAB PO DAILY Levothyroxine Sodium (Synthroid) 25 Mcg Tab 25 MCG PO DAILY, TAB Potassium Chloride (Potassium Chloride Er) 10 Meq Cap 1 CAP PO DAILY for 90 Days, #90 CAP 1 Refill Triamcinolone Acet (Aristocort 0.1%) 240 Appln/80 Gm Cr 1 APPLN EXT BID for 30 Days, #1 TUBE Warfarin Sod (Coumadin) 4 Mg Tab 6 MG PO DAILY Discontinued Medications: Sulfamethoxazole-Trimethoprim (Smz-Tmp Ds) 1 Tab Tab 1 TAB PO Q12 for 12 Days, #24 TAB Admission Information HPI (per Admitting provider): 67-year-old male who was referred to the ED by his PCP. Patient was recently admitted to [facility] 06/15 through 06/21 for infected neurotic excoriations and ОЛЕГ. Wound cultures from that admission regarding MRSA and patient was discharged on Bactrim. Patient presented to his PCPs office today for follow-up. He was found to the waiting room with his pants down and scratching his leg wounds. He was then placed in an exam room where he was copiously washing in the exam room sink and scratching his arms. PCP was concerned about patient's ability to take care of himself at home and was referred to the ER for further evaluation. Patient reports he lives with his brother however, "we live our separate lives". Patient reports he has been taking his medication since discharge and only missed a couple of days. 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 Patient feels as though he is doing well at home. He currently offers no complaints. He denies chest pain shortness of breath. No lightheadedness, dizziness, diaphoresis, or syncopal events. No abdominal pain, nausea, vomiting, or diarrhea. He denies any fever or chills. He denies any urinary symptoms. Patient reports he fixes his own meals however PCP documented that the patient reported he had not been eating. At the time my exam, patient is disheveled appearing with a foul odor. In the ED, he was hemodynamically stable. Labs show an ОЛЕГ of 2.7 (was 1.7 on 06/21) and are otherwise unremarkable. He was given IVF, IV Vanco, and IV ceftriaxone. Physical Exam (per Admitting): General Appearance: WD/WN, no apparent distress, + pertinent finding ( Disheveled) Head: normocephalic, atraumatic Eyes: normal inspection, EOMI, sclerae normal ENT: hearing grossly normal, + pertinent finding (Mucous membranes dry) Neck: supple, no JVD, trachea midline Respiratory/Chest: lungs clear, normal breath sounds, no respiratory distress Cardiovascular: regular rate, rhythm, normal peripheral pulses, + pertinent finding (+1-2 edema BL LE, right greater than left) Abdomen/GI: normal bowel sounds, non tender, soft, no organomegaly Genitourinary - Male: + pertinent finding (Scrotal edema, large hernia noted ) Extremities/Musculoskelatal: normal inspection, no calf tenderness, normal capillary refill Neurologic/Psych: no motor/sensory deficits, alert, normal mood/affect, oriented x 3 (Poor insight, does not make eye contact when speaking) Skin: + pertinent finding (Several scattered abrasions noted to the bilateral upper and lower extremities and trunk in various stages of healing, a few clear fluid-filled blisters noted to the right foot) Hospital Course Patient is a 67 yr male with h/o schizophrenia, chronic diastolic CHF, S/P bioprosthetic aortic/mitral valve replacement, P.afib on Coumadin presented with renal failure. BRBPR: In setting of chronic Coumadin use INR:3.5>>>1.6 S/P Vit K S/P 1 unit PRBC S/P colonoscopy on 07/04/17: Poor Prep: Poly in ascending colon-resected; Rectal ulcer May need repeat colonoscopy: Likely as outpatient Monitor Hb:8.3>>>8.8>>7.5>>7.8 Per GI OK to resume Coumadin Appreciate GI Input: Continue Coumadin for now but have to hold if Hb continues to drop Hb variable but stable No blood in stools currently per patient Acute Renal Failure:Resolved Likely prerenal and 2/2 Bactrim and Lasix use Patient referred to the ED by his PCP after he was found in the waiting room with his pants down scratching his open wounds and very disheveled appearing Cr at baseline Bactrim discontinued Appreciate Nephrology recommendations monitor renal function EKG Changes: EKG shows new T-wave inversions inferiorly and anteriorly No cardiac complaints Troponin negative Echo:The left ventricular wall motion is normal repeat EKG nonspecific T-wave changes in leads V1 V2 ; inferior leads Patient asymptomatic Continue Atenolol, Lipitor Neurotic Excoriations: Possible bullous pemphigoid: Culture from recent admission positive for MRSA Patient was discharged on Bactrim Blood cultures: Negative Wound cultures: Enterobacter, Staph,Corynebacterium Continue IV vancomycin and ceftriaxone day # 8>>>switched to Doxycycline and Ciprofloxacin Day # 4(needs 2-3 weeks Rx as per Dermatology) Appreciate ID, Dermatology recommendations Started on Prednisone Taper course as per Dermatology (Discussed with GI: No contraindication) Day # 4 Continue wound care with Fluocinonide BID Follow up Skin Biopsy:pending Needs follow up with Dermatology and ID upon discharge Anemia: Multifactorial: secondary to acute blood loss 2/2 rectal bleed, iron Deficiency and Folate Deficiency Anemia panel performed last month his previous admission, continue iron and folate supplementation Chronic diastolic CHF secondary to valvular disease: S/P Bioprosthetic Aortic joel replacement, Mitral valve repair, Tricuspid valve annuloplasty Continue lasix monitor renal function P.Afib: continue atenolol On Coumadin Monitor INR:1.7 today Schizophrenia: Appreciate Psychiatry Input Risperidone added Continue usual Celexa and donepezil Patient refused increased dose of Celexa Risperdal taper per Psychiatry As Per Psych: Plan to continue Risperdal 1 mg daily, monitor behavior/scratching. Wouldn't taper further until oral steroids discontinued, then 0.5 mg for 3-5 days then d/ c as able. Hypothyroidism: Continue levothyroxine DVT Px: On Coumadin Disposition: manager administrative services consulted Plan to discharge to SNF today Follow up with your PCP Dr. Boles on 2017 at 10:45AM Follow up with Infectious Disease at [facility] on July 13, 2017 at 9:00AM Follow up with your Ballet Dancer Dr. Luz Mendez in 1-2 weeks as advised ( Office will call with appointment) Follow up with your gristmiller if your Bleeding in stools reoccur Follow up with your Psychiatrist in 1-2 weeks as advised Complete the Antibiotic and Prednisone Taper Course as advised Continue to get Wound Care and follow up with wound clinic as advised Get PT/INR check on 07/10/17 and follow up with your physician at SNF for further Coumadin dosing (Target INR:2.0 to 3.0) Seek immediate medical attention if your symptoms reoccur or worsen Medications: As Per Psych: Plan to continue Risperdal 1 mg daily, monitor behavior/scratching. Wouldn't taper further until oral steroids discontinued, then 0.5 mg for 3-5 days then d/ c as able. Prednisone Taper Course Start taking Prednisone 40mg daily for 3 more days, then 30mg for 7 days, then 20mg for 7 days then follow up with your Ballet Dancer for further recommendations PROCEDURES: ECHO: * Sinus bradycardia was present during the study * The left ventricle is normal in size. * There is mild concentric left ventricular hypertrophy. * The left ventricular wall motion is normal. * Left ventricular systolic function is normal. * Ejection Fraction = 55-60%. * There is a bioprosthetic aortic valve. * Bioprosthesis leaflets are not well-visualized, but appear mobile. Aortic valve velocities are moderately elevated * There is moderate thickening of the anterior mitral valve leaflet . * There is mild mitral regurgitation. * An annuloplasty ring is noted in the tricuspid position. * There is trace tricuspid regurgitation. * This study does not exclude vegetations on abnormal valve structures as above Total time spent on discharge = 40 minutes This includes examination of the patient, discharge planning, medication reconciliation, and communication with other providers. Discharge Instructions Discharge Instructions Date of Service July 09, 2017. Admission Reason for Admission: ОЛЕГ Discharge Discharge Diagnosis / Problem: Neurotic Excoriations, ?Pemphigus, GI bleed, ОЛЕГ , Preschizophrenia Discharge Goals Goal(s): Decrease discomfort, Improve function Activity Recommendations Activity Limitations: resume your previous activity Exercise/Sports Limitations: as tolerated . Instructions / Follow-Up Instructions / Follow-Up Follow up with your PCP Dr. Pantoja 2017 at 10:45AM Follow up with Infectious Disease at [facility] on July 13, 2017 at 9:00AM Follow up with your Ballet Dancer Dr. Luz Mendez in 1-2 weeks as advised ( Office will call with appointment) Follow up with your gristmiller if your Bleeding in stools reoccur Follow up with your Psychiatrist in 1-2 weeks as advised Complete the Antibiotic and Prednisone Taper Course as advised Continue to get Wound Care and follow up with wound clinic as advised Get PT/INR check on 07/10/17 and follow up with your physician at [facility] for further Coumadin dosing (Target INR:2.0 to 3.0) Seek immediate medical attention if your symptoms reoccur or worsen Medications: As Per Psych: Plan to continue Risperdal 1 mg daily, monitor behavior/scratching. Wouldn't taper further until oral steroids discontinued, then 0.5 mg for 3-5 days then d/ c as able. Prednisone Taper Course Start taking Prednisone 40mg daily for 3 more days, then 30mg for 7 days, then 20mg for 7 days then follow up with your Ballet Dancer for further recommendations Current Hospital Diet Patient's current hospital diet: AHA Diet (Heart Healthy) Discharge Diet Recommended Diet: AHA Diet (Heart Healthy) Pending Studies Studies pending at discharge: yes List of pending studies: Skin Biopsy results Laboratory Results Lipid Panel Test 06/30/17 06:12 Range/Units Triglycerides Level 68 0-150 mg/dl Cholesterol Level 131 0-200 mg/dl HDL Cholesterol 52 mg/dl Cholesterol/HDL Ratio 2.5 LDL Cholesterol, Calculated 65 mg/dl Medical Emergencies . Who to Call and When: Medical Emergencies: If at any time you feel your situation is an emergency, please call 911 immediately. . Non-Emergent Contact Non-Emergency issues call your: Primary Care Provider, Supervisor Roving, Specialist (Infectious disease, Dermatology, Psychiatry) Call Non-Emergent contact if: you have a fever, your pain is not controlled, your pain is worsening, your pain is unusual for you, your pain is concerning you, wound has increased drainage, wound has increased redness, wound has increased pain, you have any medication questions Seek immediate medical attention if your symptoms reoccur or worsen . . "Provider Documentation" section prepared by Cristobal Long. .
[2017-07-09 13:21] VITALS: BP 132/78; PULSE 68; TEMP 36.5; O2SAT 96
--- NOTE | 2017-07-09 16:49 | Progress Note ---
Subjective Date of Service: July 09, 2017. Subjective Pt evaluation today including: conversation w/ patient patient states his blisters are better and itch is still rpesent but improving. Goign to be discharged to [facility] today. Problem List Medical Problems: (1) ОЛЕГ (acute kidney injury) Status: Acute (2) ОЛЕГ (acute kidney injury) Status: Acute (3) Cellulitis Status: Acute (4) CHF (congestive heart failure) Status: Acute Objective Vital Signs Date Time Temp Pulse Resp B/P (MAP) Pulse Ox O2 Delivery O2 Flow Rate FiO2 07/09/17 13:21 36.5 68 20 96 Room Air 07/09/17 08:45 Room Air 07/09/17 07:11 36.5 68 20 132/78 (96) 96 Room Air 07/09/17 00:00 Room Air 07/08/17 23:49 36.7 70 20 117/68 (84) 95 Room Air Physical Exam Comments: I examiend pt's face, neck mouth, chest, back abdomen, arms and legs and hands. Feet were wrapped, Ipeeked under. Still some tense blisters one left third finger, rest feet. Otherwise the rasied contfluent patches on his back and abdoemn have faded to dusky brown. Juicy blistered areas on arms have resolved. Laboratory Results Last 24 Hours Test 07/08/17 19:44 07/09/17 05:38 Hemoglobin 8.0 g/dL 7.8 g/dL Hematocrit 24.8 % 24.0 % White Blood Count 9.31 K/uL Red Blood Count 2.75 M/uL Mean Corpuscular Volume 87.3 fL Mean Corpuscular Hemoglobin 28.4 pg Mean Corpuscular Hemoglobin Concent 32.5 g/dl RDW Standard Deviation 45.1 fL RDW Coefficient of Variation 14.1 % Platelet Count 369 K/uL Mean Platelet Volume 8.3 fL Prothrombin Time 17.3 SECONDS Prothromb Time International Ratio 1.7 Sodium Level 138 mmol/L Potassium Level 4.4 mmol/L Chloride Level 105 mmol/L Carbon Dioxide Level 29 mmol/L Anion Gap 4.0 mmol/L Blood Urea Nitrogen 29 mg/dl Creatinine 1.32 mg/dl Est Creatinine Clear Calc Drug Dose 53.3 ml/min Estimated GFR () 64.7 Estimated GFR (Non- 55.8 BUN/Creatinine Ratio 22.2 Random Glucose 79 mg/dl Calcium Level 8.1 mg/dl Magnesium Level 1.7 mg/dl Assessment and Plan !. Blisterd rash- I favor BP- I spoke to primary admitting physician who asssured me magi has been on board a long time- not within last 6 to 7 weeks only. He is off vanco, on oral doxy which I would recommend continuing until derm follow up. Contineu topical fluocinonide to acute rashy areas, continue pred taper as per inital consult. This follow up was performed at 12:30, at which time biopsy results were not back. I stressed pt should follow up outpatient wiht us within next 2 weeks with primary admitting doc and with pt. Call sooner with concerns [phone]- speak with Ana
== END 2017-07-09 14:54 | DRG 683 ==
LOC: EDBD 11:40 → C.EDA 11:42 → C.2T 15:00 → EDBEDREQSVC 15:00 → ENRESERV 15:08 → C.4E 07-06 11:50
PROVIDERS: ADMIT Hospitalist; ATTEND Internal Medicine
PROC: 0DBP8ZX Excision of Rectum, Via Natural or Artificial Opening Endoscopic, Diagnostic (ICD-10-PCS; principal; 2017-07-04 13:04)
PROC: 0DBK8ZZ Excision of Ascending Colon, Via Natural or Artificial Opening Endoscopic (ICD-10-PCS; principal; 2017-07-04 13:04)
PROC: 0HBEXZX Excision of Left Lower Arm Skin, External Approach, Diagnostic (ICD-10-PCS; 2017-07-05)
DX: N17.9 Acute kidney failure, unspecified (principal); D68.32 Hemorrhagic disorder due to extrinsic circulating anticoagulants; K62.6 Ulcer of anus and rectum; I50.32 Chronic diastolic (congestive) heart failure; L03.116 Cellulitis of left lower limb; D62 Acute posthemorrhagic anemia; L12.0 Bullous pemphigoid; L98.1 Factitial dermatitis; E78.5 Hyperlipidemia, unspecified; E03.9 Hypothyroidism, unspecified; I48.0 Paroxysmal atrial fibrillation; F20.9 Schizophrenia, unspecified; D50.9 Iron deficiency anemia, unspecified; Z79.01 Long term (current) use of anticoagulants; Z79.899 Other long term (current) drug therapy; Z95.2 Presence of prosthetic heart valve

== ENCOUNTER → 2017-07-10 | Outpatient (CLI) | payer OTHER ==
[~2017-07-10] MED LIST changes: +CIPR250T3 PO; +DXY100 PO; +FLV1 PO; +FRRS300 PO; +LDXCR60 EXT; +MGNO400 PO; +PRED10TA PO; +RSP1 PO
[2017-07-10 09:25] LABS: HEMOGLOBIN 8.3 g/dL (14.0-18.0); MEAN CELL VOLUME 88.1 fL (80-100); MEAN CORPUSCULAR HEMOGLOBIN 28.1 pg (25-34); MEAN CORPUSCULAR HGB CONC 31.9 g/dl (32-36); MEAN PLATELET VOLUME 9.2 fL (7.4-10.4); PLATELET COUNT 445 K/uL (130-400); RED CELL DISTRIBUTION WIDTH CV 14.2 % (11.5-14.5); RED CELL DISTRIBUTION WIDTH SD 46.1 fL (36.4-46.3)
[2017-07-10 09:38] LABS: INR 1.7 (0.9-1.1)
[2017-07-10 11:25] LABS: BLOOD UREA NITROGEN 34 mg/dl (7-18); CARBON DIOXIDE 28 mmol/L (21-32); CREATININE 1.37 mg/dl (0.60-1.40); GLUCOSE 65 mg/dl (70-99); POTASSIUM 4.2 mmol/L (3.5-5.1); SODIUM 137 mmol/L (136-145)
[2017-07-10 11:26] LABS: ALBUMIN 2.2 gm/dl (3.4-5.0); CALCIUM 8.3 mg/dl (8.5-10.1); TOTAL PROTEIN 6.1 gm/dl (6.4-8.2)
[2017-07-10 11:27] LABS: ALKALINE PHOSPHATASE 67 U/L (45-117); ALT/SGPT 18 U/L (12-78); AST/SGOT 14 U/L (15-37)
== END ==
LOC: C.LABUPNIT 09:11
PROVIDERS: ATTEND Nurse Practitioner Family
DX: I50.30 Unspecified diastolic (congestive) heart failure (principal); D64.9 Anemia, unspecified; E03.9 Hypothyroidism, unspecified; I48.2 Chronic atrial fibrillation; M62.81 Muscle weakness (generalized); L12.0 Bullous pemphigoid

== ENCOUNTER → 2017-07-12 | Outpatient (CLI) | payer OTHER ==
[~2017-07-12] MED LIST changes: -SULF-302 PO
[2017-07-12 08:37] LABS: HEMATOCRIT 27.1 % (42-52); HEMOGLOBIN 8.5 g/dL (14.0-18.0)
[2017-07-12 08:42] LABS: INR 1.9 (0.9-1.1)
== END ==
LOC: C.LABUPNIT 08:20
PROVIDERS: ATTEND Nurse Practitioner Family
DX: D64.9 Anemia, unspecified (principal); I48.2 Chronic atrial fibrillation

== ENCOUNTER → 2017-07-14 | Outpatient (CLI) | payer OTHER ==
[2017-07-14 08:58] LABS: INR 2.9 (0.9-1.1)
== END | disposition home or self-care (01) ==
LOC: C.LABUPNIT 09:14
PROVIDERS: ATTEND Nurse Practitioner Family
DX: I48.2 Chronic atrial fibrillation (principal)

== ENCOUNTER → 2017-07-19 | Outpatient (CLI) | payer OTHER ==
[2017-07-19 09:43] LABS: HEMATOCRIT 27.5 % (42-52); HEMOGLOBIN 8.9 g/dL (14.0-18.0)
[2017-07-19 10:04] LABS: INR 5.7 (0.9-1.1)
== END | disposition home or self-care (01) ==
LOC: C.LABUPNIT 08:40
PROVIDERS: ATTEND Nurse Practitioner Family
DX: D64.9 Anemia, unspecified (principal); I48.2 Chronic atrial fibrillation

== ENCOUNTER → 2017-09-10 | Outpatient (CLI) | payer OTHER ==
[~2017-09-10] MED LIST changes: +BCTRO EXT; -CIPR250T3 PO; -CITA10TA8 PO; +CITA20TA4 PO; -CMD4 PO; -DIPH25CA5 PO; +DIPH50CA31 PO; +DOXY1TAB6 PO; +DXY/100 PO; -DXY100 PO; +ERGO500011 PO; +FERR325T5 PO; +FLM4 PO; -FLV1 PO; +FOLI1TAB8 PO; -FRRS300 PO; -LDXCR60 EXT; +MAGN400T6 PO; -MGNO400 PO; +PANT1TAB4 PO; +PANT40TA PO; +PRS5 PO; +RISP0.5T10 PO; +RISP1TAB68 PO; -RSP1 PO; +SERT50TA PO; -TRMCR180 EXT; +WARF1TAB PO; +WARF3TAB6 PO; +[UNRECOGNIZED DRUG - CODE] EXT
[2017-09-10 08:31] LABS: BLOOD UREA NITROGEN 33 mg/dl (7-18); CALCIUM 8.3 mg/dl (8.5-10.1); CARBON DIOXIDE 27 mmol/L (21-32); CREATININE 1.72 mg/dl (0.60-1.40); GLUCOSE 77 mg/dl (70-99); POTASSIUM 4.5 mmol/L (3.5-5.1); SODIUM 138 mmol/L (136-145)
[2017-09-10 08:32] LABS: INR 1.9 (0.9-1.1)
== END ==
LOC: C.LABUPNIT 08:00 → EDSTATUS 09-26 15:42
PROVIDERS: ATTEND Nurse Practitioner Family
DX: I48.2 Chronic atrial fibrillation (principal)

== ENCOUNTER 2017-09-18 12:52 | Inpatient (IN) | payer OTHER ==
[~2017-09-18] VITALS: Ht 172.7 cm; Wt 72.1 kg
[~2017-09-18 12:52] MED LIST changes: -DXY/100 PO; -FLM4 PO; -PANT40TA PO; -PRED10TA PO; -PRS5 PO; -RISP0.5T10 PO; -SERT50TA PO; -WARF1TAB PO
[2017-09-18] MEDS ORDERED: SODIUM CHLORIDE 0.9% 1000ML 1,000 ML IV STA ×3 (13:27→15:16)
[2017-09-18 14:11] LABS: BASO % 0.2 %; BASO ABS # 0.02 K/uL (0-0.2); EOS % 1.1 %; HEMATOCRIT 23.8 % (42-52); HEMOGLOBIN 7.7 g/dL (14.0-18.0); IG# 0.02 K/uL (0.00-0.02); LYMPH % 4.5 %; LYMPH ABS # 0.42 K/uL (1.2-3.4); MEAN CELL VOLUME 89.1 fL (80-100); MEAN CORPUSCULAR HEMOGLOBIN 28.8 pg (25-34); MEAN CORPUSCULAR HGB CONC 32.4 g/dl (32-36); MEAN PLATELET VOLUME 9.5 fL (7.4-10.4); MONO % 11.4 %; MONO ABS # 1.06 K/uL (0.11-0.59); NEUT % 82.6 %; NEUT ABS # 7.66 K/uL (1.4-6.5); PLATELET COUNT 234 K/uL (130-400); RED CELL DISTRIBUTION WIDTH CV 15.9 % (11.5-14.5); RED CELL DISTRIBUTION WIDTH SD 52.1 fL (36.4-46.3); WHITE BLOOD COUNT 9.28 K/uL (4.8-10.8)
[2017-09-18] MEDS ORDERED: DXY/100 PO (14:30)
[2017-09-18] MEDS ORDERED: PANT40TA PO (14:30)
[2017-09-18] MEDS ORDERED: SERT50TA PO (14:30)
[2017-09-18] MEDS ORDERED: RISP0.5T10 PO (14:30)
[2017-09-18] MEDS ORDERED: WARF1TAB PO (14:35)
[2017-09-18] MEDS ORDERED: PRED10TA PO (14:35)
[2017-09-18 14:41] LABS: ALBUMIN 1.9 gm/dl (3.4-5.0); ALKALINE PHOSPHATASE 50 U/L (45-117); ALT/SGPT 22 U/L (12-78); AST/SGOT 16 U/L (15-37); TOTAL PROTEIN 5.6 gm/dl (6.4-8.2)
[2017-09-18 14:44] LABS: CALCIUM 7.9 mg/dl (8.5-10.1); CREATININE 5.3 mg/dl (0.60-1.40)
--- NOTE | 2017-09-18 14:46 | DIAGNOSTIC IMAGING REPORT ---
CT SCAN OF THE ABDOMEN AND PELVIS WITHOUT CONTRAST CLINICAL HISTORY: Hypotension, new onset renal failure. COMPARISON STUDY: No previous studies for comparison. TECHNIQUE: CT scan of the abdomen and pelvis was performed from the lung bases to the proximal femurs. Images are reviewed in the axial, sagittal, and coronal planes. IV contrast was not administered for this examination. A dose lowering technique was utilized adhering to the principles of ALARA. CT DOSE: 442.94 mGy.cm FINDINGS: Lower chest: The heart is enlarged. There are dependent atelectatic changes. Liver: The unenhanced liver is normal in size, contour, and attenuation. There is no intrahepatic biliary ductal dilatation. Gallbladder: Contracted Spleen: Normal in size and attenuation. Pancreas: Unremarkable. Adrenal glands: Unremarkable. Kidneys: No renal, ureteral, or bladder calculi are visualized. There is bilateral hydronephrosis and hydroureter. There is 18 mm right renal cyst. There is a 14 mm left renal hypodensity which slightly exceeds water attenuation and therefore is indeterminate. Bowel: There are no transition zones indicate bowel obstruction. There is a large right inguinal hernia which contains bowel. This extends into the scrotum. The hernia contains both colon and small bowel. The cecum is contained within the hernia sac. The appendix is also contained within the hernia sac. There is no evidence of acute appendicitis. Peritoneum: There is no intraperitoneal free air or abdominal ascites. Vasculature: The abdominal aorta is normal in course and caliber. Adenopathy: None. Pelvic viscera: There is pronounced bladder wall thickening and trabeculation. The prostate is mildly prominent. The findings are likely secondary to long-standing bladder outlet obstruction. Urologic consultation is recommended. Skeletal structures: No destructive osseous lesions are seen. IMPRESSION: 1. Pronounced bilateral hydronephrosis and hydroureter, likely secondary to long-standing bladder outlet obstruction as there is marked bladder wall thickening and trabeculation. Urologic consultation is recommended. 2. Large right scrotal hernia containing portions of the ascending colon, cecum, appendix, and small bowel. 3. No evidence of bowel obstruction. No evidence of free air. Electronically signed by: Delbert Devries M.D. 09/18/2017 2:45 PM Dictated Date/Time: 09/18/2017 2:38 PM
[2017-09-18 15:25] LABS: INR 4.3 (0.9-1.1)
[2017-09-18 16:21] VITALS: O2SAT 96; BMI 25.8
[2017-09-18] MEDS ORDERED: ACETAMINOPHEN 325 MG TAB PO PRN (16:30)
[2017-09-18 17:36] VITALS: BP 112/72; PULSE 67; TEMP 37.3
[2017-09-18] MEDS: SODIUM CHLORIDE 0.9% 1000ML 1,000 ML IV SCH (17:57)
--- NOTE | 2017-09-18 18:10 | History and Physical ---
History & Physical Date & Time of Service: Sep 18, 2017 at 16:55 Chief Complaint: Abnormal Labs/Hypotension Primary Care Physician: Dr. Horace Boles History of Present Illness Source: patient This is a 67 year old male who has a significant PMH of Schizophrenia, PAF on termite control technician coumadin, s/p bioprostetic Aortic Valve Replacement, Mitral Valve repair, CKD -3 baseline crea 1.2, Chronic Anemia, hx of bacterial endocarditis, HLD, hypothroidism, bullous pemphigoid who was seen in his PCP office today and sent to ED due to abnormal labs. He was recently discharged form [facility] on . In PCP office he was noted to be hypotensive, he had not bathed or showered since discharge from [facility], has not been eating or drinking well and unable to do ADLS/IADLS. He is living at home with his brother and no assistance. Outpatient labs revealed creatinine of 5.6, hgb 8.4 and sent to ED via ALS. He is currently sitting up in hospital bed states, "I don't think I'm eating enough." He complains of occasional SOB with exertion, but denies f/c/s, chest pain, sob at rest, dizziness, lightheaded, n/v/d. Last BM was yesterday, it was small and black. His stools are always black due to iron. Feels he is urinating without difficulty, denies increased frequency or urgency, but complains of dysuria. Overall he states he eats, "very light," and drinks 3 glasses of fluid a day. Last night for dinner he had spam, and breakfast this morning consisted of a fruit cup. No one is present at bedside. In ED Bun/Crea were 102 and 5.3 respectively, Na 135, K 5.0, TSH 1.01, Trop <0.015, H/H 7.7/ 23.8. Blood pressure on arrival was 79/45. He was given a bolus of IVF x 2 L and started on third liter. Blood pressure improved to 99/51. CT scan abd/ pelvis showed pronounced bilateral hydronephrosis and hydroureter, likely secondary to long-standing bladder outlet obstruction as there is marked bladder wall thickening and trabeculation. Past Medical/Surgical History Medical Problems: (1) Anticoagulant long-term use Status: Chronic (2) History of endocarditis Status: Chronic (3) HLD (hyperlipidemia) Status: Chronic (4) Hyperlipidemia Status: Chronic (5) Hypothyroidism Status: Chronic (6) Paroxysmal atrial fibrillation Status: Chronic (7) Schizophrenia, unspecified Status: Chronic (8) Superior mesenteric aneurysm Status: Chronic Surgical Problems: (1) H/O tricuspid valve annuloplasty Status: Chronic (2) S/P aortic valve replacement Status: Chronic (3) S/P mitral valve repair Status: Chronic Family History Diabetes mellitus BROTHER, Onset:Unknown FH: congestive heart failure FATHER, Onset:Unknown MOTHER, Onset:Unknown FH: heart disease FATHER, Onset:Unknown Social History Smoking Status: Never Smoker Smokeless Tobacco Use: No Alcohol Use: occasionally (Was drinking 2 beers a day, but hasn't had any EOTH in past few days, "I've lost my taste for it.") Drug Use: none Marital Status: single Housing status: lives with family (brother) Immunizations History of Influenza Vaccine: Yes Influenza Vaccine Date: Nov 10, 2016 History of Tetanus Vaccine?: Yes Tetanus Immunization Date: Apr 03, 2017 History of Pneumococcal: Yes Pneumococcal Date: Nov 10, 2016 Allergies Coded Allergies: No Known Allergies (Unverified , 06/15/17) Home Medications Scheduled Atenolol (Tenormin), 25 MG PO DAILY Atorvastatin (Lipitor), 10 MG PO DAILY Donepezil HCl (Aricept), 5 MG PO HS Ferrous Sulfate (Ferrous Sulfate), 325 MG PO BID Folic Acid (Folvite), 1 MG PO QAM Furosemide (Lasix), 20 MG PO DAILY Gabapentin (Gabapentin), 100 MG PO QAM Levothyroxine Sodium (Synthroid), 25 MCG PO DAILY Magnesium Oxide (Mag-Ox), 400 MG PO BID Pantoprazole (Protonix), 40 MG PO BID Potassium Chloride (Potassium Chloride Er), 10 MEQ PO DAILY Prednisone Tab (Prednisone), 10 MG PO UD Risperidone (Risperdal), 0.5 MG PO HS Sertraline (Zoloft), 50 MG PO DAILY Warfarin Sodium (Coumadin), 1 TAB PO UD Review of Systems As per HPI, ten systems were reviewed and negative unless noted above. Physical Exam Vital Signs Date Time Temp Pulse Resp B/P (MAP) Pulse Ox O2 Delivery O2 Flow Rate FiO2 09/18/17 16:30 69 20 104/70 96 Room Air 09/18/17 16:21 96 Room Air 09/18/17 16:01 66 18 95/61 96 Room Air 09/18/17 15:17 66 16 92/59 99 Room Air 09/18/17 14:51 66 16 90/51 09/18/17 14:29 66 18 84/47 100 Room Air 09/18/17 13:04 36.3 62 16 79/45 100 Room Air 09/18/17 13:01 63 General Appearance: no apparent distress, + thin, + pertinent finding (poorly groomed Male, appears older than stated age.) Head: normocephalic Eyes: normal inspection, PERRL, EOMI, sclerae normal ENT: hearing grossly normal, pharynx normal, + pertinent finding (Mucous membranes dry,) Neck: supple, no adenopathy, thyroid normal, no JVD, no carotid bruits Respiratory/Chest: chest non-tender, lungs clear, normal breath sounds, no respiratory distress, no accessory muscle use Cardiovascular: regular rate, rhythm, + systolic murmur (2/6 SHAKILA noted best RUSB radiates to carotids, +AVR click) Abdomen/GI: normal bowel sounds, non tender, soft, no organomegaly Genitourinary - Male: no genital lesions, + pertinent finding (+Large R inguinal hernia noted, with skin excoriation.) Back: normal inspection Extremities/Musculoskelatal: normal inspection, no calf tenderness, normal capillary refill, no pedal edema, normal range of motion Neurologic/Psych: alert, oriented x 3, + depressed affect Skin: normal color, + pertinent finding (Skin dry, + multiple excoriations to b /l lower extremities, also open sacral wound to left buttock. ) Diagnostics Laboratory Results Results Past 24 Hours Test 09/18/17 13:53 09/18/17 14:07 Range/Units White Blood Count 9.28 4.8-10.8 K/uL Red Blood Count 2.67 4.7-6.1 M/uL Hemoglobin 7.7 14.0-18.0 g/dL Hematocrit 23.8 42-52 % Mean Corpuscular Volume 89.1 80-100 fL Mean Corpuscular Hemoglobin 28.8 25-34 pg Mean Corpuscular Hemoglobin Concent 32.4 32-36 g/dl Platelet Count 234 130-400 K/uL Mean Platelet Volume 9.5 7.4-10.4 fL Neutrophils (%) (Auto) 82.6 % Lymphocytes (%) (Auto) 4.5 % Monocytes (%) (Auto) 11.4 % Eosinophils (%) (Auto) 1.1 % Basophils (%) (Auto) 0.2 % Neutrophils # (Auto) 7.66 1.4-6.5 K/uL Lymphocytes # (Auto) 0.42 1.2-3.4 K/uL Monocytes # (Auto) 1.06 0.11-0.59 K/uL Eosinophils # (Auto) 0.10 0-0.5 K/uL Basophils # (Auto) 0.02 0-0.2 K/uL RDW Standard Deviation 52.1 36.4-46.3 fL RDW Coefficient of Variation 15.9 11.5-14.5 % Immature Granulocyte % (Auto) 0.2 % Immature Granulocyte # (Auto) 0.02 0.00-0.02 K/uL Hypochromasia PRESENT Prothrombin Time 43.5 9.0-12.0 SECONDS Prothromb Time International Ratio 4.3 0.9-1.1 Sodium Level 135 136-145 mmol/L Potassium Level 5.0 3.5-5.1 mmol/L Chloride Level 104 98-107 mmol/L Carbon Dioxide Level 22 21-32 mmol/L Anion Gap 9.0 3-11 mmol/L Blood Urea Nitrogen 102 7-18 mg/dl Creatinine 5.30 0.60-1.40 mg/dl Est Creatinine Clear Calc Drug Dose 13.3 ml/min Estimated GFR () 12.1 Estimated GFR (Non- 10.4 BUN/Creatinine Ratio 19.2 10-20 Random Glucose 93 70-99 mg/dl Calcium Level 7.9 8.5-10.1 mg/dl Phosphorus Level 4.0 2.5-4.9 mg/dl Magnesium Level 2.5 1.8-2.4 mg/dl Troponin I < 0.015 0-0.045 ng/ml Pro-B-Type Natriuretic Peptide 00334 0-900 pg/ml Thyroid Stimulating Hormone (TSH) 1.010 0.300-4.500 uIu/ml Total Bilirubin 0.2 0.2-1 mg/dl Direct Bilirubin < 0.1 0-0.2 mg/dl Aspartate Amino Transf (AST/SGOT) 16 15-37 U/L Alanine Aminotransferase (ALT/SGPT) 22 12-78 U/L Alkaline Phosphatase 50 45-117 U/L Total Protein 5.6 6.4-8.2 gm/dl Albumin 1.9 3.4-5.0 gm/dl Diagnostic Radiology CT abdomen/Pelvis: 1. Pronounced bilateral hydronephrosis and hydroureter, likely secondary to long-standing bladder outlet obstruction as there is marked bladder wall thickening and trabeculation. Urologic consultation is recommended. 2. Large right scrotal hernia containing portions of the ascending colon, cecum, appendix, and small bowel. 3. No evidence of bowel obstruction. No evidence of free air. Impression Assessment and Plan (1) ОЛЕГ (acute kidney injury) Assessment & Plan: This is a 67 year old male who has a significant PMH of Schizophrenia, PAF on custodial coumadin, s/p bioprostetic Aortic Valve Replacement, Mitral Valve repair, CKD -3 baseline crea 1.2, Chronic Anemia, hx of bacterial endocarditis, HLD, hypothroidism, bullous pemphigoid who was seen in his PCP office today and sent to ED due to abnormal labs. Patient found to be in ОЛЕГ, bun/creatinine 102/5.3 concern for pre renal vs.obstructive uropathy. -Admit to MedSurg with telemetry -Continue IV fluids at 150 cc/h, monitor I's and O's closely due to history of valvular heart disease -Consult nephrology Dr. Agatha Noble, baseline creatinine 1.2 -Consult urology secondary to bilateral hydronephrosis and obstructive uropathy -Check urinalysis with microscopy -Monitor blood pressure accordingly -Repeat BMP in the a.m. (2) Hydronephrosis Assessment & Plan: With ОЛЕГ. -Bladder scan qshift/PVR -Will consult urology (3) Schizophrenia, unspecified Assessment & Plan: -Continue Risperdal and Zoloft, mood is currently stable (4) Paroxysmal atrial fibrillation Assessment & Plan: Currently he is rate and rhythm controlled -Atenolol on hold secondary to hypotension -Coumadin on hold secondary to supratherapeutic INR (5) Supratherapeutic INR Assessment & Plan: No signs of active bleeding, no need for reversal at this time. Was taking 5mg po daily at home. Hold Coumadin PT/INR in a.m. (6) Hypothyroidism Assessment & Plan: -Continue levothyroxine (7) Chronic anemia Assessment & Plan: No signs of active bleeding -Most recent H&H 7.7 and 23.8 respectively -Continue iron supplementation -We will repeat iron studies in a.m. -On August 02, 2017 iron studies was as follows ferritin 114, iron 60, T sat 20, TIBC 299. (8) Hypoalbuminemia due to protein-calorie malnutrition Assessment & Plan: Will consult plant assigner for further management. (9) Bullous skin disease Assessment & Plan: Continue prednisone 10 mg daily (10) Hyperlipidemia Assessment & Plan: Continue Lipitor (11) Scrotal hernia Assessment & Plan: Currently asymptomatic. Urology consulted for ОЛЕГ as noted above. (12) S/P aortic valve replacement (13) S/P mitral valve repair Attending Note: Patient is a 67 yr male with multiple comorbidities presents from PCP office for evaluation and management of abnormal labs, hypotension, poor appetite. His renal function worsened from baseline and Imaging studies is suggestive of chronic Obstructive Uropathy. Patient reports dizziness this morning which improved with IV fluids. Also reports burning micturition which he noticed last week which is currently resolving. States taking meds regularly since last discharge. Reports occasional SOB with exertion. Please review HPI for complete details. Physical Exam: Vitals signs as noted above General Appearance:poorly groomed, no apparent distress Head: normocephalic, Atraumatic Eyes: normal inspection, EOMI, PERRL Neck: supple, Trachea midline Respiratory/Chest: Decreased breath sounds, CTA Cardiovascular: S1, S2, +Systolic murmur Abdomen/GI:Soft, Non tender, Bowel sounds present : R inguinal hernia Extremities/Musculoskelatal:normal inspection, no edema Neurologic/Psych:AAOX3, grossly no focal neurological deficits Skin:normal color,warm, + multiple excoriations to b/l lower extremities( Improved from Prior admission), +sacral wound L buttock Assessment and Plan: Acute Kidney Injury on CKD III; likely 2/2 Chronic Obstructive Uropathy & Prerenal component 2/2 poor oral intake Hypotension Hold diuretics IV fluids Nephrology and Urology consulted Bladder Scan Protocol Avoid Nephrotoxic agents as able Urinalysis with microscopy pending Consider Abx if UA suggestive of UTI Supra therapeutic INR: No bleeding issues as per patient Hb near baseline Hold coumadin Monitor INR Afib: Resume BB and coumadin as able I personally reviewed the record. Patient is interviewed and examined at bedside. Patient's care is coordinated with Shalonda Parmar PA-C. Please refer to the documentation above for details of patient's presentation and for discussion of other issues. Advanced Directives Existing Living Will: No Existing Power of Painter Mirror: No Resuscitation Status VTE Prophylaxis Will order VTE Prophylaxis: Yes
[2017-09-18 19:44] VITALS: BP 95/61; PULSE 74; TEMP 37.3; O2SAT 96
[2017-09-18] MEDS: CEFTRIAXONE SOD INJ 1 GM in DEXTROSE 5% ADD-VANTAGE 50ML 50 ML IV SCH (20:31)
[2017-09-18] MEDS: FERROUS SULFATE 325 MG TAB PO SCH (20:32)
[2017-09-18] MEDS: DONEPEZIL HCL 5 MG TAB PO SCH (20:33)
[2017-09-18] MEDS: RISPERIDONE 0.5 MG TAB PO SCH (20:33)
[2017-09-18] MEDS: PANTOprazole SOD 40 MG TAB PO SCH (20:33)
[2017-09-18 23:25] VITALS: BP 98/63; PULSE 73; TEMP 37.2; O2SAT 97
[2017-09-19] VITALS (11 sets, daily range): BP systolic 101–121; BP diastolic 63–73; PULSE 54–71; TEMP 36.2–37.6; O2SAT 95–100; Ht 172.7 cm; Wt 72.1 kg
[2017-09-19] MEDS: LEVOTHYROXINE 25 MCG TAB PO SCH (05:31)
[2017-09-19] MEDS: SODIUM CHLORIDE 0.9% 1000ML 1,000 ML IV SCH ×2 (05:31→07:14)
[2017-09-19 06:06] LABS: HEMATOCRIT 24.5 % (42-52); HEMOGLOBIN 7.6 g/dL (14.0-18.0); MEAN CELL VOLUME 90.1 fL (80-100); MEAN CORPUSCULAR HEMOGLOBIN 27.9 pg (25-34); MEAN PLATELET VOLUME 9.7 fL (7.4-10.4); PLATELET COUNT 275 K/uL (130-400); RED CELL DISTRIBUTION WIDTH CV 16.2 % (11.5-14.5); RED CELL DISTRIBUTION WIDTH SD 53.2 fL (36.4-46.3); WHITE BLOOD COUNT 9.51 K/uL (4.8-10.8)
--- NOTE | 2017-09-19 06:45 | Clinical Documentation Query ---
CLINICAL DOCUMENTATION QUERY Dr. EPSTEIN, In your clinical opinion is this patient being managed for: (X ) suspected UTI ( ) Not Agree ( ) Other explanation of clinical findings (No explanation is considered a No Response) ( ) Unable to determine ( ) Need to Discuss (Phone CDS or qliq) (No discussion is considered a No Response) The medical record reflects the following clinical findings, treatment, and risk factors. Clinical Indicators:67 yo male presenting with ОЛЕГ. UA with large LE/>30 WBC/+3 bacteria. UA cx is pending. Treatment: IV fluids, IV rocephin, pending UA cx, urology and nephrology consults Risk Factors: ОЛЕГ, chronic obstructive uropathy, poor hygiene Please clarify and document your clinical opinion in the progress notes and discharge summary. Terms such as "probable", "suspected", "likely", "questionable", "possible", or "still to be ruled out" are acceptable. IF IN AGREEMENT, YOU MUST DOCUMENT ABOVE DIAGNOSTIC STATEMENT IN DAILY PROGRESS NOTES AND DISCHARGE SUMMARY. This document is not part of the patient's record. Thank You, Urszula Morel, RN [phone]
[2017-09-19 06:46] LABS: CALCIUM 7.6 mg/dl (8.5-10.1); CREATININE 4.97 mg/dl (0.60-1.40); POTASSIUM 5.2 mmol/L (3.5-5.1)
[2017-09-19] MEDS: PANTOprazole SOD 40 MG TAB PO SCH ×2 (07:15→20:43)
[2017-09-19] MEDS: FERROUS SULFATE 325 MG TAB PO SCH ×2 (07:15→20:44)
[2017-09-19] MEDS: ATORVASTATIN 10 MG TAB PO SCH (07:15)
[2017-09-19] MEDS: GABAPENTIN 100 MG CAP PO SCH (07:15)
[2017-09-19] MEDS: SERTRALINE HCL 50 MG TAB PO SCH (07:16)
[2017-09-19] MEDS: LACTATED RINGER'S 1000ML 1,000 ML IV SCH ×2 (08:43→15:32)
--- NOTE | 2017-09-19 12:50 | Urology Consultation ---
History General Date of Service: Sep 19, 2017. Chief Complaint: bilateral hydronephrosis Primary Care Physician: No Doctor, Assigned Pt seen a urologist before?: No History of Present Illness 67 yo male with schizophrenia admitted to [facility] with ARF. consulted for bilateral hydronephrosis seen on CT on admission. The pt has never seen a urologist in the past. He is able to void some on his own. He reports scrotal swelling that has worsened along with "leaking from the skin " several days ago. A scabbed over area of the right scrotum is noted. CT scan notes an extensive right inguinal hernia into the scrotum. Imaging Imaging: CT Laboratory Last 24 Hours Test 09/18/17 13:53 09/18/17 14:07 09/19/17 05:27 09/19/17 10:45 White Blood Count 9.28 K/uL 9.51 K/uL Red Blood Count 2.67 M/uL 2.72 M/uL Hemoglobin 7.7 g/dL 7.6 g/dL Hematocrit 23.8 % 24.5 % Mean Corpuscular Volume 89.1 fL 90.1 fL Mean Corpuscular Hemoglobin 28.8 pg 27.9 pg Mean Corpuscular Hemoglobin Concent 32.4 g/dl 31.0 g/dl Platelet Count 234 K/uL 275 K/uL Mean Platelet Volume 9.5 fL 9.7 fL Neutrophils (%) (Auto) 82.6 % Lymphocytes (%) (Auto) 4.5 % Monocytes (%) (Auto) 11.4 % Eosinophils (%) (Auto) 1.1 % Basophils (%) (Auto) 0.2 % Neutrophils # (Auto) 7.66 K/uL Lymphocytes # (Auto) 0.42 K/uL Monocytes # (Auto) 1.06 K/uL Eosinophils # (Auto) 0.10 K/uL Basophils # (Auto) 0.02 K/uL RDW Standard Deviation 52.1 fL 53.2 fL RDW Coefficient of Variation 15.9 % 16.2 % Immature Granulocyte % (Auto) 0.2 % Immature Granulocyte # (Auto) 0.02 K/uL Hypochromasia PRESENT Prothrombin Time 43.5 SECONDS 31.3 SECONDS Prothromb Time International Ratio 4.3 3.0 Sodium Level 135 mmol/L 137 mmol/L Potassium Level 5.0 mmol/L 5.2 mmol/L Chloride Level 104 mmol/L 108 mmol/L Carbon Dioxide Level 22 mmol/L 21 mmol/L Anion Gap 9.0 mmol/L 8.0 mmol/L Blood Urea Nitrogen 102 mg/dl 93 mg/dl Creatinine 5.30 mg/dl 4.97 mg/dl Est Creatinine Clear Calc Drug Dose 13.3 ml/min 14.1 ml/min Estimated GFR () 12.1 13.0 Estimated GFR (Non- 10.4 11.2 BUN/Creatinine Ratio 19.2 18.5 Random Glucose 93 mg/dl 108 mg/dl Calcium Level 7.9 mg/dl 7.6 mg/dl Phosphorus Level 4.0 mg/dl 4.0 mg/dl Magnesium Level 2.5 mg/dl 2.3 mg/dl Troponin I < 0.015 ng/ml Pro-B-Type Natriuretic Peptide 37747 pg/ml Thyroid Stimulating Hormone (TSH) 1.010 uIu/ml Total Bilirubin 0.2 mg/dl Direct Bilirubin < 0.1 mg/dl Aspartate Amino Transf (AST/SGOT) 16 U/L Alanine Aminotransferase (ALT/SGPT) 22 U/L Alkaline Phosphatase 50 U/L Total Protein 5.6 gm/dl Albumin 1.9 gm/dl Iron Level 9 mcg/dl Total Iron Binding Capacity 180 mcg/dl Transferrin 144 mg/dl Transferrin % Saturation 4 % Ferritin 158.0 ng/ml Urine Color RED Urine Appearance SL CLOUDY Urine pH >= 9.0 Urine Specific [place] 1.015 Urine Protein 2+ Urine Glucose (UA) NEG Urine Ketones NEG Urine Occult Blood 3+ Urine Nitrite NEG Urine Bilirubin NEG Urine Urobilinogen NEG Urine Leukocyte Esterase MODERATE Urine RBC >30 /hpf Urine WBC 10-30 /hpf Urine Epithelial Cells 5-10 /lpf Urine Bacteria 1+ Problem List Medical Problems: (1) ОЛЕГ (acute kidney injury) Status: Acute (2) ОЛЕГ (acute kidney injury) Status: Acute (3) CHF (congestive heart failure) Status: Acute (4) Left leg cellulitis Status: Acute (5) Malnutrition Status: Acute (6) SIRS (systemic inflammatory response syndrome) Status: Acute Past History A Fib, high cholesterol, hypothyroidism, other (endocarditis, schizophrenia, superior mesenteric aneurysm) Past Surgical History: other (tricuspid valve annuloplasty, aortic valve replacement, mitral valve repair) Family History Diabetes mellitus BROTHER, Onset:Unknown FH: congestive heart failure FATHER, Onset:Unknown MOTHER, Onset:Unknown FH: heart disease FATHER, Onset:Unknown Social History Hx Tobacco Use In Past Year?: No Smoking: non-smoker Alcohol: occasional Drug use: none Marital status: single Housing status: lives with family (brother) Immunizations History of Influenza Vaccine: Yes Influenza Vaccine Date: Nov 10, 2016 History of Tetanus Vaccine?: Yes Tetanus Immunization Date: Apr 03, 2017 History of Pneumococcal: Yes Pneumococcal Date: Nov 10, 2016 History of MDRO Yes Type of MDRO: MRSA Allergies Coded Allergies: No Known Allergies (Unverified , 06/15/17) Medications Home Medications: Home Meds and Scripts Medications Dose Route/Sig Max Daily Dose Days Date Category Coumadin (Warfarin Sodium) 1 Mg Tab 1 Tab PO UD 30 09/18/17 Reported Prednisone 10 Mg Tab 10 Mg PO UD 09/18/17 Reported Zoloft (Sertraline HCl) 50 Mg Tab 50 Mg PO DAILY 09/18/17 Reported Risperdal (Risperidone) 0.5 Mg Tab 0.5 Mg PO HS 09/18/17 Reported Protonix (Pantoprazole Sodium) 40 Mg Tab 40 Mg PO BID 09/18/17 Reported Mag-Ox (Magnesium Oxide) 400 Mg Tab 400 Mg PO BID 08/21/17 Reported Folvite (Folic Acid) 1 Mg Tab 1 Mg PO QAM 08/21/17 Reported Ferrous Sulfate 325 Mg Tab 325 Mg PO BID 08/21/17 Reported Potassium Chloride Er (Potassium Chloride) 10 Meq Cap 10 Meq PO DAILY 06/15/17 Reported Gabapentin 100 Mg Cap 100 Mg PO QAM 06/15/17 Reported Lasix (Furosemide) 20 Mg Tab 20 Mg PO DAILY 06/15/17 Reported Aricept (Donepezil HCl) 5 Mg Tab 5 Mg PO HS 06/15/17 Reported Lipitor (Atorvastatin Calcium) 10 Mg Tab 10 Mg PO DAILY 01/02/14 Reported Synthroid (Levothyroxine Sodium) 25 Mcg Tab 25 Mcg PO DAILY 01/02/14 Reported Tenormin (Atenolol) 25 Mg Tab 25 Mg PO DAILY 01/02/14 Reported Inpatient Medications: Current Inpatient Medications Medications (Trade) Dose Ordered Sig/Lakisha Route Start Time Stop Time Status Last Admin Dose Admin Acetaminophen (Tylenol Tab) 650 mg Q4H PRN PO 09/18/17 16:30 10/18/17 16:29 Atorvastatin Calcium (Lipitor Tab) 10 mg DAILY PO 09/19/17 09:00 10/19/17 08:59 09/19/17 07:15 10 MG Donepezil HCl (Aricept Tab) 5 mg HS PO 09/18/17 21:00 10/18/17 20:59 09/18/17 20:33 5 MG Ferrous Sulfate (Feosol Tab) 325 mg BID PO 09/18/17 21:00 10/18/17 20:59 09/19/17 07:15 325 MG Folic Acid (Folvite Tab) 1 mg QAM PO 09/19/17 09:00 10/19/17 08:59 09/19/17 07:15 1 MG Gabapentin (Neurontin Cap) 100 mg QAM PO 09/19/17 09:00 10/19/17 08:59 09/19/17 07:15 100 MG Levothyroxine Sodium (Synthroid Tab) 25 mcg DAILYBB PO 09/19/17 06:00 10/19/17 06:59 09/19/17 05:31 25 MCG Pantoprazole Sodium (Protonix Tab) 40 mg BID PO 09/18/17 21:00 10/18/17 20:59 09/19/17 07:15 40 MG Risperidone (Risperdal Tab) 0.5 mg HS PO 09/18/17 21:00 10/18/17 20:59 09/18/17 20:33 0.5 MG Sertraline HCl (Zoloft Tab) 50 mg DAILY PO 09/19/17 09:00 10/19/17 08:59 09/19/17 07:16 50 MG Prednisone (PredniSONE TAB) 10 mg DAILY PO 09/19/17 09:00 10/18/17 16:59 09/19/17 07:52 10 MG Ceftriaxone Sodium 1 gm/ Dextrose 50 ml @ 100 mls/hr Q24H IV 09/18/17 20:00 09/28/17 19:59 09/18/17 20:31 100 MLS/HR Lactated Ringer's 1,000 ml @ 150 mls/hr Q6H40M IV 09/19/17 08:15 10/19/17 08:14 09/19/17 08:43 150 MLS/HR Sucralfate (Carafate Tab) 1 gm ACHS PO 09/19/17 16:15 10/19/17 16:14 Review of Systems Review of Systems Constitutional: No fever, No chills Eyes: No double vision Neurological: No dizzy Endocrine: No excessive thirst Gastrointestinal: No abdominal pain, No nausea, No vomiting Cardiovascular: No chest pain Respiratory: No shortness of breath Skin: No rash Musculoskeletal: No back pain Male : No painful urination, No blood in urine Physical Exam Vital Signs: Vital Signs Past 12 Hours Date Time Temp Pulse Resp B/P (MAP) Pulse Ox O2 Delivery O2 Flow Rate FiO2 09/19/17 11:51 37.2 62 17 107/63 (78) 99 Room Air 09/19/17 08:00 97 Room Air 09/19/17 07:35 37.4 65 18 110/73 (85) 97 Room Air 09/19/17 03:07 37.6 71 17 101/65 (77) 95 Room Air Physical Exam: General Appearance: no apparent distress Eyes: bilateral eyes normal inspection ENT: hearing grossly normal Neck: no JVD Respiratory/Chest: no respiratory distress, no accessory muscle use Cardiovascular: no JVD Extremities: normal inspection Neurologic/Psychiatric: alert, normal mood/affect, oriented x 3 Skin: normal color Assessment & Plan Assessment & Plan Bilateral hydronephrosis, ARF, incomplete bladder emptying Bilateral hydronephrosis and ARF likely secondary to CHANEL and incomplete bladder emptying. Difficulty by the nursing staff to place a guardado catheter today. I was able to place an 18Fr coude guardado catheter with ~1200ml tsai colored urine return. Cath culture sent. Clean catch urine culture preliminarily positive. Tx based on sensitivities. Hopefully his Cr will improve with guardado placement . Continue to monitor. Plan to leave guardado catheter in place for 10 days. Will start him on Flomax and finasteride for CHANEL. Monitor for orthostasis after Flomax administration. Gross hematuria Cath culture and cytology ordered. Hand irrigate guardado catheter qshift by nursing. Will need to plan for outpatient cysto for further evaluation. Scrotal swelling Secondary to large right inguinal hernia. Consider general surgery consult. Supportive skin management for now. Thanks for the consult. Will continue to follow along with primary service.
--- NOTE | 2017-09-19 15:52 | Gastrointestinal Consultation ---
Gastrointestinal Consultation Date of Consultation: Sep 19, 2017 Attending Physician: Cristobal Long Consulting Physician: Darryl Peralta Reason for Consultation: Iron deficiency anemia History of Present Illness Patient is a 67 year old male w PMHx of Schizophrenia, Afib on Coumadin, s/p aortic valve replacement, mitral valve repair, CKD III, chronic anemia, bacterial endocarditis, HLD, hypothyroidism, bullous pemphigoid who was referred to ED by PCP for abnormal labs. he was DC'd from [facility] on 09/10. Noted to be hypotensive in PCP's office. Also had poor PO intake, unable to do ADLs including bathing. Outpt labs showed Cr of 5, baseline 1.2, Hgb 8 ( baseline 9). Repeat labs in ED showed no leukocytosis, H/H 09/17, Plt 200s, INR 4.3. Urine cx growing gram negative bacilli, urine appears reddish, large amt of RBC on UA. Iron indices are low, Ferritin normal. LFTs normal. At home he's on ferrous sulfate and folic acid supplements. CT abd/pelvis w/o contrast: 1. Pronounced bilateral hydronephrosis and hydroureter, likely secondary to long -standing bladder outlet obstruction as there is marked bladder wall thickening and trabeculation. Urologic following 2. Large right scrotal hernia containing portions of the ascending colon, cecum , appendix, and small bowel. 3. No evidence of bowel obstruction. No evidence of free air. GI consulted for iron deficiency anemia. Pt denies currently any CP, SOB, abd pain, n/v. He denies any hematemesis or dark/tarry stools. He's had EGD/ Colonoscopy evaluation by Dr. Weaver on 08/27/17. EGD showed severe esophagitis, Sherman's suspected but path w/o dysplasia or carcinoma, + hiatal hernia. Colonoscopy showed solitary rectal ulcer Past Medical/Surgical History Medical Problems: (1) ОЛЕГ (acute kidney injury) Status: Acute (2) ОЛЕГ (acute kidney injury) Status: Acute (3) CHF (congestive heart failure) Status: Acute (4) Left leg cellulitis Status: Acute (5) Malnutrition Status: Acute (6) SIRS (systemic inflammatory response syndrome) Status: Acute Past Medical History: See HPI above Past Surgical History: As above Family History Diabetes mellitus BROTHER, Onset:Unknown FH: congestive heart failure FATHER, Onset:Unknown MOTHER, Onset:Unknown FH: heart disease FATHER, Onset:Unknown Social History Smoking Status: Never Smoker Alcohol Use: heavy Drug Use: none Marital Status: single Housing Status: lives with family Allergies Coded Allergies: No Known Allergies (Unverified , 06/15/17) Current Medications Home Meds and Scripts Medications Dose Route/Sig Max Daily Dose Days Date Category Coumadin (Warfarin Sodium) 1 Mg Tab 1 Tab PO UD 30 09/18/17 Reported Prednisone 10 Mg Tab 10 Mg PO UD 09/18/17 Reported Zoloft (Sertraline HCl) 50 Mg Tab 50 Mg PO DAILY 09/18/17 Reported Risperdal (Risperidone) 0.5 Mg Tab 0.5 Mg PO HS 09/18/17 Reported Protonix (Pantoprazole Sodium) 40 Mg Tab 40 Mg PO BID 09/18/17 Reported Mag-Ox (Magnesium Oxide) 400 Mg Tab 400 Mg PO BID 08/21/17 Reported Folvite (Folic Acid) 1 Mg Tab 1 Mg PO QAM 08/21/17 Reported Ferrous Sulfate 325 Mg Tab 325 Mg PO BID 08/21/17 Reported Potassium Chloride Er (Potassium Chloride) 10 Meq Cap 10 Meq PO DAILY 06/15/17 Reported Gabapentin 100 Mg Cap 100 Mg PO QAM 06/15/17 Reported Lasix (Furosemide) 20 Mg Tab 20 Mg PO DAILY 06/15/17 Reported Aricept (Donepezil HCl) 5 Mg Tab 5 Mg PO HS 06/15/17 Reported Lipitor (Atorvastatin Calcium) 10 Mg Tab 10 Mg PO DAILY 01/02/14 Reported Synthroid (Levothyroxine Sodium) 25 Mcg Tab 25 Mcg PO DAILY 01/02/14 Reported Tenormin (Atenolol) 25 Mg Tab 25 Mg PO DAILY 01/02/14 Reported Review of Systems Constitutional: + weakness, No fever, No chills Respiratory: No cough, No shortness of breath Abdomen: No pain, No nausea, No vomiting Skin: No rash, No itch Physical Exam Date Time Temp Pulse Resp B/P (MAP) Pulse Ox O2 Delivery O2 Flow Rate FiO2 09/19/17 15:10 36.2 60 19 111/70 (84) 99 Room Air 09/19/17 11:51 37.2 62 17 107/63 (78) 99 Room Air 09/19/17 08:00 97 Room Air 09/19/17 07:35 37.4 65 18 110/73 (85) 97 Room Air 09/19/17 03:07 37.6 71 17 101/65 (77) 95 Room Air 09/19/17 00:00 Room Air 09/18/17 23:25 37.2 73 22 98/63 (75) 97 Room Air 09/18/17 20:00 Room Air 09/18/17 19:44 37.3 74 16 95/61 (72) 96 Room Air 09/18/17 17:36 37.3 67 20 112/72 (85) Room Air 09/18/17 17:12 70 20 110/71 96 09/18/17 16:30 69 20 104/70 96 Room Air 09/18/17 16:21 96 Room Air 09/18/17 16:01 66 18 95/61 96 Room Air General Appearance: no apparent distress Eyes: normal inspection, PERRL, EOMI Neck: supple, no JVD, trachea midline Respiratory/Chest: normal breath sounds, no respiratory distress, no accessory muscle use Cardiovascular: regular rate, rhythm, no gallop, no murmur Abdomen: normal bowel sounds, non tender, soft Extremities: normal inspection, no pedal edema, no calf tenderness Neurologic/Psych: alert, + depressed affect Skin: normal color, no jaundice, no rash Laboratory Results Last 24 Hours Test 09/19/17 05:27 09/19/17 10:45 09/19/17 12:42 White Blood Count 9.51 K/uL Red Blood Count 2.72 M/uL Hemoglobin 7.6 g/dL Hematocrit 24.5 % Mean Corpuscular Volume 90.1 fL Mean Corpuscular Hemoglobin 27.9 pg Mean Corpuscular Hemoglobin Concent 31.0 g/dl RDW Standard Deviation 53.2 fL RDW Coefficient of Variation 16.2 % Platelet Count 275 K/uL Mean Platelet Volume 9.7 fL Prothrombin Time 31.3 SECONDS Prothromb Time International Ratio 3.0 Sodium Level 137 mmol/L Potassium Level 5.2 mmol/L Chloride Level 108 mmol/L Carbon Dioxide Level 21 mmol/L Anion Gap 8.0 mmol/L Blood Urea Nitrogen 93 mg/dl Creatinine 4.97 mg/dl Est Creatinine Clear Calc Drug Dose 14.1 ml/min Estimated GFR () 13.0 Estimated GFR (Non- 11.2 BUN/Creatinine Ratio 18.5 Random Glucose 108 mg/dl Calcium Level 7.6 mg/dl Phosphorus Level 4.0 mg/dl Magnesium Level 2.3 mg/dl Iron Level 9 mcg/dl Total Iron Binding Capacity 180 mcg/dl Transferrin 144 mg/dl Transferrin % Saturation 4 % Ferritin 158.0 ng/ml Urine Color RED Urine Appearance SL CLOUDY Urine pH >= 9.0 Urine Specific [place] 1.015 Urine Protein 2+ Urine Glucose (UA) NEG Urine Ketones NEG Urine Occult Blood 3+ Urine Nitrite NEG Urine Bilirubin NEG Urine Urobilinogen NEG Urine Leukocyte Esterase MODERATE Urine RBC >30 /hpf Urine WBC 10-30 /hpf Urine Epithelial Cells 5-10 /lpf Urine Bacteria 1+ Impression Patient is a 67 year old male admitted for several issues including ОЛЕГ, acute on chronic anemia, hydronephrosis; GI consulted for iron deficiency anemia. He denies any mee s/s of GI bleeding but noted large amt of RBC in UA and his urine appear reddish. Possible worsening anemia from urinary source blood loss. He had been worked up endoscopically on 08/27/17 for iron deficiency anemia and no signs of GI bleed source. Plan - Would not repeat EGD or colonoscopy - Monitor H/H and transfuse prn - Continue iron and folic acid supplements. - Urology following, appreciate recs. ATTESTATION: I have performed a history and physical examination of this patient and reviewed the electronic record. Specifically on physical examination there is no sign of active bleeding. I have discussed the case with TANIYA Marrero. The above note reflects my findings, conclusions, and recommendations. Darryl Peralta MD
[2017-09-19 16:28] LABS: CALCIUM 7.7 mg/dl (8.5-10.1); CREATININE 4.67 mg/dl (0.60-1.40); POTASSIUM 5.3 mmol/L (3.5-5.1)
--- NOTE | 2017-09-19 16:28 | Hospitalist Progress Note ---
Hospitalist Progress Note Date of Service Sep 19, 2017. (Shalonda Parmar PA-C) Subjective Pt evaluation today including: conversation w/ patient, chart review Patient seen and evaluated at bedside in room 231-1 with nurse Rupal at bedside I feel good. Patient offers no new complaints, states he ate most of his breakfast. Slept well last night. Denies f/c/s, chest pain, sob, n/v/d, hematuria, increased urgency, frequency, melena or BRBPR. He is urinating, + dysuria x 1 week but feels this is improving. Additional Comments: As noted per HPI, 10 systems reviewed and negative unless noted above. (Shalonda Parmar PA-C) Medications Medications (Trade) Dose Ordered Sig/Lakisha Route Start Time Stop Time Status Last Admin Dose Admin Sodium Chloride 1,000 ml @ 150 mls/hr Q6H40M IV 09/18/17 17:45 09/19/17 08:10 DC 09/19/17 07:14 150 MLS/HR Atorvastatin Calcium (Lipitor Tab) 10 mg DAILY PO 09/19/17 09:00 10/19/17 08:59 09/19/17 07:15 10 MG Donepezil HCl (Aricept Tab) 5 mg HS PO 09/18/17 21:00 10/18/17 20:59 09/18/17 20:33 5 MG Ferrous Sulfate (Feosol Tab) 325 mg BID PO 09/18/17 21:00 10/18/17 20:59 09/19/17 07:15 325 MG Folic Acid (Folvite Tab) 1 mg QAM PO 09/19/17 09:00 10/19/17 08:59 09/19/17 07:15 1 MG Gabapentin (Neurontin Cap) 100 mg QAM PO 09/19/17 09:00 10/19/17 08:59 09/19/17 07:15 100 MG Levothyroxine Sodium (Synthroid Tab) 25 mcg DAILYBB PO 09/19/17 06:00 10/19/17 06:59 09/19/17 05:31 25 MCG Pantoprazole Sodium (Protonix Tab) 40 mg BID PO 09/18/17 21:00 10/18/17 20:59 09/19/17 07:15 40 MG Risperidone (Risperdal Tab) 0.5 mg HS PO 09/18/17 21:00 10/18/17 20:59 09/18/17 20:33 0.5 MG Sertraline HCl (Zoloft Tab) 50 mg DAILY PO 09/19/17 09:00 10/19/17 08:59 09/19/17 07:16 50 MG Prednisone (PredniSONE TAB) 10 mg DAILY PO 09/19/17 09:00 10/18/17 16:59 09/19/17 07:52 10 MG Ceftriaxone Sodium 1 gm/ Dextrose 50 ml @ 100 mls/hr Q24H IV 09/18/17 20:00 09/28/17 19:59 09/18/17 20:31 100 MLS/HR Lactated Ringer's 1,000 ml @ 150 mls/hr Q6H40M IV 09/19/17 08:15 10/19/17 08:14 09/19/17 15:32 150 MLS/HR (Shalonda Parmar PA-C) Objective Vital Signs Date Time Temp Pulse Resp B/P (MAP) Pulse Ox O2 Delivery O2 Flow Rate FiO2 09/19/17 15:10 36.2 60 19 111/70 (84) 99 Room Air 09/19/17 11:51 37.2 62 17 107/63 (78) 99 Room Air 09/19/17 08:00 97 Room Air 09/19/17 07:35 37.4 65 18 110/73 (85) 97 Room Air 09/19/17 03:07 37.6 71 17 101/65 (77) 95 Room Air 09/19/17 00:00 Room Air 09/18/17 23:25 37.2 73 22 98/63 (75) 97 Room Air 09/18/17 20:00 Room Air 09/18/17 19:44 37.3 74 16 95/61 (72) 96 Room Air 09/18/17 17:36 37.3 67 20 112/72 (85) Room Air 09/18/17 17:12 70 20 110/71 96 09/18/17 16:30 69 20 104/70 96 Room Air 09/18/17 16:21 96 Room Air 09/18/17 16:01 66 18 95/61 96 Room Air (Shalonda Parmar PA-C) Physical Exam Notes: Gen: Thin, poorly groomed male, lying in bed , NAD, A&O x 3 HEENT: Normocephalic, atraumatic, conjunctivae moist, sclerae normal, mucous membranes moist, poor dentition. Lung: Clear to Auscultation bilaterally, no wheezes/rales/rhonchi Heart: Regular rate, regular rhythm, 2/6 SHAKILA heard throughout, best RUSB. Abdomen: Soft, NT, ND +BS x 4 Extremities: No edema Skin: Warm, no rash, negative turgor. (Shalonda Parmar PA-C) Laboratory Results Item Value Date Time White Blood Count 9.51 K/uL 09/19/17526 Hemoglobin 7.6 g/dL L 09/19/17526 Hematocrit 24.5 % L 09/19/17526 Platelet Count 275 K/uL 09/19/17526 Prothromb Time International Ratio 3.0 H 09/19/17526 Prothrombin Time 31.3 SECONDS H 09/19/17526 Sodium Level 137 mmol/L 09/19/17526 Potassium Level 5.2 mmol/L H 09/19/17526 Chloride Level 108 mmol/L H 09/19/17526 Blood Urea Nitrogen 93 mg/dl H 09/19/17526 Creatinine 4.97 mg/dl *H # 09/19/17526 Random Glucose 108 mg/dl H 09/19/17526 Iron Level 9 mcg/dl L 09/19/17526 Total Iron Binding Capacity 180 mcg/dl L 09/19/17526 Transferrin 144 mg/dl L 09/19/17526 Transferrin % Saturation 4 % L 09/19/17526 Ferritin 158.0 ng/ml 09/19/17526 (Shalonda Parmar PA-C) Assessment and Plan (1) ОЛЕГ (acute kidney injury) Assessment & Plan: This is a 67 year old male who has a significant PMH of Schizophrenia, PAF on termite treater helper coumadin, s/p bioprostetic Aortic Valve Replacement, Mitral Valve repair, CKD -3 baseline crea 1.2, Chronic Anemia, hx of bacterial endocarditis, HLD, hypothroidism, bullous pemphigoid who was seen in his PCP office today and sent to ED due to abnormal labs. Patient found to be in ОЛЕГ, bun/creatinine 102/5.3 s/p IVF rehydration bun/crea now 93/4.97. Spivey to be secondary to pre renal and obstructive due to B.O.O -IVF switched to LR. Repeat BMP pending -Started on flomax and finasteride for B.O.O., monitor for orthostasis -PSA pending -guardado placed, 1200cc of red tinged urine, keep guardado in place for 10 days. -UA appears positive >100k gram negative bacilli, continue IV rocephin until final culture returns. -Cystoscopy in outpatient setting -Appreciate nephrology and urology recommendation (2) Hydronephrosis Assessment & Plan: - continue guardado catheter -Flomax and finasteride ordered -follow with urology. Possible cystoscopy outpatient. (3) UTI (urinary tract infection) Assessment & Plan: UA >100k gram - bacilli -Continue IV rocephin until final culture returns (4) Schizophrenia, unspecified Assessment & Plan: -Continue Risperdal and Zoloft, mood is currently stable (5) Paroxysmal atrial fibrillation Assessment & Plan: Currently he is rate and rhythm controlled -Atenolol on hold secondary to hypotension/ОЛЕГ. Monitor blood pressure. Resume when blood pressure adequate. -Coumadin on hold secondary to supratherapeutic INR. (6) Supratherapeutic INR Assessment & Plan: INR 3.0 Hold coumadin Repeat INR in a.m. (7) Hyperkalemia Assessment & Plan: -Renal diet. -repeat BMP in a.m. (8) Hypothyroidism Assessment & Plan: -Continue levothyroxine (9) Chronic anemia Assessment & Plan: Patient did have hematuria with guardado cath placement. EGD/Colonscopy done 08/27/17, +rectal ulcer/severe esophagitis with barretts -Most recent H&H 7.6 and 24.5 respectively -Continue iron supplementation, -iron studies was as follows ferritin 158, iron 9, T sat 4. (10) Hyperlipidemia Assessment & Plan: Continue Lipitor (11) Esophagitis determined by endoscopy Assessment & Plan: -Continue PPI BID -Placed on carafate qid -GI Consulted. colonoscopy/egd done 08/27/17. Spivey not to be GI source at this time. (12) Hypoalbuminemia due to protein-calorie malnutrition Assessment & Plan: Continue with dietary recommendations (13) Bullous skin disease Assessment & Plan: Continue prednisone 10 mg daily (14) Scrotal hernia Assessment & Plan: Currently asymptomatic. Urology on board in which they recommend Surgical evaluation. Would refer on outpatient basis. (15) S/P aortic valve replacement (16) S/P mitral valve repair (Shalonda Parmar PA-C) ATTENDING ADDENDUM care coordinated with EMMA Champagne please refer to her notes for full details, I agree with her notes patient seen and examined, records reviewed by myself as well on exam, patient seen laying in bed, resting, comfortable States he feels fine overall Denies shortness of breath, chest pain, dizziness, abdominal pain, nausea Some pink tinged urine in Guardado catheter Moderate signs of bleeding Denies melena hematochezia no other symptoms VS noted and reviewed oriented 2, not in distress, speaks in sentences with no effort nor accessory muscle use normal rate, regular rhythm, no murmurs clear breath sounds bilaterally, no rales wheezes non distended, soft, nontender no bipedal edema, erythema, warmth no gross neuro deficits Hemoglobin 7.7 Labs noted above as above ASSESSMENT/PLAN> Acute renal failure on CKD stage III Secondary to prerenal etiology from dehydration and postobstructive uropathy Creatinine slightly improved Nephrology consulted, IV LR Neurology consulted, Guardado catheter inserted and Flomax, finasteride, started Monitor Acute and chronic anemia Likely secondary to hematuria, neurology consulted GI consulted, recent EGD and colonoscopy on August 27, 2017, no signs of GI bleeding source Coumadin held, monitor INR Repeat H&H in the evening Transfuse if hemoglobin is below 7 Supratherapeutic INR INR now 4.3 from 3.0 Will consider vitamin K if hematuria persist hemoglobin decreasing Monitor INR daily other diagnoses and plan of care as per notes of EMMA Vivar MD ([place] MD)
[2017-09-19] MEDS: SUCRALFATE 1 GM TAB PO SCH ×2 (17:05→20:43)
--- NOTE | 2017-09-19 17:05 | Nephrology Consultation ---
Nephrology Consultation Date of Consultation: Sep 19, 2017. Attending Physician: dr Mills Requesting Physician: Dr Mills Reason for Consultation: ОЛЕГ on CKD History of Present Illness 67 y/o M w/ bullous pemphigoid, schizophrenia, complex valvular heart disease, multiple admissions [facility] past 3-4 mos sent from PCP office 09/18 to ER d/t concern for abnormal labs and inability to care for self. His presenting creatinine was 5.3, prior baseline 1.3-1.5. Also unable to perform ADLs after d /c mid month from [facility] where he had gone after most recent hospital stay. His presenting systolic BP was in 70s, his presenting hgb was 7.7. His is receiving IV fluids and empiric antibiotics. He was noted to have BL likely chronic hydronephrosis/hydroureter. Creatinine and BP are somewhat improved this am to 5.0, 4.7 this PM. Past Medical/Surgical History Medical Problems: (1) ОЛЕГ (acute kidney injury) Status: Acute (2) ОЛЕГ (acute kidney injury) Status: Acute (3) CHF (congestive heart failure) Status: Acute (4) Left leg cellulitis Status: Acute (5) Malnutrition Status: Acute (6) SIRS (systemic inflammatory response syndrome) Status: Acute -admitted 08/21-08/27/17 here for exacerbation of bullous pemphigoid -bullous pemphigoid -CKD3 -chronic valvular HF -past endocarditis s/p bioprosthetic MVR, AVF, tricuspid repair -A fib -hypothyroid -schizophrenia -superior mesenteric aneurysm Family History Diabetes mellitus BROTHER, Onset:Unknown FH: congestive heart failure FATHER, Onset:Unknown MOTHER, Onset:Unknown FH: heart disease FATHER, Onset:Unknown Social History Smoking Status: Never Smoker Alcohol Use: heavy Drug Use: none Marital Status: single Housing Status: lives with family Allergies Coded Allergies: No Known Allergies (Unverified , 06/15/17) Medications Current Inpatient Medications Medications (Trade) Dose Ordered Sig/Lakisha Route Start Time Stop Time Status Last Admin Dose Admin Sodium Chloride 1,000 ml @ 150 mls/hr Q6H40M IV 09/18/17 17:45 10/18/17 17:44 09/19/17 07:14 150 MLS/HR Acetaminophen (Tylenol Tab) 650 mg Q4H PRN PO 09/18/17 16:30 10/18/17 16:29 Atorvastatin Calcium (Lipitor Tab) 10 mg DAILY PO 09/19/17 09:00 10/19/17 08:59 09/19/17 07:15 10 MG Donepezil HCl (Aricept Tab) 5 mg HS PO 09/18/17 21:00 10/18/17 20:59 09/18/17 20:33 5 MG Ferrous Sulfate (Feosol Tab) 325 mg BID PO 09/18/17 21:00 10/18/17 20:59 09/19/17 07:15 325 MG Folic Acid (Folvite Tab) 1 mg QAM PO 09/19/17 09:00 10/19/17 08:59 09/19/17 07:15 1 MG Gabapentin (Neurontin Cap) 100 mg QAM PO 09/19/17 09:00 10/19/17 08:59 09/19/17 07:15 100 MG Levothyroxine Sodium (Synthroid Tab) 25 mcg DAILYBB PO 09/19/17 06:00 10/19/17 06:59 09/19/17 05:31 25 MCG Pantoprazole Sodium (Protonix Tab) 40 mg BID PO 09/18/17 21:00 10/18/17 20:59 09/19/17 07:15 40 MG Risperidone (Risperdal Tab) 0.5 mg HS PO 09/18/17 21:00 10/18/17 20:59 09/18/17 20:33 0.5 MG Sertraline HCl (Zoloft Tab) 50 mg DAILY PO 09/19/17 09:00 10/19/17 08:59 09/19/17 07:16 50 MG Prednisone (PredniSONE TAB) 10 mg DAILY PO 09/19/17 09:00 10/18/17 16:59 Ceftriaxone Sodium 1 gm/ Dextrose 50 ml @ 100 mls/hr Q24H IV 09/18/17 20:00 09/28/17 19:59 09/18/17 20:31 100 MLS/HR Home Meds and Scripts Medications Dose Route/Sig Max Daily Dose Days Date Category Coumadin (Warfarin Sodium) 1 Mg Tab 1 Tab PO UD 30 09/18/17 Reported Prednisone 10 Mg Tab 10 Mg PO UD 09/18/17 Reported Zoloft (Sertraline HCl) 50 Mg Tab 50 Mg PO DAILY 09/18/17 Reported Risperdal (Risperidone) 0.5 Mg Tab 0.5 Mg PO HS 09/18/17 Reported Protonix (Pantoprazole Sodium) 40 Mg Tab 40 Mg PO BID 09/18/17 Reported Mag-Ox (Magnesium Oxide) 400 Mg Tab 400 Mg PO BID 08/21/17 Reported Folvite (Folic Acid) 1 Mg Tab 1 Mg PO QAM 08/21/17 Reported Ferrous Sulfate 325 Mg Tab 325 Mg PO BID 08/21/17 Reported Potassium Chloride Er (Potassium Chloride) 10 Meq Cap 10 Meq PO DAILY 06/15/17 Reported Gabapentin 100 Mg Cap 100 Mg PO QAM 06/15/17 Reported Lasix (Furosemide) 20 Mg Tab 20 Mg PO DAILY 06/15/17 Reported Aricept (Donepezil HCl) 5 Mg Tab 5 Mg PO HS 06/15/17 Reported Lipitor (Atorvastatin Calcium) 10 Mg Tab 10 Mg PO DAILY 01/02/14 Reported Synthroid (Levothyroxine Sodium) 25 Mcg Tab 25 Mcg PO DAILY 01/02/14 Reported Tenormin (Atenolol) 25 Mg Tab 25 Mg PO DAILY 01/02/14 Reported Review of Systems Constitutional: + weakness, + fatigue, No fever, No chills Eyes: No worsening of vision ENT: No hearing loss Respiratory: No shortness of breath Cardiac: No chest pain, No orthopnea Abdomen: No pain, No vomiting, No diarrhea Musculoskeletal: No joint pain Male : + dysuria, + urinary frequency, No incontinence, No hematuria Endo: + fatigue Skin: + rash, + itch difficult to obtain d/t pt MS >> he has flight of ideas Physical Exam Date Time Temp Pulse Resp B/P (MAP) Pulse Ox O2 Delivery O2 Flow Rate FiO2 09/19/17 07:35 37.4 65 18 110/73 (85) 97 Room Air 09/19/17 03:07 37.6 71 17 101/65 (77) 95 Room Air 09/19/17 00:00 Room Air 09/18/17 23:25 37.2 73 22 98/63 (75) 97 Room Air 09/18/17 20:00 Room Air 09/18/17 19:44 37.3 74 16 95/61 (72) 96 Room Air 09/18/17 17:36 37.3 67 20 112/72 (85) Room Air 09/18/17 17:12 70 20 110/71 96 09/18/17 16:30 69 20 104/70 96 Room Air 09/18/17 16:21 96 Room Air 09/18/17 16:01 66 18 95/61 96 Room Air 09/18/17 15:17 66 16 92/59 99 Room Air 09/18/17 14:51 66 16 90/51 09/18/17 14:29 66 18 84/47 100 Room Air 09/18/17 13:04 36.3 62 16 79/45 100 Room Air 09/18/17 13:01 63 General Appearance: WD/WN, no apparent distress, + pertinent finding (lying flat on RA) Eyes: EOMI ENT: hearing grossly normal Neck: supple Respiratory/Chest: lungs clear, normal breath sounds, no respiratory distress Cardiovascular: regular rate, rhythm, no edema, + systolic murmur Abdomen: normal bowel sounds, non tender, soft, + pertinent finding (no guardado) Extremities: no pedal edema Neurologic/Psych: alert, + pertinent finding (sales, fluent speech but often oriented to self) Skin: no jaundice, warm/dry, + pertinent finding (sores on bottom, arms) Diagnostics Last 24 Hours Test 09/18/17 13:53 09/18/17 14:07 09/19/17 05:27 White Blood Count 9.28 K/uL 9.51 K/uL Red Blood Count 2.67 M/uL 2.72 M/uL Hemoglobin 7.7 g/dL 7.6 g/dL Hematocrit 23.8 % 24.5 % Mean Corpuscular Volume 89.1 fL 90.1 fL Mean Corpuscular Hemoglobin 28.8 pg 27.9 pg Mean Corpuscular Hemoglobin Concent 32.4 g/dl 31.0 g/dl Platelet Count 234 K/uL 275 K/uL Mean Platelet Volume 9.5 fL 9.7 fL Neutrophils (%) (Auto) 82.6 % Lymphocytes (%) (Auto) 4.5 % Monocytes (%) (Auto) 11.4 % Eosinophils (%) (Auto) 1.1 % Basophils (%) (Auto) 0.2 % Neutrophils # (Auto) 7.66 K/uL Lymphocytes # (Auto) 0.42 K/uL Monocytes # (Auto) 1.06 K/uL Eosinophils # (Auto) 0.10 K/uL Basophils # (Auto) 0.02 K/uL RDW Standard Deviation 52.1 fL 53.2 fL RDW Coefficient of Variation 15.9 % 16.2 % Immature Granulocyte % (Auto) 0.2 % Immature Granulocyte # (Auto) 0.02 K/uL Hypochromasia PRESENT Prothrombin Time 43.5 SECONDS 31.3 SECONDS Prothromb Time International Ratio 4.3 3.0 Sodium Level 135 mmol/L 137 mmol/L Potassium Level 5.0 mmol/L 5.2 mmol/L Chloride Level 104 mmol/L 108 mmol/L Carbon Dioxide Level 22 mmol/L 21 mmol/L Anion Gap 9.0 mmol/L 8.0 mmol/L Blood Urea Nitrogen 102 mg/dl 93 mg/dl Creatinine 5.30 mg/dl 4.97 mg/dl Est Creatinine Clear Calc Drug Dose 13.3 ml/min 14.1 ml/min Estimated GFR () 12.1 13.0 Estimated GFR (Non- 10.4 11.2 BUN/Creatinine Ratio 19.2 18.5 Random Glucose 93 mg/dl 108 mg/dl Calcium Level 7.9 mg/dl 7.6 mg/dl Phosphorus Level 4.0 mg/dl 4.0 mg/dl Magnesium Level 2.5 mg/dl 2.3 mg/dl Troponin I < 0.015 ng/ml Pro-B-Type Natriuretic Peptide 82089 pg/ml Thyroid Stimulating Hormone (TSH) 1.010 uIu/ml Total Bilirubin 0.2 mg/dl Direct Bilirubin < 0.1 mg/dl Aspartate Amino Transf (AST/SGOT) 16 U/L Alanine Aminotransferase (ALT/SGPT) 22 U/L Alkaline Phosphatase 50 U/L Total Protein 5.6 gm/dl Albumin 1.9 gm/dl Iron Level 9 mcg/dl Total Iron Binding Capacity 180 mcg/dl Transferrin 144 mg/dl Transferrin % Saturation 4 % Ferritin 158.0 ng/ml Diagnostic Radiology: CT abd/pelvis 09/18 1. Pronounced bilateral hydronephrosis and hydroureter, likely secondary to long-standing bladder outlet obstruction as there is marked bladder wall thickening and trabeculation. Urologic consultation is recommended. 2. Large right scrotal hernia containing portions of the ascending colon, cecum, appendix, and small bowel. 3. No evidence of bowel obstruction. No evidence of free air. Assessment & Plan 67 y/o M w/ bullous pemphigoid, schizophrenia, complex valvular heart disease, multiple admissions [facility] past 3-4 mos sent from PCP office 09/18 to ER d/t concern for abnormal labs and inability to care for self. His presenting creatinine was 5.3, prior baseline 1.3-1.5. Also unable to perform ADLs after d /c mid month from [facility] where he had gone after most recent hospital stay. His presenting systolic BP was in 70s, his presenting hgb was 7.7. ОЛЕГ on CKD3, not oliguric, w/ obstructive and prerenal components -baseline creatinine 1.3-1.5; hypotension improved with multiple NS boluses and maintenance fluids; HF hx noted but to date appears to be tolerating ivf and will continue >> will change NS to LR same rate 150 mL/hr for optimal chemistries >> f/u labs show not tolerating; will change to 1/2 NS w/ 75 mEq/L sodium bic same rate -chemistries mostly acceptable though K trending up > will change to renal diet -see below re guardado -pls f/u on repeat bmp for 1600 on new ivf and w/ changing renal situation BL hydronephrosis and hydroureter, likely chronic >> no stones seen -f/u urology recommendations -guardado per urology; elevated psa noted acute on chronic anemia -too severe for his degree of renal failure but w/ severe iron deficiency >> ? if he has been taking po iron; then once sepsis ruled out could give IV iron -rule out GI bleeding >> recommend fobt Appreciate consult; will follow with you. Care coordinated w/ Dr Mills
[2017-09-19] MEDS: SODIUM BICARBONATE 8.4% INJ 75 MEQ in SODIUM CHLORIDE 0.45% 1000ML 1,000 ML IV SCH (17:49)
[2017-09-19] MEDS: CEFTRIAXONE SOD INJ 1 GM in DEXTROSE 5% ADD-VANTAGE 50ML 50 ML IV SCH (19:30)
[2017-09-19] MEDS: RISPERIDONE 0.5 MG TAB PO SCH (20:43)
[2017-09-19] MEDS: DONEPEZIL HCL 5 MG TAB PO SCH (20:44)
[2017-09-19] MEDS: TAMSULOSIN HCL 0.4 MG CAP PO SCH (20:45)
[2017-09-19 21:21] LABS: HEMATOCRIT 23.9 % (42-52); HEMOGLOBIN 7.5 g/dL (14.0-18.0)
[2017-09-19 21:43] LABS: CALCIUM 7.9 mg/dl (8.5-10.1); CREATININE 4.31 mg/dl (0.60-1.40); POTASSIUM 5.3 mmol/L (3.5-5.1)
[2017-09-19] MEDS: PHYTONADIONE 5 MG TAB PO ONE ×2 (21:58→22:29)
[2017-09-20] VITALS (9 sets, daily range): BP systolic 105–132; BP diastolic 66–75; PULSE 55–64; TEMP 36.2–36.9; O2SAT 97–100
[2017-09-20] MEDS: SODIUM BICARBONATE 8.4% INJ 75 MEQ in SODIUM CHLORIDE 0.45% 1000ML 1,000 ML IV SCH ×3 (02:06→14:35)
[2017-09-20] MEDS: LEVOTHYROXINE 25 MCG TAB PO SCH (05:44)
[2017-09-20 06:14] LABS: HEMATOCRIT 27.2 % (42-52); HEMOGLOBIN 8.7 g/dL (14.0-18.0); MEAN CELL VOLUME 88.9 fL (80-100); MEAN CORPUSCULAR HEMOGLOBIN 28.4 pg (25-34); MEAN PLATELET VOLUME 9.8 fL (7.4-10.4); PLATELET COUNT 304 K/uL (130-400); RED CELL DISTRIBUTION WIDTH CV 16.1 % (11.5-14.5); RED CELL DISTRIBUTION WIDTH SD 52.3 fL (36.4-46.3); WHITE BLOOD COUNT 9.04 K/uL (4.8-10.8)
[2017-09-20 06:23] LABS: INR 1.7 (0.9-1.1)
[2017-09-20 06:43] LABS: CALCIUM 7.9 mg/dl (8.5-10.1); CREATININE 3.85 mg/dl (0.60-1.40)
[2017-09-20] MEDS: ATORVASTATIN 10 MG TAB PO SCH (07:48)
[2017-09-20] MEDS: SUCRALFATE 1 GM TAB PO SCH ×4 (07:48→21:01)
[2017-09-20] MEDS: PANTOprazole SOD 40 MG TAB PO SCH ×2 (07:48→21:02)
[2017-09-20] MEDS: FINASTERIDE 5 MG TAB PO SCH (07:49)
[2017-09-20] MEDS: GABAPENTIN 100 MG CAP PO SCH (07:50)
[2017-09-20] MEDS: FERROUS SULFATE 325 MG TAB PO SCH ×2 (07:51→21:02)
[2017-09-20] MEDS: SERTRALINE HCL 50 MG TAB PO SCH (07:51)
[2017-09-20] MEDS: BOOST BREEZE NUTRITION DRINK 1 BOX PO SCH ×2 (08:48→17:25)
--- NOTE | 2017-09-20 10:36 | Gastroenterology Progress Note ---
Progress Note Date of Service: Sep 20, 2017 Subjective Pt evaluation today including: conversation w/ patient, physical exam, chart review, lab review, review of inpatient medication list Pt appears more alert today. Had breakfast (pancakes). Denies any abd pain, n/ v. BM today appears normal per his report, no black or tarry appearance. He was given 1U PRBC transfusion last night. H/H responded. Review of Systems Constitutional: No fever, No chills Respiratory: No cough, No shortness of breath Cardiac: No chest pain Abdomen: No pain, No nausea, No vomiting Medications Current Inpatient Medications Medications (Trade) Dose Ordered Sig/Lakisha Route Start Time Stop Time Status Last Admin Dose Admin Acetaminophen (Tylenol Tab) 650 mg Q4H PRN PO 09/18/17 16:30 10/18/17 16:29 Atorvastatin Calcium (Lipitor Tab) 10 mg DAILY PO 09/19/17 09:00 10/19/17 08:59 09/20/17 07:48 10 MG Donepezil HCl (Aricept Tab) 5 mg HS PO 09/18/17 21:00 10/18/17 20:59 09/19/17 20:44 5 MG Ferrous Sulfate (Feosol Tab) 325 mg BID PO 09/18/17 21:00 10/18/17 20:59 09/20/17 07:51 325 MG Folic Acid (Folvite Tab) 1 mg QAM PO 09/19/17 09:00 10/19/17 08:59 09/20/17 07:49 1 MG Gabapentin (Neurontin Cap) 100 mg QAM PO 09/19/17 09:00 10/19/17 08:59 09/20/17 07:50 100 MG Levothyroxine Sodium (Synthroid Tab) 25 mcg DAILYBB PO 09/19/17 06:00 10/19/17 06:59 09/20/17 05:44 25 MCG Pantoprazole Sodium (Protonix Tab) 40 mg BID PO 09/18/17 21:00 10/18/17 20:59 09/20/17 07:48 40 MG Risperidone (Risperdal Tab) 0.5 mg HS PO 09/18/17 21:00 10/18/17 20:59 09/19/17 20:43 0.5 MG Sertraline HCl (Zoloft Tab) 50 mg DAILY PO 09/19/17 09:00 10/19/17 08:59 09/20/17 07:51 50 MG Prednisone (PredniSONE TAB) 10 mg DAILY PO 09/19/17 09:00 10/18/17 16:59 09/20/17 07:51 10 MG Ceftriaxone Sodium 1 gm/ Dextrose 50 ml @ 100 mls/hr Q24H IV 09/18/17 20:00 09/28/17 19:59 09/19/17 19:30 100 MLS/HR Sucralfate (Carafate Tab) 1 gm ACHS PO 09/19/17 16:15 10/19/17 16:14 09/20/17 07:48 1 GM Tamsulosin HCl (Flomax Cap) 0.4 mg HS PO 09/19/17 21:00 10/19/17 20:59 09/19/17 20:45 0.4 MG Finasteride (Proscar Tab) 5 mg QAM PO 09/20/17 09:00 10/20/17 08:59 09/20/17 07:49 5 MG Enteral Nutritional Formula (Boost Breeze Nutritional Drink) 1 box BIDM PO 09/20/17 07:30 10/20/17 07:29 09/20/17 08:48 1 BOX Sodium Bicarbonate 75 meq/Sodium Chloride 1,075 ml @ 125 mls/hr Q8H36M IV 09/19/17 17:30 10/19/17 17:29 09/20/17 05:44 125 MLS/HR Objective Vital Signs Date Time Temp Pulse Resp B/P (MAP) Pulse Ox O2 Delivery O2 Flow Rate FiO2 09/20/17 08:09 97 Room Air 09/20/17 04:14 36.8 55 17 117/72 (87) 97 Room Air 09/20/17 00:55 36.7 64 16 118/74 98 09/20/17 00:01 Room Air 09/19/17 23:55 36.7 64 18 120/73 99 09/19/17 23:25 36.6 60 18 108/63 98 09/19/17 23:05 36.2 64 18 114/73 99 09/19/17 21:41 54 20 116/70 (85) 55 113/70 (84) 54 121/68 (85) 7/25/18 19:34 36.7 57 18 106/66 (79) 100 Room Air 09/19/17 16:00 99 Room Air 09/19/17 15:10 36.2 60 19 111/70 (84) 99 Room Air 09/19/17 11:51 37.2 62 17 107/63 (78) 99 Room Air Physical Exam General Appearance: WD/WN, no apparent distress Eyes: normal inspection, PERRL, EOMI Neck: supple, no JVD, trachea midline Respiratory/Chest: normal breath sounds, no respiratory distress, no accessory muscle use Cardiovascular: regular rate, rhythm, no gallop, no murmur Abdomen: normal bowel sounds, non tender, soft Extremities: normal inspection, no pedal edema, no calf tenderness Neurologic/Psych: alert, normal mood/affect, oriented x 3 Skin: normal color, no jaundice, no rash Laboratory Results Last 24 Hours Test 09/19/17 10:45 09/19/17 15:50 09/19/17 21:11 09/20/17 05:39 Urine Color RED Urine Appearance SL CLOUDY Urine pH >= 9.0 Urine Specific [place] 1.015 Urine Protein 2+ Urine Glucose (UA) NEG Urine Ketones NEG Urine Occult Blood 3+ Urine Nitrite NEG Urine Bilirubin NEG Urine Urobilinogen NEG Urine Leukocyte Esterase MODERATE Urine RBC >30 /hpf Urine WBC 10-30 /hpf Urine Epithelial Cells 5-10 /lpf Urine Bacteria 1+ Sodium Level 138 mmol/L 140 mmol/L 141 mmol/L Potassium Level 5.3 mmol/L 5.3 mmol/L 5.0 mmol/L Chloride Level 112 mmol/L 112 mmol/L 111 mmol/L Carbon Dioxide Level 18 mmol/L 22 mmol/L 25 mmol/L Anion Gap 8.0 mmol/L 6.0 mmol/L 5.0 mmol/L Blood Urea Nitrogen 86 mg/dl 86 mg/dl 84 mg/dl Creatinine 4.67 mg/dl 4.31 mg/dl 3.85 mg/dl Est Creatinine Clear Calc Drug Dose 15.0 ml/min 16.3 ml/min 18.3 ml/min Estimated GFR () 14.0 15.5 17.7 Estimated GFR (Non- 12.1 13.3 15.3 BUN/Creatinine Ratio 18.3 20.0 21.9 Random Glucose 144 mg/dl 121 mg/dl 86 mg/dl Calcium Level 7.7 mg/dl 7.9 mg/dl 7.9 mg/dl Prostate Specific Antigen 6.380 ng/ml Hemoglobin 7.5 g/dL Hematocrit 23.9 % Test 09/20/17 05:40 White Blood Count 9.04 K/uL Red Blood Count 3.06 M/uL Hemoglobin 8.7 g/dL Hematocrit 27.2 % Mean Corpuscular Volume 88.9 fL Mean Corpuscular Hemoglobin 28.4 pg Mean Corpuscular Hemoglobin Concent 32.0 g/dl RDW Standard Deviation 52.3 fL RDW Coefficient of Variation 16.1 % Platelet Count 304 K/uL Mean Platelet Volume 9.8 fL Prothrombin Time 17.5 SECONDS Prothromb Time International Ratio 1.7 Assessment and Plan Patient is a 67 year old male admitted for several issues including ОЛЕГ, acute on chronic anemia, hydronephrosis; GI consulted for iron deficiency anemia. He denies any mee s/s of GI bleeding but noted large amt of RBC in UA and his urine appear reddish. Possible worsening anemia from urinary source blood loss. He had been worked up endoscopically on 08/27/17 for iron deficiency anemia and no signs of GI bleed source. 1U PRBC given last night, H/H responded. He ate well for breakfast no abd pain, n/v, BM w/o dark or tarry appearance, no rectal bleeding. Plan - Would not repeat EGD or colonoscopy - Monitor H/H and transfuse prn - Continue iron and folic acid supplements. - Urology following, appreciate recs. - GI will sign off, call if new questions/concerns arise. ATTESTATION: I have performed a history and physical examination of this patient and reviewed the electronic record. Specifically on physical examination abdominal examination is benign and there is no sign of active gastrointestinal hemorrhage. I have discussed the case with TANIYA Marrero. The above note reflects my findings, conclusions, and recommendations. Darryl Peralta MD
--- NOTE | 2017-09-20 11:20 | Progress Note ---
Progress Note Date of Service Sep 20, 2017. Progress Note Afebrile vital signs are stable No complaints offered Tolerating the King well Is having a postobstructive diuresis as expected Creatinine slowly dropping Urine culture positive with Proteus currently on appropriate antibiotic Assessment Bilateral hydronephrosis secondary to bladder outlet obstruction from his prostate Would continue King for now Treat infection for 2 weeks with appropriate antibiotic based on sensitivities We will probably need a TURP in the future When stable for discharge she should go home with the catheter in follow-up in our office
--- NOTE | 2017-09-20 12:12 | Hospitalist Progress Note ---
Hospitalist Progress Note Date of Service Sep 20, 2017. (Shalonda Parmar PA-C) Subjective Pt evaluation today including: conversation w/ patient, chart review Patient was seen and evaluated at bedside in room 231. Discussed with attending, last evening patient received vitamin K secondary to hematuria, 1 unit PRBC secondary to low H&H. He is lying in bed denies any acute concerns. Denies fever, chills, sweats, chest pain, shortness of breath, nausea, vomiting, diarrhea. States his last bowel movement was a few days ago, denies bloating. He is passing gas. Ate 100 % of his breakfast which included pancakes and drinking well. No reported events per nursing Additional Comments: As noted per HPI, 10 systems reviewed and negative unless noted above. (Shalonda Parmar PA-C) Medications Medications (Trade) Dose Ordered Sig/Lakisha Route Start Time Stop Time Status Last Admin Dose Admin Sucralfate (Carafate Tab) 1 gm ACHS PO 09/19/17 16:15 10/19/17 16:14 09/20/17 11:14 1 GM Tamsulosin HCl (Flomax Cap) 0.4 mg HS PO 09/19/17 21:00 10/19/17 20:59 09/19/17 20:45 0.4 MG Finasteride (Proscar Tab) 5 mg QAM PO 09/20/17 09:00 10/20/17 08:59 09/20/17 07:49 5 MG Enteral Nutritional Formula (Boost Breeze Nutritional Drink) 1 box BIDM PO 09/20/17 07:30 10/20/17 07:29 09/20/17 08:48 1 BOX Sodium Bicarbonate 75 meq/Sodium Chloride 1,075 ml @ 125 mls/hr [id number] IV 09/19/17 17:30 10/19/17 17:29 09/20/17 05:44 125 MLS/HR Phytonadione (Mephyton Tab) 2.5 mg NOW ONCE PO 09/19/17 21:00 09/19/17 21:03 DC 09/19/17 22:29 2.5 MG (Shalonda Parmar PA-C) Objective Vital Signs Date Time Temp Pulse Resp B/P (MAP) Pulse Ox O2 Delivery O2 Flow Rate FiO2 09/20/17 08:09 97 Room Air 09/20/17 04:14 36.8 55 17 117/72 (87) 97 Room Air 09/20/17 00:55 36.7 64 16 118/74 98 09/20/17 00:01 Room Air 09/19/17 23:55 36.7 64 18 120/73 99 09/19/17 23:25 36.6 60 18 108/63 98 09/19/17 23:05 36.2 64 18 114/73 99 09/19/17 21:41 54 20 116/70 (85) 55 113/70 (84) 54 121/68 (85) 09/19/17 19:34 36.7 57 18 106/66 (79) 100 Room Air 09/19/17 16:00 99 Room Air 09/19/17 15:10 36.2 60 19 111/70 (84) 99 Room Air (Shalonda Parmar PA-C) Physical Exam Notes: Gen: Thin, male, lying in bed, NAD, A&O x3 HEENT: Normocephalic, atraumatic, conjunctivae moist, sclerae anicteric, mucous membranes moist, poor dentition. Lung: Clear to Auscultation bilaterally, no wheezes/rales/rhonchi Heart: Regular rate, regular rhythm, no audible 2/6 SHAKILA throughout but best at RUSB murmurs, no rubs, or gallops Abdomen: Soft, NT, ND +BS x 4 Extremities: No edema Skin: Warm, no rash, negative turgor. : Positive Guardado with hematuria (Shalonda Parmar PA-C) Laboratory Results Last 24 Hours Item Value Date Time White Blood Count 9.04 K/uL 09/20/17 0540 Hemoglobin 8.7 g/dL L 09/20/17 0540 Hematocrit 27.2 % L 09/20/17 0540 Platelet Count 304 K/uL 09/20/17 0540 Prothrombin Time 17.5 SECONDS H 09/20/17 0540 Prothromb Time International Ratio 1.7 H 09/20/17 0540 Sodium Level 141 mmol/L 09/20/17 0539 Potassium Level 5.0 mmol/L 09/20/17 0539 Chloride Level 111 mmol/L H 09/20/17 0539 Blood Urea Nitrogen 84 mg/dl H 09/20/17 0539 Creatinine 3.85 mg/dl H # 09/20/17 0539 Random Glucose 86 mg/dl 09/20/17 0539 Prostate Specific Antigen 6.380 ng/ml H 09/19/17 1550 (Shalonda Parmar, DIAMOND) Assessment and Plan (1) ОЛЕГ (acute kidney injury) Assessment & Plan: This is a 67 year old male who has a significant PMH of Schizophrenia, PAF on usp coumadin, s/p bioprostetic Aortic Valve Replacement, Mitral Valve repair, CKD -3 baseline crea 1.2, Chronic Anemia, hx of bacterial endocarditis, HLD, hypothroidism, bullous pemphigoid who was seen in his PCP office today and sent to ED due to abnormal labs. Patient found to be in ОЛЕГ, bun/creatinine 102/5.3 s/p IVF rehydration bun/crea now 93/4.97. [place] to be secondary to pre renal and obstructive due to B.O.O Renal function improving with IV fluid and Guardado catheter -IVF switched to 1/2 NS with sodium bicarb -Continue on flomax and finasteride for B.O.O., monitor for orthostasis -PSA elevated at 6.38 -Per urology continue Guardado and follow-up on outpatient basis, most likely will need cystoscopy -Continue treating UTI with appropriate antibiotic for 14 days -Appreciate nephrology and urology recommendation (2) Hydronephrosis Assessment & Plan: - continue guardado catheter and follow with urology outpatient -Continue Flomax and finasteride (3) UTI (urinary tract infection) Assessment & Plan: UA >100k Proteus mirabilis -Continue IV rocephin as it is sensitive and per urology continue sensitive antibiotic treatment for 14 day duration -Afebrile, WBC normal (4) Schizophrenia, unspecified Assessment & Plan: -Continue Risperdal and Zoloft, mood is currently stable (5) Paroxysmal atrial fibrillation Assessment & Plan: Currently he is rate and rhythm controlled -Atenolol on hold secondary to hypotension/ОЛЕГ. Monitor blood pressure. Resume when blood pressure adequate. -Coumadin on hold secondary to supratherapeutic INR, INR is now 1.7 secondary to hematuria we will continue to hold Coumadin. -He is on telemetry in normal sinus rhythm -Repeat INR in a.m. (6) Supratherapeutic INR Assessment & Plan: S/p vitamin K secondary hematuria I -INR now 1.7 -Continue to hold Coumadin secondary to hematuria -We will repeat INR in a.m. (7) Hyperkalemia Assessment & Plan: -Renal diet. -K now 5.0 on 1/2 NS with sodium bicarb -Repeat BMP in a.m. (8) Hypothyroidism Assessment & Plan: -Continue levothyroxine (9) Chronic anemia Assessment & Plan: Patient currently with hematuria S/P guardado cath placement. EGD/Colonscopy done 08/27/17, +rectal ulce -check FOBT -Continue iron supplementation, -iron studies was as follows ferritin 158, iron 9, T sat 4. Can consider IV iron (10) Hyperlipidemia Assessment & Plan: Continue Lipitor (11) Esophagitis determined by endoscopy Assessment & Plan: -Continue PPI BID -On carafate qid -GI Consulted. colonoscopy/egd done 08/27/17. [place] not to be GI source at this time. GI signed off (12) Hypoalbuminemia due to protein-calorie malnutrition Assessment & Plan: Continue with dietary recommendations, ordered boost (13) Bullous skin disease Assessment & Plan: Continue prednisone 10 mg daily (14) Scrotal hernia Assessment & Plan: Currently asymptomatic. Urology on board in which they recommend Surgical evaluation. Would refer on outpatient basis. (15) S/P aortic valve replacement (16) S/P mitral valve repair (Shalonda Parmar PA-C) ATTENDING ADDENDUM delayed entry, date of service as noted above care coordinated with EMMA Champagne please refer to her notes for full details, I agree with her notes patient seen and examined, records reviewed by myself as well on exam, seen resting in bed comfortable no chest pain, dyspnea no other symptoms VS noted and reviewed oriented 2, not in distress, speaks in sentences with no effort nor accessory muscle use normal rate, regular rhythm, no murmurs clear breath sounds bilaterally non distended, soft, nontender no bipedal edema, erythema, warmth no gross neuro deficits Hg 9.0 Crea 3.8 ASSESSMENT/PLAN> Acute renal failure on CKD stage III Secondary to prerenal etiology from dehydration and postobstructive uropathy improving continue IV fluids Acute and chronic anemia Likely secondary to hematuria, neurology consulted GI consulted, recent EGD and colonoscopy on August 27, 2017, no signs of GI bleeding source Coumadin held, monitor INR Hg 9.0 other diagnoses and plan of care as per notes of EMMA Vivar MD ([place] MD) (P[place] Mills MD)
[2017-09-20 16:40] LABS: HEMATOCRIT 26.4 % (42-52); HEMOGLOBIN 8.5 g/dL (14.0-18.0); MEAN CORPUSCULAR HEMOGLOBIN 28.3 pg (25-34); MEAN CORPUSCULAR HGB CONC 32.2 g/dl (32-36); MEAN PLATELET VOLUME 9.7 fL (7.4-10.4); PLATELET COUNT 313 K/uL (130-400); RED CELL DISTRIBUTION WIDTH CV 16.1 % (11.5-14.5); RED CELL DISTRIBUTION WIDTH SD 52.1 fL (36.4-46.3); WHITE BLOOD COUNT 9.95 K/uL (4.8-10.8)
[2017-09-20] MEDS: CEFTRIAXONE SOD INJ 1 GM in DEXTROSE 5% ADD-VANTAGE 50ML 50 ML IV SCH (19:53)
[2017-09-20] MEDS: DONEPEZIL HCL 5 MG TAB PO SCH (21:00)
[2017-09-20] MEDS: RISPERIDONE 0.5 MG TAB PO SCH (21:01)
[2017-09-20] MEDS: TAMSULOSIN HCL 0.4 MG CAP PO SCH (21:01)
[2017-09-21] MEDS: SODIUM BICARBONATE 8.4% INJ 75 MEQ in SODIUM CHLORIDE 0.45% 1000ML 1,000 ML IV SCH ×3 (01:01→20:26)
[2017-09-21 04:26] VITALS: BP 135/80; PULSE 56; TEMP 36.7; O2SAT 98
[2017-09-21] MEDS: LEVOTHYROXINE 25 MCG TAB PO SCH (06:06)
[2017-09-21 06:22] LABS: HEMATOCRIT 28.4 % (42-52); HEMOGLOBIN 8.8 g/dL (14.0-18.0); MEAN CELL VOLUME 87.9 fL (80-100); MEAN CORPUSCULAR HEMOGLOBIN 27.2 pg (25-34); MEAN PLATELET VOLUME 9.4 fL (7.4-10.4); PLATELET COUNT 364 K/uL (130-400); RED CELL DISTRIBUTION WIDTH CV 15.8 % (11.5-14.5); RED CELL DISTRIBUTION WIDTH SD 51.1 fL (36.4-46.3); WHITE BLOOD COUNT 9.29 K/uL (4.8-10.8)
[2017-09-21 06:27] LABS: INR 1.2 (0.9-1.1)
[2017-09-21 07:03] LABS: CALCIUM 7.7 mg/dl (8.5-10.1); CREATININE 2.92 mg/dl (0.60-1.40); POTASSIUM 4.2 mmol/L (3.5-5.1)
[2017-09-21] MEDS: SUCRALFATE 1 GM TAB PO SCH ×4 (07:35→19:51)
[2017-09-21] MEDS: BOOST BREEZE NUTRITION DRINK 1 BOX PO SCH ×2 (07:35→15:56)
[2017-09-21 07:49] VITALS: BP 108/67; PULSE 61; TEMP 36.8; O2SAT 92
[2017-09-21] MEDS: PANTOprazole SOD 40 MG TAB PO SCH ×2 (08:24→19:51)
[2017-09-21] MEDS: FINASTERIDE 5 MG TAB PO SCH (08:24)
[2017-09-21] MEDS: FERROUS SULFATE 325 MG TAB PO SCH ×2 (08:24→19:50)
[2017-09-21] MEDS: GABAPENTIN 100 MG CAP PO SCH (08:24)
[2017-09-21] MEDS: ATORVASTATIN 10 MG TAB PO SCH (08:25)
[2017-09-21] MEDS: SERTRALINE HCL 50 MG TAB PO SCH (08:25)
--- NOTE | 2017-09-21 11:23 | Hospitalist Progress Note ---
Hospitalist Progress Note Date of Service Sep 21, 2017 ~ 8:00. (Shalonda Parmar PA-C) ATTENDING ADDENDUM care coordinated with EMMA Champagne please refer to her notes for full details, I agree with her notes patient seen and examined, records reviewed by myself as well on exam, patient seen laying in bed, resting, comfortable States he feels okay today No shortness of breath No abdominal pain Fevers chills no other symptoms VS noted and reviewed oriented 2, not in distress, speaks in sentences with no effort nor accessory muscle use normal rate, regular rhythm, no murmurs clear breath sounds bilaterally, no rales wheezes non distended, soft, nontender no bipedal edema, erythema, warmth no gross neuro deficits Hemoglobin 8.5 Creatinine 2.9 ASSESSMENT/PLAN> Acute renal failure on CKD stage III Secondary to prerenal etiology from dehydration and postobstructive uropathy Creatinine trending down Nephrology consulted, IV NSS with HCO3 Neurology consulted, Guardado catheter inserted and Flomax, finasteride, started Monitor Acute and chronic anemia Likely secondary to hematuria, neurology consulted GI consulted, recent EGD and colonoscopy on August 27, 2017, no signs of GI bleeding source Hemoglobin remaining stable after 1 unit of packed RBCs INR subtherapeutic, resume Coumadin Supratherapeutic INR INR subtherapeutic, resume Coumadin other diagnoses and plan of care as per notes of EMMA Vivar MD ([place] MD) Subjective Pt evaluation today including: conversation w/ patient, chart review Patient was seen and evaluated up in chair in room 231-1 Patient offers no new complaints today, slept well. Denies fever, chills, sweats, chest pain, shortness of breath, nausea, vomiting, diarrhea, pain. He continues with Guardado catheter. Nursing reports no events overnight, urine transition to pale yellow color on the evening shift yesterday. No further clots past in guardado. His p.o. intake is improving per nursing, ate 75% of breakfast. Additional Comments: As noted per HPI, 10 systems reviewed and negative unless noted above. (Shalonda Parmar PA-C) Medications Medications reviewed (Pataky, Shalonda L., PA-C) Objective Vital Signs Date Time Temp Pulse Resp B/P (MAP) Pulse Ox O2 Delivery O2 Flow Rate FiO2 09/21/17 08:00 Room Air 09/21/17 07:49 36.8 61 18 108/67 (81) 92 Room Air 09/21/17 04:26 36.7 56 18 135/80 (98) 98 09/21/17 00:01 Room Air 09/20/17 23:54 36.9 63 18 105/67 (80) 100 Room Air 09/20/17 19:50 36.3 57 16 132/75 (94) 99 Room Air 09/20/17 16:00 99 Room Air 09/20/17 15:28 36.2 59 20 114/69 (84) 99 Room Air 09/20/17 12:40 36.5 62 18 116/66 (83) 98 Room Air 09/20/17 12:09 97 Room Air (Shalonda Parmar, SHELLIEC) Physical Exam Notes: Gen: Thin, male, sitting up in chair eating breakfast, NAD, A&O x3 HEENT: Normocephalic, atraumatic, conjunctivae moist, sclerae anicteric, mucous membranes moist. Lung: Clear to Auscultation bilaterally, no wheezes/rales/rhonchi Heart: Regular rate, regular rhythm, audible 2/6 SHAKILA throughout but best at RUSB murmurs, no rubs, or gallops Abdomen: Soft, NT, ND +BS x 4 Extremities: No edema Skin: Warm, no rash, negative turgor. : Positive Guardado with pale yellow urine noted. (Shalonda Parmar PA-C) Laboratory Results Item Value Date Time White Blood Count 9.29 K/uL 09/21/17 0559 Hemoglobin 8.8 g/dL L 09/21/17 0559 Hematocrit 28.4 % L 09/21/17 0559 Platelet Count 364 K/uL 09/21/17 0559 Prothrombin Time 12.1 SECONDS H 09/21/17 0559 Prothromb Time International Ratio 1.2 H 09/21/17 0559 Sodium Level 141 mmol/L 09/21/17 0559 Potassium Level 4.2 mmol/L # 09/21/17 0559 Chloride Level 108 mmol/L H 09/21/17 0559 Carbon Dioxide Level 28 mmol/L 09/21/17 0559 Blood Urea Nitrogen 63 mg/dl H 09/21/17 0559 Creatinine 2.92 mg/dl H # 09/21/17 0559 Random Glucose 82 mg/dl 09/21/17 0559 Last 24 Hours (Shalonda Parmar PA-C) Assessment and Plan (1) ОЛЕГ (acute kidney injury) Assessment & Plan: This is a 67 year old male who has a significant PMH of Schizophrenia, PAF on half-way coumadin, s/p bioprostetic Aortic Valve Replacement, Mitral Valve repair, CKD -3 baseline crea 1.2, Chronic Anemia, hx of bacterial endocarditis, HLD, hypothroidism, bullous pemphigoid who was seen in his PCP office today and sent to ED due to abnormal labs. Patient found to be in ОЛЕГ, bun/creatinine 102/5.3 [place] to be secondary to pre renal and obstructive due to B.O.O Renal function improving with IV fluid and Guardado catheter. BUN and creatinine today 63/2.92 respectively -IVF switched to 1/2 NS with sodium bicarb -Continue on flomax and finasteride for B.O.O., monitor for orthostasis -PSA elevated at 6.38 -Per urology continue Guardado and follow-up on outpatient basis for voiding trial -Continue treating UTI with appropriate antibiotic for 14 days -Appreciate nephrology and urology recommendation (2) Hydronephrosis Assessment & Plan: - continue guardado catheter and follow with urology outpatient -Continue Flomax and finasteride (3) UTI (urinary tract infection) Assessment & Plan: UA >100k Proteus mirabilis -Continue IV rocephin as it is sensitive and per urology continue sensitive antibiotic treatment for 14 day duration -Afebrile, WBC normal (4) Schizophrenia, unspecified Assessment & Plan: -Continue Risperdal and Zoloft, mood is currently stable (5) Paroxysmal atrial fibrillation Assessment & Plan: Currently he is rate and rhythm controlled -Atenolol on hold secondary to hypotension/ОЛЕГ. Monitor blood pressure. Resume when blood pressure adequate. -Resume Coumadin 3mg daily. -INR daily (6) Supratherapeutic INR Assessment & Plan: S/p vitamin K secondary hematuria -Hematuria now resolved -INR 1.2 -Discussed with urology regarding reinitiating Coumadin, if agree restart 3 mg daily -We will repeat INR daily (7) Hyperkalemia Assessment & Plan: -Renal diet. -K 4.2 on 02/27 NS with sodium bicarb -Repeat BMP in a.m. (8) Hypothyroidism Assessment & Plan: -Continue levothyroxine (9) Chronic anemia Assessment & Plan: Patient currently with hematuria S/P guardado cath placement. EGD/Colonscopy done 08/27/17, +rectal ulcer -FOBT negative -Continue iron supplementation, -iron studies was as follows ferritin 158, iron 9, T sat 4. Can consider IV iron (10) Hyperlipidemia Assessment & Plan: Continue Lipitor (11) Esophagitis determined by endoscopy Assessment & Plan: -Continue PPI BID -On carafate qid -GI Consulted. colonoscopy/egd done 08/27/17. [place] not to be GI source at this time. GI signed off (12) Hypoalbuminemia due to protein-calorie malnutrition Assessment & Plan: Continue with dietary recommendations, ordered boost (13) Bullous skin disease Assessment & Plan: Continue prednisone 10 mg daily (14) Scrotal hernia Assessment & Plan: Currently asymptomatic. Urology on board in which they recommend Surgical evaluation. Would refer on outpatient basis. (15) S/P aortic valve replacement (16) S/P mitral valve repair (Shalonda Parmar, SHELLIEC)
[2017-09-21 12:31] VITALS: BP 107/67; PULSE 60; TEMP 36.9; O2SAT 99
[2017-09-21 15:31] VITALS: BP 126/80; PULSE 56; TEMP 36.2; O2SAT 98
[2017-09-21] MEDS: WARFARIN SOD 3 MG TAB PO SCH (15:56)
--- NOTE | 2017-09-21 19:24 | SURGICAL CONSULTATION ---
DATE OF CONSULTATION: 09/21/2017 HISTORY OF PRESENT ILLNESS: I have been asked by Shalonda Parmar PA-C, to see this 67-year-old male for evaluation of a large right inguinal hernia. The patient was in [facility] until 09/10/2017. He was discharged to home, but had not been taking very good care of himself. He had not bathed. He was not eating very much. His bowels were moving. He was not having any urinary symptoms, but he was not drinking very much either. He was noted to have acute kidney injury and was admitted. During the admission, he was noted to have a large right inguinal hernia and we have been asked to evaluate that. The patient states that hernia has been there for many, many years and has been increasing in size. It does not cause him any pain. Again, he has not had any bowel habit issues as a result of this and no urinary symptoms either. PAST MEDICAL HISTORY: Includes paroxysmal atrial fibrillation, aortic valve disease and is status post aortic valve replacement, mitral valve disease status post mitral valve replacement, chronic kidney disease with now acute kidney injury, chronic anemia, bacterial endocarditis, hyperlipidemia, hypothyroidism. PAST SURGICAL HISTORY: Aortic valve replacement and mitral valve replacement as well as tricuspid valve annuloplasty. MEDICATIONS AT HOME: Included Tenormin, Lipitor, Aricept, ferrous sulfate, Folvite, Lasix, gabapentin, Synthroid, Mag-Ox, Protonix, potassium, prednisone, Risperdal, Zoloft and Coumadin. ALLERGIES: None. PHYSICAL EXAMINATION: GENERAL: Reveals an elderly, very thin male who appears in no acute distress. VITAL SIGNS: Blood pressure 126/80, heart rate 56, respirations 18, temperature 36.2, pulse oximetry is 98% on room air. HEENT: Reveals sclerae are anicteric. Mucous membranes are moist. NECK: Supple, with no adenopathy. BACK: Has no spinal or CVA tenderness. LUNGS: Clear. HEART: Regular. ABDOMEN: Soft and has normoactive bowel sounds. There is a giant inguinal hernia on the right side that extends down into the scrotum which is a little bit bigger than the size of a softball. This cannot be completely reduced and is only very mildly tender with attempts to reduce it. LABORATORY DATA: WBC 9.29; H and H 8.8 and 28.4; platelet count 364,000. Sodium 141, potassium 4.2, chloride 108, CO2 of 28, BUN 63, creatinine 2.92, glucose 82. INR is today 1.2. CT scan of the abdomen and pelvis showed a pronounced bilateral hydronephrosis and hydroureter, likely secondary to longstanding bladder outlet obstruction. There was a large scrotal hernia containing portions of ascending colon, cecum and appendix and small bowel. There was no evidence of bowel obstruction or free air. ASSESSMENT AND PLAN: This patient has acute kidney injury, which seems to be improving. He has a very large right inguinal hernia. There was bowel within it, but it is not causing obstruction. I do not feel that repair is immediately indicated and can be discussed at another time once his medical conditions are under control. Thank you for allowing me to see this patient and participate in his care.
[2017-09-21 19:30] VITALS: BP 142/89; PULSE 70; TEMP 36.3; O2SAT 97
[2017-09-21] MEDS: RISPERIDONE 0.5 MG TAB PO SCH (19:50)
[2017-09-21] MEDS: TAMSULOSIN HCL 0.4 MG CAP PO SCH (19:50)
[2017-09-21] MEDS: CEFTRIAXONE SOD INJ 1 GM in DEXTROSE 5% ADD-VANTAGE 50ML 50 ML IV SCH (19:50)
[2017-09-21] MEDS: DONEPEZIL HCL 5 MG TAB PO SCH (19:51)
[2017-09-22] VITALS (7 sets, daily range): BP systolic 106–144; BP diastolic 61–85; PULSE 51–74; TEMP 36.2–36.9; O2SAT 94–100
[2017-09-22] MEDS: SODIUM BICARBONATE 8.4% INJ 75 MEQ in SODIUM CHLORIDE 0.45% 1000ML 1,000 ML IV SCH ×3 (03:58→20:39)
[2017-09-22] MEDS: LEVOTHYROXINE 25 MCG TAB PO SCH (05:40)
[2017-09-22 06:12] LABS: HEMATOCRIT 28.7 % (42-52); HEMOGLOBIN 9.2 g/dL (14.0-18.0); MEAN CORPUSCULAR HEMOGLOBIN 28.2 pg (25-34); MEAN CORPUSCULAR HGB CONC 32.1 g/dl (32-36); MEAN PLATELET VOLUME 9.1 fL (7.4-10.4); PLATELET COUNT 391 K/uL (130-400); RED CELL DISTRIBUTION WIDTH CV 15.5 % (11.5-14.5); RED CELL DISTRIBUTION WIDTH SD 50.3 fL (36.4-46.3); WHITE BLOOD COUNT 9.34 K/uL (4.8-10.8)
[2017-09-22 06:20] LABS: INR 1.1 (0.9-1.1)
[2017-09-22 06:48] LABS: CALCIUM 7.9 mg/dl (8.5-10.1); CREATININE 2.2 mg/dl (0.60-1.40); POTASSIUM 3.9 mmol/L (3.5-5.1)
[2017-09-22] MEDS: BOOST BREEZE NUTRITION DRINK 1 BOX PO SCH ×2 (07:30→17:30)
[2017-09-22] MEDS: FERROUS SULFATE 325 MG TAB PO SCH ×2 (08:24→19:37)
[2017-09-22] MEDS: FINASTERIDE 5 MG TAB PO SCH (08:24)
[2017-09-22] MEDS: GABAPENTIN 100 MG CAP PO SCH (08:24)
[2017-09-22] MEDS: ATORVASTATIN 10 MG TAB PO SCH (08:24)
[2017-09-22] MEDS: SUCRALFATE 1 GM TAB PO SCH ×4 (08:24→19:35)
[2017-09-22] MEDS: PANTOprazole SOD 40 MG TAB PO SCH ×2 (08:24→19:35)
[2017-09-22] MEDS: SERTRALINE HCL 50 MG TAB PO SCH (08:24)
--- NOTE | 2017-09-22 10:58 | Progress Note ---
Medicine Progress Note Date & Time of Visit: Sep 22, 2017 at 10:53. Subjective seen resting in bed, comfortable in good spirits states he feels good denies dyspnea, chest pain no abdominal pain, nausea, fever/chills no other symptoms Objective Last 8 Hrs Date Time Temp Pulse Resp B/P (MAP) Pulse Ox O2 Delivery O2 Flow Rate FiO2 09/22/17 08:00 98 Room Air 09/22/17 08:00 36.2 54 16 106/61 (76) 94 09/22/17 02:59 36.9 67 17 139/78 (98) 98 Room Air Physical Exam: General- oriented x 3, not in distress Eyes- anicteric ENT- oropharynx clear Neck- supple, no JVD Lungs- clear to auscultation bilaterally Heart- regular rhythm; no murmur, normal rate Abdomen- normal bowel sounds, soft, nontender, non distended Extremities- no pretibial edema, no calf tenderness Neuro- alert, oriented x 3; no gross focal deficits Skin- warm & dry Laboratory Results: Last 24 Hours Test 09/22/17 05:35 White Blood Count 9.34 K/uL Red Blood Count 3.26 M/uL Hemoglobin 9.2 g/dL Hematocrit 28.7 % Mean Corpuscular Volume 88.0 fL Mean Corpuscular Hemoglobin 28.2 pg Mean Corpuscular Hemoglobin Concent 32.1 g/dl RDW Standard Deviation 50.3 fL RDW Coefficient of Variation 15.5 % Platelet Count 391 K/uL Mean Platelet Volume 9.1 fL Prothrombin Time 11.9 SECONDS Prothromb Time International Ratio 1.1 Sodium Level 143 mmol/L Potassium Level 3.9 mmol/L Chloride Level 106 mmol/L Carbon Dioxide Level 32 mmol/L Anion Gap 5.0 mmol/L Blood Urea Nitrogen 43 mg/dl Creatinine 2.20 mg/dl Est Creatinine Clear Calc Drug Dose 31.9 ml/min Estimated GFR () 34.9 Estimated GFR (Non- 30.1 BUN/Creatinine Ratio 19.4 Random Glucose 75 mg/dl Calcium Level 7.9 mg/dl Assessment & Plan Assessment & Plan: This is a 67 year old male who has a significant PMH of Schizophrenia, PAF on [facility] coumadin, s/p bioprostetic Aortic Valve Replacement, Mitral Valve repair, CKD -3 baseline crea 1.2, Chronic Anemia, hx of bacterial endocarditis, HLD, hypothroidism, bullous pemphigoid who was seen in his PCP office today and sent to ED due to abnormal labs. Patient found to be in ОЛЕГ, bun/creatinine 102/5.3 (1) ОЛЕГ (acute kidney injury) [place] to be secondary to pre renal and obstructive due to B.O.O crea continues to improve, good urine output 1/2 NS with sodium bicarb Continue on flomax and finasteride for B.O.O. -PSA elevated at 6.38 -Per urology continue Guardado and follow-up on outpatient basis for voiding trial -Continue treating UTI with appropriate antibiotic for 14 days -Appreciate nephrology and urology recommendation (2) Hydronephrosis Assessment & Plan: - continue guardado catheter and follow with urology outpatient -Continue Flomax and finasteride (3) UTI (urinary tract infection) Assessment & Plan: UA >100k Proteus mirabilis -Continue IV rocephin as it is sensitive and per urology continue sensitive antibiotic treatment for 14 day duration -Afebrile, WBC normal (4) Schizophrenia, unspecified Assessment & Plan: -Continue Risperdal and Zoloft, mood is currently stable (5) Paroxysmal atrial fibrillation Assessment & Plan: Currently he is rate and rhythm controlled -Atenolol on hold secondary to hypotension/ОЛЕГ Monitor blood pressure. Resume when blood pressure adequate. -Resume Coumadin inr 1.1 -INR daily (6) Supratherapeutic INR, Resolved Assessment & Plan: S/p vitamin K secondary hematuria -Hematuria now resolved -INR 1.1 coumadin 5mg po today (7) Hyperkalemia Assessment & Plan: -Renal diet. -K 4.2 on 1/2 NS with sodium bicarb -Repeat BMP in a.m. (8) Hypothyroidism Assessment & Plan: -Continue levothyroxine (9) Acute on Chronic anemia Assessment & Plan: Patient currently with hematuria S/P guardado cath placement. EGD/Colonscopy done 08/27/17, +rectal ulcer -FOBT negative -Continue iron supplementation, -iron studies was as follows ferritin 158, iron 9, T sat 4. Can consider IV iron (10) Hyperlipidemia Assessment & Plan: Continue Lipitor (11) Esophagitis determined by endoscopy Assessment & Plan: -Continue PPI BID -On carafate qid -GI Consulted. colonoscopy/egd done 08/27/17. [place] not to be GI source at this time. GI signed off (12) Hypoalbuminemia due to protein-calorie malnutrition Assessment & Plan: Continue with dietary recommendations, ordered boost (13) Bullous skin disease Assessment & Plan: Continue prednisone 10 mg daily (14) Scrotal hernia Assessment & Plan: Currently asymptomatic. Urology on board in which they recommend Surgical evaluation Surgery: no urgent surgical intervention at this time, outpatient ff up (15) S/P aortic valve replacement (16) S/P mitral valve repair (Shalonda Parmar PA-C) Current Inpatient Medications: Current Inpatient Medications Medications (Trade) Dose Ordered Sig/Lakisha Route Start Time Stop Time Status Last Admin Dose Admin Acetaminophen (Tylenol Tab) 650 mg Q4H PRN PO 09/18/17 16:30 10/18/17 16:29 Atorvastatin Calcium (Lipitor Tab) 10 mg DAILY PO 09/19/17 09:00 10/19/17 08:59 09/22/17 08:24 10 MG Donepezil HCl (Aricept Tab) 5 mg HS PO 09/18/17 21:00 10/18/17 20:59 09/21/17 19:51 5 MG Ferrous Sulfate (Feosol Tab) 325 mg BID PO 09/18/17 21:00 10/18/17 20:59 09/22/17 08:24 325 MG Folic Acid (Folvite Tab) 1 mg QAM PO 09/19/17 09:00 10/19/17 08:59 09/22/17 08:24 1 MG Gabapentin (Neurontin Cap) 100 mg QAM PO 09/19/17 09:00 10/19/17 08:59 09/22/17 08:24 100 MG Levothyroxine Sodium (Synthroid Tab) 25 mcg DAILYBB PO 09/19/17 06:00 10/19/17 06:59 09/22/17 05:40 25 MCG Pantoprazole Sodium (Protonix Tab) 40 mg BID PO 09/18/17 21:00 10/18/17 20:59 09/22/17 08:24 40 MG Risperidone (Risperdal Tab) 0.5 mg HS PO 09/18/17 21:00 10/18/17 20:59 09/21/17 19:50 0.5 MG Sertraline HCl (Zoloft Tab) 50 mg DAILY PO 09/19/17 09:00 10/19/17 08:59 09/22/17 08:24 50 MG Prednisone (PredniSONE TAB) 10 mg DAILY PO 09/19/17 09:00 10/18/17 16:59 09/22/17 08:24 10 MG Ceftriaxone Sodium 1 gm/ Dextrose 50 ml @ 100 mls/hr Q24H IV 09/18/17 20:00 10/02/17 19:59 09/21/17 19:50 100 MLS/HR Sucralfate (Carafate Tab) 1 gm ACHS PO 09/19/17 16:15 10/19/17 16:14 09/22/17 08:24 1 GM Tamsulosin HCl (Flomax Cap) 0.4 mg HS PO 09/19/17 21:00 10/19/17 20:59 09/21/17 19:50 0.4 MG Finasteride (Proscar Tab) 5 mg QAM PO 09/20/17 09:00 10/20/17 08:59 09/22/17 08:24 5 MG Enteral Nutritional Formula (Boost Breeze Nutritional Drink) 1 box BIDM PO 09/20/17 07:30 10/20/17 07:29 09/21/17 15:56 1 BOX Sodium Bicarbonate 75 meq/Sodium Chloride 1,075 ml @ 125 mls/hr Q8H36M IV 09/19/17 17:30 10/19/17 17:29 09/22/17 03:58 125 MLS/HR Warfarin Sodium (Coumadin Tab) 3 mg DAILY@16 PO 09/21/17 16:00 10/21/17 15:59 09/21/17 15:56 3 MG
--- NOTE | 2017-09-22 11:17 | Surgery Progress Note ---
Surgery Progress Note Date of Service Sep 22, 2017. Subjective + feeling well, + bowel movement, + flatus, No complaints Objective Vital Signs: Date Time Temp Pulse Resp B/P (MAP) Pulse Ox O2 Delivery O2 Flow Rate FiO2 09/22/17 08:00 98 Room Air 09/22/17 08:00 36.2 54 16 106/61 (76) 94 09/22/17 02:59 36.9 67 17 139/78 (98) 98 Room Air 09/22/17 00:04 36.4 51 18 137/83 (101) 97 Room Air 09/21/17 19:50 Room Air 09/21/17 19:30 36.3 70 18 142/89 (106) 97 09/21/17 15:31 36.2 56 18 126/80 (95) 98 09/21/17 12:31 36.9 60 19 107/67 (80) 99 Room Air Abdomen: normal bowel sounds, non tender, non distended, soft Laboratory Results: Results Past 24 Hours Test 09/22/17 05:35 Range/Units White Blood Count 9.34 4.8-10.8 K/uL Red Blood Count 3.26 4.7-6.1 M/uL Hemoglobin 9.2 14.0-18.0 g/dL Hematocrit 28.7 42-52 % Mean Corpuscular Volume 88.0 80-100 fL Mean Corpuscular Hemoglobin 28.2 25-34 pg Mean Corpuscular Hemoglobin Concent 32.1 32-36 g/dl RDW Standard Deviation 50.3 36.4-46.3 fL RDW Coefficient of Variation 15.5 11.5-14.5 % Platelet Count 391 130-400 K/uL Mean Platelet Volume 9.1 7.4-10.4 fL Prothrombin Time 11.9 9.0-12.0 SECONDS Prothromb Time International Ratio 1.1 0.9-1.1 Sodium Level 143 136-145 mmol/L Potassium Level 3.9 3.5-5.1 mmol/L Chloride Level 106 98-107 mmol/L Carbon Dioxide Level 32 21-32 mmol/L Anion Gap 5.0 3-11 mmol/L Blood Urea Nitrogen 43 7-18 mg/dl Creatinine 2.20 0.60-1.40 mg/dl Est Creatinine Clear Calc Drug Dose 31.9 ml/min Estimated GFR () 34.9 Estimated GFR (Non- 30.1 BUN/Creatinine Ratio 19.4 10-20 Random Glucose 75 70-99 mg/dl Calcium Level 7.9 8.5-10.1 mg/dl Assessment & Plan Admitted with ОЛЕГ Has giant scrotal inguinal hernia Can consider repair when through current issues.
[2017-09-22] MEDS: HEPARIN SOD 5000 UNIT/0.5 ML CARP SQ SCH ×2 (13:52→21:16)
[2017-09-22] MEDS: WARFARIN SOD 3 MG TAB PO SCH (17:30)
[2017-09-22] MEDS: DONEPEZIL HCL 5 MG TAB PO SCH (19:35)
[2017-09-22] MEDS: CEFTRIAXONE SOD INJ 1 GM in DEXTROSE 5% ADD-VANTAGE 50ML 50 ML IV SCH (19:35)
[2017-09-22] MEDS: TAMSULOSIN HCL 0.4 MG CAP PO SCH (19:36)
[2017-09-22] MEDS: RISPERIDONE 0.5 MG TAB PO SCH (19:36)
[2017-09-23] VITALS (7 sets, daily range): BP systolic 112–151; BP diastolic 61–96; PULSE 54–74; TEMP 36.2–36.8; O2SAT 94–98
[2017-09-23] MEDS: SODIUM BICARBONATE 8.4% INJ 75 MEQ in SODIUM CHLORIDE 0.45% 1000ML 1,000 ML IV SCH (05:38)
[2017-09-23] MEDS: LEVOTHYROXINE 25 MCG TAB PO SCH (05:38)
[2017-09-23] MEDS: HEPARIN SOD 5000 UNIT/0.5 ML CARP SQ SCH ×2 (05:39→14:10)
[2017-09-23 06:18] LABS: INR 1.3 (0.9-1.1)
[2017-09-23] MEDS: BOOST BREEZE NUTRITION DRINK 1 BOX PO SCH ×2 (07:30→15:35)
[2017-09-23] MEDS: SUCRALFATE 1 GM TAB PO SCH ×4 (07:43→19:32)
[2017-09-23] MEDS: PANTOprazole SOD 40 MG TAB PO SCH ×2 (07:44→19:32)
[2017-09-23] MEDS: FERROUS SULFATE 325 MG TAB PO SCH ×2 (07:44→19:33)
[2017-09-23] MEDS: GABAPENTIN 100 MG CAP PO SCH (07:44)
[2017-09-23] MEDS: FINASTERIDE 5 MG TAB PO SCH (07:44)
[2017-09-23] MEDS: ATORVASTATIN 10 MG TAB PO SCH (07:44)
[2017-09-23] MEDS: SERTRALINE HCL 50 MG TAB PO SCH (07:45)
[2017-09-23 08:49] LABS: BASO % 0.2 %; BASO ABS # 0.02 K/uL (0-0.2); EOS % 4.6 %; EOS ABS # 0.41 K/uL (0-0.5); HEMATOCRIT 30.5 % (42-52); HEMOGLOBIN 9.7 g/dL (14.0-18.0); IG# 0.12 K/uL (0.00-0.02); LYMPH % 13.7 %; LYMPH ABS # 1.22 K/uL (1.2-3.4); MEAN CELL VOLUME 89.2 fL (80-100); MEAN CORPUSCULAR HEMOGLOBIN 28.4 pg (25-34); MEAN CORPUSCULAR HGB CONC 31.8 g/dl (32-36); MEAN PLATELET VOLUME 9.2 fL (7.4-10.4); MONO % 7.9 %; NEUT % 72.3 %; NEUT ABS # 6.42 K/uL (1.4-6.5); PLATELET COUNT 411 K/uL (130-400); RED CELL DISTRIBUTION WIDTH CV 15.3 % (11.5-14.5); WHITE BLOOD COUNT 8.89 K/uL (4.8-10.8)
[2017-09-23 09:36] LABS: CREATININE 1.95 mg/dl (0.60-1.40); POTASSIUM 3.2 mmol/L (3.5-5.1)
[2017-09-23] MEDS: SODIUM CHLORIDE 0.9% 1000ML 1,000 ML IV SCH (14:10)
[2017-09-23] MEDS ORDERED: POTASSIUM CHLORIDE 10 MEQ TABCR PO ONE (14:30)
[2017-09-23] MEDS ORDERED: WARFARIN SOD 5 MG TAB PO SCH (16:00)
--- NOTE | 2017-09-23 17:46 | Progress Note ---
Medicine Progress Note Date & Time of Visit: Sep 23, 2017 at 17:43. Subjective Resting in bed, comfortable Denies any new complaints No hematuria noted Objective Last 8 Hrs Date Time Temp Pulse Resp B/P (MAP) Pulse Ox O2 Delivery O2 Flow Rate FiO2 09/23/17 15:19 36.2 61 18 143/85 (104) 97 Room Air 09/23/17 12:53 36.6 67 16 112/71 (85) 98 Room Air Physical Exam: General- oriented x 3, not in distress Eyes- anicteric Neck- supple, no JVD Lungs- clear breath sounds bilaterally Heart- regular rhythm; no murmur, normal rate Abdomen- normal bowel sounds, soft, nontender, non distended Extremities- no pretibial edema, no calf tenderness Neuro- alert, oriented x 3; no gross focal deficits Skin- warm & dry Laboratory Results: Last 24 Hours Test 09/23/17 05:23 09/23/17 08:12 Prothrombin Time 13.8 SECONDS Prothromb Time International Ratio 1.3 White Blood Count 8.89 K/uL Red Blood Count 3.42 M/uL Hemoglobin 9.7 g/dL Hematocrit 30.5 % Mean Corpuscular Volume 89.2 fL Mean Corpuscular Hemoglobin 28.4 pg Mean Corpuscular Hemoglobin Concent 31.8 g/dl Platelet Count 411 K/uL Mean Platelet Volume 9.2 fL Neutrophils (%) (Auto) 72.3 % Lymphocytes (%) (Auto) 13.7 % Monocytes (%) (Auto) 7.9 % Eosinophils (%) (Auto) 4.6 % Basophils (%) (Auto) 0.2 % Neutrophils # (Auto) 6.42 K/uL Lymphocytes # (Auto) 1.22 K/uL Monocytes # (Auto) 0.70 K/uL Eosinophils # (Auto) 0.41 K/uL Basophils # (Auto) 0.02 K/uL RDW Standard Deviation 50.0 fL RDW Coefficient of Variation 15.3 % Immature Granulocyte % (Auto) 1.3 % Immature Granulocyte # (Auto) 0.12 K/uL Sodium Level 141 mmol/L Potassium Level 3.2 mmol/L Chloride Level 101 mmol/L Carbon Dioxide Level 33 mmol/L Anion Gap 7.0 mmol/L Blood Urea Nitrogen 28 mg/dl Creatinine 1.95 mg/dl Est Creatinine Clear Calc Drug Dose 36.0 ml/min Estimated GFR () 40.4 Estimated GFR (Non- 34.8 BUN/Creatinine Ratio 14.5 Random Glucose 105 mg/dl Calcium Level 8.0 mg/dl Assessment & Plan Assessment & Plan: This is a 67 year old male who has a significant PMH of Schizophrenia, PAF on skilled nursing coumadin, s/p bioprostetic Aortic Valve Replacement, Mitral Valve repair, CKD -3 baseline crea 1.2, Chronic Anemia, hx of bacterial endocarditis, HLD, hypothroidism, bullous pemphigoid who was seen in his PCP office today and sent to ED due to abnormal labs. Patient found to be in ОЛЕГ, bun/creatinine 102/5.3 (1) ОЛЕГ (acute kidney injury) [place] to be secondary to pre renal and obstructive due to B.O.O crea continues to improve, good urine output 1/2 NS with sodium bicarb--> transition to normal saline Continue on flomax and finasteride for B.O.O. -PSA elevated at 6.38 -Per urology continue Guardado and follow-up on outpatient basis for voiding trial -Continue treating UTI with appropriate antibiotic for 14 days -Appreciate nephrology and urology recommendation (2) Hydronephrosis Assessment & Plan: - continue guardado catheter and follow with urology outpatient -Continue Flomax and finasteride (3) UTI (urinary tract infection) Assessment & Plan: UA >100k Proteus mirabilis -Continue IV rocephin as it is sensitive and per urology continue sensitive antibiotic treatment for 14 day duration -Afebrile, WBC normal (4) Schizophrenia, unspecified Assessment & Plan: -Continue Risperdal and Zoloft, mood is currently stable (5) Paroxysmal atrial fibrillation Assessment & Plan: Currently he is rate and rhythm controlled -Atenolol on hold secondary to hypotension/ОЛЕГ Monitor blood pressure. Resume when blood pressure adequate. -Resume Coumadin inr 1.3 Increase Coumadin to 5 mg daily -INR daily (6) Supratherapeutic INR, Resolved Assessment & Plan: S/p vitamin K secondary hematuria -Hematuria now resolved (7) Hyperkalemia Assessment & Plan: -Renal diet. Resolved (8) Hypothyroidism Assessment & Plan: -Continue levothyroxine (9) Acute on Chronic anemia Assessment & Plan: Patient currently with hematuria S/P guardado cath placement. EGD/Colonscopy done 08/27/17, +rectal ulcer -FOBT negative -Continue iron supplementation, -iron studies was as follows ferritin 158, iron 9, T sat 4. Can consider IV iron (10) Hyperlipidemia Assessment & Plan: Continue Lipitor (11) Esophagitis determined by endoscopy Assessment & Plan: -Continue PPI BID -On carafate qid -GI Consulted. colonoscopy/egd done 08/27/17. [place] not to be GI source at this time. GI signed off (12) Hypoalbuminemia due to protein-calorie malnutrition Assessment & Plan: Continue with dietary recommendations, ordered boost (13) Bullous skin disease Assessment & Plan: Continue prednisone 10 mg daily (14) Scrotal hernia Assessment & Plan: Currently asymptomatic. Urology on board in which they recommend Surgical evaluation Surgery: no urgent surgical intervention at this time, outpatient ff up (15) S/P aortic valve replacement (16) S/P mitral valve repair (Shalonda Parmar, PABraedenC) DVT prophylaxis Heparin subcutaneous Disposition [facility] likely need transitioning to [facility] facility Current Inpatient Medications: Current Inpatient Medications Medications (Trade) Dose Ordered Sig/Lakisha Route Start Time Stop Time Status Last Admin Dose Admin Acetaminophen (Tylenol Tab) 650 mg Q4H PRN PO 09/18/17 16:30 10/18/17 16:29 Atorvastatin Calcium (Lipitor Tab) 10 mg DAILY PO 09/19/17 09:00 10/19/17 08:59 09/23/17 07:44 10 MG Donepezil HCl (Aricept Tab) 5 mg HS PO 09/18/17 21:00 10/18/17 20:59 09/22/17 19:35 5 MG Ferrous Sulfate (Feosol Tab) 325 mg BID PO 09/18/17 21:00 10/18/17 20:59 09/23/17 07:44 325 MG Folic Acid (Folvite Tab) 1 mg QAM PO 09/19/17 09:00 10/19/17 08:59 09/23/17 07:44 1 MG Gabapentin (Neurontin Cap) 100 mg QAM PO 09/19/17 09:00 10/19/17 08:59 09/23/17 07:44 100 MG Levothyroxine Sodium (Synthroid Tab) 25 mcg DAILYBB PO 09/19/17 06:00 10/19/17 06:59 09/23/17 05:38 25 MCG Pantoprazole Sodium (Protonix Tab) 40 mg BID PO 09/18/17 21:00 10/18/17 20:59 09/23/17 07:44 40 MG Risperidone (Risperdal Tab) 0.5 mg HS PO 09/18/17 21:00 10/18/17 20:59 09/22/17 19:36 0.5 MG Sertraline HCl (Zoloft Tab) 50 mg DAILY PO 09/19/17 09:00 10/19/17 08:59 09/23/17 07:45 50 MG Prednisone (PredniSONE TAB) 10 mg DAILY PO 09/19/17 09:00 10/18/17 16:59 09/23/17 07:44 10 MG Ceftriaxone Sodium 1 gm/ Dextrose 50 ml @ 100 mls/hr Q24H IV 09/18/17 20:00 10/02/17 19:59 09/22/17 19:35 100 MLS/HR Sucralfate (Carafate Tab) 1 gm ACHS PO 09/19/17 16:15 10/19/17 16:14 09/23/17 15:35 1 GM Tamsulosin HCl (Flomax Cap) 0.4 mg HS PO 09/19/17 21:00 10/19/17 20:59 09/22/17 19:36 0.4 MG Finasteride (Proscar Tab) 5 mg QAM PO 09/20/17 09:00 10/20/17 08:59 09/23/17 07:44 5 MG Enteral Nutritional Formula (Boost Breeze Nutritional Drink) 1 box BIDM PO 09/20/17 07:30 10/20/17 07:29 09/21/17 15:56 1 BOX Heparin Sodium (Porcine) (Heparin Sq 5000 Unit/0.5ml) 5,000 unit Q8 SQ 09/22/17 14:00 10/22/17 13:59 09/23/17 14:10 5,000 UNIT Warfarin Sodium (Coumadin Tab) 5 mg DAILY@16 PO 09/23/17 16:00 10/21/17 15:59 09/23/17 15:35 5 MG Sodium Chloride 1,000 ml @ 80 mls/hr [id number] IV 09/23/17 13:45 10/23/17 13:44 09/23/17 14:10 80 MLS/HR
[2017-09-23] MEDS: CEFTRIAXONE SOD INJ 1 GM in DEXTROSE 5% ADD-VANTAGE 50ML 50 ML IV SCH (19:31)
[2017-09-23] MEDS: DONEPEZIL HCL 5 MG TAB PO SCH (19:32)
[2017-09-23] MEDS: RISPERIDONE 0.5 MG TAB PO SCH (19:33)
[2017-09-23] MEDS: TAMSULOSIN HCL 0.4 MG CAP PO SCH (19:33)
[2017-09-24] MEDS: SODIUM CHLORIDE 0.9% 1000ML 1,000 ML IV SCH ×2 (01:46→14:28)
[2017-09-24 03:50] VITALS: BP 137/89; PULSE 64; TEMP 36.8; O2SAT 96
[2017-09-24] MEDS: LEVOTHYROXINE 25 MCG TAB PO SCH (06:13)
[2017-09-24 06:15] LABS: BASO % 0.5 %; BASO ABS # 0.04 K/uL (0-0.2); EOS % 5.2 %; EOS ABS # 0.43 K/uL (0-0.5); HEMOGLOBIN 8.8 g/dL (14.0-18.0); IG# 0.14 K/uL (0.00-0.02); LYMPH ABS # 1.41 K/uL (1.2-3.4); MEAN CELL VOLUME 88.6 fL (80-100); MEAN CORPUSCULAR HEMOGLOBIN 27.8 pg (25-34); MEAN CORPUSCULAR HGB CONC 31.4 g/dl (32-36); MEAN PLATELET VOLUME 9.2 fL (7.4-10.4); MONO % 8.6 %; MONO ABS # 0.71 K/uL (0.11-0.59); NEUT ABS # 5.54 K/uL (1.4-6.5); PLATELET COUNT 426 K/uL (130-400); RED CELL DISTRIBUTION WIDTH SD 48.6 fL (36.4-46.3); WHITE BLOOD COUNT 8.27 K/uL (4.8-10.8)
[2017-09-24 06:32] LABS: INR 1.6 (0.9-1.1)
[2017-09-24 06:55] LABS: CALCIUM 7.5 mg/dl (8.5-10.1); CREATININE 1.72 mg/dl (0.60-1.40); POTASSIUM 3.9 mmol/L (3.5-5.1)
[2017-09-24] MEDS: BOOST BREEZE NUTRITION DRINK 1 BOX PO SCH (07:30)
[2017-09-24 07:45] VITALS: BP 137/89; PULSE 75; TEMP 36.4; O2SAT 97
[2017-09-24] MEDS: PANTOprazole SOD 40 MG TAB PO SCH ×2 (08:20→20:03)
[2017-09-24] MEDS: FERROUS SULFATE 325 MG TAB PO SCH ×2 (08:20→20:04)
[2017-09-24] MEDS: GABAPENTIN 100 MG CAP PO SCH (08:20)
[2017-09-24] MEDS: SUCRALFATE 1 GM TAB PO SCH ×4 (08:21→20:04)
[2017-09-24] MEDS: ATORVASTATIN 10 MG TAB PO SCH (08:21)
[2017-09-24] MEDS: SERTRALINE HCL 50 MG TAB PO SCH (08:21)
[2017-09-24] MEDS: FINASTERIDE 5 MG TAB PO SCH (08:21)
--- NOTE | 2017-09-24 09:33 | Urology Progress Note ---
Progress Note Date of Service Sep 24, 2017. Subjective Pt evaluation today including: conversation w/ patient, chart review, lab review 67 yo male with CHANEL and ОЛЕГ. Dr. Bruner called yesterday as the pt's catheter was not draining well; irrigated for clot. The catheter was removed per Dr. Bruner, and pt has been able to void some on his own. He reports he feels like he needs to void this morning, but is not able to go. Constitutional: No fever, No chills Respiratory: No shortness of breath Cardiovascular: No chest pain Abdomen: No pain, No nausea, No vomiting Male : + slowing stream, + hematuria Heme: + abnormal bleeding/bruising Objective Vital Signs Date Time Temp Pulse Resp B/P (MAP) Pulse Ox O2 Delivery O2 Flow Rate FiO2 09/24/17 08:37 Room Air 09/24/17 07:45 36.4 75 19 137/89 (105) 97 Room Air 09/24/17 03:50 36.8 64 18 137/89 (105) 96 Room Air 09/23/17 23:57 36.5 74 16 124/73 (90) 95 Room Air 09/23/17 19:25 36.8 63 18 138/85 (102) 94 Room Air 09/23/17 19:20 Room Air 09/23/17 15:19 36.2 61 18 143/85 (104) 97 Room Air 09/23/17 12:53 36.6 67 16 112/71 (85) 98 Room Air Physical Exam General Appearance: no apparent distress Eyes: normal inspection ENT: hearing grossly normal Neck: no JVD Respiratory/Chest: no respiratory distress, no accessory muscle use Cardiovascular: no JVD Extremities: normal inspection Neurologic/Psychiatric: alert, normal mood/affect, oriented x 3 Skin: normal color Notes: Large right inguinal hernia extending into the scrotum. Laboratory Results Last 24 Hours Test 09/24/17 05:32 White Blood Count 8.27 K/uL Red Blood Count 3.16 M/uL Hemoglobin 8.8 g/dL Hematocrit 28.0 % Mean Corpuscular Volume 88.6 fL Mean Corpuscular Hemoglobin 27.8 pg Mean Corpuscular Hemoglobin Concent 31.4 g/dl Platelet Count 426 K/uL Mean Platelet Volume 9.2 fL Neutrophils (%) (Auto) 67.0 % Lymphocytes (%) (Auto) 17.0 % Monocytes (%) (Auto) 8.6 % Eosinophils (%) (Auto) 5.2 % Basophils (%) (Auto) 0.5 % Neutrophils # (Auto) 5.54 K/uL Lymphocytes # (Auto) 1.41 K/uL Monocytes # (Auto) 0.71 K/uL Eosinophils # (Auto) 0.43 K/uL Basophils # (Auto) 0.04 K/uL RDW Standard Deviation 48.6 fL RDW Coefficient of Variation 15.0 % Immature Granulocyte % (Auto) 1.7 % Immature Granulocyte # (Auto) 0.14 K/uL Red Blood Cell Morphology Unremarkable Prothrombin Time 16.2 SECONDS Prothromb Time International Ratio 1.6 Sodium Level 141 mmol/L Potassium Level 3.9 mmol/L Chloride Level 106 mmol/L Carbon Dioxide Level 30 mmol/L Anion Gap 5.0 mmol/L Blood Urea Nitrogen 22 mg/dl Creatinine 1.72 mg/dl Est Creatinine Clear Calc Drug Dose 40.9 ml/min Estimated GFR () 47.0 Estimated GFR (Non- 40.5 BUN/Creatinine Ratio 12.7 Random Glucose 77 mg/dl Calcium Level 7.5 mg/dl Assessment and Plan Urinary retention, CHANEL, bilateral hydronephrosis Continue Flomax and finasteride. Guardado catheter has been removed. Will check bladder scans qshift. Replace with 22Fr coude guardado catheter if PVR > 300ml. Resume hand irrigation qshift if guardado catheter replaced. Plan for outpatient cysto for further evaluation. ОЛЕГ Cr continues to improve. Continue to monitor with guardado removed. Gross hematuria, UTI Culture growing Proteus. Recommend transitioning him to 7-10 days of PO abx prior to d/c home. Cytology negative for high grade urothelial carcinoma. Non-contrast CT negative for stones. 14mm left renal lesion indeterminate. Consider CT with IV contrast if Cr normalizes. Will plan for outpatient cysto to complete evaluation. Elevated PSA PSA of 6.380. Possibly elevated in the setting of UR. Will plan for outpatient DANIELLA with cysto. Likely repeat a PSA in several weeks. Will continue to follow along with primary service.
[2017-09-24 11:51] VITALS: BP 131/86; TEMP 36.4; O2SAT 99
--- NOTE | 2017-09-24 11:53 | Surgery Progress Note ---
Surgery Progress Note Date of Service Sep 24, 2017. Subjective + feeling well, + bowel movement, + flatus, + diet (tolerating regular diet), No complaints, No nausea, No vomiting Objective Vital Signs: Date Time Temp Pulse Resp B/P (MAP) Pulse Ox O2 Delivery O2 Flow Rate FiO2 09/24/17 08:37 Room Air 09/24/17 07:45 36.4 75 19 137/89 (105) 97 Room Air 09/24/17 03:50 36.8 64 18 137/89 (105) 96 Room Air 09/23/17 23:57 36.5 74 16 124/73 (90) 95 Room Air 09/23/17 19:25 36.8 63 18 138/85 (102) 94 Room Air 09/23/17 19:20 Room Air 09/23/17 15:19 36.2 61 18 143/85 (104) 97 Room Air 09/23/17 12:53 36.6 67 16 112/71 (85) 98 Room Air Abdomen: non tender, non distended, soft, + pertinent finding (Large right inguinal hernia, not reducible, nontender) Laboratory Results: Results Past 24 Hours Test 09/24/17 05:32 Range/Units White Blood Count 8.27 4.8-10.8 K/uL Red Blood Count 3.16 4.7-6.1 M/uL Hemoglobin 8.8 14.0-18.0 g/dL Hematocrit 28.0 42-52 % Mean Corpuscular Volume 88.6 80-100 fL Mean Corpuscular Hemoglobin 27.8 25-34 pg Mean Corpuscular Hemoglobin Concent 31.4 32-36 g/dl Platelet Count 426 130-400 K/uL Mean Platelet Volume 9.2 7.4-10.4 fL Neutrophils (%) (Auto) 67.0 % Lymphocytes (%) (Auto) 17.0 % Monocytes (%) (Auto) 8.6 % Eosinophils (%) (Auto) 5.2 % Basophils (%) (Auto) 0.5 % Neutrophils # (Auto) 5.54 1.4-6.5 K/uL Lymphocytes # (Auto) 1.41 1.2-3.4 K/uL Monocytes # (Auto) 0.71 0.11-0.59 K/uL Eosinophils # (Auto) 0.43 0-0.5 K/uL Basophils # (Auto) 0.04 0-0.2 K/uL RDW Standard Deviation 48.6 36.4-46.3 fL RDW Coefficient of Variation 15.0 11.5-14.5 % Immature Granulocyte % (Auto) 1.7 % Immature Granulocyte # (Auto) 0.14 0.00-0.02 K/uL Red Blood Cell Morphology Unremarkable Prothrombin Time 16.2 9.0-12.0 SECONDS Prothromb Time International Ratio 1.6 0.9-1.1 Sodium Level 141 136-145 mmol/L Potassium Level 3.9 3.5-5.1 mmol/L Chloride Level 106 98-107 mmol/L Carbon Dioxide Level 30 21-32 mmol/L Anion Gap 5.0 3-11 mmol/L Blood Urea Nitrogen 22 7-18 mg/dl Creatinine 1.72 0.60-1.40 mg/dl Est Creatinine Clear Calc Drug Dose 40.9 ml/min Estimated GFR () 47.0 Estimated GFR (Non- 40.5 BUN/Creatinine Ratio 12.7 10-20 Random Glucose 77 70-99 mg/dl Calcium Level 7.5 8.5-10.1 mg/dl Assessment & Plan Admitted with ОЛЕГ Has giant scrotal inguinal hernia, not interested in surgical repair at the present time I explained that difficulty of procedure may only increase if hernia size increases Can consider repair when through current issues.
--- NOTE | 2017-09-24 15:38 | Progress Note ---
Progress Note Date of Service Sep 24, 2017. Progress Note Contacted for PVR >400ml. 20Fr 3-way coude guardado catheter placed by myself and hand irrigated with 1800ml sterile water for some clot return. Light pink return at end of irrigation. CBI started. Will continue CBI overnight. Hand irrigation PRN. Discussed discontinuing Coumadin again with Dr. Mills. Will make the pt NPO after midnight in the event he needs a cysto with fulguration tomorrow.
[2017-09-24] MEDS ORDERED: BOOST BREEZE NUTRITION DRINK 1 BOX PO SCH (16:00)
[2017-09-24 16:09] VITALS: BP 148/90; PULSE 66; TEMP 36.4; O2SAT 100
[2017-09-24 16:32] LABS: HEMATOCRIT 29.9 % (42-52); HEMOGLOBIN 9.3 g/dL (14.0-18.0)
[2017-09-24 18:42] VITALS: BP 146/92; PULSE 93; TEMP 36.3; O2SAT 100
--- NOTE | 2017-09-24 18:59 | Progress Note ---
Medicine Progress Note Date & Time of Visit: Sep 24, 2017 at 18:54. Subjective Seen sitting up in chair, comfortable Was noted to have blood clots via Guardado catheter today and pink tinged urine with irrigation of the Guardado catheter Patient reports mild pain from the Guardado catheter insertion site Denies abdominal pain, chills, shortness of breath, chest pain No other symptoms Objective Last 8 Hrs Date Time Temp Pulse Resp B/P (MAP) Pulse Ox O2 Delivery O2 Flow Rate FiO2 09/24/17 16:09 36.4 66 18 148/90 (109) 100 Room Air 09/24/17 11:51 36.4 18 131/86 (101) 99 Room Air Physical Exam: General- oriented x 3, not in distress Eyes- anicteric Neck- supple, no JVD Lungs- clear BS bilaterally Heart- regular rhythm; no murmur, normal rate Abdomen- normal bowel sounds, soft, nontender, non distended Positive pink tinged urine in the Guardado catheter Extremities- no pretibial edema, no calf tenderness Neuro- alert, oriented x 3; no gross focal deficits Skin- warm & dry Laboratory Results: Last 24 Hours Test 09/24/17 05:32 09/24/17 16:08 White Blood Count 8.27 K/uL Red Blood Count 3.16 M/uL Hemoglobin 8.8 g/dL 9.3 g/dL Hematocrit 28.0 % 29.9 % Mean Corpuscular Volume 88.6 fL Mean Corpuscular Hemoglobin 27.8 pg Mean Corpuscular Hemoglobin Concent 31.4 g/dl Platelet Count 426 K/uL Mean Platelet Volume 9.2 fL Neutrophils (%) (Auto) 67.0 % Lymphocytes (%) (Auto) 17.0 % Monocytes (%) (Auto) 8.6 % Eosinophils (%) (Auto) 5.2 % Basophils (%) (Auto) 0.5 % Neutrophils # (Auto) 5.54 K/uL Lymphocytes # (Auto) 1.41 K/uL Monocytes # (Auto) 0.71 K/uL Eosinophils # (Auto) 0.43 K/uL Basophils # (Auto) 0.04 K/uL RDW Standard Deviation 48.6 fL RDW Coefficient of Variation 15.0 % Immature Granulocyte % (Auto) 1.7 % Immature Granulocyte # (Auto) 0.14 K/uL Red Blood Cell Morphology Unremarkable Prothrombin Time 16.2 SECONDS Prothromb Time International Ratio 1.6 Sodium Level 141 mmol/L Potassium Level 3.9 mmol/L Chloride Level 106 mmol/L Carbon Dioxide Level 30 mmol/L Anion Gap 5.0 mmol/L Blood Urea Nitrogen 22 mg/dl Creatinine 1.72 mg/dl Est Creatinine Clear Calc Drug Dose 40.9 ml/min Estimated GFR () 47.0 Estimated GFR (Non- 40.5 BUN/Creatinine Ratio 12.7 Random Glucose 77 mg/dl Calcium Level 7.5 mg/dl Assessment & Plan Assessment & Plan: This is a 67 year old male who has a significant PMH of Schizophrenia, PAF on manager terminal coumadin, s/p bioprostetic Aortic Valve Replacement, Mitral Valve repair, CKD -3 baseline crea 1.2, Chronic Anemia, hx of bacterial endocarditis, HLD, hypothroidism, bullous pemphigoid who was seen in his PCP office today and sent to ED due to abnormal labs. Patient found to be in ОЛГЕ, bun/creatinine 102/5.3 (1) ОЛЕГ (acute kidney injury) [place] to be secondary to pre renal and obstructive due to B.O.O 1/2 NS with sodium bicarb--> transitioned to normal saline Creatinine improving further Continue on flomax and finasteride for B.O.O. -PSA elevated at 6.38 -Per urology continue Guardado and follow-up on outpatient basis for voiding trial -Continue treating UTI with appropriate antibiotic for 14 days -Appreciate nephrology and urology recommendation Hematuria -Discussed with urology -INR 1.6, we will hold Coumadin and heparin subcutaneous today -H&H stable -Continue to monitor (2) Hydronephrosis Assessment & Plan: - continue guardado catheter and follow with urology outpatient -Continue Flomax and finasteride (3) UTI (urinary tract infection) Assessment & Plan: UA >100k Proteus mirabilis -Continue IV rocephin as it is sensitive and per urology continue sensitive antibiotic treatment for 14 day duration -Afebrile, WBC normal (4) Schizophrenia, unspecified Assessment & Plan: -Continue Risperdal and Zoloft, mood is currently stable (5) Paroxysmal atrial fibrillation Assessment & Plan: Currently he is rate and rhythm controlled -Atenolol on hold secondary to hypotension/ОЛЕГ Monitor blood pressure. Resume when blood pressure adequate. -INR 1.6 hold Coumadin in light of hematuria -INR daily (6) Supratherapeutic INR, Resolved Assessment & Plan: S/p vitamin K secondary hematuria Holding Coumadin in light of hematuria (7) Hyperkalemia Assessment & Plan: -Renal diet. Resolved (8) Hypothyroidism Assessment & Plan: -Continue levothyroxine (9) Acute on Chronic anemia Assessment & Plan: Patient currently with hematuria S/P guardado cath placement. EGD/Colonscopy done 08/27/17, +rectal ulcer -FOBT negative -Continue iron supplementation, -iron studies was as follows ferritin 158, iron 9, T sat 4. Can consider IV iron -Hemoglobin 9, (10) Hyperlipidemia Assessment & Plan: Continue Lipitor (11) Esophagitis determined by endoscopy Assessment & Plan: -Continue PPI BID -On carafate qid -GI Consulted. colonoscopy/egd done 08/27/17. [place] not to be GI source at this time. GI signed off (12) Hypoalbuminemia due to protein-calorie malnutrition Assessment & Plan: Continue with dietary recommendations, ordered boost (13) Bullous skin disease Assessment & Plan: Continue prednisone 10 mg daily (14) Scrotal hernia Assessment & Plan: Currently asymptomatic. Urology on board in which they recommend Surgical evaluation Surgery: no urgent surgical intervention at this time, outpatient ff up (15) S/P aortic valve replacement (16) S/P mitral valve repair (Shalonda Parmar, PABraedenC) DVT prophylaxis Heparin subcutaneous- held for hematuria Disposition Will likely need transitioning to long-term facility Current Inpatient Medications: Current Inpatient Medications Medications (Trade) Dose Ordered Sig/Lakisha Route Start Time Stop Time Status Last Admin Dose Admin Acetaminophen (Tylenol Tab) 650 mg Q4H PRN PO 09/18/17 16:30 10/18/17 16:29 Atorvastatin Calcium (Lipitor Tab) 10 mg DAILY PO 09/19/17 09:00 10/19/17 08:59 09/24/17 08:21 10 MG Donepezil HCl (Aricept Tab) 5 mg HS PO 09/18/17 21:00 10/18/17 20:59 09/23/17 19:32 5 MG Ferrous Sulfate (Feosol Tab) 325 mg BID PO 09/18/17 21:00 10/18/17 20:59 09/24/17 08:20 325 MG Folic Acid (Folvite Tab) 1 mg QAM PO 09/19/17 09:00 10/19/17 08:59 09/24/17 08:21 1 MG Gabapentin (Neurontin Cap) 100 mg QAM PO 09/19/17 09:00 10/19/17 08:59 09/24/17 08:20 100 MG Levothyroxine Sodium (Synthroid Tab) 25 mcg DAILYBB PO 09/19/17 06:00 10/19/17 06:59 09/24/17 06:13 25 MCG Pantoprazole Sodium (Protonix Tab) 40 mg BID PO 09/18/17 21:00 10/18/17 20:59 09/24/17 08:20 40 MG Risperidone (Risperdal Tab) 0.5 mg HS PO 09/18/17 21:00 10/18/17 20:59 09/23/17 19:33 0.5 MG Sertraline HCl (Zoloft Tab) 50 mg DAILY PO 09/19/17 09:00 10/19/17 08:59 09/24/17 08:21 50 MG Prednisone (PredniSONE TAB) 10 mg DAILY PO 09/19/17 09:00 10/18/17 16:59 09/24/17 08:20 10 MG Ceftriaxone Sodium 1 gm/ Dextrose 50 ml @ 100 mls/hr Q24H IV 09/18/17 20:00 10/02/17 19:59 09/23/17 19:31 100 MLS/HR Sucralfate (Carafate Tab) 1 gm ACHS PO 09/19/17 16:15 10/19/17 16:14 09/24/17 17:17 1 GM Tamsulosin HCl (Flomax Cap) 0.4 mg HS PO 09/19/17 21:00 10/19/17 20:59 09/23/17 19:33 0.4 MG Finasteride (Proscar Tab) 5 mg QAM PO 09/20/17 09:00 10/20/17 08:59 09/24/17 08:21 5 MG Heparin Sodium (Porcine) (Heparin Sq 5000 Unit/0.5ml) 5,000 unit Q8 SQ 09/22/17 14:00 10/22/17 13:59 Future Hold 09/23/17 14:10 5,000 UNIT Sodium Chloride 1,000 ml @ 80 mls/hr [id number] IV 09/23/17 13:45 10/23/17 13:44 09/24/17 14:28 80 MLS/HR
[2017-09-24] MEDS: DONEPEZIL HCL 5 MG TAB PO SCH (20:04)
[2017-09-24] MEDS: RISPERIDONE 0.5 MG TAB PO SCH (20:04)
[2017-09-24] MEDS: TAMSULOSIN HCL 0.4 MG CAP PO SCH (20:04)
[2017-09-24] MEDS: CEFTRIAXONE SOD INJ 1 GM in DEXTROSE 5% ADD-VANTAGE 50ML 50 ML IV SCH (20:18)
[2017-09-24 23:45] VITALS: BP 132/81; PULSE 72; TEMP 36.8; O2SAT 97
[2017-09-25] VITALS (18 sets, daily range): BP systolic 106–153; BP diastolic 71–87; PULSE 67–94; TEMP 36.3–37; O2SAT 95–100
[2017-09-25] MEDS: SODIUM CHLORIDE 0.9% 1000ML 1,000 ML IV SCH (03:41)
[2017-09-25] MEDS: LEVOTHYROXINE 25 MCG TAB PO SCH (05:54)
[2017-09-25 06:30] LABS: BASO % 0.3 %; BASO ABS # 0.03 K/uL (0-0.2); EOS % 5.4 %; EOS ABS # 0.53 K/uL (0-0.5); HEMATOCRIT 24.8 % (42-52); HEMOGLOBIN 7.7 g/dL (14.0-18.0); IG# 0.22 K/uL (0.00-0.02); LYMPH % 13.9 %; LYMPH ABS # 1.37 K/uL (1.2-3.4); MEAN CELL VOLUME 88.9 fL (80-100); MEAN CORPUSCULAR HEMOGLOBIN 27.6 pg (25-34); MONO ABS # 0.79 K/uL (0.11-0.59); NEUT % 70.2 %; NEUT ABS # 6.89 K/uL (1.4-6.5); PLATELET COUNT 413 K/uL (130-400); RED CELL DISTRIBUTION WIDTH CV 15.2 % (11.5-14.5); RED CELL DISTRIBUTION WIDTH SD 49.1 fL (36.4-46.3); WHITE BLOOD COUNT 9.83 K/uL (4.8-10.8)
[2017-09-25 06:37] LABS: INR 1.6 (0.9-1.1)
[2017-09-25 06:55] LABS: CALCIUM 7.6 mg/dl (8.5-10.1); CREATININE 1.57 mg/dl (0.60-1.40); POTASSIUM 3.9 mmol/L (3.5-5.1)
[2017-09-25] MEDS: SERTRALINE HCL 50 MG TAB PO SCH (08:35)
[2017-09-25] MEDS: SUCRALFATE 1 GM TAB PO SCH ×4 (08:35→19:43)
[2017-09-25] MEDS: PANTOprazole SOD 40 MG TAB PO SCH ×2 (08:35→19:43)
[2017-09-25] MEDS: GABAPENTIN 100 MG CAP PO SCH (08:36)
[2017-09-25] MEDS: ATORVASTATIN 10 MG TAB PO SCH (08:36)
[2017-09-25] MEDS: FERROUS SULFATE 325 MG TAB PO SCH ×2 (08:36→19:44)
[2017-09-25] MEDS: FINASTERIDE 5 MG TAB PO SCH (08:36)
--- NOTE | 2017-09-25 08:45 | Progress Note ---
Medicine Progress Note Date & Time of Visit: Sep 25, 2017 at 08:45. Objective Last 8 Hrs Date Time Temp Pulse Resp B/P (MAP) Pulse Ox O2 Delivery O2 Flow Rate FiO2 09/25/17 07:52 36.7 94 16 130/84 (99) 98 Room Air 09/25/17 03:41 36.6 89 18 126/78 (94) 99 Room Air Physical Exam: General- oriented x 3, not in distress Eyes- anicteric Neck- supple, no JVD Lungs- clear BS bilaterally Heart- regular rhythm; no murmur, normal rate Abdomen- normal bowel sounds, soft, nontender, non distended Positive pink tinged urine in the Guardado catheter Extremities- no pretibial edema, no calf tenderness Neuro- alert, oriented x 3; no gross focal deficits Skin- warm & dry Laboratory Results: Last 24 Hours Test 09/24/17 16:08 09/25/17 05:30 Hemoglobin 9.3 g/dL 7.7 g/dL Hematocrit 29.9 % 24.8 % White Blood Count 9.83 K/uL Red Blood Count 2.79 M/uL Mean Corpuscular Volume 88.9 fL Mean Corpuscular Hemoglobin 27.6 pg Mean Corpuscular Hemoglobin Concent 31.0 g/dl Platelet Count 413 K/uL Mean Platelet Volume 9.0 fL Neutrophils (%) (Auto) 70.2 % Lymphocytes (%) (Auto) 13.9 % Monocytes (%) (Auto) 8.0 % Eosinophils (%) (Auto) 5.4 % Basophils (%) (Auto) 0.3 % Neutrophils # (Auto) 6.89 K/uL Lymphocytes # (Auto) 1.37 K/uL Monocytes # (Auto) 0.79 K/uL Eosinophils # (Auto) 0.53 K/uL Basophils # (Auto) 0.03 K/uL RDW Standard Deviation 49.1 fL RDW Coefficient of Variation 15.2 % Immature Granulocyte % (Auto) 2.2 % Immature Granulocyte # (Auto) 0.22 K/uL Hypochromasia PRESENT Prothrombin Time 16.9 SECONDS Prothromb Time International Ratio 1.6 Sodium Level 141 mmol/L Potassium Level 3.9 mmol/L Chloride Level 107 mmol/L Carbon Dioxide Level 28 mmol/L Anion Gap 6.0 mmol/L Blood Urea Nitrogen 20 mg/dl Creatinine 1.57 mg/dl Est Creatinine Clear Calc Drug Dose 44.8 ml/min Estimated GFR () 52.5 Estimated GFR (Non- 45.3 BUN/Creatinine Ratio 12.7 Random Glucose 77 mg/dl Calcium Level 7.6 mg/dl Assessment & Plan Assessment & Plan: This is a 67 year old male who has a significant PMH of Schizophrenia, PAF on [facility] coumadin, s/p bioprostetic Aortic Valve Replacement, Mitral Valve repair, CKD -3 baseline crea 1.2, Chronic Anemia, hx of bacterial endocarditis, HLD, hypothroidism, bullous pemphigoid who was seen in his PCP office today and sent to ED due to abnormal labs. Patient found to be in ОЛЕГ, bun/creatinine 102/5.3 (1) ОЛЕГ (acute kidney injury) [place] to be secondary to pre renal and obstructive due to B.O.O 1/2 NS with sodium bicarb--> transitioned to normal saline Creatinine improving further Continue on flomax and finasteride for B.O.O. -PSA elevated at 6.38 -Per urology continue Guardado and follow-up on outpatient basis for voiding trial -Continue treating UTI with appropriate antibiotic for 14 days -Appreciate nephrology and urology recommendation Hematuria -Discussed with urology -INR 1.6, we will hold Coumadin and heparin subcutaneous today -H&H stable -Continue to monitor (2) Hydronephrosis Assessment & Plan: - continue guardado catheter and follow with urology outpatient -Continue Flomax and finasteride (3) UTI (urinary tract infection) Assessment & Plan: UA >100k Proteus mirabilis -Continue IV rocephin as it is sensitive and per urology continue sensitive antibiotic treatment for 14 day duration -Afebrile, WBC normal (4) Schizophrenia, unspecified Assessment & Plan: -Continue Risperdal and Zoloft, mood is currently stable (5) Paroxysmal atrial fibrillation Assessment & Plan: Currently he is rate and rhythm controlled -Atenolol on hold secondary to hypotension/ОЛЕГ Monitor blood pressure. Resume when blood pressure adequate. -INR 1.6 hold Coumadin in light of hematuria -INR daily (6) Supratherapeutic INR, Resolved Assessment & Plan: S/p vitamin K secondary hematuria Holding Coumadin in light of hematuria (7) Hyperkalemia Assessment & Plan: -Renal diet. Resolved (8) Hypothyroidism Assessment & Plan: -Continue levothyroxine (9) Acute on Chronic anemia Assessment & Plan: Patient currently with hematuria S/P guardado cath placement. EGD/Colonscopy done 08/27/17, +rectal ulcer -FOBT negative -Continue iron supplementation, -iron studies was as follows ferritin 158, iron 9, T sat 4. Can consider IV iron -Hemoglobin 9, (10) Hyperlipidemia Assessment & Plan: Continue Lipitor (11) Esophagitis determined by endoscopy Assessment & Plan: -Continue PPI BID -On carafate qid -GI Consulted. colonoscopy/egd done 08/27/17. [place] not to be GI source at this time. GI signed off (12) Hypoalbuminemia due to protein-calorie malnutrition Assessment & Plan: Continue with dietary recommendations, ordered boost (13) Bullous skin disease Assessment & Plan: Continue prednisone 10 mg daily (14) Scrotal hernia Assessment & Plan: Currently asymptomatic. Urology on board in which they recommend Surgical evaluation Surgery: no urgent surgical intervention at this time, outpatient ff up (15) S/P aortic valve replacement (16) S/P mitral valve repair (Shalonda Parmar, PABraedenC) DVT prophylaxis Heparin subcutaneous- held for hematuria Disposition Will likely need transitioning to alf facility Current Inpatient Medications: Current Inpatient Medications Medications (Trade) Dose Ordered Sig/Lakisha Route Start Time Stop Time Status Last Admin Dose Admin Acetaminophen (Tylenol Tab) 650 mg Q4H PRN PO 09/18/17 16:30 10/18/17 16:29 Atorvastatin Calcium (Lipitor Tab) 10 mg DAILY PO 09/19/17 09:00 10/19/17 08:59 09/25/17 08:36 10 MG Donepezil HCl (Aricept Tab) 5 mg HS PO 09/18/17 21:00 10/18/17 20:59 09/24/17 20:04 5 MG Ferrous Sulfate (Feosol Tab) 325 mg BID PO 09/18/17 21:00 10/18/17 20:59 09/25/17 08:36 325 MG Folic Acid (Folvite Tab) 1 mg QAM PO 09/19/17 09:00 10/19/17 08:59 09/25/17 08:36 1 MG Gabapentin (Neurontin Cap) 100 mg QAM PO 09/19/17 09:00 8/24/18 08:59 09/25/17 08:36 100 MG Levothyroxine Sodium (Synthroid Tab) 25 mcg DAILYBB PO 09/19/17 06:00 10/19/17 06:59 09/25/17 05:54 25 MCG Pantoprazole Sodium (Protonix Tab) 40 mg BID PO 09/18/17 21:00 10/18/17 20:59 09/25/17 08:35 40 MG Risperidone (Risperdal Tab) 0.5 mg HS PO 09/18/17 21:00 10/18/17 20:59 09/24/17 20:04 0.5 MG Sertraline HCl (Zoloft Tab) 50 mg DAILY PO 09/19/17 09:00 10/19/17 08:59 09/25/17 08:35 50 MG Prednisone (PredniSONE TAB) 10 mg DAILY PO 09/19/17 09:00 10/18/17 16:59 09/25/17 08:35 10 MG Ceftriaxone Sodium 1 gm/ Dextrose 50 ml @ 100 mls/hr Q24H IV 09/18/17 20:00 10/02/17 19:59 09/24/17 20:18 100 MLS/HR Sucralfate (Carafate Tab) 1 gm ACHS PO 09/19/17 16:15 10/19/17 16:14 09/25/17 08:35 1 GM Tamsulosin HCl (Flomax Cap) 0.4 mg HS PO 09/19/17 21:00 10/19/17 20:59 09/24/17 20:04 0.4 MG Finasteride (Proscar Tab) 5 mg QAM PO 09/20/17 09:00 10/20/17 08:59 09/25/17 08:36 5 MG Heparin Sodium (Porcine) (Heparin Sq 5000 Unit/0.5ml) 5,000 unit Q8 SQ 09/22/17 14:00 10/22/17 13:59 Future Hold 09/23/17 14:10 5,000 UNIT Sodium Chloride 1,000 ml @ 60 mls/hr [id number] IV 09/23/17 13:45 10/23/17 13:44 09/25/17 03:41 80 MLS/HR
[2017-09-25] MEDS ORDERED: PHYTONADIONE 5 MG TAB PO STA (08:54)
--- NOTE | 2017-09-25 09:03 | Urology Progress Note ---
Progress Note Date of Service Sep 25, 2017. Subjective Pt evaluation today including: conversation w/ patient, chart review, lab review Pain: Denies Voiding: guardado catheter in place (patent, draining bright tsai colored urine with CBI running) 67 yo male with UR, bilateral hydronephrosis, ARF, UTI, and gross hematuria. Pt continues to have bright tsai colored urine with CBI running. Need irrigated twice overnight for some clot. H&H noted to have dropped to 7.7 and 24.[address] Mills aware. 2 units and vit K ordered. Pt denies pain this morning. Constitutional: No fever, No chills Respiratory: No shortness of breath Cardiovascular: No chest pain Abdomen: No pain, No nausea, No vomiting Male : + hematuria Heme: + abnormal bleeding/bruising Objective Vital Signs Date Time Temp Pulse Resp B/P (MAP) Pulse Ox O2 Delivery O2 Flow Rate FiO2 09/25/17 07:52 36.7 94 16 130/84 (99) 98 Room Air 09/25/17 03:41 36.6 89 18 126/78 (94) 99 Room Air 09/24/17 23:45 36.8 72 18 132/81 (98) 97 Room Air 09/24/17 20:00 Room Air 09/24/17 18:42 36.3 93 19 146/92 (110) 100 Room Air 09/24/17 16:09 36.4 66 18 148/90 (109) 100 Room Air 09/24/17 11:51 36.4 18 131/86 (101) 99 Room Air Physical Exam General Appearance: no apparent distress Eyes: normal inspection ENT: hearing grossly normal Neck: no JVD Respiratory/Chest: no respiratory distress, no accessory muscle use Cardiovascular: no JVD Extremities: normal inspection Neurologic/Psychiatric: alert, normal mood/affect, oriented x 3 Skin: normal color Laboratory Results Last 24 Hours Test 09/24/17 16:08 09/25/17 05:30 Hemoglobin 9.3 g/dL 7.7 g/dL Hematocrit 29.9 % 24.8 % White Blood Count 9.83 K/uL Red Blood Count 2.79 M/uL Mean Corpuscular Volume 88.9 fL Mean Corpuscular Hemoglobin 27.6 pg Mean Corpuscular Hemoglobin Concent 31.0 g/dl Platelet Count 413 K/uL Mean Platelet Volume 9.0 fL Neutrophils (%) (Auto) 70.2 % Lymphocytes (%) (Auto) 13.9 % Monocytes (%) (Auto) 8.0 % Eosinophils (%) (Auto) 5.4 % Basophils (%) (Auto) 0.3 % Neutrophils # (Auto) 6.89 K/uL Lymphocytes # (Auto) 1.37 K/uL Monocytes # (Auto) 0.79 K/uL Eosinophils # (Auto) 0.53 K/uL Basophils # (Auto) 0.03 K/uL RDW Standard Deviation 49.1 fL RDW Coefficient of Variation 15.2 % Immature Granulocyte % (Auto) 2.2 % Immature Granulocyte # (Auto) 0.22 K/uL Hypochromasia PRESENT Prothrombin Time 16.9 SECONDS Prothromb Time International Ratio 1.6 Sodium Level 141 mmol/L Potassium Level 3.9 mmol/L Chloride Level 107 mmol/L Carbon Dioxide Level 28 mmol/L Anion Gap 6.0 mmol/L Blood Urea Nitrogen 20 mg/dl Creatinine 1.57 mg/dl Est Creatinine Clear Calc Drug Dose 44.8 ml/min Estimated GFR () 52.5 Estimated GFR (Non- 45.3 BUN/Creatinine Ratio 12.7 Random Glucose 77 mg/dl Calcium Level 7.6 mg/dl Assessment and Plan Urinary retention, CHANEL, bilateral hydronephrosis Continue Flomax and finasteride. Guardado catheter replaced. Will leave in place for now. Plan for outpatient cysto for further evaluation. Will likely need a TURP in the future. ОЛЕГ Cr improved to 1.57. Gross hematuria, UTI Hematuria persists this morning. Will continue CBI. Will add Alum to CBI. He will remain NPO for now in the event cysto with fulguration is needed later today. Continue to monitor H&H. Culture growing Proteus. Recommend transitioning him to 7-10 days of PO abx prior to d/c home. Cytology negative for high grade urothelial carcinoma. Non-contrast CT negative for stones. 14mm left renal lesion indeterminate. Consider CT with IV contrast if Cr normalizes. Will plan for outpatient cysto to complete evaluation. Elevated PSA PSA of 6.380. Possibly elevated in the setting of UR. Will plan for outpatient DANIELLA with cysto. Likely repeat a PSA in several weeks. Will continue to follow along with primary service. Urine clear with Alum irrigation continue for now creatinine improving
[2017-09-25] MEDS: AMMONIUM ALUM 30 GM in SODIUM CHLORIDE 0.9% IRRIG 3,000 ML IR PRN ×5 (11:45→21:40)
--- NOTE | 2017-09-25 11:46 | Clinical Documentation Query ---
CLINICAL DOCUMENTATION QUERY Dr. EPSTEIN, In your clinical opinion is this patient being managed for: ( ) Acute blood loss anemia ( ) Not Agree ( ) Other explanation of clinical findings (No explanation is considered a No Response) ( ) Unable to determine ( X ) Need to Discuss (Phone CDS or qliq) (No discussion is considered a No Response) Please forward query to Dr. Moore- the patient's hospitalist starting 09/26/17. Thanks. The medical record reflects the following clinical findings, treatment, and risk factors. Clinical Indicators: 67 yo male presenting with ОЛЕГ and obstructive uropathy. Pt subsequently developed hematuria s/p guardado catheter placement. Eventually developed bright tsai colored urine and required CBI. Hgb/Hct dropped from 9.3/29.9 to 7.7/24.8. Treatment: 2U PRBC, vitamin K, monitor H/H, urology management Risk Factors: hematuria Please clarify and document your clinical opinion in the progress notes and discharge summary. Terms such as "probable", "suspected", "likely", "questionable", "possible", or "still to be ruled out" are acceptable. IF IN AGREEMENT, YOU MUST DOCUMENT ABOVE DIAGNOSTIC STATEMENT IN DAILY PROGRESS NOTES AND DISCHARGE SUMMARY. This document is not part of the patient's record. Thank You, Urszula Morel RN [phone]
[2017-09-25 18:18] LABS: HEMATOCRIT 28.5 % (42-52); HEMOGLOBIN 9.5 g/dL (14.0-18.0)
[2017-09-25] MEDS: TAMSULOSIN HCL 0.4 MG CAP PO SCH (19:44)
[2017-09-25] MEDS: RISPERIDONE 0.5 MG TAB PO SCH (19:44)
[2017-09-25] MEDS: DONEPEZIL HCL 5 MG TAB PO SCH (19:44)
[2017-09-25] MEDS: CEFTRIAXONE SOD INJ 1 GM in DEXTROSE 5% ADD-VANTAGE 50ML 50 ML IV SCH (19:45)
--- NOTE | 2017-09-25 21:37 | Progress Note ---
Medicine Progress Note Date & Time of Visit: Sep 25, 2017 at 21:27. Subjective Seen resting in bed, comfortable Denies shortness of breath, chest pain, dizziness Still having pink tinged urine per Guardado catheter bag, denies abdominal pain No other symptoms Objective Last 8 Hrs Date Time Temp Pulse Resp B/P (MAP) Pulse Ox O2 Delivery O2 Flow Rate FiO2 09/25/17 19:56 36.4 71 20 134/87 (103) 99 Room Air 09/25/17 16:30 37.0 87 16 132/76 96 09/25/17 16:00 Room Air 09/25/17 15:31 36.3 88 16 115/77 95 09/25/17 15:08 36.7 81 16 112/74 (87) 97 Room Air 09/25/17 15:00 36.3 89 16 111/72 95 09/25/17 14:20 36.8 93 16 128/82 100 09/25/17 14:05 36.8 91 16 106/71 96 09/25/17 13:55 36.8 88 16 130/73 99 09/25/17 13:45 88 16 130/73 99 Physical Exam: General- oriented x 3, not in distress Eyes- anicteric Neck- no JVD Lungs- clear breath sounds bilaterally no rales wheezes Heart- regular rhythm; no murmur, normal rate Abdomen- normal bowel sounds, soft, nontender, non distended Positive pink tinged urine in the Guardado catheter Extremities- no pretibial edema, no calf tenderness Neuro- alert, oriented x 3; no gross focal deficits Skin- warm & dry Laboratory Results: Last 24 Hours Test 09/25/17 05:30 09/25/17 18:10 White Blood Count 9.83 K/uL Red Blood Count 2.79 M/uL Hemoglobin 7.7 g/dL 9.5 g/dL Hematocrit 24.8 % 28.5 % Mean Corpuscular Volume 88.9 fL Mean Corpuscular Hemoglobin 27.6 pg Mean Corpuscular Hemoglobin Concent 31.0 g/dl Platelet Count 413 K/uL Mean Platelet Volume 9.0 fL Neutrophils (%) (Auto) 70.2 % Lymphocytes (%) (Auto) 13.9 % Monocytes (%) (Auto) 8.0 % Eosinophils (%) (Auto) 5.4 % Basophils (%) (Auto) 0.3 % Neutrophils # (Auto) 6.89 K/uL Lymphocytes # (Auto) 1.37 K/uL Monocytes # (Auto) 0.79 K/uL Eosinophils # (Auto) 0.53 K/uL Basophils # (Auto) 0.03 K/uL RDW Standard Deviation 49.1 fL RDW Coefficient of Variation 15.2 % Immature Granulocyte % (Auto) 2.2 % Immature Granulocyte # (Auto) 0.22 K/uL Hypochromasia PRESENT Prothrombin Time 16.9 SECONDS Prothromb Time International Ratio 1.6 Sodium Level 141 mmol/L Potassium Level 3.9 mmol/L Chloride Level 107 mmol/L Carbon Dioxide Level 28 mmol/L Anion Gap 6.0 mmol/L Blood Urea Nitrogen 20 mg/dl Creatinine 1.57 mg/dl Est Creatinine Clear Calc Drug Dose 44.8 ml/min Estimated GFR () 52.5 Estimated GFR (Non- 45.3 BUN/Creatinine Ratio 12.7 Random Glucose 77 mg/dl Calcium Level 7.6 mg/dl Assessment & Plan Assessment & Plan: This is a 67 year old male who has a significant PMH of Schizophrenia, PAF on usp coumadin, s/p bioprostetic Aortic Valve Replacement, Mitral Valve repair, CKD -3 baseline crea 1.2, Chronic Anemia, hx of bacterial endocarditis, HLD, hypothroidism, bullous pemphigoid who was seen in his PCP office today and sent to ED due to abnormal labs. Patient found to be in ОЛЕГ, bun/creatinine 102/5.3 (1) ОЛЕГ (acute kidney injury) Jefferson to be secondary to pre renal and obstructive due to B.O.O 1/2 NS with sodium bicarb--> transitioned to normal saline Creatinine improving further, almost back to baseline,d/c IV NSS Continue on flomax and finasteride for B.O.O. -PSA elevated at 6.38 -Per urology continue Guardado and follow-up on outpatient basis for voiding trial -Continue treating UTI with appropriate antibiotic -Appreciate nephrology and urology recommendation Hematuria -Urology on board -Catheter for bladder irrigation -INR 1.6, patient still having hematuria hemoglobin, vitamin K, Coumadin on hold since yesterday INR daily - will need close outpatient follow up follow recommendations outline in Urology notes Acute blood loss anemia Secondary to hematuria 2 units of packed RBCs ordered Monitor H&H Monitor for congestion (2) Hydronephrosis Assessment & Plan: - continue guardado catheter and follow with urology outpatient -Continue Flomax and finasteride (3) UTI (urinary tract infection) Assessment & Plan: UA >100k Proteus mirabilis -Continue IV rocephin, duration per Urology (4) Schizophrenia, unspecified Assessment & Plan: -Continue Risperdal and Zoloft, mood is currently stable (5) Paroxysmal atrial fibrillation Assessment & Plan: Currently he is rate and rhythm controlled -Atenolol held secondary to hypotension/ОЛЕГ BP improved, resumed Atenolol -INR 1.6 Vit K given hold Coumadin in light of hematuria -INR daily (6) Supratherapeutic INR, Resolved Assessment & Plan: S/p vitamin K secondary hematuria Holding Coumadin in light of hematuria (7) Hyperkalemia Assessment & Plan: -Renal diet. Resolved (8) Hypothyroidism Assessment & Plan: -Continue levothyroxine (9) Acute on Chronic anemia Assessment & Plan: Patient currently with hematuria S/P guardado cath placement. EGD/Colonscopy done 08/27/17, +rectal ulcer -FOBT negative -Continue iron supplementation, -iron studies was as follows ferritin 158, iron 9, T sat 4. Can consider IV iron - management as noted above (10) Hyperlipidemia Assessment & Plan: Continue Lipitor (11) Esophagitis determined by endoscopy Assessment & Plan: -Continue PPI BID -On carafate qid -GI Consulted. colonoscopy/egd done 08/27/17. Jefferson not to be GI source at this time. GI signed off (12) Hypoalbuminemia due to protein-calorie malnutrition Assessment & Plan: Continue with dietary recommendations, ordered boost (13) Bullous skin disease Assessment & Plan: Continue prednisone 10 mg daily (14) Scrotal hernia Assessment & Plan: Currently asymptomatic. Urology on board in which they recommend Surgical evaluation Surgery: no urgent surgical intervention at this time, outpatient ff up (15) S/P aortic valve replacement (16) S/P mitral valve repair (Shalonda Parmar, PABraedenC) DVT prophylaxis Heparin subcutaneous- held for hematuria Disposition Will need to transition to senior care facility Current Inpatient Medications: Current Inpatient Medications Medications (Trade) Dose Ordered Sig/Lakisha Route Start Time Stop Time Status Last Admin Dose Admin Acetaminophen (Tylenol Tab) 650 mg Q4H PRN PO 09/18/17 16:30 10/18/17 16:29 Atorvastatin Calcium (Lipitor Tab) 10 mg DAILY PO 09/19/17 09:00 10/19/17 08:59 09/25/17 08:36 10 MG Donepezil HCl (Aricept Tab) 5 mg HS PO 09/18/17 21:00 10/18/17 20:59 09/25/17 19:44 5 MG Ferrous Sulfate (Feosol Tab) 325 mg BID PO 09/18/17 21:00 10/18/17 20:59 09/25/17 19:44 325 MG Folic Acid (Folvite Tab) 1 mg QAM PO 09/19/17 09:00 10/19/17 08:59 09/25/17 08:36 1 MG Gabapentin (Neurontin Cap) 100 mg QAM PO 09/19/17 09:00 10/19/17 08:59 09/25/17 08:36 100 MG Levothyroxine Sodium (Synthroid Tab) 25 mcg DAILYBB PO 09/19/17 06:00 10/19/17 06:59 09/25/17 05:54 25 MCG Pantoprazole Sodium (Protonix Tab) 40 mg BID PO 09/18/17 21:00 10/18/17 20:59 09/25/17 19:43 40 MG Risperidone (Risperdal Tab) 0.5 mg HS PO 09/18/17 21:00 10/18/17 20:59 09/25/17 19:44 0.5 MG Sertraline HCl (Zoloft Tab) 50 mg DAILY PO 09/19/17 09:00 10/19/17 08:59 09/25/17 08:35 50 MG Prednisone (PredniSONE TAB) 10 mg DAILY PO 09/19/17 09:00 10/18/17 16:59 09/25/17 08:35 10 MG Ceftriaxone Sodium 1 gm/ Dextrose 50 ml @ 100 mls/hr Q24H IV 09/18/17 20:00 10/02/17 19:59 09/25/17 19:45 100 MLS/HR Sucralfate (Carafate Tab) 1 gm ACHS PO 09/19/17 16:15 10/19/17 16:14 09/25/17 19:43 1 GM Tamsulosin HCl (Flomax Cap) 0.4 mg HS PO 09/19/17 21:00 10/19/17 20:59 09/25/17 19:44 0.4 MG Finasteride (Proscar Tab) 5 mg QAM PO 09/20/17 09:00 10/20/17 08:59 09/25/17 08:36 5 MG Heparin Sodium (Porcine) (Heparin Sq 5000 Unit/0.5ml) 5,000 unit Q8 SQ 09/22/17 14:00 10/22/17 13:59 Future Hold 09/23/17 14:10 5,000 UNIT Sodium Chloride 1,000 ml @ 60 mls/hr [id number] IV 09/23/17 13:45 10/23/17 13:44 09/25/17 03:41 80 MLS/HR Aluminum Ammonium Sulfate 30 gm/ Sodium Chloride 3,000 ml @ 0 mls/hr PRN PRN IR 09/25/17 09:45 10/25/17 09:44 09/25/17 19:43 1 MLS/HR
[2017-09-26] VITALS (8 sets, daily range): BP systolic 123–165; BP diastolic 70–93; PULSE 60–75; TEMP 36.3–36.9; O2SAT 96–100
[2017-09-26] MEDS: AMMONIUM ALUM 30 GM in SODIUM CHLORIDE 0.9% IRRIG 3,000 ML IR PRN ×9 (00:19→22:58)
[2017-09-26] MEDS: LEVOTHYROXINE 25 MCG TAB PO SCH (05:20)
[2017-09-26 06:11] LABS: BASO % 0.3 %; BASO ABS # 0.04 K/uL (0-0.2); EOS % 4.7 %; EOS ABS # 0.58 K/uL (0-0.5); HEMATOCRIT 29.4 % (42-52); HEMOGLOBIN 9.3 g/dL (14.0-18.0); IG# 0.25 K/uL (0.00-0.02); LYMPH % 10.8 %; LYMPH ABS # 1.34 K/uL (1.2-3.4); MEAN CELL VOLUME 87.5 fL (80-100); MEAN CORPUSCULAR HEMOGLOBIN 27.7 pg (25-34); MEAN CORPUSCULAR HGB CONC 31.6 g/dl (32-36); MONO ABS # 0.99 K/uL (0.11-0.59); NEUT % 74.2 %; NEUT ABS # 9.19 K/uL (1.4-6.5); PLATELET COUNT 400 K/uL (130-400); RED CELL DISTRIBUTION WIDTH CV 15.9 % (11.5-14.5); RED CELL DISTRIBUTION WIDTH SD 50.7 fL (36.4-46.3); WHITE BLOOD COUNT 12.39 K/uL (4.8-10.8)
[2017-09-26 06:40] LABS: INR 1.3 (0.9-1.1)
[2017-09-26 06:41] LABS: CALCIUM 7.7 mg/dl (8.5-10.1); CREATININE 1.82 mg/dl (0.60-1.40); POTASSIUM 3.8 mmol/L (3.5-5.1)
[2017-09-26] MEDS: FINASTERIDE 5 MG TAB PO SCH (07:34)
[2017-09-26] MEDS: SUCRALFATE 1 GM TAB PO SCH ×4 (07:35→20:15)
[2017-09-26] MEDS: ATORVASTATIN 10 MG TAB PO SCH (07:35)
[2017-09-26] MEDS: SERTRALINE HCL 50 MG TAB PO SCH (07:36)
[2017-09-26] MEDS: GABAPENTIN 100 MG CAP PO SCH (07:36)
[2017-09-26] MEDS: PANTOprazole SOD 40 MG TAB PO SCH ×2 (07:36→20:17)
[2017-09-26] MEDS: FERROUS SULFATE 325 MG TAB PO SCH ×2 (07:37→20:16)
--- NOTE | 2017-09-26 10:24 | Urology Progress Note ---
Progress Note Date of Service Sep 26, 2017. Subjective Pt evaluation today including: conversation w/ patient, chart review, lab review Pain: Denies Voiding: guardado catheter in place 67 yo male with CHANEL, bilateral hydronephrosis, gross hematuria, and elevated PSA. Pt denies pain this morning. Guardado draining light pink tinged urine with old clot. CBI with Alum continues to run. H&H has improved to 9.3 and 29.4 this morning. Cr slightly worse at 1.82. Constitutional: No fever, No chills Respiratory: No shortness of breath Cardiovascular: No chest pain Abdomen: No pain, No nausea, No vomiting Male : + hematuria Heme: + abnormal bleeding/bruising Objective Vital Signs Date Time Temp Pulse Resp B/P (MAP) Pulse Ox O2 Delivery O2 Flow Rate FiO2 09/26/17 07:11 36.9 73 16 126/80 (95) 96 Room Air 09/26/17 03:50 36.5 71 18 128/81 (97) 97 Room Air 09/25/17 23:59 Room Air 09/25/17 23:40 36.6 83 16 153/84 (107) 98 Room Air 09/25/17 19:56 36.4 71 20 134/87 (103) 99 Room Air 09/25/17 16:30 37.0 87 16 132/76 96 09/25/17 16:00 Room Air 09/25/17 15:31 36.3 88 16 115/77 95 09/25/17 15:08 36.7 81 16 112/74 (87) 97 Room Air 09/25/17 15:00 36.3 89 16 111/72 95 09/25/17 14:20 36.8 93 16 128/82 100 09/25/17 14:05 36.8 91 16 106/71 96 09/25/17 13:55 36.8 88 16 130/73 99 09/25/17 13:45 88 16 130/73 99 09/25/17 12:45 75 16 143/86 100 09/25/17 11:45 70 16 138/84 100 09/25/17 11:15 71 16 147/87 96 09/25/17 10:45 36.8 67 16 142/86 100 09/25/17 10:30 36.8 68 16 133/84 98 Physical Exam General Appearance: no apparent distress Eyes: normal inspection ENT: hearing grossly normal Neck: no JVD Respiratory/Chest: no respiratory distress, no accessory muscle use Cardiovascular: no JVD Extremities: normal inspection Neurologic/Psychiatric: alert, normal mood/affect, oriented x 3 Skin: normal color Laboratory Results Last 24 Hours Test 09/25/17 18:10 09/26/17 05:30 Hemoglobin 9.5 g/dL 9.3 g/dL Hematocrit 28.5 % 29.4 % White Blood Count 12.39 K/uL Red Blood Count 3.36 M/uL Mean Corpuscular Volume 87.5 fL Mean Corpuscular Hemoglobin 27.7 pg Mean Corpuscular Hemoglobin Concent 31.6 g/dl Platelet Count 400 K/uL Mean Platelet Volume 9.0 fL Neutrophils (%) (Auto) 74.2 % Lymphocytes (%) (Auto) 10.8 % Monocytes (%) (Auto) 8.0 % Eosinophils (%) (Auto) 4.7 % Basophils (%) (Auto) 0.3 % Neutrophils # (Auto) 9.19 K/uL Lymphocytes # (Auto) 1.34 K/uL Monocytes # (Auto) 0.99 K/uL Eosinophils # (Auto) 0.58 K/uL Basophils # (Auto) 0.04 K/uL RDW Standard Deviation 50.7 fL RDW Coefficient of Variation 15.9 % Immature Granulocyte % (Auto) 2.0 % Immature Granulocyte # (Auto) 0.25 K/uL Prothrombin Time 13.1 SECONDS Prothromb Time International Ratio 1.3 Sodium Level 143 mmol/L Potassium Level 3.8 mmol/L Chloride Level 109 mmol/L Carbon Dioxide Level 27 mmol/L Anion Gap 7.0 mmol/L Blood Urea Nitrogen 20 mg/dl Creatinine 1.82 mg/dl Est Creatinine Clear Calc Drug Dose 38.6 ml/min Estimated GFR () 43.9 Estimated GFR (Non- 37.9 BUN/Creatinine Ratio 11.2 Random Glucose 75 mg/dl Calcium Level 7.7 mg/dl Assessment and Plan Urinary retention, CHANEL, bilateral hydronephrosis Continue Flomax and finasteride. Guardado catheter replaced. Will leave in place for now. Plan for outpatient cysto for further evaluation. Will likely need a TURP in the future. ОЛЕГ Cr slightly worse today at 1.82. Will recheck a renal u/s to assess for improvement in bilateral hydronephrosis. Gross hematuria, UTI Hematuria improved. Continue to run slow CBI with Alum today. Continue to monitor H&H. Continue to hold Coumadin. Culture growing Proteus. Recommend transitioning him to 7-10 days of PO abx prior to d/c home. Cytology negative for high grade urothelial carcinoma. Non-contrast CT negative for stones. 14mm left renal lesion indeterminate. Consider CT with IV contrast if Cr normalizes. Will plan for outpatient cysto to complete evaluation. Elevated PSA PSA of 6.380. Possibly elevated in the setting of UR. Will plan for outpatient DANIELLA with cysto. Likely repeat a PSA in several weeks. Will continue to follow along with primary service.
--- NOTE | 2017-09-26 13:51 | DIAGNOSTIC IMAGING REPORT ---
(JOSELITO/BLAD)RETROPERITON COMP HISTORY: 67 years-old Male bilateral hydronephrosis on CT follow-up CT in a patient with hydronephrosis COMPARISON: CT abdomen and pelvis 09/18/2017 TECHNIQUE: Multiple real-time sonographic images of the kidneys and bladder were obtained assessing grayscale appearance and color flow FINDINGS: Right kidney measures 11.6 cm in length. At least moderate right-sided hydronephrosis redemonstrated without renal calculi or suspicious renal mass lesions identified. The degree of hydronephrosis appears generally unchanged. Cyst of the interpolar right kidney is again seen measuring approximately 1.9 cm in greatest dimension. The left kidney measures 11.4 cm in length and again demonstrates severe hydronephrosis without renal calculi or suspicious renal mass lesions. Previously noted exophytic 1.4 cm lesion of the posterior interpolar left kidney is not definitively seen by ultrasound. Left kidney is suboptimally visualized secondary to obscuring bowel gas. King catheter is noted within a partially decompressed bladder. Prostamegaly with mass effect upon the floor of the bladder. IMPRESSION: 1. Bilateral hydronephrosis redemonstrated, left greater than right without renal calculi. 2. Prostamegaly with mass effect upon the floor of the bladder. A less likely differential consideration would include a urothelial lesion at the base of the bladder. This could be correlated with cystoscopy. The above report was generated using voice recognition software. It may contain grammatical, syntax or spelling errors. Electronically signed by: Case Terry M.D. 09/26/2017 1:50 PM Dictated Date/Time: 09/26/2017 1:45 PM
--- NOTE | 2017-09-26 18:48 | Progress Note ---
Subjective Date of Service: Sep 26, 2017. Subjective Pt evaluation today including: conversation w/ patient, physical exam, lab review, review of studies, review of inpatient medication list Saw/examined the patient in room 231 He's doing okay, denies any symptoms King catheter in place, dark urine draining No nausea/vomiting/diarrhea Problem List Medical Problems: (1) ОЛЕГ (acute kidney injury) Status: Acute (2) ОЛЕГ (acute kidney injury) Status: Acute (3) CHF (congestive heart failure) Status: Acute (4) Left leg cellulitis Status: Acute (5) Malnutrition Status: Acute (6) SIRS (systemic inflammatory response syndrome) Status: Acute Review of Systems Constitutional: No fever, No chills Respiratory: No cough, No sputum, No shortness of breath Abdomen: No pain, No nausea, No vomiting, No diarrhea Male : + hematuria, + problem reported (retention) Medications Current Inpatient Medications Medications (Trade) Dose Ordered Sig/Lakisha Route Start Time Stop Time Status Last Admin Dose Admin Acetaminophen (Tylenol Tab) 650 mg Q4H PRN PO 09/18/17 16:30 10/18/17 16:29 Atorvastatin Calcium (Lipitor Tab) 10 mg DAILY PO 09/19/17 09:00 10/19/17 08:59 09/26/17 07:35 10 MG Donepezil HCl (Aricept Tab) 5 mg HS PO 09/18/17 21:00 10/18/17 20:59 09/25/17 19:44 5 MG Ferrous Sulfate (Feosol Tab) 325 mg BID PO 09/18/17 21:00 10/18/17 20:59 09/26/17 07:37 325 MG Folic Acid (Folvite Tab) 1 mg QAM PO 09/19/17 09:00 10/19/17 08:59 09/26/17 07:35 1 MG Gabapentin (Neurontin Cap) 100 mg QAM PO 09/19/17 09:00 10/19/17 08:59 09/26/17 07:36 100 MG Levothyroxine Sodium (Synthroid Tab) 25 mcg DAILYBB PO 09/19/17 06:00 10/19/17 06:59 09/26/17 05:20 25 MCG Pantoprazole Sodium (Protonix Tab) 40 mg BID PO 09/18/17 21:00 10/18/17 20:59 09/26/17 07:36 40 MG Risperidone (Risperdal Tab) 0.5 mg HS PO 09/18/17 21:00 10/18/17 20:59 09/25/17 19:44 0.5 MG Sertraline HCl (Zoloft Tab) 50 mg DAILY PO 09/19/17 09:00 10/19/17 08:59 09/26/17 07:36 50 MG Prednisone (PredniSONE TAB) 10 mg DAILY PO 09/19/17 09:00 10/18/17 16:59 09/26/17 07:36 10 MG Ceftriaxone Sodium 1 gm/ Dextrose 50 ml @ 100 mls/hr Q24H IV 09/18/17 20:00 10/02/17 19:59 09/25/17 19:45 100 MLS/HR Sucralfate (Carafate Tab) 1 gm ACHS PO 09/19/17 16:15 10/19/17 16:14 09/26/17 16:53 1 GM Tamsulosin HCl (Flomax Cap) 0.4 mg HS PO 09/19/17 21:00 10/19/17 20:59 09/25/17 19:44 0.4 MG Finasteride (Proscar Tab) 5 mg QAM PO 09/20/17 09:00 10/20/17 08:59 09/26/17 07:34 5 MG Heparin Sodium (Porcine) (Heparin Sq 5000 Unit/0.5ml) 5,000 unit Q8 SQ 09/22/17 14:00 10/22/17 13:59 Future Hold 09/23/17 14:10 5,000 UNIT Aluminum Ammonium Sulfate 30 gm/ Sodium Chloride 3,000 ml @ 0 mls/hr PRN PRN IR 09/25/17 09:45 10/25/17 09:44 09/26/17 16:55 1 MLS/HR Atenolol (Tenormin Tab) 25 mg DAILY PO 09/26/17 09:00 10/26/17 08:59 09/26/17 07:34 25 MG Objective Vital Signs Date Time Temp Pulse Resp B/P (MAP) Pulse Ox O2 Delivery O2 Flow Rate FiO2 09/26/17 16:00 100 Room Air 09/26/17 15:30 36.6 60 18 133/82 (99) 100 Room Air 09/26/17 12:16 36.7 75 16 165/93 (117) 99 Room Air 09/26/17 08:00 96 Room Air 09/26/17 07:11 36.9 73 16 126/80 (95) 96 Room Air 09/26/17 03:50 36.5 71 18 128/81 (97) 97 Room Air 09/25/17 23:59 Room Air 09/25/17 23:40 36.6 83 16 153/84 (107) 98 Room Air 09/25/17 19:56 36.4 71 20 134/87 (103) 99 Room Air Physical Exam General Appearance: no apparent distress Respiratory/Chest: lungs clear, normal breath sounds, no respiratory distress, no accessory muscle use Cardiovascular: regular rate, rhythm, no edema, no murmur Abdomen: + pertinent finding (+King catheter in, gross hematuria) Extremities: + pertinent finding (excoriations throughout body) Neurologic/Psychiatric: no motor/sensory deficits, alert, + pertinent finding ( flat affect) Laboratory Results Last 24 Hours Test 09/26/17 05:30 White Blood Count 12.39 K/uL Red Blood Count 3.36 M/uL Hemoglobin 9.3 g/dL Hematocrit 29.4 % Mean Corpuscular Volume 87.5 fL Mean Corpuscular Hemoglobin 27.7 pg Mean Corpuscular Hemoglobin Concent 31.6 g/dl Platelet Count 400 K/uL Mean Platelet Volume 9.0 fL Neutrophils (%) (Auto) 74.2 % Lymphocytes (%) (Auto) 10.8 % Monocytes (%) (Auto) 8.0 % Eosinophils (%) (Auto) 4.7 % Basophils (%) (Auto) 0.3 % Neutrophils # (Auto) 9.19 K/uL Lymphocytes # (Auto) 1.34 K/uL Monocytes # (Auto) 0.99 K/uL Eosinophils # (Auto) 0.58 K/uL Basophils # (Auto) 0.04 K/uL RDW Standard Deviation 50.7 fL RDW Coefficient of Variation 15.9 % Immature Granulocyte % (Auto) 2.0 % Immature Granulocyte # (Auto) 0.25 K/uL Prothrombin Time 13.1 SECONDS Prothromb Time International Ratio 1.3 Sodium Level 143 mmol/L Potassium Level 3.8 mmol/L Chloride Level 109 mmol/L Carbon Dioxide Level 27 mmol/L Anion Gap 7.0 mmol/L Blood Urea Nitrogen 20 mg/dl Creatinine 1.82 mg/dl Est Creatinine Clear Calc Drug Dose 38.6 ml/min Estimated GFR () 43.9 Estimated GFR (Non- 37.9 BUN/Creatinine Ratio 11.2 Random Glucose 75 mg/dl Calcium Level 7.7 mg/dl Assessment and Plan This is a 67 year old male with a past medical history of schizophrenia, depression, valvular heart disease s/p bioprosthetic aortic valve replacement, mitral valve repair, tricuspid valve annuloplasty; paroxysmal atrial fibrillation on long-term anticoagulation, hypothyroidism, HLD, inguinal hernia - presents with urinary retention, hematuria, acute kidney injury 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 to PO in 1-2 days Paroxysmal A. Fib - currently in NSR - hold Coumadin - continue Atenolol Schizophrenia - continue Risperdal - continue Celexa for depression Neurotic Excoriations - monitor for infections Valvular Heart Disease - stable, hold diuretics Hypothyroidism - continue Synthroid DVT ppx - SCDs FULL CODE
[2017-09-26] MEDS: CEFTRIAXONE SOD INJ 1 GM in DEXTROSE 5% ADD-VANTAGE 50ML 50 ML IV SCH (20:13)
[2017-09-26] MEDS: TAMSULOSIN HCL 0.4 MG CAP PO SCH (20:16)
[2017-09-26] MEDS: DONEPEZIL HCL 5 MG TAB PO SCH (20:16)
[2017-09-26] MEDS: RISPERIDONE 0.5 MG TAB PO SCH (20:17)
[2017-09-27] MEDS: AMMONIUM ALUM 30 GM in SODIUM CHLORIDE 0.9% IRRIG 3,000 ML IR PRN ×5 (02:02→23:39)
[2017-09-27 04:36] VITALS: BP 144/89; PULSE 72; TEMP 36.5; O2SAT 97
[2017-09-27] MEDS: LEVOTHYROXINE 25 MCG TAB PO SCH (06:08)
[2017-09-27 06:12] LABS: BASO % 0.3 %; BASO ABS # 0.04 K/uL (0-0.2); EOS % 4.2 %; EOS ABS # 0.51 K/uL (0-0.5); HEMOGLOBIN 9.3 g/dL (14.0-18.0); IG# 0.26 K/uL (0.00-0.02); LYMPH % 12.9 %; LYMPH ABS # 1.55 K/uL (1.2-3.4); MEAN CELL VOLUME 87.6 fL (80-100); MEAN CORPUSCULAR HEMOGLOBIN 28.1 pg (25-34); MEAN CORPUSCULAR HGB CONC 32.1 g/dl (32-36); MEAN PLATELET VOLUME 8.9 fL (7.4-10.4); MONO % 8.8 %; MONO ABS # 1.06 K/uL (0.11-0.59); NEUT % 71.6 %; PLATELET COUNT 421 K/uL (130-400); RED CELL DISTRIBUTION WIDTH CV 15.6 % (11.5-14.5); RED CELL DISTRIBUTION WIDTH SD 50.3 fL (36.4-46.3); WHITE BLOOD COUNT 12.02 K/uL (4.8-10.8)
[2017-09-27 06:21] LABS: INR 1.1 (0.9-1.1)
[2017-09-27 06:46] LABS: CALCIUM 7.6 mg/dl (8.5-10.1); CREATININE 1.69 mg/dl (0.60-1.40); POTASSIUM 3.7 mmol/L (3.5-5.1)
[2017-09-27 06:53] VITALS: BP 138/82; PULSE 74; TEMP 36.6; O2SAT 94
--- NOTE | 2017-09-27 08:09 | Urology Progress Note ---
Progress Note Date of Service Sep 27, 2017. Subjective Pt evaluation today including: conversation w/ patient, chart review, lab review Pain: Denies Voiding: guardado catheter in place 67 yo male with CHANEL, ARF, gross hematuria. Pt continues to have dark urine with CBI with Alum running. Denies pain. Constitutional: No fever, No chills Respiratory: No shortness of breath Cardiovascular: No chest pain Abdomen: No pain, No nausea, No vomiting Male : + hematuria Heme: + abnormal bleeding/bruising Objective Vital Signs Date Time Temp Pulse Resp B/P (MAP) Pulse Ox O2 Delivery O2 Flow Rate FiO2 09/27/17 06:53 36.6 74 18 138/82 (100) 94 Room Air 09/27/17 04:36 36.5 72 19 144/89 (107) 97 Room Air 09/26/17 23:59 Room Air 09/26/17 23:18 36.3 67 16 123/70 (87) 96 Room Air 09/26/17 19:38 36.8 60 20 132/82 (99) 100 Room Air 09/26/17 16:00 100 Room Air 09/26/17 15:30 36.6 60 18 133/82 (99) 100 Room Air 09/26/17 12:16 36.7 75 16 165/93 (117) 99 Room Air Physical Exam General Appearance: no apparent distress Eyes: normal inspection ENT: hearing grossly normal Neck: no JVD Respiratory/Chest: no respiratory distress, no accessory muscle use Cardiovascular: no JVD Extremities: normal inspection Neurologic/Psychiatric: alert, normal mood/affect, oriented x 3 Skin: normal color Laboratory Results Last 24 Hours Test 09/27/17 05:48 White Blood Count 12.02 K/uL Red Blood Count 3.31 M/uL Hemoglobin 9.3 g/dL Hematocrit 29.0 % Mean Corpuscular Volume 87.6 fL Mean Corpuscular Hemoglobin 28.1 pg Mean Corpuscular Hemoglobin Concent 32.1 g/dl Platelet Count 421 K/uL Mean Platelet Volume 8.9 fL Neutrophils (%) (Auto) 71.6 % Lymphocytes (%) (Auto) 12.9 % Monocytes (%) (Auto) 8.8 % Eosinophils (%) (Auto) 4.2 % Basophils (%) (Auto) 0.3 % Neutrophils # (Auto) 8.60 K/uL Lymphocytes # (Auto) 1.55 K/uL Monocytes # (Auto) 1.06 K/uL Eosinophils # (Auto) 0.51 K/uL Basophils # (Auto) 0.04 K/uL RDW Standard Deviation 50.3 fL RDW Coefficient of Variation 15.6 % Immature Granulocyte % (Auto) 2.2 % Immature Granulocyte # (Auto) 0.26 K/uL Prothrombin Time 11.8 SECONDS Prothromb Time International Ratio 1.1 Sodium Level 139 mmol/L Potassium Level 3.7 mmol/L Chloride Level 106 mmol/L Carbon Dioxide Level 28 mmol/L Anion Gap 5.0 mmol/L Blood Urea Nitrogen 20 mg/dl Creatinine 1.69 mg/dl Est Creatinine Clear Calc Drug Dose 41.6 ml/min Estimated GFR () 48.0 Estimated GFR (Non- 41.4 BUN/Creatinine Ratio 11.6 Random Glucose 75 mg/dl Calcium Level 7.6 mg/dl Assessment and Plan Gross hematuria Guardado continues to drain dark urine with CBI with Alum running. H&H stable. Continue to hold Coumadin. Will make him NPO this morning. May need cysto with clot evacuation and fulguration later today if hematuria persists. Urinary retention, CHANEL Continue Flomax and finasteride. Guardado catheter replaced. Will leave in place for now. Plan for outpatient cysto for further evaluation. Will likely need a TURP in the future. ОЛЕГ, bilateral hyrdonephrosis Cr improved to 1.69 this morning. Renal u/s yesterday showing persistent hydronephrosis with guardado catheter in place. UTI Culture growing Proteus. Recommend transitioning him to 7-10 days of PO abx prior to d/c home. Elevated PSA PSA of 6.380. Possibly elevated in the setting of UR. Will plan for outpatient DANIELLA with cysto. Likely repeat a PSA in several weeks. Will continue to follow along with primary service.
[2017-09-27] MEDS: FERROUS SULFATE 325 MG TAB PO SCH ×2 (08:47→20:15)
[2017-09-27] MEDS: FINASTERIDE 5 MG TAB PO SCH (08:47)
[2017-09-27] MEDS: PANTOprazole SOD 40 MG TAB PO SCH ×2 (08:47→20:15)
[2017-09-27] MEDS: SERTRALINE HCL 50 MG TAB PO SCH (08:47)
[2017-09-27] MEDS: ATORVASTATIN 10 MG TAB PO SCH (08:47)
[2017-09-27] MEDS: GABAPENTIN 100 MG CAP PO SCH (08:48)
[2017-09-27] MEDS: SUCRALFATE 1 GM TAB PO SCH ×4 (08:48→20:15)
[2017-09-27 11:52] VITALS: BP 167/99; PULSE 66; TEMP 36.9; O2SAT 97
[2017-09-27 15:45] VITALS: BP 115/70; PULSE 58; TEMP 36.4; O2SAT 99
--- NOTE | 2017-09-27 16:28 | Progress Note ---
Subjective Date of Service: Sep 27, 2017. Subjective Pt evaluation today including: conversation w/ patient, physical exam, lab review, review of studies, review of inpatient medication list Saw/examined the patient in room 231 He's doing okay, not feeling anything symptomatically continues to have dark, bloody urine in the King Problem List Medical Problems: (1) ОЛЕГ (acute kidney injury) Status: Acute (2) ОЛЕГ (acute kidney injury) Status: Acute (3) CHF (congestive heart failure) Status: Acute (4) Left leg cellulitis Status: Acute (5) Malnutrition Status: Acute (6) SIRS (systemic inflammatory response syndrome) Status: Acute Review of Systems Constitutional: No fever, No chills Respiratory: No shortness of breath Cardiac: No chest pain Male : + hematuria Medications Current Inpatient Medications Medications (Trade) Dose Ordered Sig/Lakisha Route Start Time Stop Time Status Last Admin Dose Admin Acetaminophen (Tylenol Tab) 650 mg Q4H PRN PO 09/18/17 16:30 10/18/17 16:29 Atorvastatin Calcium (Lipitor Tab) 10 mg DAILY PO 09/19/17 09:00 10/19/17 08:59 09/27/17 08:47 10 MG Donepezil HCl (Aricept Tab) 5 mg HS PO 09/18/17 21:00 10/18/17 20:59 09/26/17 20:16 5 MG Ferrous Sulfate (Feosol Tab) 325 mg BID PO 09/18/17 21:00 10/18/17 20:59 09/27/17 08:47 325 MG Folic Acid (Folvite Tab) 1 mg QAM PO 09/19/17 09:00 10/19/17 08:59 09/27/17 08:48 1 MG Gabapentin (Neurontin Cap) 100 mg QAM PO 09/19/17 09:00 10/19/17 08:59 09/27/17 08:48 100 MG Levothyroxine Sodium (Synthroid Tab) 25 mcg DAILYBB PO 09/19/17 06:00 10/19/17 06:59 09/27/17 06:08 25 MCG Pantoprazole Sodium (Protonix Tab) 40 mg BID PO 09/18/17 21:00 10/18/17 20:59 09/27/17 08:47 40 MG Risperidone (Risperdal Tab) 0.5 mg HS PO 09/18/17 21:00 10/18/17 20:59 09/26/17 20:17 0.5 MG Sertraline HCl (Zoloft Tab) 50 mg DAILY PO 09/19/17 09:00 10/19/17 08:59 09/27/17 08:47 50 MG Prednisone (PredniSONE TAB) 10 mg DAILY PO 09/19/17 09:00 10/18/17 16:59 09/27/17 08:47 10 MG Ceftriaxone Sodium 1 gm/ Dextrose 50 ml @ 100 mls/hr Q24H IV 09/18/17 20:00 10/02/17 19:59 09/26/17 20:13 100 MLS/HR Sucralfate (Carafate Tab) 1 gm ACHS PO 09/19/17 16:15 10/19/17 16:14 09/27/17 15:33 1 GM Tamsulosin HCl (Flomax Cap) 0.4 mg HS PO 09/19/17 21:00 10/19/17 20:59 09/26/17 20:16 0.4 MG Finasteride (Proscar Tab) 5 mg QAM PO 09/20/17 09:00 10/20/17 08:59 09/27/17 08:47 5 MG Heparin Sodium (Porcine) (Heparin Sq 5000 Unit/0.5ml) 5,000 unit Q8 SQ 09/22/17 14:00 10/22/17 13:59 Future Hold 09/23/17 14:10 5,000 UNIT Aluminum Ammonium Sulfate 30 gm/ Sodium Chloride 3,000 ml @ 0 mls/hr PRN PRN IR 09/25/17 09:45 10/25/17 09:44 09/27/17 04:49 1 MLS/HR Atenolol (Tenormin Tab) 25 mg DAILY PO 09/26/17 09:00 10/26/17 08:59 09/27/17 08:48 25 MG Objective Vital Signs Date Time Temp Pulse Resp B/P (MAP) Pulse Ox O2 Delivery O2 Flow Rate FiO2 09/27/17 15:45 36.4 58 16 115/70 (85) 99 Room Air 09/27/17 11:52 36.9 66 18 167/99 (121) 97 Room Air 09/27/17 08:45 Room Air 09/27/17 06:53 36.6 74 18 138/82 (100) 94 Room Air 09/27/17 04:36 36.5 72 19 144/89 (107) 97 Room Air 09/26/17 23:59 Room Air 09/26/17 23:18 36.3 67 16 123/70 (87) 96 Room Air 09/26/17 19:38 36.8 60 20 132/82 (99) 100 Room Air Physical Exam General Appearance: no apparent distress Respiratory/Chest: lungs clear, normal breath sounds, no respiratory distress, no accessory muscle use Cardiovascular: regular rate, rhythm, no edema, no murmur Extremities: + pertinent finding (King catheter in place; +bloody urine) Neurologic/Psychiatric: + pertinent finding (flat affect) Laboratory Results Last 24 Hours Test 09/27/17 05:48 White Blood Count 12.02 K/uL Red Blood Count 3.31 M/uL Hemoglobin 9.3 g/dL Hematocrit 29.0 % Mean Corpuscular Volume 87.6 fL Mean Corpuscular Hemoglobin 28.1 pg Mean Corpuscular Hemoglobin Concent 32.1 g/dl Platelet Count 421 K/uL Mean Platelet Volume 8.9 fL Neutrophils (%) (Auto) 71.6 % Lymphocytes (%) (Auto) 12.9 % Monocytes (%) (Auto) 8.8 % Eosinophils (%) (Auto) 4.2 % Basophils (%) (Auto) 0.3 % Neutrophils # (Auto) 8.60 K/uL Lymphocytes # (Auto) 1.55 K/uL Monocytes # (Auto) 1.06 K/uL Eosinophils # (Auto) 0.51 K/uL Basophils # (Auto) 0.04 K/uL RDW Standard Deviation 50.3 fL RDW Coefficient of Variation 15.6 % Immature Granulocyte % (Auto) 2.2 % Immature Granulocyte # (Auto) 0.26 K/uL Prothrombin Time 11.8 SECONDS Prothromb Time International Ratio 1.1 Sodium Level 139 mmol/L Potassium Level 3.7 mmol/L Chloride Level 106 mmol/L Carbon Dioxide Level 28 mmol/L Anion Gap 5.0 mmol/L Blood Urea Nitrogen 20 mg/dl Creatinine 1.69 mg/dl Est Creatinine Clear Calc Drug Dose 41.6 ml/min Estimated GFR () 48.0 Estimated GFR (Non- 41.4 BUN/Creatinine Ratio 11.6 Random Glucose 75 mg/dl Calcium Level 7.6 mg/dl Assessment and Plan This is a 67 year old male with a past medical history of schizophrenia, depression, valvular heart disease s/p bioprosthetic aortic valve replacement, mitral valve repair, tricuspid valve annuloplasty; paroxysmal atrial fibrillation on long-term anticoagulation, hypothyroidism, HLD, inguinal hernia - presents with urinary retention, hematuria, acute kidney injury 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 to PO in 1-2 days Paroxysmal A. Fib - currently in NSR - hold Coumadin - continue Atenolol Schizophrenia - continue Risperdal - continue Celexa for depression Neurotic Excoriations - monitor for infections Valvular Heart Disease - stable, hold diuretics Hypothyroidism - continue Synthroid DVT ppx - SCDs FULL CODE
[2017-09-27 19:41] VITALS: BP 147/85; PULSE 59; O2SAT 98
[2017-09-27] MEDS: TAMSULOSIN HCL 0.4 MG CAP PO SCH (20:15)
[2017-09-27] MEDS: RISPERIDONE 0.5 MG TAB PO SCH (20:15)
[2017-09-27] MEDS: DONEPEZIL HCL 5 MG TAB PO SCH (20:15)
[2017-09-27] MEDS: CEFTRIAXONE SOD INJ 1 GM in DEXTROSE 5% ADD-VANTAGE 50ML 50 ML IV SCH (20:15)
[2017-09-27 23:22] VITALS: BP 145/86; PULSE 58; TEMP 36.5; O2SAT 96
[2017-09-28] MEDS: AMMONIUM ALUM 30 GM in SODIUM CHLORIDE 0.9% IRRIG 3,000 ML IR PRN ×6 (01:35→21:30)
[2017-09-28 03:18] VITALS: BP 144/82; PULSE 66; TEMP 36.7; O2SAT 96
[2017-09-28] MEDS: LEVOTHYROXINE 25 MCG TAB PO SCH (05:49)
[2017-09-28 06:59] VITALS: BP 134/72; PULSE 63; TEMP 36.7; O2SAT 98
[2017-09-28] MEDS: SUCRALFATE 1 GM TAB PO SCH ×4 (07:00→21:36)
[2017-09-28 07:45] LABS: BASO % 0.3 %; BASO ABS # 0.04 K/uL (0-0.2); EOS % 4.6 %; EOS ABS # 0.63 K/uL (0-0.5); HEMATOCRIT 30.6 % (42-52); HEMOGLOBIN 9.8 g/dL (14.0-18.0); IG# 0.21 K/uL (0.00-0.02); LYMPH % 13.5 %; LYMPH ABS # 1.85 K/uL (1.2-3.4); MEAN CELL VOLUME 87.9 fL (80-100); MEAN CORPUSCULAR HEMOGLOBIN 28.2 pg (25-34); MEAN PLATELET VOLUME 8.9 fL (7.4-10.4); MONO % 8.7 %; MONO ABS # 1.19 K/uL (0.11-0.59); NEUT % 71.4 %; NEUT ABS # 9.83 K/uL (1.4-6.5); PLATELET COUNT 454 K/uL (130-400); RED CELL DISTRIBUTION WIDTH CV 15.6 % (11.5-14.5); RED CELL DISTRIBUTION WIDTH SD 50.5 fL (36.4-46.3); WHITE BLOOD COUNT 13.75 K/uL (4.8-10.8)
[2017-09-28 08:19] LABS: CALCIUM 8.3 mg/dl (8.5-10.1); CREATININE 1.83 mg/dl (0.60-1.40); POTASSIUM 3.8 mmol/L (3.5-5.1)
[2017-09-28] MEDS: SERTRALINE HCL 50 MG TAB PO SCH (08:28)
[2017-09-28] MEDS: ATORVASTATIN 10 MG TAB PO SCH (08:28)
[2017-09-28] MEDS: PANTOprazole SOD 40 MG TAB PO SCH ×2 (08:28→21:36)
[2017-09-28] MEDS: FERROUS SULFATE 325 MG TAB PO SCH ×2 (08:29→21:35)
[2017-09-28] MEDS: GABAPENTIN 100 MG CAP PO SCH (08:29)
[2017-09-28] MEDS: FINASTERIDE 5 MG TAB PO SCH (08:29)
--- NOTE | 2017-09-28 10:44 | Progress Note ---
Subjective Date of Service: Sep 28, 2017. Subjective Pt evaluation today including: conversation w/ patient, physical exam, chart review, review of studies Pain: some bladder spasm Voiding: guardado catheter in place Problem List Medical Problems: (1) ОЛЕГ (acute kidney injury) Status: Acute (2) ОЛЕГ (acute kidney injury) Status: Acute (3) CHF (congestive heart failure) Status: Acute (4) Left leg cellulitis Status: Acute (5) Malnutrition Status: Acute (6) SIRS (systemic inflammatory response syndrome) Status: Acute Objective Vital Signs Date Time Temp Pulse Resp B/P (MAP) Pulse Ox O2 Delivery O2 Flow Rate FiO2 09/28/17 08:02 Room Air 09/28/17 06:59 36.7 63 16 134/72 (92) 98 Room Air 09/28/17 03:18 36.7 66 17 144/82 (102) 96 Room Air 09/28/17 00:00 Room Air 09/27/17 23:22 36.5 58 15 145/86 (105) 96 Room Air 09/27/17 19:41 59 18 147/85 (105) 98 Room Air 09/27/17 16:21 Room Air 09/27/17 15:45 36.4 58 16 115/70 (85) 99 Room Air 09/27/17 11:52 36.9 66 18 167/99 (121) 97 Room Air Laboratory Results Last 24 Hours Test 09/28/17 07:18 White Blood Count 13.75 K/uL Red Blood Count 3.48 M/uL Hemoglobin 9.8 g/dL Hematocrit 30.6 % Mean Corpuscular Volume 87.9 fL Mean Corpuscular Hemoglobin 28.2 pg Mean Corpuscular Hemoglobin Concent 32.0 g/dl Platelet Count 454 K/uL Mean Platelet Volume 8.9 fL Neutrophils (%) (Auto) 71.4 % Lymphocytes (%) (Auto) 13.5 % Monocytes (%) (Auto) 8.7 % Eosinophils (%) (Auto) 4.6 % Basophils (%) (Auto) 0.3 % Neutrophils # (Auto) 9.83 K/uL Lymphocytes # (Auto) 1.85 K/uL Monocytes # (Auto) 1.19 K/uL Eosinophils # (Auto) 0.63 K/uL Basophils # (Auto) 0.04 K/uL RDW Standard Deviation 50.5 fL RDW Coefficient of Variation 15.6 % Immature Granulocyte % (Auto) 1.5 % Immature Granulocyte # (Auto) 0.21 K/uL Sodium Level 141 mmol/L Potassium Level 3.8 mmol/L Chloride Level 107 mmol/L Carbon Dioxide Level 29 mmol/L Anion Gap 5.0 mmol/L Blood Urea Nitrogen 21 mg/dl Creatinine 1.83 mg/dl Est Creatinine Clear Calc Drug Dose 38.4 ml/min Estimated GFR () 43.6 Estimated GFR (Non- 37.6 BUN/Creatinine Ratio 11.6 Random Glucose 80 mg/dl Calcium Level 8.3 mg/dl Assessment and Plan Pt has old blood and his hct jonn, Urine appears to be clearing with old clot Cont cbi and think may be able to avoid anesthesia If urine clears will likely need cic and will need outpt cysto cont antibiotics
--- NOTE | 2017-09-28 11:14 | Urology Progress Note ---
Progress Note Date of Service Sep 28, 2017. Subjective Pt evaluation today including: conversation w/ patient, physical exam, chart review, lab review Pain: denies Voiding: guardado catheter in place 67 YO male, CHANEL, ARF, gross hematuria. Guardado catheter in place draining yellow urine at time of exam. CBI with Alum had been clamped and sterile water is actively infusing at time of exam. Denies pain today, tolerating Guardado. Denies nausea/vomiting. Denies fever/chills. Constitutional: No fever, No chills, No sweats Eyes: No worsening of vision Respiratory: No shortness of breath Cardiovascular: No chest pain Abdomen: No pain, No nausea, No vomiting Male : + see HPI, + hematuria Neurologic: No numbness/tingling Heme: + see HPI Objective Vital Signs Date Time Temp Pulse Resp B/P (MAP) Pulse Ox O2 Delivery O2 Flow Rate FiO2 09/28/17 08:02 Room Air 09/28/17 06:59 36.7 63 16 134/72 (92) 98 Room Air 09/28/17 03:18 36.7 66 17 144/82 (102) 96 Room Air 09/28/17 00:00 Room Air 09/27/17 23:22 36.5 58 15 145/86 (105) 96 Room Air 09/27/17 19:41 59 18 147/85 (105) 98 Room Air 09/27/17 16:21 Room Air 09/27/17 15:45 36.4 58 16 115/70 (85) 99 Room Air 09/27/17 11:52 36.9 66 18 167/99 (121) 97 Room Air Physical Exam General Appearance: no apparent distress Eyes: normal inspection ENT: hearing grossly normal Neck: supple, no JVD Respiratory/Chest: no respiratory distress, no accessory muscle use Cardiovascular: no JVD Abdomen: non tender Extremities: normal inspection Neurologic/Psychiatric: alert, normal mood/affect, oriented x 3 Skin: normal color Laboratory Results Last 24 Hours Test 09/28/17 07:18 White Blood Count 13.75 K/uL Red Blood Count 3.48 M/uL Hemoglobin 9.8 g/dL Hematocrit 30.6 % Mean Corpuscular Volume 87.9 fL Mean Corpuscular Hemoglobin 28.2 pg Mean Corpuscular Hemoglobin Concent 32.0 g/dl Platelet Count 454 K/uL Mean Platelet Volume 8.9 fL Neutrophils (%) (Auto) 71.4 % Lymphocytes (%) (Auto) 13.5 % Monocytes (%) (Auto) 8.7 % Eosinophils (%) (Auto) 4.6 % Basophils (%) (Auto) 0.3 % Neutrophils # (Auto) 9.83 K/uL Lymphocytes # (Auto) 1.85 K/uL Monocytes # (Auto) 1.19 K/uL Eosinophils # (Auto) 0.63 K/uL Basophils # (Auto) 0.04 K/uL RDW Standard Deviation 50.5 fL RDW Coefficient of Variation 15.6 % Immature Granulocyte % (Auto) 1.5 % Immature Granulocyte # (Auto) 0.21 K/uL Sodium Level 141 mmol/L Potassium Level 3.8 mmol/L Chloride Level 107 mmol/L Carbon Dioxide Level 29 mmol/L Anion Gap 5.0 mmol/L Blood Urea Nitrogen 21 mg/dl Creatinine 1.83 mg/dl Est Creatinine Clear Calc Drug Dose 38.4 ml/min Estimated GFR () 43.6 Estimated GFR (Non- 37.6 BUN/Creatinine Ratio 11.6 Random Glucose 80 mg/dl Calcium Level 8.3 mg/dl Assessment and Plan Gross hematuria H&H stable, improving. Continue to hold Coumadin. Urine appearance much improved after sterile water infusion. Continue CBI with Alum after sterile water finishes infusing. Continue hand irrigation of Guardado PRN. Will continue to assess bleeding. Will provide diet today, NPO again at midnight tonight in the event that cystoscopy with clot evacuation is needed tomorrow. CHANEL, retention Guardado catheter to remain in place. Continue hand irrigation PRN. ОЛЕГ, bilateral hydronephrosis Creatine remains elevated at 1.83 this morning, will continue to monitor. UTI Recommend transition to PO antibiotics per sensitivities for a total of 10 days of total therapy. Case discussed with Dr. Pang, doctor configuration specialist, this AM. Will continue to follow along with primary service. Will coordinate outpatient follow up.
[2017-09-28 12:11] VITALS: BP 116/70; PULSE 54; TEMP 36.6; O2SAT 99
--- NOTE | 2017-09-28 15:32 | Progress Note ---
Subjective Date of Service: Sep 28, 2017. Subjective Pt evaluation today including: conversation w/ patient, physical exam, lab review, review of studies, review of inpatient medication list Saw/examined the patient in room 231-1 He's doing better King catheter in place; continuous bladder irrigation - no blood draining; urine is dark and rhoda No other issues at this time Problem List Medical Problems: (1) ОЛЕГ (acute kidney injury) Status: Acute (2) ОЛЕГ (acute kidney injury) Status: Acute (3) CHF (congestive heart failure) Status: Acute (4) Left leg cellulitis Status: Acute (5) Malnutrition Status: Acute (6) SIRS (systemic inflammatory response syndrome) Status: Acute Review of Systems Constitutional: No fever, No chills Abdomen: No pain, No nausea, No vomiting, No diarrhea Male : No dysuria, No urinary frequency Medications Current Inpatient Medications Medications (Trade) Dose Ordered Sig/Lakisha Route Start Time Stop Time Status Last Admin Dose Admin Acetaminophen (Tylenol Tab) 650 mg Q4H PRN PO 09/18/17 16:30 10/18/17 16:29 Atorvastatin Calcium (Lipitor Tab) 10 mg DAILY PO 09/19/17 09:00 10/19/17 08:59 09/28/17 08:28 10 MG Donepezil HCl (Aricept Tab) 5 mg HS PO 09/18/17 21:00 10/18/17 20:59 09/27/17 20:15 5 MG Ferrous Sulfate (Feosol Tab) 325 mg BID PO 09/18/17 21:00 10/18/17 20:59 09/28/17 08:29 325 MG Folic Acid (Folvite Tab) 1 mg QAM PO 09/19/17 09:00 10/19/17 08:59 09/28/17 08:29 1 MG Gabapentin (Neurontin Cap) 100 mg QAM PO 09/19/17 09:00 10/19/17 08:59 09/28/17 08:29 100 MG Levothyroxine Sodium (Synthroid Tab) 25 mcg DAILYBB PO 09/19/17 06:00 10/19/17 06:59 09/28/17 05:49 25 MCG Pantoprazole Sodium (Protonix Tab) 40 mg BID PO 09/18/17 21:00 10/18/17 20:59 09/28/17 08:28 40 MG Risperidone (Risperdal Tab) 0.5 mg HS PO 09/18/17 21:00 10/18/17 20:59 09/27/17 20:15 0.5 MG Sertraline HCl (Zoloft Tab) 50 mg DAILY PO 09/19/17 09:00 10/19/17 08:59 09/28/17 08:28 50 MG Prednisone (PredniSONE TAB) 10 mg DAILY PO 09/19/17 09:00 10/18/17 16:59 09/28/17 08:28 10 MG Ceftriaxone Sodium 1 gm/ Dextrose 50 ml @ 100 mls/hr Q24H IV 09/18/17 20:00 10/02/17 19:59 09/27/17 20:15 100 MLS/HR Sucralfate (Carafate Tab) 1 gm ACHS PO 09/19/17 16:15 10/19/17 16:14 09/28/17 11:53 1 GM Tamsulosin HCl (Flomax Cap) 0.4 mg HS PO 09/19/17 21:00 10/19/17 20:59 09/27/17 20:15 0.4 MG Finasteride (Proscar Tab) 5 mg QAM PO 09/20/17 09:00 10/20/17 08:59 09/28/17 08:29 5 MG Heparin Sodium (Porcine) (Heparin Sq 5000 Unit/0.5ml) 5,000 unit Q8 SQ 09/22/17 14:00 10/22/17 13:59 Future Hold 09/23/17 14:10 5,000 UNIT Aluminum Ammonium Sulfate 30 gm/ Sodium Chloride 3,000 ml @ 0 mls/hr PRN PRN IR 09/25/17 09:45 10/25/17 09:44 09/28/17 06:21 1 MLS/HR Atenolol (Tenormin Tab) 25 mg DAILY PO 09/26/17 09:00 10/26/17 08:59 09/28/17 08:28 25 MG Objective Vital Signs Date Time Temp Pulse Resp B/P (MAP) Pulse Ox O2 Delivery O2 Flow Rate FiO2 09/28/17 12:11 36.6 54 18 116/70 (85) 99 Room Air 09/28/17 08:02 Room Air 09/28/17 06:59 36.7 63 16 134/72 (92) 98 Room Air 09/28/17 03:18 36.7 66 17 144/82 (102) 96 Room Air 09/28/17 00:00 Room Air 09/27/17 23:22 36.5 58 15 145/86 (105) 96 Room Air 09/27/17 19:41 59 18 147/85 (105) 98 Room Air 09/27/17 16:21 Room Air 09/27/17 15:45 36.4 58 16 115/70 (85) 99 Room Air Physical Exam General Appearance: no apparent distress Respiratory/Chest: lungs clear, normal breath sounds, no respiratory distress, no accessory muscle use Cardiovascular: regular rate, rhythm, no edema, no murmur Extremities: normal inspection, no pedal edema Neurologic/Psychiatric: + pertinent finding (flat affect) Laboratory Results Last 24 Hours Test 09/28/17 07:18 White Blood Count 13.75 K/uL Red Blood Count 3.48 M/uL Hemoglobin 9.8 g/dL Hematocrit 30.6 % Mean Corpuscular Volume 87.9 fL Mean Corpuscular Hemoglobin 28.2 pg Mean Corpuscular Hemoglobin Concent 32.0 g/dl Platelet Count 454 K/uL Mean Platelet Volume 8.9 fL Neutrophils (%) (Auto) 71.4 % Lymphocytes (%) (Auto) 13.5 % Monocytes (%) (Auto) 8.7 % Eosinophils (%) (Auto) 4.6 % Basophils (%) (Auto) 0.3 % Neutrophils # (Auto) 9.83 K/uL Lymphocytes # (Auto) 1.85 K/uL Monocytes # (Auto) 1.19 K/uL Eosinophils # (Auto) 0.63 K/uL Basophils # (Auto) 0.04 K/uL RDW Standard Deviation 50.5 fL RDW Coefficient of Variation 15.6 % Immature Granulocyte % (Auto) 1.5 % Immature Granulocyte # (Auto) 0.21 K/uL Sodium Level 141 mmol/L Potassium Level 3.8 mmol/L Chloride Level 107 mmol/L Carbon Dioxide Level 29 mmol/L Anion Gap 5.0 mmol/L Blood Urea Nitrogen 21 mg/dl Creatinine 1.83 mg/dl Est Creatinine Clear Calc Drug Dose 38.4 ml/min Estimated GFR () 43.6 Estimated GFR (Non- 37.6 BUN/Creatinine Ratio 11.6 Random Glucose 80 mg/dl Calcium Level 8.3 mg/dl Assessment and Plan This is a 67 year old male with a past medical history of schizophrenia, depression, valvular heart disease s/p bioprosthetic aortic valve replacement, mitral valve repair, tricuspid valve annuloplasty; paroxysmal atrial fibrillation on long-term anticoagulation, hypothyroidism, HLD, inguinal hernia - presents with urinary retention, hematuria, acute kidney injury 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 Bilateral Hydronephrosis 09/28 - continue Flomax/Finasteride - CBI; appreciate urology input - H/H stable 09/27 - appreciate urology input - NPO after midnight for possible cystoscopy - continue bladder irrigation - Flomax + Finasteride - monitor H/H - s/p 3 units pRBCs 09/26 - King catheter is placed - continue Flomax and Finasteride - outpatient cystoscopy; likely will need TURP Acute Kidney Injury - likely secondary to obstruction and hematuria - monitor creatinine - keep King catheter in place Gross Hematuria in the setting of UTI - monitor hematuria; has had three units of packed red blood cells during this admission - monitor H/H - outpatient cystoscopy - hold Coumadin - will switch IV abx. to PO in 1-2 days Paroxysmal A. Fib - currently in NSR - hold Coumadin - continue Atenolol Schizophrenia - continue Risperdal - continue Celexa for depression Neurotic Excoriations - monitor for infections Valvular Heart Disease - stable, hold diuretics Hypothyroidism - continue Synthroid DVT ppx - SCDs FULL CODE
[2017-09-28 16:00] VITALS: BP 141/88; PULSE 63; TEMP 36.2; O2SAT 100
[2017-09-28] MEDS: CEFTRIAXONE SOD INJ 1 GM in DEXTROSE 5% ADD-VANTAGE 50ML 50 ML IV SCH (19:37)
[2017-09-28 20:02] VITALS: BP 130/79; PULSE 58; TEMP 36.6; O2SAT 99
[2017-09-28] MEDS: TAMSULOSIN HCL 0.4 MG CAP PO SCH (21:34)
[2017-09-28] MEDS: RISPERIDONE 0.5 MG TAB PO SCH (21:34)
[2017-09-28] MEDS: DONEPEZIL HCL 5 MG TAB PO SCH (21:35)
[2017-09-28 23:40] VITALS: BP 143/89; PULSE 70; TEMP 36.8; O2SAT 97
[2017-09-29] VITALS (8 sets, daily range): BP systolic 119–155; BP diastolic 57–85; PULSE 60–95; TEMP 36.5–37.2; O2SAT 91–99
[2017-09-29] MEDS: AMMONIUM ALUM 30 GM in SODIUM CHLORIDE 0.9% IRRIG 3,000 ML IR PRN ×7 (00:47→23:45)
[2017-09-29] MEDS: LEVOTHYROXINE 25 MCG TAB PO SCH (05:30)
[2017-09-29 06:11] LABS: HEMATOCRIT 28.6 % (42-52); MEAN CELL VOLUME 88.5 fL (80-100); MEAN CORPUSCULAR HEMOGLOBIN 27.9 pg (25-34); MEAN CORPUSCULAR HGB CONC 31.5 g/dl (32-36); MEAN PLATELET VOLUME 8.9 fL (7.4-10.4); PLATELET COUNT 424 K/uL (130-400); RED CELL DISTRIBUTION WIDTH CV 15.5 % (11.5-14.5); RED CELL DISTRIBUTION WIDTH SD 49.6 fL (36.4-46.3); WHITE BLOOD COUNT 14.39 K/uL (4.8-10.8)
[2017-09-29 06:29] LABS: CALCIUM 8.2 mg/dl (8.5-10.1); CREATININE 1.79 mg/dl (0.60-1.40); POTASSIUM 3.7 mmol/L (3.5-5.1)
[2017-09-29] MEDS: ATORVASTATIN 10 MG TAB PO SCH (07:59)
[2017-09-29] MEDS: FINASTERIDE 5 MG TAB PO SCH (08:00)
[2017-09-29] MEDS: FERROUS SULFATE 325 MG TAB PO SCH ×2 (08:00→21:12)
[2017-09-29] MEDS: SERTRALINE HCL 50 MG TAB PO SCH (08:00)
[2017-09-29] MEDS: SUCRALFATE 1 GM TAB PO SCH ×4 (08:00→21:12)
[2017-09-29] MEDS: PANTOprazole SOD 40 MG TAB PO SCH ×2 (08:00→21:13)
[2017-09-29] MEDS: GABAPENTIN 100 MG CAP PO SCH (08:00)
--- NOTE | 2017-09-29 10:52 | Urology Progress Note ---
Progress Note Date of Service Sep 29, 2017. Subjective Pt evaluation today including: conversation w/ patient, physical exam Voiding: guardado catheter in place pt with occ bladder spasm . urine clear but old blood debri Objective Vital Signs Date Time Temp Pulse Resp B/P (MAP) Pulse Ox O2 Delivery O2 Flow Rate FiO2 09/29/17 08:00 Room Air 09/29/17 07:57 36.8 66 18 155/82 (106) 97 Room Air 09/29/17 07:19 36.8 68 20 133/81 (98) 97 Room Air 09/29/17 04:39 36.5 95 18 124/57 (79) 95 Room Air 09/28/17 23:40 36.8 70 18 143/89 (107) 97 Room Air 09/28/17 20:33 Room Air 09/28/17 20:02 36.6 58 19 130/79 (96) 99 Room Air 09/28/17 16:00 36.2 63 18 141/88 (105) 100 09/28/17 16:00 Room Air 09/28/17 12:11 36.6 54 18 116/70 (85) 99 Room Air Laboratory Results Last 24 Hours Test 09/29/17 05:47 White Blood Count 14.39 K/uL Red Blood Count 3.23 M/uL Hemoglobin 9.0 g/dL Hematocrit 28.6 % Mean Corpuscular Volume 88.5 fL Mean Corpuscular Hemoglobin 27.9 pg Mean Corpuscular Hemoglobin Concent 31.5 g/dl RDW Standard Deviation 49.6 fL RDW Coefficient of Variation 15.5 % Platelet Count 424 K/uL Mean Platelet Volume 8.9 fL Sodium Level 141 mmol/L Potassium Level 3.7 mmol/L Chloride Level 108 mmol/L Carbon Dioxide Level 27 mmol/L Anion Gap 6.0 mmol/L Blood Urea Nitrogen 23 mg/dl Creatinine 1.79 mg/dl Est Creatinine Clear Calc Drug Dose 39.3 ml/min Estimated GFR () 44.8 Estimated GFR (Non- 38.6 BUN/Creatinine Ratio 13.0 Random Glucose 84 mg/dl Calcium Level 8.2 mg/dl Assessment and Plan Pt has old blood Urine appears to be clearing old blood debri Cont cbi and If urine clears will likely need cic and will need outpt cysto cont antibiotics feed and cont flomax for possible voiding trial
[2017-09-29] MEDS ORDERED: BELLADONNA/OPIUM SUPP 60 MG SUPP PR PRN (11:00)
--- NOTE | 2017-09-29 13:06 | PROGRESS NOTE ---
DATE: 09/29/2017 SUBJECTIVE: Overnight, patient did fine. He is making urine, which still looks very bloody. He is on continuous bladder irrigation which is stable. OBJECTIVE: VITAL SIGNS: Blood pressure is 144/85, 99% on room air, pulse rate 60 per minute, temperature 36.9. GENERAL: He is awake, alert, oriented x3. HEENT: Mucous membranes moist. NECK: Supple. No jugular venous distention. CHEST: Bilateral clear to auscultation. CARDIOVASCULAR: S1 and S2, regular. Does have systolic murmur. ABDOMEN: Soft, nontender. EXTREMITIES: Show no edema. LABORATORY TESTS: From this morning shows WBC count of 14,000, platelet count 424. Renal function has been relatively stable for the last 5-6 days. Labs from this morning show sodium 141, potassium 3.7, BUN 23, creatinine 1.79, calcium 8.2. ASSESSMENT AND PLAN: A 67-year-old male with bullous pemphigoid, schizophrenia, complex valvular heart disease, multiple admissions in the last few months who was sent from PCP office on 09/18/2017 to Emergency Room due to concern for abnormal labs and inability to care for self. 1. Acute kidney injury on chronic kidney disease 3, nonoliguric with obstructive and prerenal component. Baseline creatinine previously was 1.3-1.5. At this time, he was noted to have bilateral hydronephrosis and hydroureter, which caused the acute renal failure. Continue King. Continue as per urology recommendation. Renal function has been slightly worse than his baseline, but it is not getting worse. It is stable. He is making urine. I did tell him that he probably will have slightly worse baseline kidney function going forward compared to the past. MTDD
--- NOTE | 2017-09-29 14:58 | Progress Note ---
Subjective Date of Service: Sep 29, 2017. Subjective Pt evaluation today including: conversation w/ patient, physical exam, lab review, review of studies, review of inpatient medication list Saw/examined the patient in room 231 He is doing okay, scrotal edema persists flat affect; has some urinary spasms Problem List Medical Problems: (1) ОЛЕГ (acute kidney injury) Status: Acute (2) ОЛЕГ (acute kidney injury) Status: Acute (3) CHF (congestive heart failure) Status: Acute (4) Left leg cellulitis Status: Acute (5) Malnutrition Status: Acute (6) SIRS (systemic inflammatory response syndrome) Status: Acute Review of Systems Constitutional: No fever, No chills Respiratory: No shortness of breath Cardiac: No chest pain Abdomen: No pain, No nausea, No vomiting, No diarrhea Male : + dysuria, + hematuria Medications Current Inpatient Medications Medications (Trade) Dose Ordered Sig/Lakisha Route Start Time Stop Time Status Last Admin Dose Admin Acetaminophen (Tylenol Tab) 650 mg Q4H PRN PO 09/18/17 16:30 10/18/17 16:29 Atorvastatin Calcium (Lipitor Tab) 10 mg DAILY PO 09/19/17 09:00 10/19/17 08:59 09/29/17 07:59 10 MG Donepezil HCl (Aricept Tab) 5 mg HS PO 09/18/17 21:00 10/18/17 20:59 09/28/17 21:35 5 MG Ferrous Sulfate (Feosol Tab) 325 mg BID PO 09/18/17 21:00 10/18/17 20:59 09/29/17 08:00 325 MG Folic Acid (Folvite Tab) 1 mg QAM PO 09/19/17 09:00 10/19/17 08:59 09/29/17 07:59 1 MG Gabapentin (Neurontin Cap) 100 mg QAM PO 09/19/17 09:00 10/19/17 08:59 09/29/17 08:00 100 MG Levothyroxine Sodium (Synthroid Tab) 25 mcg DAILYBB PO 09/19/17 06:00 10/19/17 06:59 09/29/17 05:30 25 MCG Pantoprazole Sodium (Protonix Tab) 40 mg BID PO 09/18/17 21:00 10/18/17 20:59 09/29/17 08:00 40 MG Risperidone (Risperdal Tab) 0.5 mg HS PO 09/18/17 21:00 10/18/17 20:59 09/28/17 21:34 0.5 MG Sertraline HCl (Zoloft Tab) 50 mg DAILY PO 09/19/17 09:00 10/19/17 08:59 09/29/17 08:00 50 MG Prednisone (PredniSONE TAB) 10 mg DAILY PO 09/19/17 09:00 10/18/17 16:59 09/29/17 08:00 10 MG Ceftriaxone Sodium 1 gm/ Dextrose 50 ml @ 100 mls/hr Q24H IV 09/18/17 20:00 10/02/17 19:59 09/28/17 19:37 100 MLS/HR Sucralfate (Carafate Tab) 1 gm ACHS PO 09/19/17 16:15 10/19/17 16:14 09/29/17 11:04 1 GM Tamsulosin HCl (Flomax Cap) 0.4 mg HS PO 09/19/17 21:00 10/19/17 20:59 09/28/17 21:34 0.4 MG Finasteride (Proscar Tab) 5 mg QAM PO 09/20/17 09:00 10/20/17 08:59 09/29/17 08:00 5 MG Heparin Sodium (Porcine) (Heparin Sq 5000 Unit/0.5ml) 5,000 unit Q8 SQ 09/22/17 14:00 10/22/17 13:59 Future Hold 09/23/17 14:10 5,000 UNIT Aluminum Ammonium Sulfate 30 gm/ Sodium Chloride 3,000 ml @ 0 mls/hr PRN PRN IR 09/25/17 09:45 10/25/17 09:44 09/29/17 12:13 50 MLS/HR Atenolol (Tenormin Tab) 25 mg DAILY PO 09/26/17 09:00 10/26/17 08:59 09/29/17 08:00 25 MG Belladonna/Opium (B & O Adult Supp) 60 mg Q8 PRN ID 09/29/17 11:00 10/13/17 10:59 09/29/17 13:35 60 MG Objective Vital Signs Date Time Temp Pulse Resp B/P (MAP) Pulse Ox O2 Delivery O2 Flow Rate FiO2 09/29/17 13:49 Room Air 09/29/17 13:46 36.8 66 18 143/78 (99) 99 Room Air 09/29/17 12:52 36.9 60 20 99 09/29/17 11:33 36.9 60 20 144/85 (104) 99 Room Air 09/29/17 08:00 Room Air 09/29/17 07:57 36.8 66 18 155/82 (106) 97 Room Air 09/29/17 07:19 36.8 68 20 133/81 (98) 97 Room Air 09/29/17 04:39 36.5 95 18 124/57 (79) 95 Room Air 09/28/17 23:40 36.8 70 18 143/89 (107) 97 Room Air 09/28/17 20:33 Room Air 09/28/17 20:02 36.6 58 19 130/79 (96) 99 Room Air 09/28/17 16:00 36.2 63 18 141/88 (105) 100 09/28/17 16:00 Room Air Physical Exam General Appearance: no apparent distress Respiratory/Chest: no respiratory distress, no accessory muscle use Cardiovascular: regular rate, rhythm Abdomen: + pertinent finding (scrotal edema) Neurologic/Psychiatric: + pertinent finding (flat affect) Laboratory Results Last 24 Hours Test 09/29/17 05:47 White Blood Count 14.39 K/uL Red Blood Count 3.23 M/uL Hemoglobin 9.0 g/dL Hematocrit 28.6 % Mean Corpuscular Volume 88.5 fL Mean Corpuscular Hemoglobin 27.9 pg Mean Corpuscular Hemoglobin Concent 31.5 g/dl RDW Standard Deviation 49.6 fL RDW Coefficient of Variation 15.5 % Platelet Count 424 K/uL Mean Platelet Volume 8.9 fL Sodium Level 141 mmol/L Potassium Level 3.7 mmol/L Chloride Level 108 mmol/L Carbon Dioxide Level 27 mmol/L Anion Gap 6.0 mmol/L Blood Urea Nitrogen 23 mg/dl Creatinine 1.79 mg/dl Est Creatinine Clear Calc Drug Dose 39.3 ml/min Estimated GFR () 44.8 Estimated GFR (Non- 38.6 BUN/Creatinine Ratio 13.0 Random Glucose 84 mg/dl Calcium Level 8.2 mg/dl Assessment and Plan This is a 67 year old male with a past medical history of schizophrenia, depression, valvular heart disease s/p bioprosthetic aortic valve replacement, mitral valve repair, tricuspid valve annuloplasty; paroxysmal atrial fibrillation on long-term anticoagulation, hypothyroidism, HLD, inguinal hernia - presents with urinary retention, hematuria, acute kidney injury 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 Bilateral Hydronephrosis 09/29 - appreciate urology input - continue bladder irrigation - King catheter in place - Belladonna added 09/28 - continue Flomax/Finasteride - CBI; appreciate urology input - H/H stable 09/27 - appreciate urology input - NPO after midnight for possible cystoscopy - continue bladder irrigation - Flomax + Finasteride - monitor H/H - s/p 3 units pRBCs 09/26 - King catheter is placed - continue Flomax and Finasteride - outpatient cystoscopy; likely will need TURP Acute Kidney Injury 09/29 - appreciate nephrology input - continue to monitor as this is likely due to obstructive process 09/28 - likely secondary to obstruction and hematuria - monitor creatinine - keep King catheter in place Gross Hematuria in the setting of UTI - monitor hematuria; has had three units of packed red blood cells during this admission - monitor H/H - outpatient cystoscopy - hold Coumadin - will switch IV abx. to PO in 1-2 days Paroxysmal A. Fib - currently in NSR - hold Coumadin - continue Atenolol Schizophrenia - continue Risperdal - continue Celexa for depression Neurotic Excoriations - monitor for infections Valvular Heart Disease - stable, hold diuretics Hypothyroidism - continue Synthroid DVT ppx - SCDs FULL CODE
--- NOTE | 2017-09-29 15:03 | Urology Progress Note ---
Progress Note Date of Service Sep 29, 2017. Subjective Pt evaluation today including: conversation w/ patient called in by nurses as the catheter clotted off and they were unable to irrigate pvr 400 pt uncomfortable Objective Vital Signs Date Time Temp Pulse Resp B/P (MAP) Pulse Ox O2 Delivery O2 Flow Rate FiO2 09/29/17 13:49 Room Air 09/29/17 13:46 36.8 66 18 143/78 (99) 99 Room Air 09/29/17 12:52 36.9 60 20 99 09/29/17 11:33 36.9 60 20 144/85 (104) 99 Room Air 09/29/17 08:00 Room Air 09/29/17 07:57 36.8 66 18 155/82 (106) 97 Room Air 09/29/17 07:19 36.8 68 20 133/81 (98) 97 Room Air 09/29/17 04:39 36.5 95 18 124/57 (79) 95 Room Air 09/28/17 23:40 36.8 70 18 143/89 (107) 97 Room Air 09/28/17 20:33 Room Air 09/28/17 20:02 36.6 58 19 130/79 (96) 99 Room Air 09/28/17 16:00 36.2 63 18 141/88 (105) 100 09/28/17 16:00 Room Air Physical Exam General Appearance: + mild distress Laboratory Results Last 24 Hours Test 09/29/17 05:47 White Blood Count 14.39 K/uL Red Blood Count 3.23 M/uL Hemoglobin 9.0 g/dL Hematocrit 28.6 % Mean Corpuscular Volume 88.5 fL Mean Corpuscular Hemoglobin 27.9 pg Mean Corpuscular Hemoglobin Concent 31.5 g/dl RDW Standard Deviation 49.6 fL RDW Coefficient of Variation 15.5 % Platelet Count 424 K/uL Mean Platelet Volume 8.9 fL Sodium Level 141 mmol/L Potassium Level 3.7 mmol/L Chloride Level 108 mmol/L Carbon Dioxide Level 27 mmol/L Anion Gap 6.0 mmol/L Blood Urea Nitrogen 23 mg/dl Creatinine 1.79 mg/dl Est Creatinine Clear Calc Drug Dose 39.3 ml/min Estimated GFR () 44.8 Estimated GFR (Non- 38.6 BUN/Creatinine Ratio 13.0 Random Glucose 84 mg/dl Calcium Level 8.2 mg/dl Assessment and Plan Pt has old blood Able to get small debri out and irrigate slight new bleeding from trauma of irrigation cont cbi If relatively clear then voiding trial in am If bloody to OR Suspect old tenacious clot in bladder from alum , do not think active bleeding until now and slight now from trauma of irrigation instructed nurses in irrigation
[2017-09-29] MEDS: CEFTRIAXONE SOD INJ 1 GM in DEXTROSE 5% ADD-VANTAGE 50ML 50 ML IV SCH (21:10)
[2017-09-29] MEDS: TAMSULOSIN HCL 0.4 MG CAP PO SCH (21:12)
[2017-09-29] MEDS: RISPERIDONE 0.5 MG TAB PO SCH (21:12)
[2017-09-29] MEDS: DONEPEZIL HCL 5 MG TAB PO SCH (21:13)
[2017-09-30] MEDS ORDERED: HYDROmorphone INJ 0.5 MG/0.5 ML SYR IV PRN (03:00)
[2017-09-30] MEDS ORDERED: TRAMADOL HCL 50 MG TAB PO PRN (03:00)
[2017-09-30] MEDS: AMMONIUM ALUM 30 GM in SODIUM CHLORIDE 0.9% IRRIG 3,000 ML IR PRN ×3 (04:05→10:44)
[2017-09-30 04:48] LABS: BASO % 0.5 %; BASO ABS # 0.07 K/uL (0-0.2); EOS % 3.5 %; EOS ABS # 0.46 K/uL (0-0.5); HEMATOCRIT 30.9 % (42-52); HEMOGLOBIN 9.6 g/dL (14.0-18.0); IG# 0.14 K/uL (0.00-0.02); LYMPH % 8.3 %; MEAN CELL VOLUME 89.6 fL (80-100); MEAN CORPUSCULAR HEMOGLOBIN 27.8 pg (25-34); MEAN CORPUSCULAR HGB CONC 31.1 g/dl (32-36); MEAN PLATELET VOLUME 8.9 fL (7.4-10.4); MONO % 8.2 %; MONO ABS # 1.09 K/uL (0.11-0.59); NEUT % 78.4 %; NEUT ABS # 10.37 K/uL (1.4-6.5); PLATELET COUNT 448 K/uL (130-400); RED CELL DISTRIBUTION WIDTH CV 15.4 % (11.5-14.5); RED CELL DISTRIBUTION WIDTH SD 50.1 fL (36.4-46.3); WHITE BLOOD COUNT 13.23 K/uL (4.8-10.8)
[2017-09-30 05:10] LABS: CALCIUM 8.1 mg/dl (8.5-10.1)
[2017-09-30 05:11] LABS: TOTAL PROTEIN 5.4 gm/dl (6.4-8.2)
[2017-09-30 05:25] VITALS: BP 126/79; PULSE 60; TEMP 36.9; O2SAT 94
[2017-09-30] MEDS ORDERED: MAGNESIUM SULFATE 1GM / D5W 100 ML IV STA (05:28)
[2017-09-30] MEDS: SUCRALFATE 1 GM TAB PO SCH ×4 (06:30→20:58)
[2017-09-30 07:02] VITALS: BP 129/83; PULSE 66; TEMP 36.6; O2SAT 97
--- NOTE | 2017-09-30 07:06 | DIAGNOSTIC IMAGING REPORT ---
ABD/PELVIS NO IV OR ORAL CONT CT DOSE: 378.49 mGy.cm HISTORY: Pain worsening abd pain, scrotal enlergement TECHNIQUE: Multiaxial CT images of the abdomen and pelvis were performed without contrast. A dose lowering technique was utilized adhering to the principles of ALARA. COMPARISON STUDY: 09/18/2017 FINDINGS: Interval development of small bilateral pleural effusions. Liver spleen and pancreas are unremarkable. Gallstones are present within the gallbladder neck region. Bilateral hydroureteronephrosis. Trace abdominal and pelvic ascites. Nonobstructive bowel pattern. A significant wall thickening of the bladder. There is contained King catheter. There is air within the bladder lumen compatible with what is most likely intraluminal hemorrhage. Right inguinal hernia containing bowel as described previously. There is a moderate amount of associated ascites within the within the inferior aspect of the hernia sac. IMPRESSION: 1. Right inguinal hernia containing loops of colon as well as small bowel. 2. This is slightly increased in prominence from the prior study with a small amount of contained reactive fluid. 3. No evidence for bowel obstructive change. 4. Considerable bladder wall thickening with moderate pericystic infiltrative change. 5. Increased soft tissue within the bladder lumen combine with increased air as well as a King catheter.. 6. This potentially relates to a combination of cystitis, hematoma within the bladder, as well as air from the catheter placement. 7. Trace amount of abdominal and pelvic ascites The above report was generated using voice recognition software. It may contain grammatical, syntax or spelling errors. Electronically signed by: Rambo Rojas M.D. 09/30/2017 7:04 AM Dictated Date/Time: 09/30/2017 6:59 AM
--- NOTE | 2017-09-30 11:39 | Urology Progress Note ---
Progress Note Date of Service Sep 30, 2017. Subjective Pt evaluation today including: conversation w/ patient, physical exam, chart review, lab review Pain: fewer bladder spasms overnite Voiding: guardado catheter in place urine clear with slight dark tinge possibly from remaining old clot Objective Vital Signs Date Time Temp Pulse Resp B/P (MAP) Pulse Ox O2 Delivery O2 Flow Rate FiO2 09/30/17 08:00 Room Air 09/30/17 07:02 36.6 66 20 129/83 (98) 97 Room Air 09/30/17 05:25 36.9 60 18 126/79 (95) 94 09/29/17 23:18 36.8 64 18 119/77 (91) 98 Room Air 09/29/17 20:20 Room Air 09/29/17 13:49 Room Air 09/29/17 13:46 36.8 66 18 143/78 (99) 99 Room Air 09/29/17 12:52 36.9 60 20 99 Laboratory Results Last 24 Hours Test 09/30/17 04:21 09/30/17 05:57 White Blood Count 13.23 K/uL Red Blood Count 3.45 M/uL Hemoglobin 9.6 g/dL Hematocrit 30.9 % Mean Corpuscular Volume 89.6 fL Mean Corpuscular Hemoglobin 27.8 pg Mean Corpuscular Hemoglobin Concent 31.1 g/dl Platelet Count 448 K/uL Mean Platelet Volume 8.9 fL Neutrophils (%) (Auto) 78.4 % Lymphocytes (%) (Auto) 8.3 % Monocytes (%) (Auto) 8.2 % Eosinophils (%) (Auto) 3.5 % Basophils (%) (Auto) 0.5 % Neutrophils # (Auto) 10.37 K/uL Lymphocytes # (Auto) 1.10 K/uL Monocytes # (Auto) 1.09 K/uL Eosinophils # (Auto) 0.46 K/uL Basophils # (Auto) 0.07 K/uL RDW Standard Deviation 50.1 fL RDW Coefficient of Variation 15.4 % Immature Granulocyte % (Auto) 1.1 % Immature Granulocyte # (Auto) 0.14 K/uL Sodium Level 140 mmol/L Potassium Level 4.0 mmol/L Chloride Level 109 mmol/L Carbon Dioxide Level 27 mmol/L Anion Gap 4.0 mmol/L Blood Urea Nitrogen 24 mg/dl Creatinine 2.00 mg/dl Est Creatinine Clear Calc Drug Dose 35.2 ml/min Estimated GFR () 39.1 Estimated GFR (Non- 33.8 BUN/Creatinine Ratio 12.1 Random Glucose 85 mg/dl Calcium Level 8.1 mg/dl Magnesium Level 1.6 mg/dl Total Bilirubin 0.2 mg/dl Aspartate Amino Transf (AST/SGOT) 9 U/L Alanine Aminotransferase (ALT/SGPT) 17 U/L Alkaline Phosphatase 70 U/L Total Protein 5.4 gm/dl Albumin 2.0 gm/dl Globulin 3.4 gm/dl Albumin/Globulin Ratio 0.6 Lipase 107 U/L Lactic Acid Level 0.6 mmol/L Assessment and Plan Given rise in HCT and clear urine removed guardado for voiding trial pt on flomax and should remain on this check pvr if pt uncomfortable or unable to void will start cic unless bleeding resumes if unable to void Continued [facility] stay due to: voiding difficulties
[2017-09-30] MEDS: FERROUS SULFATE 325 MG TAB PO SCH ×2 (13:02→21:00)
[2017-09-30] MEDS: LEVOTHYROXINE 25 MCG TAB PO SCH (13:03)
[2017-09-30] MEDS: PANTOprazole SOD 40 MG TAB PO SCH ×2 (13:03→21:00)
[2017-09-30] MEDS: ATORVASTATIN 10 MG TAB PO SCH (13:03)
[2017-09-30] MEDS: SERTRALINE HCL 50 MG TAB PO SCH (13:03)
[2017-09-30] MEDS: GABAPENTIN 100 MG CAP PO SCH (13:04)
[2017-09-30] MEDS: FINASTERIDE 5 MG TAB PO SCH (13:04)
[2017-09-30 15:00] VITALS: BP 108/71; PULSE 55; TEMP 36.4; O2SAT 100
--- NOTE | 2017-09-30 15:35 | Progress Note ---
Internal Med Progress Note Date of Service: Sep 30, 2017. Provider Documentation: SUBJECTIVE: The patient was seen and examined in medical floor He is a 67 years old male with significant past medical history of schizophrenia , use right inguinal hernia and paroxysmal defibrillation Was admitted with gross hematuria, urinary retention and bilateral hydronephrosis His catheter was removed today and started to have bloody urine again Denies any symptoms OBJECTIVE: Vital Signs-as noted below Exam: General-no apparent distress at rest Eyes-normal ENT-normal Neck-supple Lungs-clear to auscultate bilaterally Heart-irregular, 2/6 systolic murmur over precordium Abdomen-benign, soft, nontender Has diffuse right-sided complete, nonreducible inguinal hernia Extremities-no edema Neuro-alert and awake Pleasantly confused No focal neuro deficit Lab data as noted below. 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 Bilateral Hydronephrosis - King catheter is placed - continue Flomax and Finasteride - outpatient cystoscopy; likely will need TURP - appreciate urology input - continue bladder irrigation - King catheter removed today by the Urologist - will observe Gross Hematuria in the setting of UTI - monitor hematuria; has had three units of packed red blood cells during this admission - monitor H/H - hold Coumadin - s/p 3 units pRBCs -Hb remains stable Acute Kidney Injury - likely secondary to obstruction and hematuria - monitor creatinine - Creatinine is worse Paroxysmal A. Fib - currently in NSR - hold Coumadin - continue Atenolol Schizophrenia - continue Risperdal - continue Celexa for depression Neurotic Excoriations - monitor for infections -patient keeps on picking and that is not possible to control Valvular Heart Disease - stable, hold diuretics Hypothyroidism - continue Synthroid DVT ppx - SCDs-Hematuria continued FULL CODE Vital Signs: Date Time Temp Pulse Resp B/P (MAP) Pulse Ox O2 Delivery O2 Flow Rate FiO2 09/30/17 15:00 36.4 55 18 108/71 (83) 100 Room Air 09/30/17 08:00 Room Air 09/30/17 07:02 36.6 66 20 129/83 (98) 97 Room Air 09/30/17 05:25 36.9 60 18 126/79 (95) 94 09/29/17 23:18 36.8 64 18 119/77 (91) 98 Room Air 09/29/17 20:20 Room Air Lab Results: Results Past 24 Hours Test 09/30/17 04:21 09/30/17 05:57 Range/Units White Blood Count 13.23 4.8-10.8 K/uL Red Blood Count 3.45 4.7-6.1 M/uL Hemoglobin 9.6 14.0-18.0 g/dL Hematocrit 30.9 42-52 % Mean Corpuscular Volume 89.6 80-100 fL Mean Corpuscular Hemoglobin 27.8 25-34 pg Mean Corpuscular Hemoglobin Concent 31.1 32-36 g/dl Platelet Count 448 130-400 K/uL Mean Platelet Volume 8.9 7.4-10.4 fL Neutrophils (%) (Auto) 78.4 % Lymphocytes (%) (Auto) 8.3 % Monocytes (%) (Auto) 8.2 % Eosinophils (%) (Auto) 3.5 % Basophils (%) (Auto) 0.5 % Neutrophils # (Auto) 10.37 1.4-6.5 K/uL Lymphocytes # (Auto) 1.10 1.2-3.4 K/uL Monocytes # (Auto) 1.09 0.11-0.59 K/uL Eosinophils # (Auto) 0.46 0-0.5 K/uL Basophils # (Auto) 0.07 0-0.2 K/uL RDW Standard Deviation 50.1 36.4-46.3 fL RDW Coefficient of Variation 15.4 11.5-14.5 % Immature Granulocyte % (Auto) 1.1 % Immature Granulocyte # (Auto) 0.14 0.00-0.02 K/uL Sodium Level 140 136-145 mmol/L Potassium Level 4.0 3.5-5.1 mmol/L Chloride Level 109 98-107 mmol/L Carbon Dioxide Level 27 21-32 mmol/L Anion Gap 4.0 3-11 mmol/L Blood Urea Nitrogen 24 7-18 mg/dl Creatinine 2.00 0.60-1.40 mg/dl Est Creatinine Clear Calc Drug Dose 35.2 ml/min Estimated GFR () 39.1 Estimated GFR (Non- 33.8 BUN/Creatinine Ratio 12.1 10-20 Random Glucose 85 70-99 mg/dl Calcium Level 8.1 8.5-10.1 mg/dl Magnesium Level 1.6 1.8-2.4 mg/dl Total Bilirubin 0.2 0.2-1 mg/dl Aspartate Amino Transf (AST/SGOT) 9 15-37 U/L Alanine Aminotransferase (ALT/SGPT) 17 12-78 U/L Alkaline Phosphatase 70 45-117 U/L Total Protein 5.4 6.4-8.2 gm/dl Albumin 2.0 3.4-5.0 gm/dl Globulin 3.4 2.5-4.0 gm/dl Albumin/Globulin Ratio 0.6 0.9-2 Lipase 107 73-393 U/L Lactic Acid Level 0.6 0.4-2.0 mmol/L
[2017-09-30] MEDS ORDERED: SODIUM CHLORIDE 0.45% 1000ML 1,000 ML IV SCH (17:00)
[2017-09-30] MEDS: SODIUM CHLORIDE 0.9% 1000ML 1,000 ML IV SCH (17:16)
--- NOTE | 2017-09-30 19:04 | PROGRESS NOTE ---
DATE: 09/30/2017 SUBJECTIVE: Overnight, patient did fie he is making urine. He is somewhat hard to obtain accurate history from. He is still on the continuous bladder irrigation. Urine still looks grossly bloody. OBJECTIVE: VITAL SIGNS: Blood pressure 108/71, 100% on room air, pulse rate 55 per minute, temperature 36.4. HEENT: Mucous membranes moist. NECK: Supple. No jugular venous distention. CHEST: Bilaterally clear to auscultation. CARDIOVASCULAR SYSTEM: S1 and S2 regular. GASTROINTESTINAL: Abdomen is soft and nontender. EXTREMITIES: Show no edema. LABORATORY DATA: Laboratory tests from this morning show creatinine is up a little bit to 2.00, BUN 25, sodium 140, potassium 4.0, chloride 109, calcium 8.1, magnesium is low at 1.6. 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 Acute kidney injury on chronic kidney disease III. He presented with nonoliguric obstructive and prerenal type renal failure. Baseline creatinine was previously 1.3-1.5 at that time. At this time, he was noted to have bilateral hydronephrosis and hydroureter, which caused the acute renal failure. Continue King catheter. For now, continue as per urology recommendations. Renal function today seems to be slightly worse than in the last few days, and his blood pressure also seems to be lower than a few days ago. Given this, I would like to restart some gentle hydration, normal saline at 75 mL/h. It is also very possible that going forward, he will have slightly worse baseline kidney function than in the past. [facility]
[2017-09-30] MEDS: CEFTRIAXONE SOD INJ 1 GM in DEXTROSE 5% ADD-VANTAGE 50ML 50 ML IV SCH (20:58)
[2017-09-30] MEDS: RISPERIDONE 0.5 MG TAB PO SCH (20:59)
[2017-09-30] MEDS: TAMSULOSIN HCL 0.4 MG CAP PO SCH (20:59)
[2017-09-30] MEDS: DONEPEZIL HCL 5 MG TAB PO SCH (21:00)
[2017-09-30 23:46] VITALS: BP 117/75; PULSE 71; TEMP 36.6; O2SAT 97
[2017-10-01] MEDS: LEVOTHYROXINE 25 MCG TAB PO SCH (05:38)
[2017-10-01] MEDS: SUCRALFATE 1 GM TAB PO SCH ×4 (05:39→19:56)
[2017-10-01] MEDS: SODIUM CHLORIDE 0.9% 1000ML 1,000 ML IV SCH ×2 (05:39→18:05)
[2017-10-01 06:28] LABS: HEMATOCRIT 28.5 % (42-52); HEMOGLOBIN 9.1 g/dL (14.0-18.0); MEAN CELL VOLUME 88.5 fL (80-100); MEAN CORPUSCULAR HEMOGLOBIN 28.3 pg (25-34); MEAN CORPUSCULAR HGB CONC 31.9 g/dl (32-36); PLATELET COUNT 419 K/uL (130-400); RED CELL DISTRIBUTION WIDTH CV 15.4 % (11.5-14.5); RED CELL DISTRIBUTION WIDTH SD 49.9 fL (36.4-46.3); WHITE BLOOD COUNT 10.77 K/uL (4.8-10.8)
[2017-10-01 07:35] VITALS: BP 150/87; PULSE 66; TEMP 36.9; O2SAT 99
[2017-10-01] MEDS: ATORVASTATIN 10 MG TAB PO SCH (07:51)
[2017-10-01] MEDS: FERROUS SULFATE 325 MG TAB PO SCH ×2 (07:51→21:22)
[2017-10-01] MEDS: SERTRALINE HCL 50 MG TAB PO SCH (07:52)
[2017-10-01] MEDS: GABAPENTIN 100 MG CAP PO SCH (07:52)
[2017-10-01] MEDS: FINASTERIDE 5 MG TAB PO SCH (07:52)
[2017-10-01] MEDS: PANTOprazole SOD 40 MG TAB PO SCH ×2 (07:53→19:57)
[2017-10-01 07:54] LABS: CALCIUM 8.3 mg/dl (8.5-10.1); CREATININE 2.02 mg/dl (0.60-1.40); POTASSIUM 3.7 mmol/L (3.5-5.1)
--- NOTE | 2017-10-01 09:51 | Nephrology Progress Note ---
Nephrology Progress Note Date of Service: Oct 01, 2017. Subjective Patient feels well denied any shortness of breath. His King catheter was removed yesterday. He still reports some hematuria. Creatinine is up trending to 2.02 today Objective Date Time Temp Pulse Resp B/P (MAP) Pulse Ox O2 Delivery O2 Flow Rate FiO2 10/01/17 08:00 Room Air 10/01/17 07:35 36.9 66 20 150/87 (108) 99 Room Air 09/30/17 23:46 36.6 71 20 117/75 (89) 97 Room Air 09/30/17 23:29 Room Air 09/30/17 20:00 Room Air 09/30/17 15:00 36.4 55 18 108/71 (83) 100 Room Air Physical Exam: [id number] no acute distress Eyes-pupils equal and reactive to light ENT-normal throat on inspection Neck-neck is supple no JVD Lungs-clear to auscultation bilaterally Heart-heart sounds 1 and 2 regular rate and rhythm, no murmurs Abdomen-soft nondistended, bowel sounds are present. Huge inguinal scrotal hernia Extremities-no edema, peripheral pulses present Neuro-oriented 3, no focal neurological deficits Current Inpatient Medications Medications (Trade) Dose Ordered Sig/Lakisha Route Start Time Stop Time Status Last Admin Dose Admin Acetaminophen (Tylenol Tab) 650 mg Q4H PRN PO 09/18/17 16:30 10/18/17 16:29 Atorvastatin Calcium (Lipitor Tab) 10 mg DAILY PO 09/19/17 09:00 10/19/17 08:59 10/01/17 07:51 10 MG Donepezil HCl (Aricept Tab) 5 mg HS PO 09/18/17 21:00 10/18/17 20:59 09/30/17 21:00 5 MG Ferrous Sulfate (Feosol Tab) 325 mg BID PO 09/18/17 21:00 10/18/17 20:59 10/01/17 07:51 325 MG Folic Acid (Folvite Tab) 1 mg QAM PO 09/19/17 09:00 10/19/17 08:59 10/01/17 07:51 1 MG Gabapentin (Neurontin Cap) 100 mg QAM PO 09/19/17 09:00 10/19/17 08:59 10/01/17 07:52 100 MG Levothyroxine Sodium (Synthroid Tab) 25 mcg DAILYBB PO 09/19/17 06:00 10/19/17 06:59 10/01/17 05:38 25 MCG Pantoprazole Sodium (Protonix Tab) 40 mg BID PO 09/18/17 21:00 10/18/17 20:59 10/01/17 07:53 40 MG Risperidone (Risperdal Tab) 0.5 mg HS PO 09/18/17 21:00 10/18/17 20:59 09/30/17 20:59 0.5 MG Sertraline HCl (Zoloft Tab) 50 mg DAILY PO 09/19/17 09:00 10/19/17 08:59 10/01/17 07:52 50 MG Prednisone (PredniSONE TAB) 10 mg DAILY PO 09/19/17 09:00 10/18/17 16:59 10/01/17 07:52 10 MG Ceftriaxone Sodium 1 gm/ Dextrose 50 ml @ 100 mls/hr Q24H IV 09/18/17 20:00 10/02/17 19:59 09/30/17 20:58 100 MLS/HR Sucralfate (Carafate Tab) 1 gm ACHS PO 09/19/17 16:15 10/19/17 16:14 10/01/17 05:39 1 GM Tamsulosin HCl (Flomax Cap) 0.4 mg HS PO 09/19/17 21:00 10/19/17 20:59 09/30/17 20:59 0.4 MG Finasteride (Proscar Tab) 5 mg QAM PO 09/20/17 09:00 10/20/17 08:59 10/01/17 07:52 5 MG Heparin Sodium (Porcine) (Heparin Sq 5000 Unit/0.5ml) 5,000 unit Q8 SQ 09/22/17 14:00 10/22/17 13:59 Future Hold 09/23/17 14:10 5,000 UNIT Aluminum Ammonium Sulfate 30 gm/ Sodium Chloride 3,000 ml @ 0 mls/hr PRN PRN IR 09/25/17 09:45 10/25/17 09:44 09/30/17 08:00 1,500 MLS/HR Atenolol (Tenormin Tab) 25 mg DAILY PO 09/26/17 09:00 10/26/17 08:59 10/01/17 07:51 25 MG Belladonna/Opium (B & O Adult Supp) 60 mg Q8 PRN AL 09/29/17 11:00 10/13/17 10:59 09/29/17 13:35 60 MG Tramadol HCl (Ultram Tab) 25 mg Q6H PRN PO 09/30/17 03:00 10/30/17 02:59 Hydromorphone HCl (Dilaudid Inj) 0.5 mg Q3H PRN IV 09/30/17 03:00 10/14/17 02:59 Sodium Chloride 1,000 ml @ 75 mls/hr [id number] IV 09/30/17 17:15 10/30/17 17:14 10/01/17 05:39 75 MLS/HR Last 24 Hours Test 10/01/17 05:55 White Blood Count 10.77 K/uL Red Blood Count 3.22 M/uL Hemoglobin 9.1 g/dL Hematocrit 28.5 % Mean Corpuscular Volume 88.5 fL Mean Corpuscular Hemoglobin 28.3 pg Mean Corpuscular Hemoglobin Concent 31.9 g/dl RDW Standard Deviation 49.9 fL RDW Coefficient of Variation 15.4 % Platelet Count 419 K/uL Mean Platelet Volume 9.0 fL Sodium Level 142 mmol/L Potassium Level 3.7 mmol/L Chloride Level 109 mmol/L Carbon Dioxide Level 23 mmol/L Anion Gap 9.0 mmol/L Blood Urea Nitrogen 27 mg/dl Creatinine 2.02 mg/dl Est Creatinine Clear Calc Drug Dose 34.8 ml/min Estimated GFR () 38.7 Estimated GFR (Non- 33.4 BUN/Creatinine Ratio 13.4 Random Glucose 80 mg/dl Calcium Level 8.3 mg/dl Assessment & Plan 67 y/o M w/ bullous pemphigoid, schizophrenia, complex valvular heart disease, who was admitted with the echo due to obstructive uropathy. 1. Acute kidney injury on CKD stage III with baseline creatinine of 1.3 to 1.5. His acute kidney injury is due to obstructive uropathy. Patient had a peak creatinine of 5.3 on admission which improved to as low as 1.6 with King catheterization. King catheter was removed yesterday. His creatinine is now up trending to 2.[address] abdomen done yesterday shows severe bilateral hydronephrosis without much improvement from CT scan done on admission. CT scan also shows marked thinning of the renal cortex. It appears the obstruction is not completely resolved with King catheterization. He might benefit from a bilateral nephrostomies to relieve the obstruction and salvage his remaining kidney mass. I have discussed the plan with the primary care team and urology [facility] 2. Hypertension: His blood pressure is well controlled on current regimen 3. Acute on chronic anemia: Due to chronic kidney disease Hemoglobin is stable at 9.1 today
--- NOTE | 2017-10-01 10:32 | Urology Progress Note ---
Progress Note Date of Service Oct 01, 2017. 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 Patient reports feeling well this morning. States that he has been spontaneously voiding without difficulty, light hematuria has returned this morning. Nursing reports low PVRs since guardado removal. Checking routinely. Patient denies bladder distention, denies pushing/straining to void. Denies pain of any kind. Denies nausea/vomiting. Denies fever/chills. Remains on Tamsulosin QHS. H&H remains stable. Unfortunately Cr has increased back to 2.02. Objective Vital Signs Date Time Temp Pulse Resp B/P (MAP) Pulse Ox O2 Delivery O2 Flow Rate FiO2 10/01/17 08:00 Room Air 10/01/17 07:35 36.9 66 20 150/87 (108) 99 Room Air 09/30/17 23:46 36.6 71 20 117/75 (89) 97 Room Air 09/30/17 23:29 Room Air 09/30/17 20:00 Room Air 09/30/17 15:00 36.4 55 18 108/71 (83) 100 Room Air Physical Exam General Appearance: no apparent distress Eyes: normal inspection ENT: hearing grossly normal Neck: supple, no JVD Respiratory/Chest: no respiratory distress, no accessory muscle use Cardiovascular: no JVD Abdomen: non tender, soft Extremities: normal inspection Neurologic/Psychiatric: alert, normal mood/affect, oriented x 3 Skin: normal color Laboratory Results Last 24 Hours Test 10/01/17 05:55 White Blood Count 10.77 K/uL Red Blood Count 3.22 M/uL Hemoglobin 9.1 g/dL Hematocrit 28.5 % Mean Corpuscular Volume 88.5 fL Mean Corpuscular Hemoglobin 28.3 pg Mean Corpuscular Hemoglobin Concent 31.9 g/dl RDW Standard Deviation 49.9 fL RDW Coefficient of Variation 15.4 % Platelet Count 419 K/uL Mean Platelet Volume 9.0 fL Sodium Level 142 mmol/L Potassium Level 3.7 mmol/L Chloride Level 109 mmol/L Carbon Dioxide Level 23 mmol/L Anion Gap 9.0 mmol/L Blood Urea Nitrogen 27 mg/dl Creatinine 2.02 mg/dl Est Creatinine Clear Calc Drug Dose 34.8 ml/min Estimated GFR () 38.7 Estimated GFR (Non- 33.4 BUN/Creatinine Ratio 13.4 Random Glucose 80 mg/dl Calcium Level 8.3 mg/dl Assessment and Plan [id number] Creatinine jumped to 2.02 this morning. Spoke with Dr. Cortez from Nephrology, agree with his assessment that obstruction not completely resolved with Guardado placement. Patient may benefit from bilateral nephrostomies as hydronephrosis is persisting. Case discussed with hospitalist who also agrees with plan. Hematuria H&H stable. Patient denies difficulty passing urine. Urine does appear pink this morning with scant old clot visualized. Continue spontaneous voiding. Continue bladder scans routinely and PRN if patient reports discomfort or difficulty voiding. Straight cath PRN. Case discussed with Dr. Curry. Will try to avoid cystoscopic intervention at this time. Will continue to follow along with primary service.
--- NOTE | 2017-10-01 14:26 | Progress Note ---
Internal Med Progress Note Date of Service: Oct 01, 2017. Provider Documentation: SUBJECTIVE: The patient was seen and examined in medical floor He is a 67 years old male with significant past medical history of schizophrenia , use right inguinal hernia and paroxysmal defibrillation Was admitted with gross hematuria, urinary retention and bilateral hydronephrosis His catheter was removed today and started to have bloody urine again Denies any symptoms 10/01: Out of bed when a chair and keeps picking Denies any acute symptoms Specifically denies any back pain, any nausea and/or vomiting, any abdominal fullness Continues to have hematuria as per the nurse OBJECTIVE: Vital Signs-as noted below Exam: General-no apparent distress at rest Eyes-normal ENT-normal Neck-supple Lungs-clear to auscultate bilaterally Heart-irregular, 2/6 systolic murmur over precordium Abdomen-benign, soft, nontender No tenderness at renal angles Has diffuse right-sided complete, nonreducible inguinal hernia Bleeding noted from the urethra Extremities-no edema Neuro-alert and awake Pleasantly confused No focal neuro deficit Lab data as noted below. ASSESSMENT & PLAN: This is a 67 year old male with a past medical history of schizophrenia, depression, valvular heart disease s/p bioprosthetic aortic valve replacement, mitral valve repair, tricuspid valve annuloplasty; paroxysmal atrial fibrillation on long-term anticoagulation, hypothyroidism, HLD, inguinal hernia - presents with urinary retention, hematuria, acute kidney injury Gross Hematuria in the setting of UTI - monitor hematuria; has had three units of packed red blood cells during this admission - monitor H/H-remains stable - Coumadin on hold - s/p 3 units pRBCs -Hb remains stable -Appreciate urology input -Catheter removed yesterday 09/30 -Continues to have hematuria -No plan for cystoscopy now 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 Bilateral Hydronephrosis - King catheter is placed and discontinued on 09/30 - continue Flomax and Finasteride - outpatient cystoscopy; likely will need TURP -Discussed with the urology PA ; no cystoscopic now but may consider percutaneous nephrostomy tube -Observe for now and plan for percutaneous nephrostomy if creatinine is not any better Acute Kidney Injury - likely secondary to obstruction and hematuria - monitor creatinine - Creatinine is worse -Appreciate nephrology input and recommendation for probable nephrostomy tube -Discussed with urology Amandeep Ayala - currently in NSR - hold Coumadin - continue Atenolol Schizophrenia - continue Risperdal - continue Celexa for depression Neurotic Excoriations - monitor for infections -patient keeps on picking and that is not possible to control Valvular Heart Disease - stable, hold diuretics Hypothyroidism - continue Synthroid DVT ppx - SCDs-Hematuria continued FULL CODE Vital Signs: Date Time Temp Pulse Resp B/P (MAP) Pulse Ox O2 Delivery O2 Flow Rate FiO2 10/01/17 08:00 Room Air 10/01/17 07:35 36.9 66 20 150/87 (108) 99 Room Air 09/30/17 23:46 36.6 71 20 117/75 (89) 97 Room Air 09/30/17 23:29 Room Air 09/30/17 20:00 Room Air 09/30/17 15:00 36.4 55 18 108/71 (83) 100 Room Air Lab Results: Results Past 24 Hours Test 10/01/17 05:55 Range/Units White Blood Count 10.77 4.8-10.8 K/uL Red Blood Count 3.22 4.7-6.1 M/uL Hemoglobin 9.1 14.0-18.0 g/dL Hematocrit 28.5 42-52 % Mean Corpuscular Volume 88.5 80-100 fL Mean Corpuscular Hemoglobin 28.3 25-34 pg Mean Corpuscular Hemoglobin Concent 31.9 32-36 g/dl RDW Standard Deviation 49.9 36.4-46.3 fL RDW Coefficient of Variation 15.4 11.5-14.5 % Platelet Count 419 130-400 K/uL Mean Platelet Volume 9.0 7.4-10.4 fL Sodium Level 142 136-145 mmol/L Potassium Level 3.7 3.5-5.1 mmol/L Chloride Level 109 98-107 mmol/L Carbon Dioxide Level 23 21-32 mmol/L Anion Gap 9.0 3-11 mmol/L Blood Urea Nitrogen 27 7-18 mg/dl Creatinine 2.02 0.60-1.40 mg/dl Est Creatinine Clear Calc Drug Dose 34.8 ml/min Estimated GFR () 38.7 Estimated GFR (Non- 33.4 BUN/Creatinine Ratio 13.4 10-20 Random Glucose 80 70-99 mg/dl Calcium Level 8.3 8.5-10.1 mg/dl
[2017-10-01 16:10] VITALS: BP 126/78; PULSE 54; TEMP 36.7; O2SAT 100
[2017-10-01] MEDS: CEFTRIAXONE SOD INJ 1 GM in DEXTROSE 5% ADD-VANTAGE 50ML 50 ML IV SCH (19:53)
[2017-10-01] MEDS: DONEPEZIL HCL 5 MG TAB PO SCH (19:56)
[2017-10-01] MEDS: RISPERIDONE 0.5 MG TAB PO SCH (19:56)
[2017-10-01] MEDS: TAMSULOSIN HCL 0.4 MG CAP PO SCH (19:57)
[2017-10-02 06:13] LABS: BASO % 0.8 %; BASO ABS # 0.08 K/uL (0-0.2); EOS % 5.2 %; EOS ABS # 0.51 K/uL (0-0.5); HEMATOCRIT 26.7 % (42-52); HEMOGLOBIN 8.4 g/dL (14.0-18.0); IG# 0.07 K/uL (0.00-0.02); LYMPH % 12.8 %; LYMPH ABS # 1.26 K/uL (1.2-3.4); MEAN CELL VOLUME 89.6 fL (80-100); MEAN CORPUSCULAR HEMOGLOBIN 28.2 pg (25-34); MEAN CORPUSCULAR HGB CONC 31.5 g/dl (32-36); MONO % 12.6 %; MONO ABS # 1.24 K/uL (0.11-0.59); NEUT % 67.9 %; NEUT ABS # 6.69 K/uL (1.4-6.5); PLATELET COUNT 395 K/uL (130-400); RED CELL DISTRIBUTION WIDTH CV 15.2 % (11.5-14.5); WHITE BLOOD COUNT 9.85 K/uL (4.8-10.8)
[2017-10-02 06:48] LABS: CALCIUM 7.9 mg/dl (8.5-10.1); CREATININE 2.02 mg/dl (0.60-1.40); POTASSIUM 4.1 mmol/L (3.5-5.1)
[2017-10-02] MEDS: SUCRALFATE 1 GM TAB PO SCH ×4 (06:48→20:46)
[2017-10-02] MEDS: LEVOTHYROXINE 25 MCG TAB PO SCH (06:48)
[2017-10-02 07:09] VITALS: BP 145/82; PULSE 63; TEMP 36.7; O2SAT 98
[2017-10-02] MEDS: FERROUS SULFATE 325 MG TAB PO SCH ×2 (08:03→20:00)
[2017-10-02] MEDS: SODIUM CHLORIDE 0.9% 1000ML 1,000 ML IV SCH ×2 (08:03→21:01)
[2017-10-02] MEDS: ATORVASTATIN 10 MG TAB PO SCH (08:03)
[2017-10-02] MEDS: FINASTERIDE 5 MG TAB PO SCH (08:03)
[2017-10-02] MEDS: PANTOprazole SOD 40 MG TAB PO SCH ×2 (08:03→20:00)
[2017-10-02] MEDS: GABAPENTIN 100 MG CAP PO SCH (08:03)
[2017-10-02] MEDS: SERTRALINE HCL 50 MG TAB PO SCH (08:03)
--- NOTE | 2017-10-02 10:06 | Nephrology Progress Note ---
Nephrology Progress Note Date of Service: Oct 02, 2017. Subjective Patient is complaining of skin itching. He still reports some hematuria. Creatinine is stable at 2.02 today Objective Date Time Temp Pulse Resp B/P (MAP) Pulse Ox O2 Delivery O2 Flow Rate FiO2 10/02/17 07:09 36.7 63 18 145/82 (103) 98 Room Air 10/01/17 20:00 Room Air 10/01/17 16:10 36.7 54 18 126/78 (94) 100 Room Air Physical Exam: [id number] no acute distress Eyes-pupils equal and reactive to light ENT-normal throat on inspection Neck-neck is supple no JVD Lungs-clear to auscultation bilaterally Heart-heart sounds 1 and 2 regular rate and rhythm, no murmurs Abdomen-soft nondistended, bowel sounds are present. Huge inguinal scrotal hernia Extremities-no edema, peripheral pulses present Neuro-oriented 3, no focal neurological deficits Skin: Dermatitis Current Inpatient Medications Medications (Trade) Dose Ordered Sig/Lakisha Route Start Time Stop Time Status Last Admin Dose Admin Acetaminophen (Tylenol Tab) 650 mg Q4H PRN PO 09/18/17 16:30 10/18/17 16:29 Atorvastatin Calcium (Lipitor Tab) 10 mg DAILY PO 09/19/17 09:00 10/19/17 08:59 10/02/17 08:03 10 MG Donepezil HCl (Aricept Tab) 5 mg HS PO 09/18/17 21:00 10/18/17 20:59 10/01/17 19:56 5 MG Ferrous Sulfate (Feosol Tab) 325 mg BID PO 09/18/17 21:00 10/18/17 20:59 10/02/17 08:03 325 MG Folic Acid (Folvite Tab) 1 mg QAM PO 09/19/17 09:00 10/19/17 08:59 10/02/17 08:03 1 MG Gabapentin (Neurontin Cap) 100 mg QAM PO 09/19/17 09:00 10/19/17 08:59 10/02/17 08:03 100 MG Levothyroxine Sodium (Synthroid Tab) 25 mcg DAILYBB PO 09/19/17 06:00 10/19/17 06:59 10/02/17 06:48 25 MCG Pantoprazole Sodium (Protonix Tab) 40 mg BID PO 09/18/17 21:00 10/18/17 20:59 10/02/17 08:03 40 MG Risperidone (Risperdal Tab) 0.5 mg HS PO 09/18/17 21:00 10/18/17 20:59 10/01/17 19:56 0.5 MG Sertraline HCl (Zoloft Tab) 50 mg DAILY PO 09/19/17 09:00 10/19/17 08:59 10/02/17 08:03 50 MG Prednisone (PredniSONE TAB) 10 mg DAILY PO 09/19/17 09:00 10/18/17 16:59 10/02/17 08:03 10 MG Ceftriaxone Sodium 1 gm/ Dextrose 50 ml @ 100 mls/hr Q24H IV 09/18/17 20:00 10/02/17 19:59 10/01/17 19:53 100 MLS/HR Sucralfate (Carafate Tab) 1 gm ACHS PO 09/19/17 16:15 10/19/17 16:14 10/02/17 06:48 1 GM Tamsulosin HCl (Flomax Cap) 0.4 mg HS PO 09/19/17 21:00 10/19/17 20:59 10/01/17 19:57 0.4 MG Finasteride (Proscar Tab) 5 mg QAM PO 09/20/17 09:00 10/20/17 08:59 10/02/17 08:03 5 MG Heparin Sodium (Porcine) (Heparin Sq 5000 Unit/0.5ml) 5,000 unit Q8 SQ 09/22/17 14:00 10/22/17 13:59 Future Hold 09/23/17 14:10 5,000 UNIT Aluminum Ammonium Sulfate 30 gm/ Sodium Chloride 3,000 ml @ 0 mls/hr PRN PRN IR 09/25/17 09:45 10/25/17 09:44 09/30/17 08:00 1,500 MLS/HR Atenolol (Tenormin Tab) 25 mg DAILY PO 09/26/17 09:00 10/26/17 08:59 10/02/17 08:03 25 MG Belladonna/Opium (B & O Adult Supp) 60 mg Q8 PRN VA 09/29/17 11:00 10/13/17 10:59 09/29/17 13:35 60 MG Tramadol HCl (Ultram Tab) 25 mg Q6H PRN PO 09/30/17 03:00 10/30/17 02:59 Hydromorphone HCl (Dilaudid Inj) 0.5 mg Q3H PRN IV 09/30/17 03:00 10/14/17 02:59 Sodium Chloride 1,000 ml @ 75 mls/hr [id number] IV 09/30/17 17:15 10/30/17 17:14 10/02/17 08:03 75 MLS/HR Last 24 Hours Test 10/02/17 05:18 White Blood Count 9.85 K/uL Red Blood Count 2.98 M/uL Hemoglobin 8.4 g/dL Hematocrit 26.7 % Mean Corpuscular Volume 89.6 fL Mean Corpuscular Hemoglobin 28.2 pg Mean Corpuscular Hemoglobin Concent 31.5 g/dl Platelet Count 395 K/uL Mean Platelet Volume 9.0 fL Neutrophils (%) (Auto) 67.9 % Lymphocytes (%) (Auto) 12.8 % Monocytes (%) (Auto) 12.6 % Eosinophils (%) (Auto) 5.2 % Basophils (%) (Auto) 0.8 % Neutrophils # (Auto) 6.69 K/uL Lymphocytes # (Auto) 1.26 K/uL Monocytes # (Auto) 1.24 K/uL Eosinophils # (Auto) 0.51 K/uL Basophils # (Auto) 0.08 K/uL RDW Standard Deviation 50.0 fL RDW Coefficient of Variation 15.2 % Immature Granulocyte % (Auto) 0.7 % Immature Granulocyte # (Auto) 0.07 K/uL Red Blood Cell Morphology Unremarkable Sodium Level 143 mmol/L Potassium Level 4.1 mmol/L Chloride Level 111 mmol/L Carbon Dioxide Level 25 mmol/L Anion Gap 7.0 mmol/L Blood Urea Nitrogen 29 mg/dl Creatinine 2.02 mg/dl Est Creatinine Clear Calc Drug Dose 34.8 ml/min Estimated GFR () 38.7 Estimated GFR (Non- 33.4 BUN/Creatinine Ratio 14.4 Random Glucose 75 mg/dl Calcium Level 7.9 mg/dl Magnesium Level 1.7 mg/dl Assessment & Plan 67 y/o M w/ bullous pemphigoid, schizophrenia, complex valvular heart disease, who was admitted with the echo due to obstructive uropathy. 1. Acute kidney injury on CKD stage III with baseline creatinine of 1.3 to 1.5. His acute kidney injury is due to obstructive uropathy. Patient had a peak creatinine of 5.3 on admission which improved to as low as 1.6 with Guardado catheterization. His creatinine is now stable at 2.02 [address] removal. Recent CT abdomen done shows severe bilateral hydronephrosis without much improvement from CT scan done on admission. CT scan also shows marked thinning of the renal cortex. It appears the obstruction is not completely resolved with Guardado catheterization. He might benefit from a bilateral nephrostomies to relieve the obstruction and salvage his remaining kidney mass. Urology on board and planning interventions 2. Hypertension: His blood pressure is well controlled on current regimen 3. Acute on chronic anemia: Due to chronic kidney disease Hemoglobin is stable 4. Hematuria: He is planned for cystoscopy by urology. He had some enhancement in the bladder on CT which could be hematoma vs mass
--- NOTE | 2017-10-02 15:11 | History & Physical Bridge Note ---
H&P Re-Evaluation Bridge Note: I have examined the patient, reviewed the History & Physical and in the interval since the performance of the History & Physical I have noted the following changes of clinical significance: No changes noted
[2017-10-02] MEDS ORDERED: LIDOCAINE HCL 2% 2 ML VIAL (20MG/ML) ONE (15:55)
[2017-10-02] MEDS ORDERED: PROPOFOL IV EMULSION 10 MG/ML 20 ML VIAL ONE (15:55)
[2017-10-02] MEDS ORDERED: FENTANYL CITRATE INJ 50 MCG/1 ML 2 ML VIAL ONE (15:55)
[2017-10-02] MEDS ORDERED: ONDANSETRON INJ 2 MG/ML 2 ML VIAL ONE (15:55)
[2017-10-02] MEDS ORDERED: PHENYLEPHRINE HCL INJ 10 MG/ML VIAL ONE ×2 (16:15→17:46)
[2017-10-02] MEDS ORDERED: SODIUM CHLORIDE 0.9% INJ 10 ML VIAL ONE ×2 (16:15→17:46)
[2017-10-02] MEDS ORDERED: ONDANSETRON INJ 2 MG/ML 2 ML VIAL IV PRN (17:15)
[2017-10-02] MEDS ORDERED: ATROPINE SULFATE 0.1 MG/ML 5ML SYR IV PRN (17:15)
[2017-10-02] MEDS ORDERED: FENTANYL CITRATE INJ 50 MCG/1 ML 2 ML VIAL IV PRN (17:15)
[2017-10-02] MEDS ORDERED: CIPROFLOXACIN 400MG / 200ML D5W ONE (17:29)
--- NOTE | 2017-10-02 17:42 | Progress Note ---
Internal Med Progress Note Date of Service: Oct 02, 2017. Provider Documentation: SUBJECTIVE: The patient was seen and examined in medical floor He is a 67 years old male with significant past medical history of schizophrenia , use right inguinal hernia and paroxysmal defibrillation Was admitted with gross hematuria, urinary retention and bilateral hydronephrosis His catheter was removed today and started to have bloody urine again Denies any symptoms 10/01: Out of bed when a chair and keeps picking Denies any acute symptoms Specifically denies any back pain, any nausea and/or vomiting, any abdominal fullness Continues to have hematuria as per the nurse 10/02: Denies any symptoms We will be going for cystoscopy and possible stent placement for bilateral hydronephrosis OBJECTIVE: Vital Signs-as noted below Exam: General-no apparent distress at rest Keeps on picking Eyes-normal ENT-normal Neck-supple Lungs-clear to auscultate bilaterally Heart-irregular, 2/6 systolic murmur over precordium Abdomen-benign, soft, nontender No tenderness at renal angles Has diffuse right-sided complete, nonreducible inguinal hernia Bleeding noted from the urethra Extremities-no edema Neuro-alert and awake Pleasantly confused No focal neuro deficit Lab data as noted below. ASSESSMENT & PLAN: This is a 67 year old male with a past medical history of schizophrenia, depression, valvular heart disease s/p bioprosthetic aortic valve replacement, mitral valve repair, tricuspid valve annuloplasty; paroxysmal atrial fibrillation on long-term anticoagulation, hypothyroidism, HLD, inguinal hernia - presents with urinary retention, hematuria, acute kidney injury Gross Hematuria in the setting of UTI - monitor hematuria; has had three units of packed red blood cells during this admission - monitor H/H-remains stable - Coumadin on hold - s/p 3 units pRBCs -Hb remains stable -Appreciate urology input -Catheter removed yesterday 09/30 -Continues to have hematuria -No plan for cystoscopy now 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 Bilateral Hydronephrosis - King catheter is placed and discontinued on 09/30 - continue Flomax and Finasteride - outpatient cystoscopy; likely will need TURP -Discussed with the urology PA ; no cystoscopic now but may consider percutaneous nephrostomy tube -Observe for now and plan for percutaneous nephrostomy if creatinine is not any better -We will be going for cystoscopy and possible bilateral ureteral stent placement for obstruction Acute Kidney Injury - likely secondary to obstruction and hematuria - monitor creatinine - Creatinine is worse -Appreciate nephrology input and recommendation for probable nephrostomy tube -Discussed with urology -Kidney function remains stable with creatinine 2.02 Paroxysmal A. Fib - currently in NSR - hold Coumadin - continue Atenolol -No symptoms Schizophrenia - continue Risperdal - continue Celexa for depression Neurotic Excoriations - monitor for infections -patient keeps on picking and that is not possible to control Valvular Heart Disease - stable, hold diuretics Hypothyroidism - continue Synthroid DVT ppx - SCDs-Hematuria continued FULL CODE Vital Signs: Date Time Temp Pulse Resp B/P (MAP) Pulse Ox O2 Delivery O2 Flow Rate FiO2 10/02/17 08:00 Room Air 10/02/17 07:09 36.7 63 18 145/82 (103) 98 Room Air 10/01/17 20:00 Room Air Lab Results: Results Past 24 Hours Test 10/02/17 05:18 Range/Units White Blood Count 9.85 4.8-10.8 K/uL Red Blood Count 2.98 4.7-6.1 M/uL Hemoglobin 8.4 14.0-18.0 g/dL Hematocrit 26.7 42-52 % Mean Corpuscular Volume 89.6 80-100 fL Mean Corpuscular Hemoglobin 28.2 25-34 pg Mean Corpuscular Hemoglobin Concent 31.5 32-36 g/dl Platelet Count 395 130-400 K/uL Mean Platelet Volume 9.0 7.4-10.4 fL Neutrophils (%) (Auto) 67.9 % Lymphocytes (%) (Auto) 12.8 % Monocytes (%) (Auto) 12.6 % Eosinophils (%) (Auto) 5.2 % Basophils (%) (Auto) 0.8 % Neutrophils # (Auto) 6.69 1.4-6.5 K/uL Lymphocytes # (Auto) 1.26 1.2-3.4 K/uL Monocytes # (Auto) 1.24 0.11-0.59 K/uL Eosinophils # (Auto) 0.51 0-0.5 K/uL Basophils # (Auto) 0.08 0-0.2 K/uL RDW Standard Deviation 50.0 36.4-46.3 fL RDW Coefficient of Variation 15.2 11.5-14.5 % Immature Granulocyte % (Auto) 0.7 % Immature Granulocyte # (Auto) 0.07 0.00-0.02 K/uL Red Blood Cell Morphology Unremarkable Sodium Level 143 136-145 mmol/L Potassium Level 4.1 3.5-5.1 mmol/L Chloride Level 111 98-107 mmol/L Carbon Dioxide Level 25 21-32 mmol/L Anion Gap 7.0 3-11 mmol/L Blood Urea Nitrogen 29 7-18 mg/dl Creatinine 2.02 0.60-1.40 mg/dl Est Creatinine Clear Calc Drug Dose 34.8 ml/min Estimated GFR () 38.7 Estimated GFR (Non- 33.4 BUN/Creatinine Ratio 14.4 10-20 Random Glucose 75 70-99 mg/dl Calcium Level 7.9 8.5-10.1 mg/dl Magnesium Level 1.7 1.8-2.4 mg/dl
[2017-10-02] MEDS ORDERED: EpHEDrine SULFATE INJ 50 MG/ML AMP ONE (17:46)
[2017-10-02] MEDS ORDERED: Cysto-Conray II 17.2% 250ML BOTTLE ONE (18:16)
--- NOTE | 2017-10-02 18:57 | [facility] Operative Report ---
Operative Report Operative Date Oct 02, 2017. Pre-Operative Diagnosis Hematuria, Renal failure, Bilateral hydronephrosis Post-Operative Diagnosis Hematuria, Renal failure, Bilateral hydronephrosis Procedure(s) Performed Cystoscopy, Fulguration, Clot Evacuation, Bilateral Retrograde pyelogram and bilateral stent Insertion (6 Icelandic by 2030 cm) Surgeon Dr. Cobos Pattern Painter Surgeon(s) None Estimated Blood Loss 0CC Specimens None per surgeon Anesthesia Type General Complication(s) none Disposition yes Recovery Room / PACU Description of Procedure Patient was identified in the preoperative holding area, appropriate informed consents reviewed and completed and the patient was transported to the operating suite. Upon arrival he received appropriate preoperative antibiotics in the form of ciprofloxacin. Adequate general anesthesia was achieved, and he was placed in dorsal lithotomy position where he was sterilely prepped and draped in standard fashion. To begin the case, I performed a meatal dilation. After dilating him to 28 Icelandic, I passed a 27 Icelandic resectoscope and inspected the urethra. The urethra was free of stricture disease or other abnormalities. He was noted to have a large prostate with a moderate intravesical median lobe. After inspecting the prostate, the bladder was entirely filled with clot I was unable to assess the mucosal wall. I began by irrigating clot out of the bladder. To accomplish this, using a combination of a Maria Teresa syringe, and once I reached my limit with this, I had to peel clot off of the bladder wall utilizing the resecting loop (no cautery). After approximately 1 hour of irrigating clot, I concluded with the clot irrigation and entirely freed the bladder of clot. Inspection of that time revealed no active bleeding, no tumors, no other gross abnormalities aside from a trabeculated and moderately inflamed bladder. There is mild oozing of some veins from the bladder neck which I presumed to be from my manipulation and not the underlying cause of his hematuria. I fulgurated these areas utilizing the aforementioned resecting loop. I then turned my attention to finding the ureteral orifices. I first identified the right ureteral orifice and cannulated with a sensor wire and a 5 Icelandic open-ended catheter. Immediately, it became very clear that he has extremely dilated and tortuous ureter. I gradually advanced the wire and the catheter will simultaneously introducing contrast to identify the full course of the ureter. There is a distal J-hook/full twist as well as a proximal/mid ureter full twist and an extremely dilated renal pelvis. I subsequently straighten the twist by retracting and pulling on the wire and catheter together after advancing the maximally into the kidney. I then placed a 6 Icelandic multilength stent seeing a good curl in the kidney as well as the bladder. I turned my attention to the left ureteral orifice and completed the same procedure in the same fashion. Of note, the left ureter was more dilated and tortuous than the right with an extremely dilated renal pelvis which I estimate to hold over 300 cc of urine. I opacified the renal pelvis first before draining 150 cc and seeing minimal change in the overall appearance of the renal pelvis despite this 150 cc drainage. I then advanced the wire and catheter together into the upper pole and began to straighten the ureter. Unfortunately, when I placed my stent the curl returned and I felt that the ureteral stent was too low to adequately drain the renal pelvis. I grasped the end of the stent and withdrew to the meatus and repeated the procedure again positioning this in the upper pole and this time successfully placing the stent in appropriate renal pelvic position. As I observe the right stent, I felt the same thing was happening and the stent was pulling down secondary to the tortuosity and gross dilation. I elected to grasp the distal end of the stent and reposition the right stent into the upper pole as well. At the conclusion of the case both stents were located within the bilateral kidneys, and there were good curl seen in the bladder. There was still distal J hooking particularly on the left. There is no active bleeding at that time so I elected to empty the bladder and concluded the case. He was extubated and taken to the PACU in stable condition. There were no complications. I attest to the content of the Intraoperative Record and any orders documented therein. Any exceptions are noted below.
--- NOTE | 2017-10-02 19:22 | Anesthesiology Progress Note ---
Anesthesia Post Op Note Date & Time Oct 02, 2017 at 19:21 Vital Signs Pain Intensity: 0 Vital Signs Past 12 Hours Date Time Temp Pulse Resp B/P (MAP) Pulse Ox O2 Delivery O2 Flow Rate FiO2 10/02/17 18:59 36.4 59 12 120/81 100 Oxymask 10 10/02/17 08:00 Room Air Notes Mental Status: alert / awake / arousable, participated in evaluation Pt Amnestic to Procedure: Yes Nausea / Vomiting: adequately controlled Pain: adequately controlled Airway Patency, RR, SpO2: stable & adequate BP & HR: stable & adequate Hydration State: stable & adequate Anesthetic Complications: no major complications apparent
--- NOTE | 2017-10-02 19:41 | DIAGNOSTIC IMAGING REPORT ---
RETROGRADE INCLUDES KUB HISTORY: CYSTO B/L STENTS FLUOROSCOPY TIME: 1 minute and 40 seconds. FINDINGS: 2 fluoroscopic spot images were submitted for review. Images demonstrate bilateral ureteral stents. The proximal portions of the stents are visualized. The included position. Partial opacification of the right renal collecting system which appears dilated. This remains unchanged from the prior CT. IMPRESSION: Fluoroscopy provided for bilateral ureteral stent placement. The visualized proximal stents appear to be in good position. Electronically signed by: Josef Sharp M.D. 10/02/2017 7:39 PM Dictated Date/Time: 10/02/2017 7:38 PM
[2017-10-02 20:20] VITALS: BP 133/79; PULSE 65; TEMP 36.4; O2SAT 100
[2017-10-02 20:43] VITALS: TEMP 34.7
[2017-10-02] MEDS: DONEPEZIL HCL 5 MG TAB PO SCH (20:45)
[2017-10-02] MEDS: RISPERIDONE 0.5 MG TAB PO SCH (20:46)
[2017-10-02] MEDS: TAMSULOSIN HCL 0.4 MG CAP PO SCH (20:46)
[2017-10-02 21:17] VITALS: TEMP 34.9
[2017-10-02 21:48] VITALS: TEMP 35.3
[2017-10-02 23:36] VITALS: BP 109/65; PULSE 73; TEMP 36.6; O2SAT 96
[2017-10-03 03:45] VITALS: BP 111/67; PULSE 64; TEMP 36.8; O2SAT 97
[2017-10-03] MEDS: SODIUM CHLORIDE 0.9% 1000ML 1,000 ML IV SCH ×2 (04:06→16:40)
[2017-10-03 04:19] VITALS: BP 104/64; PULSE 68; TEMP 37.1; O2SAT 98
[2017-10-03] MEDS: LEVOTHYROXINE 25 MCG TAB PO SCH (05:46)
[2017-10-03] MEDS: SUCRALFATE 1 GM TAB PO SCH ×4 (05:46→20:19)
[2017-10-03 06:01] LABS: BASO % 0.7 %; BASO ABS # 0.09 K/uL (0-0.2); EOS % 3.5 %; EOS ABS # 0.48 K/uL (0-0.5); HEMATOCRIT 24.7 % (42-52); HEMOGLOBIN 7.7 g/dL (14.0-18.0); IG# 0.08 K/uL (0.00-0.02); LYMPH % 7.6 %; LYMPH ABS # 1.05 K/uL (1.2-3.4); MEAN CELL VOLUME 89.5 fL (80-100); MEAN CORPUSCULAR HEMOGLOBIN 27.9 pg (25-34); MEAN CORPUSCULAR HGB CONC 31.2 g/dl (32-36); MEAN PLATELET VOLUME 8.9 fL (7.4-10.4); MONO % 8.5 %; MONO ABS # 1.17 K/uL (0.11-0.59); NEUT % 79.1 %; NEUT ABS # 10.92 K/uL (1.4-6.5); PLATELET COUNT 345 K/uL (130-400); RED CELL DISTRIBUTION WIDTH CV 15.3 % (11.5-14.5); RED CELL DISTRIBUTION WIDTH SD 50.1 fL (36.4-46.3); WHITE BLOOD COUNT 13.79 K/uL (4.8-10.8)
[2017-10-03 06:30] LABS: CALCIUM 7.6 mg/dl (8.5-10.1); CREATININE 2.13 mg/dl (0.60-1.40); POTASSIUM 4.2 mmol/L (3.5-5.1)
[2017-10-03 07:14] VITALS: BP 108/69; PULSE 67; TEMP 36.9; O2SAT 99
--- NOTE | 2017-10-03 08:02 | Anesthesiology Progress Note ---
Anesthesia Post Op Note Date & Time Oct 03, 2017 at 08:02 Vital Signs Pain Intensity: 0 Vital Signs Past 12 Hours Date Time Temp Pulse Resp B/P (MAP) Pulse Ox O2 Delivery O2 Flow Rate FiO2 10/03/17 07:14 36.9 67 20 108/69 (82) 99 Room Air 10/03/17 04:19 37.1 68 20 104/64 (77) 98 Room Air 10/03/17 03:45 36.8 64 18 111/67 (82) 97 Room Air 10/03/17 00:00 Room Air 10/02/17 23:36 36.6 73 20 109/65 (80) 96 Room Air 10/02/17 21:48 35.3 10/02/17 21:17 34.9 10/02/17 21:00 Room Air 10/02/17 20:43 34.7 10/02/17 20:20 36.4 65 16 133/79 (97) 100 Nasal Cannula 2.0 Notes Mental Status: alert / awake / arousable, participated in evaluation Pt Amnestic to Procedure: Yes Nausea / Vomiting: adequately controlled Pain: adequately controlled Airway Patency, RR, SpO2: stable & adequate BP & HR: stable & adequate Hydration State: stable & adequate Anesthetic Complications: no major complications apparent
[2017-10-03] MEDS: SERTRALINE HCL 50 MG TAB PO SCH (08:04)
[2017-10-03] MEDS: PANTOprazole SOD 40 MG TAB PO SCH ×2 (08:04→20:19)
[2017-10-03] MEDS: ATORVASTATIN 10 MG TAB PO SCH (08:04)
[2017-10-03] MEDS: FERROUS SULFATE 325 MG TAB PO SCH ×2 (08:05→20:19)
[2017-10-03] MEDS: FINASTERIDE 5 MG TAB PO SCH (08:05)
[2017-10-03] MEDS: GABAPENTIN 100 MG CAP PO SCH (08:06)
--- NOTE | 2017-10-03 09:05 | Dialysis Progress Note ---
Nephrology Dialysis Note Date of Service: Oct 03, 2017. Subjective Patient is status post cystoscopy and bilateral ureteral stents yesterday. He had urinary retention this morning which required straight catheterization for 1 L. Creatinine is slightly up at 2.1 today Objective Date Time Temp Pulse Resp B/P (MAP) Pulse Ox O2 Delivery O2 Flow Rate FiO2 10/03/17 07:14 36.9 67 20 108/69 (82) 99 Room Air 10/03/17 04:19 37.1 68 20 104/64 (77) 98 Room Air 10/03/17 03:45 36.8 64 18 111/67 (82) 97 Room Air 10/03/17 00:00 Room Air 10/02/17 23:36 36.6 73 20 109/65 (80) 96 Room Air 10/02/17 21:48 35.3 10/02/17 21:17 34.9 10/02/17 21:00 Room Air 10/02/17 20:43 34.7 10/02/17 20:20 36.4 65 16 133/79 (97) 100 Nasal Cannula 2.0 10/02/17 20:00 65 14 133/88 100 Nasal Cannula 2 10/02/17 19:50 63 18 137/90 100 Nasal Cannula 2 10/02/17 19:45 37.0 10/02/17 19:40 35.8 66 20 146/94 100 Nasal Cannula 2 10/02/17 19:30 62 16 143/90 100 Nasal Cannula 2 10/02/17 19:20 63 12 141/96 100 Nasal Cannula 2 10/02/17 19:10 83 16 130/92 100 Oxymask 10 10/02/17 19:05 68 19 111/76 96 Oxymask 10 10/02/17 18:59 36.4 59 12 120/81 100 Oxymask 10 Physical Exam: [id number] no acute distress, sitting up in the chair Eyes-pupils equal and reactive to light ENT-normal throat on inspection Neck-neck is supple no JVD Lungs-clear to auscultation bilaterally Heart-heart sounds 1 and 2 regular rate and rhythm, no murmurs Abdomen-soft nondistended, bowel sounds are present. Huge inguinal scrotal hernia Extremities-no edema, peripheral pulses present Neuro-oriented 3, no focal neurological deficits Skin: Dermatitis Current Inpatient Medications Medications (Trade) Dose Ordered Sig/Lakisha Route Start Time Stop Time Status Last Admin Dose Admin Acetaminophen (Tylenol Tab) 650 mg Q4H PRN PO 09/18/17 16:30 10/18/17 16:29 Atorvastatin Calcium (Lipitor Tab) 10 mg DAILY PO 09/19/17 09:00 10/19/17 08:59 10/03/17 08:04 10 MG Donepezil HCl (Aricept Tab) 5 mg HS PO 09/18/17 21:00 10/18/17 20:59 10/01/17 19:56 5 MG Ferrous Sulfate (Feosol Tab) 325 mg BID PO 09/18/17 21:00 10/18/17 20:59 10/03/17 08:05 325 MG Folic Acid (Folvite Tab) 1 mg QAM PO 09/19/17 09:00 10/19/17 08:59 10/03/17 08:05 1 MG Gabapentin (Neurontin Cap) 100 mg QAM PO 09/19/17 09:00 10/19/17 08:59 10/03/17 08:06 100 MG Levothyroxine Sodium (Synthroid Tab) 25 mcg DAILYBB PO 09/19/17 06:00 10/19/17 06:59 10/03/17 05:46 25 MCG Pantoprazole Sodium (Protonix Tab) 40 mg BID PO 09/18/17 21:00 10/18/17 20:59 10/03/17 08:04 40 MG Risperidone (Risperdal Tab) 0.5 mg HS PO 09/18/17 21:00 10/18/17 20:59 10/01/17 19:56 0.5 MG Sertraline HCl (Zoloft Tab) 50 mg DAILY PO 09/19/17 09:00 10/19/17 08:59 10/03/17 08:04 50 MG Prednisone (PredniSONE TAB) 10 mg DAILY PO 09/19/17 09:00 10/18/17 16:59 10/03/17 08:05 10 MG Sucralfate (Carafate Tab) 1 gm ACHS PO 09/19/17 16:15 10/19/17 16:14 10/03/17 05:46 1 GM Tamsulosin HCl (Flomax Cap) 0.4 mg HS PO 09/19/17 21:00 10/19/17 20:59 10/01/17 19:57 0.4 MG Finasteride (Proscar Tab) 5 mg QAM PO 09/20/17 09:00 10/20/17 08:59 10/03/17 08:05 5 MG Heparin Sodium (Porcine) (Heparin Sq 5000 Unit/0.5ml) 5,000 unit Q8 SQ 09/22/17 14:00 10/22/17 13:59 Future Hold 09/23/17 14:10 5,000 UNIT Aluminum Ammonium Sulfate 30 gm/ Sodium Chloride 3,000 ml @ 0 mls/hr PRN PRN IR 09/25/17 09:45 10/25/17 09:44 09/30/17 08:00 1,500 MLS/HR Atenolol (Tenormin Tab) 25 mg DAILY PO 09/26/17 09:00 10/26/17 08:59 10/03/17 08:06 25 MG Belladonna/Opium (B & O Adult Supp) 60 mg Q8 PRN TX 09/29/17 11:00 10/13/17 10:59 09/29/17 13:35 60 MG Tramadol HCl (Ultram Tab) 25 mg Q6H PRN PO 09/30/17 03:00 10/30/17 02:59 Hydromorphone HCl (Dilaudid Inj) 0.5 mg Q3H PRN IV 09/30/17 03:00 10/14/17 02:59 Sodium Chloride 1,000 ml @ 75 mls/hr [id number] IV 09/30/17 17:15 10/30/17 17:14 10/03/17 04:06 75 MLS/HR Last 24 Hours Test 10/03/17 05:17 White Blood Count 13.79 K/uL Red Blood Count 2.76 M/uL Hemoglobin 7.7 g/dL Hematocrit 24.7 % Mean Corpuscular Volume 89.5 fL Mean Corpuscular Hemoglobin 27.9 pg Mean Corpuscular Hemoglobin Concent 31.2 g/dl Platelet Count 345 K/uL Mean Platelet Volume 8.9 fL Neutrophils (%) (Auto) 79.1 % Lymphocytes (%) (Auto) 7.6 % Monocytes (%) (Auto) 8.5 % Eosinophils (%) (Auto) 3.5 % Basophils (%) (Auto) 0.7 % Neutrophils # (Auto) 10.92 K/uL Lymphocytes # (Auto) 1.05 K/uL Monocytes # (Auto) 1.17 K/uL Eosinophils # (Auto) 0.48 K/uL Basophils # (Auto) 0.09 K/uL RDW Standard Deviation 50.1 fL RDW Coefficient of Variation 15.3 % Immature Granulocyte % (Auto) 0.6 % Immature Granulocyte # (Auto) 0.08 K/uL Hypochromasia PRESENT Sodium Level 142 mmol/L Potassium Level 4.2 mmol/L Chloride Level 112 mmol/L Carbon Dioxide Level 25 mmol/L Anion Gap 5.0 mmol/L Blood Urea Nitrogen 29 mg/dl Creatinine 2.13 mg/dl Est Creatinine Clear Calc Drug Dose 33.0 ml/min Estimated GFR () 36.3 Estimated GFR (Non- 31.3 BUN/Creatinine Ratio 13.6 Random Glucose 75 mg/dl Calcium Level 7.6 mg/dl Assessment & Plan 67 y/o M w/ bullous pemphigoid, schizophrenia, complex valvular heart disease, who was admitted with the echo due to obstructive uropathy. 1. Acute kidney injury on CKD stage III with baseline creatinine of 1.3 to 1.5. His acute kidney injury is due to obstructive uropathy. Patient had a peak creatinine of 5.3 on admission which improved to as low as 1.6 with King catheterization. His creatinine is overall stable at 2.1 today. He is status post bilateral ureteral stents and cystoscopy yesterday. Anticipate improvement in his renal function over the next couple of days. 2. Hypertension: His blood pressure is well controlled on current regimen 3. Acute on chronic anemia: Due to chronic kidney disease and blood loss due to hematuria Hemoglobin is down at 7.7 today. Monitor and transfuse as needed 4. Hematuria: Improving after cystoscopy and hematoma evacuation from the bladder.
--- NOTE | 2017-10-03 09:46 | Progress Note ---
Subjective Date of Service: Oct 03, 2017. Subjective Pt evaluation today including: conversation w/ patient, physical exam Voiding: requires PRN straight cath doing well after cysto, clot evac and b/l stent placement - unable to void overnight, cathed for 1100cc - still hasnt voided - denies pain or hematuria Problem List Medical Problems: (1) ОЛЕГ (acute kidney injury) Status: Acute (2) ОЛЕГ (acute kidney injury) Status: Acute (3) CHF (congestive heart failure) Status: Acute (4) Left leg cellulitis Status: Acute (5) Malnutrition Status: Acute (6) SIRS (systemic inflammatory response syndrome) Status: Acute Review of Systems Constitutional: No see HPI, No fever, No chills, No sweats, No weight loss, No weakness, No fatigue, No problem reported Abdomen: No see HPI, No pain, No nausea, No vomiting, No diarrhea, No constipation, No GI bleeding, No problem reported Musculoskeletal: No see HPI, No joint pain, No muscle pain, No swelling, No calf pain, No problem reported Objective Vital Signs Date Time Temp Pulse Resp B/P (MAP) Pulse Ox O2 Delivery O2 Flow Rate FiO2 10/03/17 07:14 36.9 67 20 108/69 (82) 99 Room Air 10/03/17 04:19 37.1 68 20 104/64 (77) 98 Room Air 10/03/17 03:45 36.8 64 18 111/67 (82) 97 Room Air 10/03/17 00:00 Room Air 10/02/17 23:36 36.6 73 20 109/65 (80) 96 Room Air 10/02/17 21:48 35.3 10/02/17 21:17 34.9 10/02/17 21:00 Room Air 10/02/17 20:43 34.7 10/02/17 20:20 36.4 65 16 133/79 (97) 100 Nasal Cannula 2.0 10/02/17 20:00 65 14 133/88 100 Nasal Cannula 2 10/02/17 19:50 63 18 137/90 100 Nasal Cannula 2 10/02/17 19:45 37.0 10/02/17 19:40 35.8 66 20 146/94 100 Nasal Cannula 2 10/02/17 19:30 62 16 143/90 100 Nasal Cannula 2 8/7/18 19:20 63 12 141/96 100 Nasal Cannula 2 10/02/17 19:10 83 16 130/92 100 Oxymask 10 10/02/17 19:05 68 19 111/76 96 Oxymask 10 10/02/17 18:59 36.4 59 12 120/81 100 Oxymask 10 Physical Exam General Appearance: WD/WN, no apparent distress Eyes: normal inspection Respiratory/Chest: no respiratory distress, no accessory muscle use Cardiovascular: no edema Abdomen: soft, no organomegaly Extremities: no pedal edema Neurologic/Psychiatric: alert, normal mood/affect Laboratory Results Last 24 Hours Test 10/03/17 05:17 White Blood Count 13.79 K/uL Red Blood Count 2.76 M/uL Hemoglobin 7.7 g/dL Hematocrit 24.7 % Mean Corpuscular Volume 89.5 fL Mean Corpuscular Hemoglobin 27.9 pg Mean Corpuscular Hemoglobin Concent 31.2 g/dl Platelet Count 345 K/uL Mean Platelet Volume 8.9 fL Neutrophils (%) (Auto) 79.1 % Lymphocytes (%) (Auto) 7.6 % Monocytes (%) (Auto) 8.5 % Eosinophils (%) (Auto) 3.5 % Basophils (%) (Auto) 0.7 % Neutrophils # (Auto) 10.92 K/uL Lymphocytes # (Auto) 1.05 K/uL Monocytes # (Auto) 1.17 K/uL Eosinophils # (Auto) 0.48 K/uL Basophils # (Auto) 0.09 K/uL RDW Standard Deviation 50.1 fL RDW Coefficient of Variation 15.3 % Immature Granulocyte % (Auto) 0.6 % Immature Granulocyte # (Auto) 0.08 K/uL Hypochromasia PRESENT Sodium Level 142 mmol/L Potassium Level 4.2 mmol/L Chloride Level 112 mmol/L Carbon Dioxide Level 25 mmol/L Anion Gap 5.0 mmol/L Blood Urea Nitrogen 29 mg/dl Creatinine 2.13 mg/dl Est Creatinine Clear Calc Drug Dose 33.0 ml/min Estimated GFR () 36.3 Estimated GFR (Non- 31.3 BUN/Creatinine Ratio 13.6 Random Glucose 75 mg/dl Calcium Level 7.6 mg/dl Assessment and Plan S/p clot evac and b/l stent placement - if no void this AM, may need guardado - given his massively dilated upper tracts, I am hopeful for improvement in his Cr over the next several days Continued [place] stay due to: voiding difficulties
--- NOTE | 2017-10-03 11:06 | Progress Note ---
Internal Med Progress Note Date of Service: Oct 03, 2017. Provider Documentation: SUBJECTIVE: The patient was seen and examined in medical floor He is a 67 years old male with significant past medical history of schizophrenia , use right inguinal hernia and paroxysmal defibrillation Was admitted with gross hematuria, urinary retention and bilateral hydronephrosis His catheter was removed today and started to have bloody urine again Denies any symptoms 10/01: Out of bed when a chair and keeps picking Denies any acute symptoms Specifically denies any back pain, any nausea and/or vomiting, any abdominal fullness Continues to have hematuria as per the nurse 10/02: Denies any symptoms We will be going for cystoscopy and possible stent placement for bilateral hydronephrosis 10/03: Status post cystoscopy and bilateral ureteral stent placement on 10/02 Has had urinary tension and required straight cath last night with 1100 out If it happens again we will need to have a King catheter Patient denies any complaints OBJECTIVE: Vital Signs-as noted below Exam: General-no apparent distress at rest Keeps on picking Eyes-normal ENT-normal Neck-supple Lungs-clear to auscultate bilaterally Heart-irregular, 2/6 systolic murmur over precordium Abdomen-benign, soft, nontender No tenderness at renal angles Has diffuse right-sided complete, nonreducible inguinal hernia Bleeding noted from the urethra Extremities-no edema Neuro-alert and awake Pleasantly confused No focal neuro deficit Lab data as noted below. 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 Bilateral Hydronephrosis - King catheter is placed and discontinued on 09/30 - continue Flomax and Finasteride - outpatient cystoscopy; likely will need TURP -Discussed with the urology PA ; no cystoscopic now but may consider percutaneous nephrostomy tube -Observe for now and plan for percutaneous nephrostomy if creatinine is not any better -We will be going for cystoscopy and possible bilateral ureteral stent placement for obstruction -Status post stem cystoscopy and bilateral stent placement on 10/02 -No more hematuria but has retention of urine -May need-King catheter for some time Gross Hematuria in the setting of UTI - monitor hematuria; has had three units of packed red blood cells during this admission - monitor H/H-remains stable - Coumadin on hold - s/p 3 units pRBCs -Hb remains stable -Appreciate urology input -Catheter removed yesterday 09/30 -Continues to have hematuria -As above Hemoglobin is down today to 7.7 Due to multifactorial causes including CKD and ongoing hematuria Monitor H&H and transfuse if hemoglobin less than 7 Acute Kidney Injury - likely secondary to obstruction and hematuria - monitor creatinine - Creatinine is worse -Appreciate nephrology input and recommendation for probable nephrostomy tube -Discussed with urology -Kidney function remains stable with creatinine 2.02 -Kidney function is worse today but expected to improve following the stent placement Amandeep Ayala - currently in NSR - hold Coumadin - continue Atenolol -No symptoms Schizophrenia - continue Risperdal - continue Celexa for depression -Has symptoms of schizophrenia but no acute delirium Neurotic Excoriations - monitor for infections -patient keeps on picking and that is not possible to control Valvular Heart Disease - stable, hold diuretics Hypothyroidism - continue Synthroid DVT ppx - SCDs-Hematuria continued FULL CODE Disposition Needs to be placed Vital Signs: Date Time Temp Pulse Resp B/P (MAP) Pulse Ox O2 Delivery O2 Flow Rate FiO2 10/03/17 07:14 36.9 67 20 108/69 (82) 99 Room Air 10/03/17 04:19 37.1 68 20 104/64 (77) 98 Room Air 10/03/17 03:45 36.8 64 18 111/67 (82) 97 Room Air 10/03/17 00:00 Room Air 10/02/17 23:36 36.6 73 20 109/65 (80) 96 Room Air 10/02/17 21:48 35.3 10/02/17 21:17 34.9 10/02/17 21:00 Room Air 10/02/17 20:43 34.7 10/02/17 20:20 36.4 65 16 133/79 (97) 100 Nasal Cannula 2.0 10/02/17 20:00 65 14 133/88 100 Nasal Cannula 2 10/02/17 19:50 63 18 137/90 100 Nasal Cannula 2 10/02/17 19:45 37.0 10/02/17 19:40 35.8 66 20 146/94 100 Nasal Cannula 2 10/02/17 19:30 62 16 143/90 100 Nasal Cannula 2 10/02/17 19:20 63 12 141/96 100 Nasal Cannula 2 10/02/17 19:10 83 16 130/92 100 Oxymask 10 10/02/17 19:05 68 19 111/76 96 Oxymask 10 10/02/17 18:59 36.4 59 12 120/81 100 Oxymask 10 Lab Results: Results Past 24 Hours Test 10/03/17 05:17 Range/Units White Blood Count 13.79 4.8-10.8 K/uL Red Blood Count 2.76 4.7-6.1 M/uL Hemoglobin 7.7 14.0-18.0 g/dL Hematocrit 24.7 42-52 % Mean Corpuscular Volume 89.5 80-100 fL Mean Corpuscular Hemoglobin 27.9 25-34 pg Mean Corpuscular Hemoglobin Concent 31.2 32-36 g/dl Platelet Count 345 130-400 K/uL Mean Platelet Volume 8.9 7.4-10.4 fL Neutrophils (%) (Auto) 79.1 % Lymphocytes (%) (Auto) 7.6 % Monocytes (%) (Auto) 8.5 % Eosinophils (%) (Auto) 3.5 % Basophils (%) (Auto) 0.7 % Neutrophils # (Auto) 10.92 1.4-6.5 K/uL Lymphocytes # (Auto) 1.05 1.2-3.4 K/uL Monocytes # (Auto) 1.17 0.11-0.59 K/uL Eosinophils # (Auto) 0.48 0-0.5 K/uL Basophils # (Auto) 0.09 0-0.2 K/uL RDW Standard Deviation 50.1 36.4-46.3 fL RDW Coefficient of Variation 15.3 11.5-14.5 % Immature Granulocyte % (Auto) 0.6 % Immature Granulocyte # (Auto) 0.08 0.00-0.02 K/uL Hypochromasia PRESENT Sodium Level 142 136-145 mmol/L Potassium Level 4.2 3.5-5.1 mmol/L Chloride Level 112 98-107 mmol/L Carbon Dioxide Level 25 21-32 mmol/L Anion Gap 5.0 3-11 mmol/L Blood Urea Nitrogen 29 7-18 mg/dl Creatinine 2.13 0.60-1.40 mg/dl Est Creatinine Clear Calc Drug Dose 33.0 ml/min Estimated GFR () 36.3 Estimated GFR (Non- 31.3 BUN/Creatinine Ratio 13.6 10-20 Random Glucose 75 70-99 mg/dl Calcium Level 7.6 8.5-10.1 mg/dl
[2017-10-03 15:22] VITALS: BP 116/73; PULSE 62; TEMP 36.5; O2SAT 100
[2017-10-03] MEDS: RISPERIDONE 0.5 MG TAB PO SCH (20:19)
[2017-10-03] MEDS: DONEPEZIL HCL 5 MG TAB PO SCH (20:19)
[2017-10-03] MEDS: TAMSULOSIN HCL 0.4 MG CAP PO SCH (20:19)
[2017-10-03 23:25] VITALS: BP 116/70; PULSE 68; TEMP 36.8; O2SAT 93
[2017-10-04] VITALS (10 sets, daily range): BP systolic 104–136; BP diastolic 65–83; PULSE 56–67; TEMP 36.2–37; O2SAT 96–98
[2017-10-04 06:00] LABS: BASO % 0.8 %; BASO ABS # 0.07 K/uL (0-0.2); EOS % 7.4 %; EOS ABS # 0.64 K/uL (0-0.5); HEMATOCRIT 23.9 % (42-52); HEMOGLOBIN 7.4 g/dL (14.0-18.0); IG# 0.05 K/uL (0.00-0.02); LYMPH % 18.7 %; LYMPH ABS # 1.62 K/uL (1.2-3.4); MEAN CELL VOLUME 88.8 fL (80-100); MEAN CORPUSCULAR HEMOGLOBIN 27.5 pg (25-34); MEAN PLATELET VOLUME 8.7 fL (7.4-10.4); MONO % 10.9 %; MONO ABS # 0.95 K/uL (0.11-0.59); NEUT % 61.6 %; NEUT ABS # 5.35 K/uL (1.4-6.5); PLATELET COUNT 306 K/uL (130-400); RED CELL DISTRIBUTION WIDTH CV 15.1 % (11.5-14.5); RED CELL DISTRIBUTION WIDTH SD 48.8 fL (36.4-46.3); WHITE BLOOD COUNT 8.68 K/uL (4.8-10.8)
[2017-10-04] MEDS: LEVOTHYROXINE 25 MCG TAB PO SCH (06:06)
[2017-10-04] MEDS: SUCRALFATE 1 GM TAB PO SCH ×4 (06:06→20:28)
[2017-10-04] MEDS: SODIUM CHLORIDE 0.9% 1000ML 1,000 ML IV SCH (06:06)
[2017-10-04 06:23] LABS: CALCIUM 7.5 mg/dl (8.5-10.1); CREATININE 1.69 mg/dl (0.60-1.40)
--- NOTE | 2017-10-04 07:51 | EMERGENCY ROOM VISIT NOTE ---
History Report prepared by Tyrone: Leigha Rangel Under the Supervision of: Brett BlancoO. First contact with patient: 13:15 Chief Complaint: ILLNESS Stated Complaint: ABNORMAL LABS/HYPOTENSION History of Present Illness The patient is a 67 year old male who presents to the Emergency Room with complaints of sudden illness starting prior to arrival. The patient states that he went to his PCP for a routine checkup this morning and found several things wrong. He states that they had found that his kidneys are not working well, his blood pressure was low, and his protein levels were low. He reports that he has never had these issues in the past and notes that his blood pressure usually runs in the normal range. The patient notes that for the past few months he has had intermittent lightheadedness. He states that it usually lasts a minute or two and then goes away. He reports that he has fallen a few times in the past from it, but was able to get back up a minute or two later on his own. The patient denies abnormal bowel movements, loss of appetite, abnormal drinking, feeling ill recently, and a cardiac history. The patient notes that he is on Warfarin. Source of History: patient Onset: prior to arrival Position: other (generalized) Quality: other (illness) Timing: other (sudden) Note: The patient complains of abnormal labs and lightheadedness. The patient denies abnormal bowel movements, loss of appetite, abnormal drinking, and feeling ill recently. Review of Systems See HPI for pertinent positives & negatives. A total of 10 systems reviewed and were otherwise negative. Past Medical & Surgical Medical Problems: (1) A-fib (2) ОЛЕГ (acute kidney injury) (3) Anticoagulant long-term use (4) Bullous skin disease (5) Chronic anemia (6) Esophagitis determined by endoscopy (7) History of endocarditis (8) HLD (hyperlipidemia) (9) Hx of blood clots (10) Hyperkalemia (11) Hyperlipidemia (12) Hypoalbuminemia due to protein-calorie malnutrition (13) Hypothyroidism (14) Paroxysmal atrial fibrillation (15) Pruritus (16) Schizophrenia, unspecified (17) Scrotal hernia (18) Superior mesenteric aneurysm (19) Unspecified mood [affective] disorder (20) UTI (urinary tract infection) Surgical Problems: (1) H/O tricuspid valve annuloplasty (2) S/P aortic valve replacement (3) S/P mitral valve repair Social History Problems: (1) Heavy alcohol use Family History FH: heart disease FATHER Social History Smoking Status: Never Smoker Alcohol Use: heavy Marital Status: single Housing Status: lives with family Current/Historical Medications Scheduled Atenolol (Tenormin), 25 MG PO DAILY Atorvastatin (Lipitor), 10 MG PO DAILY Donepezil HCl (Aricept), 5 MG PO HS Ferrous Sulfate (Ferrous Sulfate), 325 MG PO BID Folic Acid (Folvite), 1 MG PO QAM Furosemide (Lasix), 20 MG PO DAILY Gabapentin (Gabapentin), 100 MG PO QAM Levothyroxine Sodium (Synthroid), 25 MCG PO DAILY Magnesium Oxide (Mag-Ox), 400 MG PO BID Pantoprazole (Protonix), 40 MG PO BID Potassium Chloride (Potassium Chloride Er), 10 MEQ PO DAILY Prednisone Tab (Prednisone), 10 MG PO UD Risperidone (Risperdal), 0.5 MG PO HS Sertraline (Zoloft), 50 MG PO DAILY Warfarin Sodium (Coumadin), 1 TAB PO UD Allergies Coded Allergies: No Known Allergies (Unverified , 06/15/17) Physical Exam Vital Signs Date Time Temp Pulse Resp B/P (MAP) Pulse Ox O2 Delivery O2 Flow Rate FiO2 09/18/17 16:30 69 20 104/70 96 Room Air 09/18/17 16:21 96 Room Air 09/18/17 16:01 66 18 95/61 96 Room Air 09/18/17 15:17 66 16 92/59 99 Room Air 09/18/17 14:51 66 16 90/51 09/18/17 14:29 66 18 84/47 100 Room Air 09/18/17 13:04 36.3 62 16 79/45 100 Room Air 09/18/17 13:01 63 Physical Exam GENERAL: alert, poor hygiene, disheveled EYE EXAM: normal conjunctiva, PERRL and EOM's grossly intact OROPHARYNX: no exudate, no erythema, lips, buccal mucosa, and tongue normal and mucous membranes are dry NECK: supple, no nuchal rigidity, no adenopathy, non-tender LUNGS: Clear to auscultation. Normal chest wall mechanics HEART: systolic ejection murmur, S1 normal and S2 normal ABDOMEN: abdomen soft, non-tender, normo-active bowel sounds, no masses, no rebound or guarding. Well healed vertical midline incision consistent with Ex- Lap. BACK: Back is symmetrical on inspection and there is no deformity, no midline tenderness, no CVA tenderness. : Circumcised. No penile discharge. Enlarged right hemiscrotum consistent with hernia. Small area of excoriation on the anterior aspect of the right hemiscrotum. Evidence of evolving fungal infection on the inferior aspect of the right hemiscrotum. No evidence of Edwardo Gangrene. No inguinal lymphadenopathy. SKIN: no rashes and no bruising UPPER EXTREMITIES: upper extremities are grossly normal. LOWER EXTREMITIES: No pitting edema. NEURO EXAM: Normal sensorium, cranial nerves II-XII grossly intact, normal speech, no gross weakness of arms, no gross weakness of legs. Medical Decision & Procedures ER Provider Diagnostic Interpretation: Radiology results have been interpreted by the radiologist and reviewed by me. CT SCAN OF THE ABDOMEN AND PELVIS WITHOUT CONTRAST CLINICAL HISTORY: Hypotension, new onset renal failure. COMPARISON STUDY: No previous studies for comparison. TECHNIQUE: CT scan of the abdomen and pelvis was performed from the lung bases to the proximal femurs. Images are reviewed in the axial, sagittal, and coronal planes. IV contrast was not administered for this examination. A dose lowering technique was utilized adhering to the principles of ALARA. CT DOSE: 442.94 mGy.cm FINDINGS: Lower chest: The heart is enlarged. There are dependent atelectatic changes. Liver: The unenhanced liver is normal in size, contour, and attenuation. There is no intrahepatic biliary ductal dilatation. Gallbladder: Contracted Spleen: Normal in size and attenuation. Pancreas: Unremarkable. Adrenal glands: Unremarkable. Kidneys: No renal, ureteral, or bladder calculi are visualized. There is bilateral hydronephrosis and hydroureter. There is 18 mm right renal cyst. There is a 14 mm left renal hypodensity which slightly exceeds water attenuation and therefore is indeterminate. Bowel: There are no transition zones indicate bowel obstruction. There is a large right inguinal hernia which contains bowel. This extends into the scrotum. The hernia contains both colon and small bowel. The cecum is contained within the hernia sac. The appendix is also contained within the hernia sac. There is no evidence of acute appendicitis. Peritoneum: There is no intraperitoneal free air or abdominal ascites. Vasculature: The abdominal aorta is normal in course and caliber. Adenopathy: None. Pelvic viscera: There is pronounced bladder wall thickening and trabeculation. The prostate is mildly prominent. The findings are likely secondary to long-standing bladder outlet obstruction. Urologic consultation is recommended. Skeletal structures: No destructive osseous lesions are seen. IMPRESSION: 1. Pronounced bilateral hydronephrosis and hydroureter, likely secondary to long-standing bladder outlet obstruction as there is marked bladder wall thickening and trabeculation. Urologic consultation is recommended. 2. Large right scrotal hernia containing portions of the ascending colon, cecum, appendix, and small bowel. 3. No evidence of bowel obstruction. No evidence of free air. Electronically signed by: Delbert Devries M.D. 09/18/2017 2:45 PM Dictated Date/Time: 09/18/2017 2:38 PM Laboratory Results Test 09/18/17 00:00 09/18/17 13:53 09/18/17 14:07 09/18/17 16:32 Urine Amorphous Sediment PRESENT (NONE PRSENT) Troponin I < 0.015 ng/ml (0-0.045) Pro-B-Type Natriuretic Peptide 27202 pg/ml (0-900) Thyroid Stimulating Hormone (TSH) 1.010 uIu/ml (0.300-4.500) Direct Bilirubin < 0.1 mg/dl (0-0.2) Lab Scanned Report Lab Downtime Report Form Laboratory results per my review. Medications Administered Medications (Trade) Dose Ordered Sig/Lakisha Route Start Time Stop Time Status Last Admin Dose Admin Sodium Chloride 1,000 ml @ 999 mls/hr Q1H1M STAT IV 09/18/17 13:27 09/18/17 14:27 DC 09/18/17 13:27 999 MLS/HR Sodium Chloride 1,000 ml @ 999 mls/hr Q1H1M STAT IV 09/18/17 14:06 09/18/17 15:06 DC 09/18/17 14:30 999 MLS/HR Sodium Chloride 1,000 ml @ 250 mls/hr Q4H STAT IV 09/18/17 15:16 09/18/17 17:36 DC 09/18/17 15:16 250 MLS/HR ED Course 1316: The patient was evaluated in room B10. A complete history and physical exam was performed. 1327: Ordered NSS 1000 ml @ 999 mls/hr IV. 1337: I reevaluated the patient and he is still hypotensive. 1358: I reevaluated the patient and his blood pressure is 94/52. 1406: Ordered NSS 1000 ml @ 999 mls/hr IV. 1516: Ordered NSS 1000 ml @ 250 mls/hr IV. 1542: I reevaluated the patient and his blood pressure is 99/51. 1544: I reviewed the patient's case with DIAMOND Goodsonist. She will evaluate the patient for further management. Medical Decision Differential Diagnosis includes but is not limited to dehydration, stroke, anemia, hypoglycemia, hyponatremia, hypernatremia, urinary tract infection, pneumonia, bronchitis, sepsis, gastroenteritis, additional abdominal pathology, metabolic abnormalities and infections. Patient found by outpatient physician to have multiple lab abnormalities and referred to the emergency room for additional evaluation and treatment. Patient here found to have acute renal failure likely secondary to a postobstructive uropathy. Urinalysis pending at the time of discussion with the hospitalist for additional evaluation and treatment. Patient found to have anemia, unclear etiology and no prior history, possibly related to renal dysfunction. Patient initially hypotensive although did improve with IV fluids. Patient made aware of all results and concern given abnormalities. I have a lower suspicion for bacteremia/sepsis. Patient afebrile and no leukocytosis noted. Patient aware of all results. Inguinal hernia noted, no evidence of incarceration or strangulation at this time. Medication Reconcilliation Current Medication List: was personally reviewed by me Blood Pressure Screening Patient's blood pressure: Low blood pressure Will be further monitored by the hospitalist. Consults Time Called: 1540 Consulting Physician: DIAMOND Goodson Returned Call: [phone] I reviewed the patient's case with DIAMOND Goodson. She will evaluate the patient for further management. Impression Primary Impression: Acute renal failure Additional Impressions: Dehydration Hypotension Anemia Right inguinal hernia Scribe Attestation The scribe's documentation has been prepared under my direction and personally reviewed by me in its entirety. I confirm that the note above accurately reflects all work, treatment, procedures, and medical decision making performed by me. Departure Information Dispostion Being Evaluated By Hospitalist Referrals No Doctor, Assigned (PCP) Patient Instructions My [facility] Problem Qualifiers Primary Impression: Acute renal failure Acute renal failure type: unspecified Qualified Codes: N17.9 - Acute kidney failure, unspecified Additional Impressions: Hypotension Hypotension type: unspecified hypotension type Qualified Codes: I95.9 - Hypotension, unspecified Anemia Anemia type: unspecified type Qualified Codes: D64.9 - Anemia, unspecified
[2017-10-04] MEDS: PANTOprazole SOD 40 MG TAB PO SCH ×2 (07:59→20:29)
[2017-10-04] MEDS: ATORVASTATIN 10 MG TAB PO SCH (07:59)
[2017-10-04] MEDS: GABAPENTIN 100 MG CAP PO SCH (07:59)
[2017-10-04] MEDS: SERTRALINE HCL 50 MG TAB PO SCH (07:59)
[2017-10-04] MEDS: FERROUS SULFATE 325 MG TAB PO SCH ×2 (08:03→20:29)
[2017-10-04] MEDS: FINASTERIDE 5 MG TAB PO SCH (08:04)
[2017-10-04] MEDS: SODIUM CHLORIDE 0.45% 1000ML 1,000 ML IV SCH (08:15)
--- NOTE | 2017-10-04 10:53 | Urology Progress Note ---
Progress Note Date of Service Oct 04, 2017. Subjective Pt evaluation today including: conversation w/ patient, physical exam, chart review, lab review Pain: denies PO Intake: tolerating Voiding: guardado catheter in place 67YO male, POD#2 s/p cystoscopy, clot evacuation, bilateral ureteral stent placement. Patient reports feeling well this morning. Denies pain. Good appetite, no nausea/vomiting. Denies fever/chills. Tolerating Guardado, states it is not too bothersome. Constitutional: No fever, No chills Respiratory: No shortness of breath Cardiovascular: No chest pain Abdomen: No pain, No nausea, No vomiting Male : + see HPI Neurologic: No numbness/tingling Heme: + see HPI Objective Vital Signs Date Time Temp Pulse Resp B/P (MAP) Pulse Ox O2 Delivery O2 Flow Rate FiO2 10/04/17 10:10 36.5 56 18 111/67 10/04/17 09:40 36.6 59 18 120/70 10/04/17 09:25 36.6 57 18 123/76 10/04/17 09:06 36.7 57 18 135/77 10/04/17 08:15 Room Air 10/04/17 07:14 37.0 63 18 128/75 (92) 96 Room Air 10/04/17 00:00 Room Air 10/03/17 23:25 36.8 68 20 116/70 (85) 93 Room Air 10/03/17 16:00 Room Air 10/03/17 15:22 36.5 62 16 116/73 (87) 100 Room Air Physical Exam General Appearance: no apparent distress Eyes: normal inspection ENT: hearing grossly normal Neck: thyroid normal Respiratory/Chest: no respiratory distress, no accessory muscle use Cardiovascular: no JVD Abdomen: non tender, soft Extremities: normal inspection Neurologic/Psychiatric: alert, oriented x 3 Skin: normal color Laboratory Results Last 24 Hours Test 10/04/17 05:42 White Blood Count 8.68 K/uL Red Blood Count 2.69 M/uL Hemoglobin 7.4 g/dL Hematocrit 23.9 % Mean Corpuscular Volume 88.8 fL Mean Corpuscular Hemoglobin 27.5 pg Mean Corpuscular Hemoglobin Concent 31.0 g/dl Platelet Count 306 K/uL Mean Platelet Volume 8.7 fL Neutrophils (%) (Auto) 61.6 % Lymphocytes (%) (Auto) 18.7 % Monocytes (%) (Auto) 10.9 % Eosinophils (%) (Auto) 7.4 % Basophils (%) (Auto) 0.8 % Neutrophils # (Auto) 5.35 K/uL Lymphocytes # (Auto) 1.62 K/uL Monocytes # (Auto) 0.95 K/uL Eosinophils # (Auto) 0.64 K/uL Basophils # (Auto) 0.07 K/uL RDW Standard Deviation 48.8 fL RDW Coefficient of Variation 15.1 % Immature Granulocyte % (Auto) 0.6 % Immature Granulocyte # (Auto) 0.05 K/uL Hypochromasia PRESENT Sodium Level 141 mmol/L Potassium Level 4.0 mmol/L Chloride Level 111 mmol/L Carbon Dioxide Level 23 mmol/L Anion Gap 6.0 mmol/L Blood Urea Nitrogen 21 mg/dl Creatinine 1.69 mg/dl Est Creatinine Clear Calc Drug Dose 41.6 ml/min Estimated GFR () 48.0 Estimated GFR (Non- 41.4 BUN/Creatinine Ratio 12.7 Random Glucose 74 mg/dl Calcium Level 7.5 mg/dl Assessment and Plan 67YO male, POD#2 s/p cystoscopy, clot evacuation, bilateral ureteral stent placement. Creatinine improving. Afebrile, denies pain, tolerating ureteral stents. Tolerating Guardado, urine appears yellow with scant clot, much improved. Recommend patient remain on Tamsulosin QHS and Finasteride QD. Recommend Guardado remain in place x 7 -10 days with voiding trail at [facility]/ [facility]. After Guardado is removed, recommend routine bladder scans with straight cath PRN if PVR over 300ml. I will arrange for follow up in our outpatient office in 4 weeks. Thank you for allowing us to participate in the care of the patient. Please contact our service with remaining questions/concerns.
--- NOTE | 2017-10-04 11:46 | Progress Note ---
Internal Med Progress Note Date of Service: Oct 04, 2017. Provider Documentation: SUBJECTIVE: The patient was seen and examined in medical floor He is a 67 years old male with significant past medical history of schizophrenia , use right inguinal hernia and paroxysmal defibrillation Was admitted with gross hematuria, urinary retention and bilateral hydronephrosis His catheter was removed today and started to have bloody urine again Denies any symptoms 10/01: Out of bed when a chair and keeps picking Denies any acute symptoms Specifically denies any back pain, any nausea and/or vomiting, any abdominal fullness Continues to have hematuria as per the nurse 10/02: Denies any symptoms We will be going for cystoscopy and possible stent placement for bilateral hydronephrosis 10/03: Status post cystoscopy and bilateral ureteral stent placement on 10/02 Has had urinary tension and required straight cath last night with 1100 out If it happens again we will need to have a King catheter Patient denies any complaints 10/04: Status post cystoscopy and bilateral ureteric stent placement on 10/03/17 Status post King catheter placement yesterday Denies any symptoms today No more hematuria noted OBJECTIVE: Vital Signs-as noted below Exam: General-no apparent distress at rest Keeps on picking Eyes-normal ENT-normal Neck-supple Lungs-clear to auscultate bilaterally Heart-irregular, 2/6 systolic murmur over precordium Abdomen-benign, soft, nontender No tenderness at renal angles Has diffuse right-sided complete, nonreducible inguinal hernia Bleeding noted from the urethra Extremities-no edema Neuro-alert and awake Pleasantly confused No focal neuro deficit Lab data as noted below. 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 Bilateral Hydronephrosis - King catheter is placed and discontinued on 09/30 - continue Flomax and Finasteride - outpatient cystoscopy; likely will need TURP -Discussed with the urology PA ; no cystoscopic now but may consider percutaneous nephrostomy tube -Observe for now and plan for percutaneous nephrostomy if creatinine is not any better -We will be going for cystoscopy and possible bilateral ureteral stent placement for obstruction -Status post stem cystoscopy and bilateral stent placement on 10/02 -No more hematuria but has retention of urine -May need-King catheter for some time-placed -Clinically better without symptoms Gross Hematuria in the setting of UTI - monitor hematuria; has had three units of packed red blood cells during this admission - monitor H/H-remains stable - Coumadin on hold - s/p 3 units pRBCs -Hb remains stable -Appreciate urology input -Catheter removed yesterday 09/30 -Continues to have hematuria -Hematuria resolved Hemoglobin is down today to 7.7 Due to multifactorial causes including CKD and ongoing hematuria Monitor H&H and transfuse if hemoglobin less than 7 Will give 1 unit of blood transfusion, hemoglobin 7.4 today Acute Kidney Injury - likely secondary to obstruction and hematuria - monitor creatinine - Creatinine is worse -Appreciate nephrology input and recommendation for probable nephrostomy tube -Discussed with urology -Kidney function remains stable with creatinine 2.02 -Kidney function is worse today but expected to improve following the stent placement -Kidney function has been improving Paroxysmal A. Fib - currently in NSR - hold Coumadin - continue Atenolol -No symptoms -Will start Coumadin on discharge Schizophrenia - continue Risperdal - continue Celexa for depression -Has symptoms of schizophrenia but no acute delirium Neurotic Excoriations - monitor for infections -patient keeps on picking and that is not possible to control Valvular Heart Disease - stable, hold diuretics Hypothyroidism - continue Synthroid DVT ppx - SCDs-Hematuria continued FULL CODE Disposition Needs to be placed Likely to be discharged tomorrow Vital Signs: Date Time Temp Pulse Resp B/P (MAP) Pulse Ox O2 Delivery O2 Flow Rate FiO2 10/04/17 10:10 36.5 56 18 111/67 10/04/17 09:40 36.6 59 18 120/70 10/04/17 09:25 36.6 57 18 123/76 10/04/17 09:06 36.7 57 18 135/77 10/04/17 08:15 Room Air 10/04/17 07:14 37.0 63 18 128/75 (92) 96 Room Air 10/04/17 00:00 Room Air 10/03/17 23:25 36.8 68 20 116/70 (85) 93 Room Air 10/03/17 16:00 Room Air 10/03/17 15:22 36.5 62 16 116/73 (87) 100 Room Air Lab Results: Results Past 24 Hours Test 10/04/17 05:42 Range/Units White Blood Count 8.68 4.8-10.8 K/uL Red Blood Count 2.69 4.7-6.1 M/uL Hemoglobin 7.4 14.0-18.0 g/dL Hematocrit 23.9 42-52 % Mean Corpuscular Volume 88.8 80-100 fL Mean Corpuscular Hemoglobin 27.5 25-34 pg Mean Corpuscular Hemoglobin Concent 31.0 32-36 g/dl Platelet Count 306 130-400 K/uL Mean Platelet Volume 8.7 7.4-10.4 fL Neutrophils (%) (Auto) 61.6 % Lymphocytes (%) (Auto) 18.7 % Monocytes (%) (Auto) 10.9 % Eosinophils (%) (Auto) 7.4 % Basophils (%) (Auto) 0.8 % Neutrophils # (Auto) 5.35 1.4-6.5 K/uL Lymphocytes # (Auto) 1.62 1.2-3.4 K/uL Monocytes # (Auto) 0.95 0.11-0.59 K/uL Eosinophils # (Auto) 0.64 0-0.5 K/uL Basophils # (Auto) 0.07 0-0.2 K/uL RDW Standard Deviation 48.8 36.4-46.3 fL RDW Coefficient of Variation 15.1 11.5-14.5 % Immature Granulocyte % (Auto) 0.6 % Immature Granulocyte # (Auto) 0.05 0.00-0.02 K/uL Hypochromasia PRESENT Sodium Level 141 136-145 mmol/L Potassium Level 4.0 3.5-5.1 mmol/L Chloride Level 111 98-107 mmol/L Carbon Dioxide Level 23 21-32 mmol/L Anion Gap 6.0 3-11 mmol/L Blood Urea Nitrogen 21 7-18 mg/dl Creatinine 1.69 0.60-1.40 mg/dl Est Creatinine Clear Calc Drug Dose 41.6 ml/min Estimated GFR () 48.0 Estimated GFR (Non- 41.4 BUN/Creatinine Ratio 12.7 10-20 Random Glucose 74 70-99 mg/dl Calcium Level 7.5 8.5-10.1 mg/dl
--- NOTE | 2017-10-04 14:55 | Nephrology Progress Note ---
Nephrology Progress Note Date of Service: Oct 04, 2017. Subjective denies pain in abdomen/back/joints, no N, no sob or edema. stable chronic generalized pruritis Objective Date Time Temp Pulse Resp B/P (MAP) Pulse Ox O2 Delivery O2 Flow Rate FiO2 10/04/17 11:50 36.2 56 16 104/65 10/04/17 10:40 36.6 56 18 112/69 10/04/17 10:10 36.5 56 18 111/67 10/04/17 09:40 36.6 59 18 120/70 10/04/17 09:25 36.6 57 18 123/76 10/04/17 09:06 36.7 57 18 135/77 10/04/17 08:15 Room Air 10/04/17 07:14 37.0 63 18 128/75 (92) 96 Room Air 10/04/17 00:00 Room Air 10/03/17 23:25 36.8 68 20 116/70 (85) 93 Room Air 10/03/17 16:00 Room Air 10/03/17 15:22 36.5 62 16 116/73 (87) 100 Room Air Physical Exam: Kreheyp-mnag-[id number] no acute distress, sitting up in chair on RA Eyes-eomi ENT-normal throat on inspection Neck-neck is supple Lungs-clear to auscultation bilaterally w/ diminished air entry Heart-RRR Abdomen-soft nondistended, bowel sounds are present. large inguinal scrotal hernia; guardado present Extremities-no edema Neuro-sales, fluent speech; affect somewhat anxious Skin: Dermatitis Current Inpatient Medications Medications (Trade) Dose Ordered Sig/Lakisha Route Start Time Stop Time Status Last Admin Dose Admin Acetaminophen (Tylenol Tab) 650 mg Q4H PRN PO 09/18/17 16:30 10/18/17 16:29 Atorvastatin Calcium (Lipitor Tab) 10 mg DAILY PO 09/19/17 09:00 10/19/17 08:59 10/04/17 07:59 10 MG Donepezil HCl (Aricept Tab) 5 mg HS PO 09/18/17 21:00 10/18/17 20:59 10/03/17 20:19 5 MG Ferrous Sulfate (Feosol Tab) 325 mg BID PO 09/18/17 21:00 10/18/17 20:59 10/04/17 08:03 325 MG Folic Acid (Folvite Tab) 1 mg QAM PO 09/19/17 09:00 10/19/17 08:59 10/04/17 08:00 1 MG Gabapentin (Neurontin Cap) 100 mg QAM PO 09/19/17 09:00 10/19/17 08:59 10/04/17 07:59 100 MG Levothyroxine Sodium (Synthroid Tab) 25 mcg DAILYBB PO 09/19/17 06:00 10/19/17 06:59 10/04/17 06:06 25 MCG Pantoprazole Sodium (Protonix Tab) 40 mg BID PO 09/18/17 21:00 10/18/17 20:59 10/04/17 07:59 40 MG Risperidone (Risperdal Tab) 0.5 mg HS PO 09/18/17 21:00 10/18/17 20:59 10/03/17 20:19 0.5 MG Sertraline HCl (Zoloft Tab) 50 mg DAILY PO 09/19/17 09:00 10/19/17 08:59 10/04/17 07:59 50 MG Prednisone (PredniSONE TAB) 10 mg DAILY PO 09/19/17 09:00 10/18/17 16:59 10/04/17 07:59 10 MG Sucralfate (Carafate Tab) 1 gm ACHS PO 09/19/17 16:15 10/19/17 16:14 10/04/17 10:55 1 GM Tamsulosin HCl (Flomax Cap) 0.4 mg HS PO 09/19/17 21:00 10/19/17 20:59 10/03/17 20:19 0.4 MG Finasteride (Proscar Tab) 5 mg QAM PO 09/20/17 09:00 10/20/17 08:59 10/04/17 08:04 5 MG Heparin Sodium (Porcine) (Heparin Sq 5000 Unit/0.5ml) 5,000 unit Q8 SQ 09/22/17 14:00 10/22/17 13:59 Future Hold 09/23/17 14:10 5,000 UNIT Aluminum Ammonium Sulfate 30 gm/ Sodium Chloride 3,000 ml @ 0 mls/hr PRN PRN IR 09/25/17 09:45 10/25/17 09:44 09/30/17 08:00 1,500 MLS/HR Atenolol (Tenormin Tab) 25 mg DAILY PO 09/26/17 09:00 10/26/17 08:59 10/04/17 08:00 25 MG Belladonna/Opium (B & O Adult Supp) 60 mg Q8 PRN ND 09/29/17 11:00 10/13/17 10:59 09/29/17 13:35 60 MG Tramadol HCl (Ultram Tab) 25 mg Q6H PRN PO 09/30/17 03:00 10/30/17 02:59 Hydromorphone HCl (Dilaudid Inj) 0.5 mg Q3H PRN IV 09/30/17 03:00 10/14/17 02:59 Sodium Chloride 1,000 ml @ 80 mls/hr [id number] IV 10/04/17 08:15 11/03/17 08:14 10/04/17 08:15 80 MLS/HR Last 24 Hours Test 10/04/17 05:42 White Blood Count 8.68 K/uL Red Blood Count 2.69 M/uL Hemoglobin 7.4 g/dL Hematocrit 23.9 % Mean Corpuscular Volume 88.8 fL Mean Corpuscular Hemoglobin 27.5 pg Mean Corpuscular Hemoglobin Concent 31.0 g/dl Platelet Count 306 K/uL Mean Platelet Volume 8.7 fL Neutrophils (%) (Auto) 61.6 % Lymphocytes (%) (Auto) 18.7 % Monocytes (%) (Auto) 10.9 % Eosinophils (%) (Auto) 7.4 % Basophils (%) (Auto) 0.8 % Neutrophils # (Auto) 5.35 K/uL Lymphocytes # (Auto) 1.62 K/uL Monocytes # (Auto) 0.95 K/uL Eosinophils # (Auto) 0.64 K/uL Basophils # (Auto) 0.07 K/uL RDW Standard Deviation 48.8 fL RDW Coefficient of Variation 15.1 % Immature Granulocyte % (Auto) 0.6 % Immature Granulocyte # (Auto) 0.05 K/uL Hypochromasia PRESENT Sodium Level 141 mmol/L Potassium Level 4.0 mmol/L Chloride Level 111 mmol/L Carbon Dioxide Level 23 mmol/L Anion Gap 6.0 mmol/L Blood Urea Nitrogen 21 mg/dl Creatinine 1.69 mg/dl Est Creatinine Clear Calc Drug Dose 41.6 ml/min Estimated GFR () 48.0 Estimated GFR (Non- 41.4 BUN/Creatinine Ratio 12.7 Random Glucose 74 mg/dl Calcium Level 7.5 mg/dl Assessment & Plan 67 y/o M w/ bullous pemphigoid, schizophrenia, complex valvular heart disease, multiple admissions [facility] past 3-4 mos sent from PCP office 09/18 to ER d/t concern for abnormal labs and inability to care for self. His presenting creatinine was 5.3, prior baseline 1.3-1.5. Also unable to perform ADLs after d /c mid month from [facility] where he had gone after most recent hospital stay. His presenting systolic BP was in 70s, his presenting hgb was 7.7. ОЛЕГ on CKD3, not oliguric, w/ obstructive and prerenal components -baseline creatinine 1.3-1.5; his renal function improved after initial presentation with guardado placement then worsened again <<>> recurrent obstruction noted imaging and pt s/p BL stenting >>will change NS to 1/2 NS at 80 ml/hr d/t mild hyperchloremia -cont strict I/O, daily bmp BL hydronephrosis and hydroureter, likely chronic >> no stones seen -f/u urology recommendations; s/p BL stent; bladder enhancement noted on CT -guardado per urology; elevated psa noted acute on chronic anemia -too severe for his degree of renal failure but w/ severe iron deficiency >> getting pRBC today and so cannot do iron studies unless added to labs this am; may reflect recent procedures in part as well -note fobt negative Appreciate consult; will follow with you.
[2017-10-04 16:36] LABS: TRANSFERRIN 177 mg/dl (200-360)
[2017-10-04] MEDS: DONEPEZIL HCL 5 MG TAB PO SCH (20:28)
[2017-10-04] MEDS: TAMSULOSIN HCL 0.4 MG CAP PO SCH (20:29)
[2017-10-04] MEDS: RISPERIDONE 0.5 MG TAB PO SCH (20:29)
[2017-10-05] MEDS: SODIUM CHLORIDE 0.45% 1000ML 1,000 ML IV SCH (00:44)
[2017-10-05] MEDS: LEVOTHYROXINE 25 MCG TAB PO SCH (05:53)
[2017-10-05] MEDS: SUCRALFATE 1 GM TAB PO SCH ×2 (05:53→11:22)
[2017-10-05 07:21] VITALS: BP 132/81; PULSE 54; TEMP 36.6; O2SAT 97
[2017-10-05] MEDS: PANTOprazole SOD 40 MG TAB PO SCH (07:51)
[2017-10-05] MEDS: ATORVASTATIN 10 MG TAB PO SCH (07:52)
[2017-10-05] MEDS: FERROUS SULFATE 325 MG TAB PO SCH (07:52)
[2017-10-05] MEDS: FINASTERIDE 5 MG TAB PO SCH (07:53)
[2017-10-05 07:54] VITALS: PULSE 64
[2017-10-05] MEDS: SERTRALINE HCL 50 MG TAB PO SCH (07:54)
[2017-10-05] MEDS: GABAPENTIN 100 MG CAP PO SCH (07:55)
[2017-10-05] MEDS ORDERED: NURSING VERBAL MED ORDER ONE (08:15)
[2017-10-05 08:41] LABS: HEMATOCRIT 30.6 % (42-52); HEMOGLOBIN 9.7 g/dL (14.0-18.0); MEAN CELL VOLUME 88.7 fL (80-100); MEAN CORPUSCULAR HEMOGLOBIN 28.1 pg (25-34); MEAN CORPUSCULAR HGB CONC 31.7 g/dl (32-36); MEAN PLATELET VOLUME 8.6 fL (7.4-10.4); PLATELET COUNT 296 K/uL (130-400); RED CELL DISTRIBUTION WIDTH CV 14.8 % (11.5-14.5); RED CELL DISTRIBUTION WIDTH SD 47.7 fL (36.4-46.3); WHITE BLOOD COUNT 9.84 K/uL (4.8-10.8)
[2017-10-05 09:32] LABS: CALCIUM 8.3 mg/dl (8.5-10.1); CREATININE 1.72 mg/dl (0.60-1.40); POTASSIUM 3.3 mmol/L (3.5-5.1)
[2017-10-05] MEDS ORDERED: SODIUM CHLORIDE 0.45% 1000ML 1,000 ML IV SCH (10:45)
[2017-10-05] MEDS ORDERED: POTASSIUM CHLORIDE 20 MEQ TABCR PO ONE (10:45)
[2017-10-05 11:56] VITALS: BP 132/81; PULSE 64; TEMP 36.6; O2SAT 97
--- NOTE | 2017-10-05 12:41 | Progress Note ---
Internal Med Progress Note Date of Service: Oct 05, 2017. Provider Documentation: SUBJECTIVE: The patient was seen and examined in medical floor He is a 67 years old male with significant past medical history of schizophrenia , use right inguinal hernia and paroxysmal defibrillation Was admitted with gross hematuria, urinary retention and bilateral hydronephrosis His catheter was removed today and started to have bloody urine again Denies any symptoms 10/01: Out of bed when a chair and keeps picking Denies any acute symptoms Specifically denies any back pain, any nausea and/or vomiting, any abdominal fullness Continues to have hematuria as per the nurse 10/02: Denies any symptoms We will be going for cystoscopy and possible stent placement for bilateral hydronephrosis 10/03: Status post cystoscopy and bilateral ureteral stent placement on 10/02 Has had urinary tension and required straight cath last night with 1100 out If it happens again we will need to have a King catheter Patient denies any complaints 10/04: Status post cystoscopy and bilateral ureteric stent placement on 10/03/17 Status post King catheter placement yesterday Denies any symptoms today No more hematuria noted 10/05: Denies any complaints Has not been drinking enough fluid Renal function is a little worse today Will be transferred to [facility] [place] this afternoon OBJECTIVE: Vital Signs-as noted below Exam: General-no apparent distress at rest Keeps on picking Eyes-normal ENT-normal Neck-supple Lungs-clear to auscultate bilaterally Heart-irregular, 2/6 systolic murmur over precordium Abdomen-benign, soft, nontender No tenderness at renal angles Has diffuse right-sided complete, nonreducible inguinal hernia Bleeding noted from the urethra Extremities-no edema Neuro-alert and awake Pleasantly confused No focal neuro deficit Has King catheter placed-output is blood stained today We will keep the King on discharge and day make an early appointment with urology Lab data as noted below. 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 Bilateral Hydronephrosis - King catheter is placed and discontinued on 09/30 - continue Flomax and Finasteride - outpatient cystoscopy; likely will need TURP -Discussed with the urology PA ; no cystoscopic now but may consider percutaneous nephrostomy tube -Observe for now and plan for percutaneous nephrostomy if creatinine is not any better -We will be going for cystoscopy and possible bilateral ureteral stent placement for obstruction -Status post stem cystoscopy and bilateral stent placement on 10/02 -Status post placement of King catheter -draining bloodstained urine -Creatinine is worse today -We will advise more fluid orally Gross Hematuria in the setting of UTI - monitor hematuria; has had three units of packed red blood cells during this admission - monitor H/H-remains stable - Coumadin on hold - s/p 3 units pRBCs -Hb remains stable -Appreciate urology input -Catheter removed yesterday 09/30 -Continues to have hematuria -Required to put falling the other day -will discharge with the King and follow the recommendation as per the neurologist - Hemoglobin is down today to 7.7 Due to multifactorial causes including CKD and ongoing hematuria Monitor H&H and transfuse if hemoglobin less than 7 Will give 1 unit of blood transfusion, hemoglobin 7.4 today Hemoglobin is more than 9 We will continue with iron Acute Kidney Injury - likely secondary to obstruction and hematuria - monitor creatinine - Creatinine is worse -Appreciate nephrology input and recommendation for probable nephrostomy tube -Discussed with urology -Kidney function remains stable with creatinine 2.02 -Kidney function is worse today but expected to improve following the stent placement -Kidney function has been improving but a little worse today -We will advise more fluid orally -Monitor PRP as an outpatient Paroxysmal A. Fib - currently in NSR - hold Coumadin - continue Atenolol -No symptoms -Will start Coumadin on discharge -Coumadin will be on hold until hematuria clears up Schizophrenia - continue Risperdal - continue Celexa for depression -Has symptoms of schizophrenia but no acute delirium Neurotic Excoriations - monitor for infections -patient keeps on picking and that is not possible to control Valvular Heart Disease - stable, hold diuretics Hypothyroidism - continue Synthroid DVT ppx - SCDs-Hematuria continued FULL CODE Disposition Needs to be placed Likely to be discharged this afternoon Vital Signs: Date Time Temp Pulse Resp B/P (MAP) Pulse Ox O2 Delivery O2 Flow Rate FiO2 10/05/17 11:56 36.6 64 18 97 Room Air 10/05/17 08:00 Room Air 10/05/17 07:54 64 10/05/17 07:21 36.6 54 18 132/81 (98) 97 Room Air 10/05/17 00:30 Room Air 10/04/17 23:45 36.8 61 20 136/82 (100) 96 Room Air 10/04/17 16:00 98 Room Air 10/04/17 15:15 36.8 67 18 134/83 (100) 98 Room Air Lab Results: Results Past 24 Hours Test 10/04/17 15:30 10/05/17 08:33 Range/Units Iron Level 55 35-175 mcg/dl Transferrin 177 200-360 mg/dl Transferrin % Saturation 22 20-50 % White Blood Count 9.84 4.8-10.8 K/uL Red Blood Count 3.45 4.7-6.1 M/uL Hemoglobin 9.7 14.0-18.0 g/dL Hematocrit 30.6 42-52 % Mean Corpuscular Volume 88.7 80-100 fL Mean Corpuscular Hemoglobin 28.1 25-34 pg Mean Corpuscular Hemoglobin Concent 31.7 32-36 g/dl RDW Standard Deviation 47.7 36.4-46.3 fL RDW Coefficient of Variation 14.8 11.5-14.5 % Platelet Count 296 130-400 K/uL Mean Platelet Volume 8.6 7.4-10.4 fL Sodium Level 139 136-145 mmol/L Potassium Level 3.3 3.5-5.1 mmol/L Chloride Level 105 98-107 mmol/L Carbon Dioxide Level 27 21-32 mmol/L Anion Gap 7.0 3-11 mmol/L Blood Urea Nitrogen 20 7-18 mg/dl Creatinine 1.72 0.60-1.40 mg/dl Est Creatinine Clear Calc Drug Dose 40.9 ml/min Estimated GFR () 47.0 Estimated GFR (Non- 40.5 BUN/Creatinine Ratio 11.5 10-20 Random Glucose 110 70-99 mg/dl Calcium Level 8.3 8.5-10.1 mg/dl
[2017-10-05] MEDS ORDERED: FLM4 PO (14:42)
[2017-10-05] MEDS ORDERED: PRS5 PO (14:42)
[2017-10-05] MEDS ORDERED: WARF1TAB PO (14:42)
--- NOTE | 2017-10-05 14:49 | Discharge Instructions ---
Discharge Instructions Date of Service Oct 05, 2017. Admission Reason for Admission: ОЛЕГ Discharge Discharge Diagnosis / Problem: Gross hematuria, bilateral hydronephrosis status post cystoscopy & u stents Discharge Goals Goal(s): Prevent Disease Progression Activity Recommendations Activity Level: Assistance Required Therapies: Physical Therapy, Occupational Therapy . Additional Information Patient informed of condition: Yes Advance Directives: No DNR: No Level of Care: Skilled Communicable Disease: No Prognosis: Stable Oxygen at (LPM): 2 liters /min via NC as needed King Catheter: Yes (Recommend King remain in place x 7 -10 days with voiding trail at [facility]. After King is removed, recommend routine bladder scans with straight cath PRN if PVR over 300ml.) Instructions / Follow-Up Instructions / Follow-Up KEEP APPOINTMENT WITH UROLOGY.pLEASE MAKE AN APPOINTMENT WITH YOUR pcp IN 1 WEEK FOLLOWING DISCHARGE Current Hospital Diet Patient's current hospital diet: Renal Diet Discharge Diet Recommended Diet: Renal Diet Fluid Restriction: None (DRINK MORE FLUID ) Procedures Procedures Performed: Cystoscopy, Fulguration, Clot Evacuation, Bilateral Retrograde pyelogram and bilateral stent Insertion (6 Setswana by 2030 cm) Pending Studies Studies pending at discharge: no Medical Emergencies . Who to Call and When: Medical Emergencies: If at any time you feel your situation is an emergency, please call 911 immediately. . Non-Emergent Contact Non-Emergency issues call your: Primary Care Provider . Past History Medical & Surgical History: (1) Hematuria (2) Hydronephrosis (3) ОЛЕГ (acute kidney injury) (4) Scrotal hernia (5) Hyperkalemia (6) UTI (urinary tract infection) (7) Acute renal failure (8) Paroxysmal atrial fibrillation (9) Schizophrenia, unspecified (10) Hypothyroidism . "Provider Documentation" section prepared by Fern Corona. . Core Measure Problem Core Measures: None
--- NOTE | 2017-10-05 16:38 | Discharge Summary ---
Discharge Summary Date of Service Oct 05, 2017. Discharge Summary Admission Date: Sep 18, 2017 at 16:32 Discharge Date: Oct 05, 2017 [facility] Principal Diagnosis: Gross hematuria, bilateral hydronephrosis status post cystoscopy & bilateral ureteral stents,ОЛЕГ Secondary Diagnoses/Problems: Please see H&P and Hospital Progress note Consultations: Urology and Nephrology Pending Studies/Follow-Up: Will need to drink more fluid and Check PRP at follow ups Medication Reconciliation New Medications: Finasteride (Finasteride) 5 Mg Tab 5 MG PO QAM for 30 Days, #30 TAB Tamsulosin HCl (Tamsulosin HCl) 0.4 Mg Cap 0.4 MG PO HS for 30 Days, #30 CAP Changed Medications: Warfarin Sodium (Coumadin) 1 Mg Tab 1 TAB PO UD for 30 Days (Medication details modified) start when Hematuria stops Continued Medications: Atenolol (Tenormin) 25 Mg Tab 25 MG PO DAILY, TAB Atorvastatin (Lipitor) 10 Mg Tab 10 MG PO DAILY Donepezil HCl (Aricept) 5 Mg Tab 5 MG PO HS, TAB Ferrous Sulfate (Ferrous Sulfate) 325 Mg Tab 325 MG PO BID Folic Acid (Folvite) 1 Mg Tab 1 MG PO QAM, TAB Gabapentin (Gabapentin) 100 Mg Cap 100 MG PO QAM Levothyroxine Sodium (Synthroid) 25 Mcg Tab 25 MCG PO DAILY, TAB Magnesium Oxide (Mag-Ox) 400 Mg Tab 400 MG PO BID, TAB Pantoprazole (Protonix) 40 Mg Tab 40 MG PO BID Potassium Chloride (Potassium Chloride Er) 10 Meq Cap 10 MEQ PO DAILY, CAP Prednisone Tab (Prednisone) 10 Mg Tab 10 MG PO UD Risperidone (Risperdal) 0.5 Mg Tab 0.5 MG PO HS Sertraline (Zoloft) 50 Mg Tab 50 MG PO DAILY Discontinued Medications: Furosemide (Lasix) 20 Mg Tab 20 MG PO DAILY Admission Information HPI (per Admitting provider): This is a 67 year old male who has a significant PMH of Schizophrenia, PAF on intermediate project manager coumadin, s/p bioprostetic Aortic Valve Replacement, Mitral Valve repair, CKD -3 baseline crea 1.2, Chronic Anemia, hx of bacterial endocarditis, HLD, hypothroidism, bullous pemphigoid who was seen in his PCP office today and sent to ED due to abnormal labs. He was recently discharged form [facility] on . In PCP office he was noted to be hypotensive, he had not bathed or showered since discharge from [facility], has not been eating or drinking well and unable to do ADLS/IADLS. He is living at home with his brother and no assistance. Outpatient labs revealed creatinine of 5.6, hgb 8.4 and sent to ED via ALS. He is currently sitting up in hospital bed states, "I don't think I'm eating enough." He complains of occasional SOB with exertion, but denies f/c/s, chest pain, sob at rest, dizziness, lightheaded, n/v/d. Last BM was yesterday, it was small and black. His stools are always black due to iron. Feels he is urinating without difficulty, denies increased frequency or urgency, but complains of dysuria. Overall he states he eats, "very light," and drinks 3 glasses of fluid a day. Last night for dinner he had spam, and breakfast this morning consisted of a fruit cup. No one is present at bedside. In ED Bun/Crea were 102 and 5.3 respectively, Na 135, K 5.0, TSH 1.01, Trop <0.015, H/H 7.7/ 23.8. Blood pressure on arrival was 79/45. He was given a bolus of IVF x 2 L and started on third liter. Blood pressure improved to 99/51. CT scan abd/ pelvis showed pronounced bilateral hydronephrosis and hydroureter, likely secondary to long-standing bladder outlet obstruction as there is marked bladder wall thickening and trabeculation. Past Medical/Surgical History Medical Problems: (1) Anticoagulant long-term use Status: Chronic (2) History of endocarditis Status: Chronic (3) HLD (hyperlipidemia) Status: Chronic (4) Hyperlipidemia Status: Chronic (5) Hypothyroidism Status: Chronic (6) Paroxysmal atrial fibrillation Status: Chronic (7) Schizophrenia, unspecified Status: Chronic (8) Superior mesenteric aneurysm Status: Chronic Surgical Problems: (1) H/O tricuspid valve annuloplasty Status: Chronic (2) S/P aortic valve replacement Status: Chronic (3) S/P mitral valve repair Status: Chronic Family History Diabetes mellitus BROTHER, Onset:Unknown FH: congestive heart failure FATHER, Onset:Unknown MOTHER, Onset:Unknown FH: heart disease FATHER, Onset:Unknown Social History Smoking Status: Never Smoker Smokeless Tobacco Use: No Alcohol Use: occasionally (Was drinking 2 beers a day, but hasn't had any EOTH in past few days, "I've lost my taste for it.") Drug Use: none Marital Status: single Housing status: lives with family (brother) Immunizations History of Influenza Vaccine: Yes Influenza Vaccine Date: Nov 10, 2016 History of Tetanus Vaccine?: Yes Tetanus Immunization Date: Apr 03, 2017 History of Pneumococcal: Yes Pneumococcal Date: Nov 10, 2016 Allergies Coded Allergies: No Known Allergies (Unverified , 06/15/17) Home Medications Scheduled Atenolol (Tenormin), 25 MG PO DAILY Atorvastatin (Lipitor), 10 MG PO DAILY Donepezil HCl (Aricept), 5 MG PO HS Ferrous Sulfate (Ferrous Sulfate), 325 MG PO BID Folic Acid (Folvite), 1 MG PO QAM Furosemide (Lasix), 20 MG PO DAILY Gabapentin (Gabapentin), 100 MG PO QAM Levothyroxine Sodium (Synthroid), 25 MCG PO DAILY Magnesium Oxide (Mag-Ox), 400 MG PO BID Pantoprazole (Protonix), 40 MG PO BID Potassium Chloride (Potassium Chloride Er), 10 MEQ PO DAILY Prednisone Tab (Prednisone), 10 MG PO UD Risperidone (Risperdal), 0.5 MG PO HS Sertraline (Zoloft), 50 MG PO DAILY Warfarin Sodium (Coumadin), 1 TAB PO UD Review of Systems As per HPI, ten systems were reviewed and negative unless noted above. Physical Exam Vital Signs Date Time Temp Pulse Resp B/P (MAP) Pulse Ox O2 Delivery O2 Flow Rate FiO2 09/18/17 16:30 69 20 104/70 96 Room Air 09/18/17 16:21 96 Room Air 09/18/17 16:01 66 18 95/61 96 Room Air 09/18/17 15:17 66 16 92/59 99 Room Air 09/18/17 14:51 66 16 90/51 09/18/17 14:29 66 18 84/47 100 Room Air 09/18/17 13:04 36.3 62 16 79/45 100 Room Air 09/18/17 13:01 63 General Appearance: no apparent distress, + thin, + pertinent finding (poorly groomed Male, appears older than stated age.) Head: normocephalic Eyes: normal inspection, PERRL, EOMI, sclerae normal ENT: hearing grossly normal, pharynx normal, + pertinent finding (Mucous membranes dry,) Neck: supple, no adenopathy, thyroid normal, no JVD, no carotid bruits Respiratory/Chest: chest non-tender, lungs clear, normal breath sounds, no respiratory distress, no accessory muscle use Cardiovascular: regular rate, rhythm, + systolic murmur (2/6 SHAKILA noted best RUSB radiates to carotids, +AVR click) Abdomen/GI: normal bowel sounds, non tender, soft, no organomegaly Genitourinary - Male: no genital lesions, + pertinent finding (+Large R inguinal hernia noted, with skin excoriation.) Back: normal inspection Extremities/Musculoskelatal: normal inspection, no calf tenderness, normal capillary refill, no pedal edema, normal range of motion Neurologic/Psych: alert, oriented x 3, + depressed affect Skin: normal color, + pertinent finding (Skin dry, + multiple excoriations to b /l lower extremities, also open sacral wound to left buttock. ) Diagnostics Laboratory Results Results Past 24 Hours Test 09/18/17 13:53 09/18/17 14:07 Range/Units White Blood Count 9.28 4.8-10.8 K/uL Red Blood Count 2.67 4.7-6.1 M/uL Hemoglobin 7.7 14.0-18.0 g/dL Hematocrit 23.8 42-52 % Mean Corpuscular Volume 89.1 80-100 fL Mean Corpuscular Hemoglobin 28.8 25-34 pg Mean Corpuscular Hemoglobin Concent 32.4 32-36 g/dl Platelet Count 234 130-400 K/uL Mean Platelet Volume 9.5 7.4-10.4 fL Neutrophils (%) (Auto) 82.6 % Lymphocytes (%) (Auto) 4.5 % Monocytes (%) (Auto) 11.4 % Eosinophils (%) (Auto) 1.1 % Basophils (%) (Auto) 0.2 % Neutrophils # (Auto) 7.66 1.4-6.5 K/uL Lymphocytes # (Auto) 0.42 1.2-3.4 K/uL Monocytes # (Auto) 1.06 0.11-0.59 K/uL Eosinophils # (Auto) 0.10 0-0.5 K/uL Basophils # (Auto) 0.02 0-0.2 K/uL RDW Standard Deviation 52.1 36.4-46.3 fL RDW Coefficient of Variation 15.9 11.5-14.5 % Immature Granulocyte % (Auto) 0.2 % Immature Granulocyte # (Auto) 0.02 0.00-0.02 K/uL Hypochromasia PRESENT Prothrombin Time 43.5 9.0-12.0 SECONDS Prothromb Time International Ratio 4.3 0.9-1.1 Sodium Level 135 136-145 mmol/L Potassium Level 5.0 3.5-5.1 mmol/L Chloride Level 104 98-107 mmol/L Carbon Dioxide Level 22 21-32 mmol/L Anion Gap 9.0 3-11 mmol/L Blood Urea Nitrogen 102 7-18 mg/dl Creatinine 5.30 0.60-1.40 mg/dl Est Creatinine Clear Calc Drug Dose 13.3 ml/min Estimated GFR () 12.1 Estimated GFR (Non- 10.4 BUN/Creatinine Ratio 19.2 10-20 Random Glucose 93 70-99 mg/dl Calcium Level 7.9 8.5-10.1 mg/dl Phosphorus Level 4.0 2.5-4.9 mg/dl Magnesium Level 2.5 1.8-2.4 mg/dl Troponin I < 0.015 0-0.045 ng/ml Pro-B-Type Natriuretic Peptide 13385 0-900 pg/ml Thyroid Stimulating Hormone (TSH) 1.010 0.300-4.500 uIu/ml Total Bilirubin 0.2 0.2-1 mg/dl Direct Bilirubin < 0.1 0-0.2 mg/dl Aspartate Amino Transf (AST/SGOT) 16 15-37 U/L Alanine Aminotransferase (ALT/SGPT) 22 12-78 U/L Alkaline Phosphatase 50 45-117 U/L Total Protein 5.6 6.4-8.2 gm/dl Albumin 1.9 3.4-5.0 gm/dl Diagnostic Radiology CT abdomen/Pelvis: 1. Pronounced bilateral hydronephrosis and hydroureter, likely secondary to long-standing bladder outlet obstruction as there is marked bladder wall thickening and trabeculation. Urologic consultation is recommended. 2. Large right scrotal hernia containing portions of the ascending colon, cecum, appendix, and small bowel. 3. No evidence of bowel obstruction. No evidence of free air. Impression Assessment and Plan (1) ОЛЕГ (acute kidney injury) Assessment & Plan: This is a 67 year old male who has a significant PMH of Schizophrenia, PAF on intermediate project manager coumadin, s/p bioprostetic Aortic Valve Replacement, Mitral Valve repair, CKD -3 baseline crea 1.2, Chronic Anemia, hx of bacterial endocarditis, HLD, hypothroidism, bullous pemphigoid who was seen in his PCP office today and sent to ED due to abnormal labs. Patient found to be in ОЛЕГ, bun/creatinine 102/5.3 concern for pre renal vs.obstructive uropathy. -Admit to MedSurg with telemetry -Continue IV fluids at 150 cc/h, monitor I's and O's closely due to history of valvular heart disease -Consult nephrology Dr. Agatha Noble, baseline creatinine 1.2 -Consult urology secondary to bilateral hydronephrosis and obstructive uropathy -Check urinalysis with microscopy -Monitor blood pressure accordingly -Repeat BMP in the a.m. (2) Hydronephrosis Assessment & Plan: With ОЛЕГ. -Bladder scan qshift/PVR -Will consult urology (3) Schizophrenia, unspecified Assessment & Plan: -Continue Risperdal and Zoloft, mood is currently stable (4) Paroxysmal atrial fibrillation Assessment & Plan: Currently he is rate and rhythm controlled -Atenolol on hold secondary to hypotension -Coumadin on hold secondary to supratherapeutic INR (5) Supratherapeutic INR Assessment & Plan: No signs of active bleeding, no need for reversal at this time. Was taking 5mg po daily at home. Hold Coumadin PT/INR in a.m. (6) Hypothyroidism Assessment & Plan: -Continue levothyroxine (7) Chronic anemia Assessment & Plan: No signs of active bleeding -Most recent H&H 7.7 and 23.8 respectively -Continue iron supplementation -We will repeat iron studies in a.m. -On August 02, 2017 iron studies was as follows ferritin 114, iron 60, T sat 20, TIBC 299. (8) Hypoalbuminemia due to protein-calorie malnutrition Assessment & Plan: Will consult purse seining hand for further management. (9) Bullous skin disease Assessment & Plan: Continue prednisone 10 mg daily (10) Hyperlipidemia Assessment & Plan: Continue Lipitor (11) Scrotal hernia Assessment & Plan: Currently asymptomatic. Urology consulted for ОЛЕГ as noted above. (12) S/P aortic valve replacement (13) S/P mitral valve repair Attending Note: Patient is a 67 yr male with multiple comorbidities presents from PCP office for evaluation and management of abnormal labs, hypotension, poor appetite. His renal function worsened from baseline and Imaging studies is suggestive of chronic Obstructive Uropathy. Patient reports dizziness this morning which improved with IV fluids. Also reports burning micturition which he noticed last week which is currently resolving. States taking meds regularly since last discharge. Reports occasional SOB with exertion. Please review HPI for complete details. Physical Exam: Vitals signs as noted above General Appearance:poorly groomed, no apparent distress Head: normocephalic, Atraumatic Eyes: normal inspection, EOMI, PERRL Neck: supple, Trachea midline Respiratory/Chest: Decreased breath sounds, CTA Cardiovascular: S1, S2, +Systolic murmur Abdomen/GI:Soft, Non tender, Bowel sounds present : R inguinal hernia Extremities/Musculoskelatal:normal inspection, no edema Neurologic/Psych:AAOX3, grossly no focal neurological deficits Skin:normal color,warm, + multiple excoriations to b/l lower extremities( Improved from Prior admission), +sacral wound L buttock Assessment and Plan: Acute Kidney Injury on CKD III; likely 2/2 Chronic Obstructive Uropathy & Prerenal component 2/2 poor oral intake Hypotension Hold diuretics IV fluids Nephrology and Urology consulted Bladder Scan Protocol Avoid Nephrotoxic agents as able Urinalysis with microscopy pending Consider Abx if UA suggestive of UTI Supra therapeutic INR: No bleeding issues as per patient Hb near baseline Hold coumadin Monitor INR Afib: Resume BB and coumadin as able I personally reviewed the record. Patient is interviewed and examined at bedside. Patient's care is coordinated with Shalonda Parmar PA-C. Please refer to the documentation above for details of patient's presentation and for discussion of other issues. Advanced Directives Existing Living Will: No Existing Power of Beauty School Instructor: No Resuscitation Status VTE Prophylaxis Will order VTE Prophylaxis: Yes <Electronically signed by Shalonda Parmar PA-C> <Electronically signed by Cristobal Long MD> Signed: 09/18/[id number] Signed: 09/18/171919 Physical Exam (per Admitting): General Appearance: no apparent distress, + thin, + pertinent finding ( poorly groomed Male, appears older than stated age.) Head: normocephalic Eyes: normal inspection, PERRL, EOMI, sclerae normal ENT: hearing grossly normal, pharynx normal, + pertinent finding (Mucous membranes dry,) Neck: supple, no adenopathy, thyroid normal, no JVD, no carotid bruits Respiratory/Chest: chest non-tender, lungs clear, normal breath sounds, no respiratory distress, no accessory muscle use Cardiovascular: regular rate, rhythm, + systolic murmur (2/6 SHAKILA noted best RUSB radiates to carotids, +AVR click) Abdomen/GI: normal bowel sounds, non tender, soft, no organomegaly Genitourinary - Male: no genital lesions, + pertinent finding (+Large R inguinal hernia noted, with skin excoriation.) Back: normal inspection Extremities/Musculoskelatal: normal inspection, no calf tenderness, normal capillary refill, no pedal edema, normal range of motion Neurologic/Psych: alert, oriented x 3, + depressed affect Skin: normal color, + pertinent finding (Skin dry, + multiple excoriations to b/l lower extremities, also open sacral wound to left buttock. ) Hospital Course (1) ОЛЕГ (acute kidney injury) (2) Hydronephrosis (3) UTI (urinary tract infection) (4) Schizophrenia, unspecified (5) Paroxysmal atrial fibrillation (6) Supratherapeutic INR (7) Hyperkalemia (8) Hypothyroidism (9) Chronic anemia (10) Hyperlipidemia (11) Esophagitis determined by endoscopy (12) Hypoalbuminemia due to protein-calorie malnutrition (13) Bullous skin disease (14) Scrotal hernia (15) S/P aortic valve replacement (16) S/P mitral valve repair This is a 67 year old male with a past medical history of schizophrenia, depression, valvular heart disease s/p bioprosthetic aortic valve replacement, mitral valve repair, tricuspid valve annuloplasty; paroxysmal atrial fibrillation on long-term anticoagulation, hypothyroidism, HLD, inguinal hernia - presents with urinary retention, hematuria, acute kidney injury 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 Bilateral Hydronephrosis - King catheter is placed and discontinued on 09/30 - continue Flomax and Finasteride - outpatient cystoscopy; likely will need TURP -Discussed with the urology PA ; no cystoscopic now but may consider percutaneous nephrostomy tube -Observe for now and plan for percutaneous nephrostomy if creatinine is not any better -We will be going for cystoscopy and possible bilateral ureteral stent placement for obstruction -Status post stem cystoscopy and bilateral stent placement on 10/02 -Status post placement of King catheter -draining bloodstained urine -Creatinine is worse today -We will advise more fluid orally Gross Hematuria in the setting of UTI - monitor hematuria; has had three units of packed red blood cells during this admission - monitor H/H-remains stable - Coumadin on hold - s/p 3 units pRBCs -Hb remains stable -Appreciate urology input -Catheter removed yesterday 09/30 -Continues to have hematuria -Required to put falling the other day -will discharge with the King and follow the recommendation as per the neurologist - Hemoglobin is down today to 7.7 Due to multifactorial causes including CKD and ongoing hematuria Monitor H&H and transfuse if hemoglobin less than 7 Will give 1 unit of blood transfusion, hemoglobin 7.4 today Hemoglobin is more than 9 We will continue with iron Acute Kidney Injury - likely secondary to obstruction and hematuria - monitor creatinine - Creatinine is worse -Appreciate nephrology input and recommendation for probable nephrostomy tube -Discussed with urology -Kidney function remains stable with creatinine 2.02 -Kidney function is worse today but expected to improve following the stent placement -Kidney function has been improving but a little worse today -We will advise more fluid orally -Monitor PRP as an outpatient Paroxysmal A. Fib - currently in NSR - hold Coumadin - continue Atenolol -No symptoms -Will start Coumadin on discharge -Coumadin will be on hold until hematuria clears up Schizophrenia - continue Risperdal - continue Celexa for depression -Has symptoms of schizophrenia but no acute delirium Neurotic Excoriations - monitor for infections -patient keeps on picking and that is not possible to control Valvular Heart Disease - stable, hold diuretics Hypothyroidism - continue Synthroid DVT ppx - SCDs-Hematuria continued FULL CODE Disposition Needs to be placed Likely to be discharged this afternoon Total time spent on discharge = 40 minutes This includes examination of the patient, discharge planning, medication reconciliation, and communication with other providers. Discharge Instructions Date of Service Oct 05, 2017. Admission Reason for Admission: ОЛЕГ Discharge Discharge Diagnosis / Problem: Gross hematuria, bilateral hydronephrosis status post cystoscopy & u stents Discharge Goals Goal(s): Prevent Disease Progression Activity Recommendations Activity Level: Assistance Required Therapies: Physical Therapy, Occupational Therapy . Additional Information Patient informed of condition: Yes Advance Directives: No DNR: No Level of Care: Skilled Communicable Disease: No Prognosis: Stable Oxygen at (LPM): 2 liters /min via NC as needed King Catheter: Yes (Recommend King remain in place x 7 -10 days with voiding trail at [facility]. After King is removed, recommend routine bladder scans with straight cath PRN if PVR over 300ml.) Instructions / Follow-Up Instructions / Follow-Up KEEP APPOINTMENT WITH UROLOGY.pLEASE MAKE AN APPOINTMENT WITH YOUR pcp IN 1 WEEK FOLLOWING DISCHARGE Current Hospital Diet Patient's current hospital diet: Renal Diet Discharge Diet Recommended Diet: Renal Diet Fluid Restriction: None (DRINK MORE FLUID ) Procedures Procedures Performed: Cystoscopy, Fulguration, Clot Evacuation, Bilateral Retrograde pyelogram and bilateral stent Insertion (6 Angolan by 2030 cm) Pending Studies Studies pending at discharge: no Medical Emergencies . Who to Call and When: Medical Emergencies: If at any time you feel your situation is an emergency, please call 911 immediately. . Non-Emergent Contact Non-Emergency issues call your: Primary Care Provider . Past History Medical & Surgical History: (1) Hematuria (2) Hydronephrosis (3) ОЛЕГ (acute kidney injury) (4) Scrotal hernia (5) Hyperkalemia (6) UTI (urinary tract infection) (7) Acute renal failure (8) Paroxysmal atrial fibrillation (9) Schizophrenia, unspecified (10) Hypothyroidism . "Provider Documentation" section prepared by Fern Corona. . Core Measure Problem Core Measures: None <Electronically signed by Fern Corona M.D.> Signed: 10/05/17 [id number]
== END 2017-10-05 15:42 | DRG 699 ==
LOC: EDBD 12:52 → C.EDB 12:56 → C.2T 16:32 → ENRESERV 16:42 → C.4E 09-29 13:32
PROVIDERS: ADMIT Internal Medicine; ATTEND Internal Medicine
PROC: 0TCB8ZZ Extirpation of Matter from Bladder, Via Natural or Artificial Opening Endoscopic (ICD-10-PCS; principal; 2017-10-02 15:15)
PROC: BT131ZZ Fluoroscopy of Bilateral Kidneys using Low Osmolar Contrast (ICD-10-PCS; principal; 2017-10-02 15:15)
PROC: 0T788DZ Dilation of Bilateral Ureters with Intraluminal Device, Via Natural or Artificial Opening Endoscopic (ICD-10-PCS; principal; 2017-10-02 15:15)
DX: N13.9 Obstructive and reflux uropathy, unspecified (principal); N17.9 Acute kidney failure, unspecified; N39.0 Urinary tract infection, site not specified; R31.0 Gross hematuria; N18.3 Chronic kidney disease, stage 3 (moderate); N13.30 Unspecified hydronephrosis; I48.91 Unspecified atrial fibrillation; Z79.01 Long term (current) use of anticoagulants; E46 Unspecified protein-calorie malnutrition; E78.5 Hyperlipidemia, unspecified; E86.0 Dehydration; D64.9 Anemia, unspecified; L12.0 Bullous pemphigoid; F20.9 Schizophrenia, unspecified; Z95.2 Presence of prosthetic heart valve; E03.9 Hypothyroidism, unspecified; R79.1 Abnormal coagulation profile; L98.8 Other specified disorders of the skin and subcutaneous tissue; K40.90 Unilateral inguinal hernia, without obstruction or gangrene, not specified as recurrent; N32.89 Other specified disorders of bladder; K20.8 Other esophagitis; R33.9 Retention of urine, unspecified; L98.1 Factitial dermatitis